=== PATIENT | male | born 1940 | race Caucasian/White ===

== ENCOUNTER → 2016-08-01 | Outpatient (CLI) | payer OTHER ==
[~2016-08-01] MED LIST: IOPAMIDOL (ISOVUE-300) 100 ML BTL IV ONE
--- NOTE | 2016-08-01 10:31 | CT ---
CT Abdomen and Pelvis (Without and With Contrast) CT Urogram 0925 hours History: R31.0, gross hematuria. Comparison: CT February 2014. Technique: Spiral images were obtained through the abdomen and pelvis without contrast for renal ston e evaluation. 90 mL of Isovue-300 IV contrast were administered. After 2 minute and 10 minute delays, spiral imaging was obtained through the abdomen and pelvis without compression. Images were reconst ructed in multiple planes for CT urogram imaging. Volume rendering was also performed. Dose reduction techniques were utilized. Findings: On the noncontrast images, there is no evidence of calculus projected over the kidneys or a long the expected path of the ureters. No bladder calculus is seen as well. With IV contrast administration, there is good uptake and excretion of contrast by the kidneys. Both kidneys demonstrate no evidence of solid exophytic suspicious lesions. In the right kidney interpolar calyceal region, there is a 5 mm hypodensity on image 106 of series 6 similar to previous study. In the right kidney lower pole, there is a 7 mm hypodense cortical nonspecific lesion also stable, image 147 of series 6. Several subcentimeter hypodensities in both kidneys similar to previous study witho ut suspicious lesions. Moderate bilateral perinephric stranding again noted. No evidence of ureteroli thiasis or ureteral obstruction. No definite ureteral lesions noted on the delayed series. However, d elayed images demonstrate asymmetric wall thickening of the anterior right bladder wall measuring up to 15 mm, new since previous study. In the posterior segment of the right lobe of the liver, there is a 1.7 cm cyst unchanged since previ ous study. No suspicious hepatic lesions. Nonobstructing gallstone identified again measuring 8 mm. N o pericholecystic fluid or biliary ductal dilation. No peripancreatic fluid. No splenomegaly. No adre nal enlargement. No bowel obstruction. Diverticulosis of the descending but especially sigmoid colon without diverticu litis. Severe atherosclerotic calcification of the aorta and iliac arteries without aneurysm. No sign ificant mesenteric or retroperitoneal adenopathy. Images through the pelvis demonstrate asymmetric wall thickening of the anterior right wall of the bl adder up to 15 mm suspicious for transitional cell carcinoma. Cystoscopy is recommended. Sigmoid dive rticulosis without diverticulitis. Atherosclerotic calcification of the iliac arteries. Right inguina l hernia with mesenteric fat. No significant pelvic adenopathy. L5-S1 moderate degenerative disk disease, bilateral L5 spondylolysis, and 5 mm spondylolisthesis resu lting in moderate to severe bilateral neural foraminal stenosis without central canal stenosis. Impression: 1. Asymmetric thickening of the anterior right wall of the bladder suspicious for transitional cell c arcinoma. Recommend cystoscopy evaluation. 2. No nephrolithiasis, urinary tract obstruction, or suspicious renal masses. Bilateral perinephric s tranding. Please see above findings. 3. Cholelithiasis. 4. Hepatic cyst. 5. Atherosclerotic aorta without aneurysm. 6. Sigmoid diverticulosis without diverticulitis. 7. No significant adenopathy. 8. L5-S1 spondylolytic grade 1 spondylolisthesis. Findings and recommendations discussed with Dr. Thuy Tee's medical staff specialist, at 1010 hours today. A Follow-Up Required test result notification was sent via the [employer] service, 10:24:55 AM, 08/01/2016 , [employer] Message ID [id number].
== END ==
LOC: FIMAGING 08:28
PROVIDERS: ATTEND Urology
DX: R31.0 Gross hematuria (principal); N32.9 Bladder disorder, unspecified; K80.20 Calculus of gallbladder without cholecystitis without obstruction; K57.30 Diverticulosis of large intestine without perforation or abscess without bleeding; M43.17 Spondylolisthesis, lumbosacral region
CPT/HCPCS: 74178; Q9967

== ENCOUNTER → 2016-10-20 | Outpatient (CLI) | payer OTHER | LOC: FIMAGING 13:07 | PROVIDERS: ATTEND Nurse Practitioner | DX: I82.612 Acute embolism and thrombosis of superficial veins of left upper extremity (principal) ==

== ENCOUNTER 2016-11-14 15:21 | Emergency (ER) | payer OTHER ==
--- NOTE | 2016-11-14 15:58 | EDPHY ---
H & P Stated Complaint: tx bladder cancer/low plts/coughing up blood Time Seen by Provider: 11/14/16 15:42 HPI/ROS: CHIEF COMPLAINT: Sent here for VQ scan. HISTORY OF PRESENT ILLNESS: The patient is a 76-year-old male with history of bladder cancer, who was sent here from [facility] to have a VQ scan due to recent episodes of hemoptysis and tachycardia. The patient had a CT with contrast in the past that caused facial swelling. He took Benadryl and it improved. No hospitalization was required. The patient states he is prone to angioedema with NSAIDS. He had a successful CT with contrast with pre- medication on 08/01/16 without issue. The patient took 40mg Prednisone a few hours before arrival today. REVIEW OF SYSTEMS: A 10 point review of systems was performed and is negative with the exception of the elements mentioned in the history of present illness. Source: Patient - Personal History Current Tetanus/Diphtheria Vaccine: Yes Tetanus Vaccine Date: 2008 - Medical/Surgical History Hx Asthma: No Hx Chronic Respiratory Disease: No Hx Diabetes: No Hx Cardiac Disease: No Hx Renal Disease: No Hx Cirrhosis: No Hx Alcoholism: No Hx HIV/AIDS: No Hx Splenectomy or Spleen Trauma: No Other PMH: bladder cancer. carotid endardectomy. atrial fibrillation - Social History Smoking Status: Former smoker Drug Use: None, Heroin Additional Social History: Lives with his . - Physical Exam Exam: HR 126, RR 22, BP 136/85 at triage. General Appearance: Alert, no acute distress. Eyes: Pupils equal and round, no conjunctival injection, no discharge. ENT, Mouth: Mucous membranes are moist, no oropharyngeal erythema or edema. Neck: No lymphadenopathy, supple. Trachea midline. Respiratory: Lungs are clear to auscultation; no wheezes, rales, or rhonchi. Cardiovascular: Irregularly irregular; no murmur, rub, or gallop. Gastrointestinal: Abdomen is soft and non tender, no masses or organomegaly, bowel sounds normal. Skin: Warm and dry, no rashes, normal color. Extremities: No lower extremity edema, no calf tenderness or swelling. Neurological: Alert and oriented. Moving all four extremities easily and equally. Psychiatric: Normal affect. Constitutional: Initial Vital Signs Temperature (C) 36.4 C 11/14/16 15:26 Heart Rate 126 H 11/14/16 15:26 Respiratory Rate 22 H 11/14/16 15:26 Blood Pressure 136/85 H 11/14/16 15:26 O2 Sat (%) 97 11/14/16 15:26 O2 Delivery Mode Room Air Allergies/Adverse Reactions: NSAIDS (Non-Steroidal Anti-Inflamma Allergy (Severe, Verified 11/14/16 15:24) Swelling/neck,face,throat azithromycin [From Zithromax] Allergy (Mild, Verified 11/14/16 15:24) Hives iodine Allergy (Verified 11/14/16 15:24) Swelling/neck,face,throat Home Medications: Medication Instructions Recorded Losartan Potassium [Cozaar 50 mg 100 mg PO DAILY 01/20/13 (RX)] Probenecid [Probenecid 500mg (RX)] 250 mg PO DAILY 01/20/13 Albuterol [Proventil Inhaler] 1 - 2 puffs IH Q4 PRN 02/04/13 Diltiazem Cd [Cardizem ER 120 MG 120 mg PO BID 03/02/13 (RX)] Crestor 11/14/16 Dulera 100 Mcg/5 Mcg Inhaler 11/14/16 Medical Decision Making ED Course/Re-evaluation: The patient is a 76-year-old male sent here from the cancer center to have a VQ scan due to episode of hemoptysis and tachycardia. The patient had a CT with contrast in the past that caused angioedema that he woke up at night with. He took Benadryl and facial swelling improved. No hospitalization was required. I reviewed the patient's past medical records. He had a successful pre-medicated CT contrast on 08/01/16 without issue. The patient took 40mg Prednisone a few hours before arrival today. 4:10 p.m.: I spoke to the the GASKET SUPERVISOR Amy at the [facility] to discuss CT Angiogram with pre-medication instead of V/Q. 4:15 p.m.: I spoke to Dr. Dempsey, Radiology, given patient's history of never requiring hospitalization, CT Angiogram after premedication is a reasonable approach, rather than V/Q scan. 4:20 p.m.: Further history was obtained from the patient. He stopped diltiazem and Bystolic 3 days ago because of low blood pressure during chemotherapy. On initial evaluation the patient's BP is 127/85. He has heart rate of 110 that is irregularly irregular. It is possible the patient went back into atrial fibrillation. He had a platelet count 80981 this morning. He does not have cough or cold. He does not have nausea or vomiting at the time of my evaluation. I suspect that his hemoptysis this morning was due to his low platelet count. I suspect that his recent shortness of breath might be due to return of his atrial fibrillation. He has been on Xarelto in the past, is not now. 5:00 p.m.: Patient resting comfortably while undergoing premedication for CT angiogram. His heart rate is around 100, irregularly irregular. Blood pressure 149/75. He is not tachypneic or hypoxic. I spoke briefly with Dr. Tristan Chavez who agrees with my recommendation to resume patient's medications if CT angiogram is negative for PE. This patient sees Dr. Fatou Emmanuel. AnCT angiogram of chest was obtained. I viewed the images myself on the PACS system. See the full radiology report in the imaging section. No PE. 6: 15 p.m.: I spoke to Dr. Fatou Emmanuel, Cardiology who recommends patient resumes Bystolic, not diltiazem. EKG shows patient is back in sinus rhythm. DC VS are BP 120/63, HR 82 regular, RR 18, room air pulse ox 96%. Differential Diagnosis: I considered ddx of dyspnea that includes but is not limited to afib, ACS, pulmonary infection, PE. - Data Points Laboratory Results: Laboratory Results 11/14/16 15:50 11/14/16 15:50 Medications Given: Discontinued Medications Diphenhydramine HCl (Benadryl Injection) 50 mg IVP ONCE ONE PRN Reason: Protocol Stop: 11/14/16 16:10 Last Admin: 11/14/16 16:37 Dose: 50 mg Famotidine/Sodium Chloride (Pepcid 20 Mg (Premix)) 50 mls @ 200 mls/hr IV ONCE ONE PRN Reason: Protocol Stop: 11/14/16 16:23 Last Admin: 11/14/16 16:38 Dose: 50 mls Sodium Chloride (Ns) 1,000 mls @ 0 mls/hr IV CONT VERONIQUE; Per Protocol PRN Reason: Protocol Stop: 05/13/17 16:14 Last Admin: 11/14/16 16:39 Dose: 1,000 mls Methylprednisolone Sodium Succinate (Solu-Medrol) 100 mg IVP ONCE ONE PRN Reason: Protocol Stop: 11/14/16 16:10 Last Admin: 11/14/16 16:37 Dose: 100 mg Departure - Departure Disposition: Home, Routine, Self-Care Clinical Impression: atrial fibrillation resolved Condition: Good Instructions: A-fib (Atrial Fibrillation) (ED) Additional Instructions: Resume taking your Bystolic medication. I recommend that you take your blood pressure twice daily, once in the morning once at night. Record the values. If you feel dizzy or lightheaded you should lie down and check your blood pressure. If you have persistent lightheadedness, a few faint, if you develop chest pain, if you have a persistently fast heart rate (over 100)--you should be re- evaluated. As we discussed, there is no sign of a pulmonary embolus (blood clot) on your chest angiogram. I suspect that atrial fibrillation might have been contributing to your shortness of breath. Please followup with Dr. Fatou Emmanuel your client support analyst, for further evaluation. Follow up with Dr. Salcedo as scheduled and planned. Referrals: Sofia Abarca MD [Primary Care Provider] - As per Instructions Report Scribed for: Diana Mullins Report Scribed by: Paty Menchaca Date of Report: 11/14/16 Time of Report: 15:58 Physician Review and Approval Statement: 11/14/16 16:48 Portions of this note were transcribed by the medical affairs specialist. I, Dr. Diana Mullins, personally performed the history, physical exam, and medical decision- making; and confirmed the accuracy of the information in the transcribed note.
[2016-11-14] MEDS ORDERED: FAMOTIDINE 20 MG/NACL 50 ML IV ONE (16:09)
[2016-11-14] MEDS ORDERED: methylPREDNISolone SOD SUCC 125 MG/2 ML VIAL IVP ONE (16:09)
[2016-11-14] MEDS ORDERED: NS 1,000 ML IV SCH (16:15)
[2016-11-14 16:30] LABS: ADD DIFF? YES; ADD MORPH? NO; ATYPICAL LYMPHOCYTE FLAG 0 (0-99); FRAGMENT RBC FLAG 0 (0-99); HEMATOCRIT 26.7 % (40.0-51.0); LIPEMIA HEMOLYSIS FLAG 80 (0-99); MEAN CELL HEMOGLOBIN 33.1 pg (27.9-34.1); MEAN CELL HEMOGLOBIN CONCENTR. 33.7 g/dL (32.4-36.7); MEAN CELL VOLUME 98.2 fL (81.5-99.8); MEAN PLATELET VOLUME 11.3 fL (8.7-11.7); PLATELET CLUMPS FLAG 0 (0-99); RED BLOOD CELL COUNT 2.72 10^6/uL (4.40-6.38); RED CELL DISTRIBUTION WIDTH 17.2 % (11.5-15.2)
[2016-11-14 16:33] LABS: ANION GAP 10 mEq/L (8-16); CALCIUM 7.8 mg/dL (8.5-10.4); CARBON DIOXIDE 20 mEq/l (22-31); CHLORIDE 101 mEq/L (97-110); CREATININE 0.9 mg/dL (0.7-1.3); GLOMERULAR FILTRATION RATE > 60; GLUCOSE 127 mg/dL (70-100); POTASSIUM 3.9 mEq/L (3.5-5.2); SODIUM 131 mEq/L (134-144)
[2016-11-14 16:35] LABS: LEFT SHIFT FLG 300 (0-99)
[2016-11-14 16:36] LABS: ADD SCAN? NO
[2016-11-14 16:38] LABS: PLATELET COUNT 28 10^3/uL (150-400)
[2016-11-14] MEDS ORDERED: IOPAMIDOL (ISOVUE 370) 100 ML BTL IV ONE (16:49)
[2016-11-14 17:18] LABS: PLATELET ESTIMATE DECREASED (ADEQ)
--- NOTE | 2016-11-14 18:14 | CPEKG ---
Heart Rate: 100 RR Interval: 600 P-R Interval: 152 QRSD Interval: 78 QT Interval: 308 QTC Interval: 398 P [place]: 52 QRS [place]wich: 40 T Wave Sandwich: 241 EKG Severity - ABNORMAL ECG - EKG Impression: SINUS TACHYCARDIA EKG Impression: LOW VOLTAGE IN FRONTAL LEADS EKG Impression: NONSPECIFIC T ABNORMALITIES, LATERAL LEADS Electronically Signed By: Benjamin King 15-Nov-2016 23:51:59
[2016-11-14 18:52] VITALS: PULSE 82; RESP 18; O2SAT 96
[2016-11-14 18:56] VITALS: BP 120/63; TEMP 98.6
== END 2016-11-14 18:52 | disposition home or self-care (01) ==
DX: I48.91 Unspecified atrial fibrillation (principal); Z85.51 Personal history of malignant neoplasm of bladder; Z87.891 Personal history of nicotine dependence
CPT/HCPCS: 71275; 93005; 96374; 96375; 99285; J1200; Q9967

== ENCOUNTER 2016-11-21 07:47 | Outpatient (CLI) | payer OTHER ==
[2016-11-21] MEDS ORDERED: FUROSEMIDE 20 MG/2 ML VIAL IVP ONE (08:30)
[2016-11-21] MEDS ORDERED: diphenhydrAMINE 25 MG CAP PO ONE (08:30)
[2016-11-21] MEDS ORDERED: ACETAMINOPHEN 325 MG TAB PO ONE (08:30)
== END 2016-11-21 17:00 | disposition home or self-care (01) ==
LOC: FOBOP 07:47 → EDSTATUS 08:00 → FOBOP 17:00
PROVIDERS: ATTEND Internal Medicine Hematology & Oncology
PROC: 30233N1 Transfusion of Nonautologous Red Blood Cells into Peripheral Vein, Percutaneous Approach (ICD-10-PCS; principal; 2016-11-21)
DX: C67.9 Malignant neoplasm of bladder, unspecified (principal)
CPT/HCPCS: 36430; P9016; P9021

== ENCOUNTER 2016-11-22 16:57 | Inpatient (IN) | payer OTHER ==
--- NOTE | 2016-11-22 17:57 | EDPHY ---
H & P Time Seen by Provider: 11/22/16 17:18 HPI/ROS: Chief complaint. Fever HPI. 76-year-old male with history of bladder cancer undergoing chemotherapy. His last chemo was November 10. He had blood transfusion yesterday for pancytopenia. Today he had a fever 102.3 degrees. He has slight cough. He was seen 3 days ago for some shortness of breath and had a negative chest CT for pulmonary embolus. No urinary symptoms. Denies chest pain shortness of breath or abdominal pain. No rash. ROS Constitutional. Fever Eyes. no problems with vision ENT. no sore throat, no nasal drainage Cardiovascular. no chest pain Respiratory. Cough Abdominal. no abdominal pain, no nausea/vomiting, no diarrhea . no problems urinating MS. no calf pain/swelling, no neck/back pain, no joint pain Skin. no rash Lymph. no swollen glands Neuro. no headache, no dizziness, no difficulty walking or with speech Past Medical/Surgical History: Bladder cancer, carotid endarterectomy, atrial fibrillation Social History: , nonsmoker, no alcohol Smoking Status: Former smoker Physical Exam: General Appearance: Alert well-developed male mild distress vital signs show temp 37.1degrees P. O2 saturation 88% on room air. This blood pressure 116/66 Eyes: Pupils equal and round no pallor or injection. ENT, Mouth: Mucous membranes are moist. Respiratory: No retractions inspiratory expiratory wheezing and rhonchi Cardiovascular: Regular rate and rhythm. Gastrointestinal: Abdomen is soft and nontender, no masses, bowel sounds normal. Neurological: Awake and alert, sensory and motor exams grossly normal. Skin: Warm and dry, no rashes. Musculoskeletal: Neck is supple nontender. Extremities symmetrical, full range of motion. Psychiatric: Patient is oriented X 3, there is no agitation. Constitutional: Initial Vital Signs Temperature (C) 37.1 C 11/22/16 17:09 Heart Rate 92 11/22/16 17:09 Respiratory Rate 20 11/22/16 17:09 Blood Pressure 116/66 11/22/16 17:09 O2 Sat (%) 88 L 11/22/16 17:09 O2 Delivery Mode Nasal Cannula O2 (L/minute) 2 Allergies/Adverse Reactions: NSAIDS (Non-Steroidal Anti-Inflamma Allergy (Severe, Verified 11/22/16 17:08) Swelling/neck,face,throat azithromycin [From Zithromax] Allergy (Mild, Verified 11/22/16 17:08) Hives iodine Allergy (Verified 11/22/16 17:08) Swelling/neck,face,throat Home Medications: Medication Instructions Recorded Losartan Potassium [Cozaar 50 mg 100 mg PO DAILY 01/20/13 (RX)] Probenecid [Probenecid 500mg (RX)] 250 mg PO DAILY 01/20/13 Albuterol [Proventil Inhaler] 1 - 2 puffs IH Q4 PRN 02/04/13 Diltiazem Cd [Cardizem ER 120 MG 120 mg PO BID 03/02/13 (RX)] Crestor 11/14/16 Dulera 100 Mcg/5 Mcg Inhaler 11/14/16 Lasix 11/22/16 Metoprolol Oral Susp (*) 11/22/16 Medical Decision Making - Diagnostics EKG Interpretation: EKG interpreted by me shows normal sinus rhythm with normal interval and axis. QRS is normal there is no significant ST elevation or depression. Occasional PAC. Rate 79 Imaging Results: Imaging Impressions Chest X-Ray 11/22/16 17:41 Impression: 1. No pneumonia or effusion. 2. COPD unchanged since December 2012. 3. 1.5 cm right upper lobe pulmonary nodule unchanged since recent CT. Chest x-ray reviewed by me and discussed Dr. Bedolla shows COPD but no pneumonia Procedures: Sepsis workup including blood cultures and lactate. Massimo villeda ED Course/Re-evaluation: Re-evaluation 6:55 p.m.. The patient, his , and I discussed imaging lab EKG results. We discussed treatment plan including recommendation for admission. The patient expresses understanding and agreement Cefepime IV after blood cultures I consulted and discussed case Dr. Rose, hospitalist, who agrees to the admission I consulted and discussed the case with Dr. Reina, oncology, who will see the patient in the hospital Differential Diagnosis: This may well be neutropenic fever though the patient receive Neulasta in his white blood cell count is now 26,000. I have considered sepsis, pneumonia, urinary tract infection. He has had recent chemotherapy with marked decrease in the all blood cell lines. Patient is covered with cefepime as antibiotic. - Data Points Laboratory Results: Laboratory Results 11/22/16 17:31 11/22/16 17:31 0411/22/16 11/22/16 17:31 17:31 17:31 WBC RBC Hgb Hct MCV MCH MCHC RDW Plt Count MPV Neut % (Auto) Lymph % (Auto) [place] % (Auto) Eos % (Auto) Baso % (Auto) Nucleat RBC Rel Count Absolute Neuts (auto) Absolute Lymphs (auto) Absolute Monos (auto) Absolute Eos (auto) Absolute Basos (auto) Absolute Nucleated RBC Immature Gran % Immature Gran # Differential Comment Cancelled RBC/WBC/PLT Morphology Cancelled Hypersegmented Neuts Cancelled Atypical Lymphocytes Cancelled Smudge Cells Cancelled Toxic Granulation Cancelled Toxic Vacuolation Cancelled Dohle Bodies Cancelled Ihsan Rods Cancelled Platelet Estimate Cancelled Large Platelets Cancelled Giant Platelets Cancelled Bizarre Platelets Cancelled Polychromasia Cancelled Hypochromasia Cancelled Basophilic Stippling Cancelled Microcytic Cells Cancelled Spherocytes Cancelled Pappenheimer Bodies Cancelled Sickle Cells Cancelled Target Cells Cancelled Tear Drop Cells Cancelled Oval Macrocytes Cancelled Stomatocytes Cancelled [place] Bodies Cancelled Echinocytes Cancelled Elliptocytes Cancelled Acanthocytes (Spur) Cancelled Rouleaux Cancelled Keratocytes Cancelled Schistocytes Cancelled Smear Review By PT 15.4 SEC H SEC (12.0-15.0) INR 1.22 H (0.83-1.16) APTT 29.2 SEC SEC (23.0-38.0) VBG Lactic Acid Sodium 135 mEq/L mEq/L (134-144) Potassium 3.3 mEq/L L mEq/L (3.5-5.2) Chloride 100 mEq/L mEq/L (97-110) Carbon Dioxide 27 mEq/l mEq/l (22-31) Anion Gap 8 mEq/L mEq/L (8-16) BUN 16 mg/dL mg/dL (7-23) Creatinine 1.0 mg/dL mg/dL (0.7-1.3) Estimated GFR > 60 Glucose 107 mg/dL H mg/dL (70-100) Calcium 8.5 mg/dL mg/dL (8.5-10.4) Total Bilirubin 1.3 mg/dL mg/dL (0.1-1.4) Cold Agglutinins Cancelled 11/22/16 11/22/16 17:31 17:31 WBC 26.07 10^3/uL H 10^3/uL (3.80-9.50) RBC 2.50 10^6/uL L 10^6/uL (4.40-6.38) Hgb 8.2 g/dL L g/dL (13.7-17.5) Hct 23.8 % L % (40.0-51.0) MCV 95.2 fL fL (81.5-99.8) MCH 32.8 pg pg (27.9-34.1) MCHC 34.5 g/dL g/dL (32.4-36.7) RDW 20.9 % H % (11.5-15.2) Plt Count 137 10^3/uL L 10^3/uL (150-400) MPV 10.3 fL fL (8.7-11.7) Neut % (Auto) Not Reported Lymph % (Auto) Not Reported [place] % (Auto) Not Reported Eos % (Auto) Not Reported Baso % (Auto) Not Reported Nucleat RBC Rel Count 1.3 % H % (0.0-0.2) Absolute Neuts (auto) Not Reported Absolute Lymphs (auto) Not Reported Absolute Monos (auto) Not Reported Absolute Eos (auto) Not Reported Absolute Basos (auto) Not Reported Absolute Nucleated RBC 0.34 10^3/uL H 10^3/uL (0-0.01) Immature Gran % Not Reported Immature Gran # Not Reported Differential Comment RBC/WBC/PLT Morphology Hypersegmented Neuts Atypical Lymphocytes Smudge Cells Toxic Granulation Toxic Vacuolation Dohle Bodies Ihsan Rods Platelet Estimate Pending Large Platelets Giant Platelets Bizarre Platelets Polychromasia Hypochromasia Basophilic Stippling Microcytic Cells Spherocytes Pappenheimer Bodies Sickle Cells Target Cells Tear Drop Cells Oval Macrocytes Stomatocytes [place] Bodies Echinocytes Elliptocytes Acanthocytes (Spur) Rouleaux Keratocytes Schistocytes Smear Review By Pending PT INR APTT VBG Lactic Acid 1.6 mmol/L mmol/L (0.7-2.1) Sodium Potassium Chloride Carbon Dioxide Anion Gap BUN Creatinine Estimated GFR Glucose Calcium Total Bilirubin Cold Agglutinins Medications Given: Discontinued Medications Albuterol/Ipratropium (Duoneb) 3 ml IH EDNOW ONE Stop: 11/22/16 18:25 Last Admin: 04/26/17 18:35 Dose: 3 ml Departure - Departure Disposition: [facility] Inpatient Acute Clinical Impression: Fever Qualifiers: Fever type: due to other condition Qualified Code(s): R50.81 - Fever presenting with conditions classified elsewhere Condition: Fair
[2016-11-22 18:07] LABS: INR 1.22 (0.83-1.16); PROTIME(PATIENT) 15.4 SEC (12.0-15.0)
[2016-11-22 18:08] LABS: APTT 29.2 SEC (23.0-38.0)
--- NOTE | 2016-11-22 18:10 | CPEKG ---
Heart Rate: 79 RR Interval: 759 P-R Interval: 152 QRSD Interval: 84 QT Interval: 384 QTC Interval: 441 P [place]: 62 QRS [place]: 36 EKG Severity - ABNORMAL ECG - EKG Impression: SINUS RHYTHM EKG Impression: SUPRAVENTRICULAR BIGEMINY EKG Impression: LOW VOLTAGE IN FRONTAL LEADS EKG Impression: NONSPECIFIC T ABNORMALITIES, LATERAL LEADS Electronically Signed By: Weston Castañeda 22-Nov-2016 21:12:15
[2016-11-22 18:12] LABS: ANION GAP 8 mEq/L (8-16); BILIRUBIN,TOTAL 1.3 mg/dL (0.1-1.4); CALCIUM 8.5 mg/dL (8.5-10.4); CARBON DIOXIDE 27 mEq/l (22-31); CHLORIDE 100 mEq/L (97-110); GLOMERULAR FILTRATION RATE > 60; GLUCOSE 107 mg/dL (70-100); POTASSIUM 3.3 mEq/L (3.5-5.2); SODIUM 135 mEq/L (134-144)
[2016-11-22] MEDS ORDERED: IPRATROPIUM/ALBUTEROL 3 ML DEYVIAL IH ONE (18:24)
[2016-11-22 18:28] LABS: ABSOLUTE NRBC COUNT 0.34 10^3/uL (0-0.01); ADD DIFF? YES; ADD MORPH? YES; FRAGMENT RBC FLAG 0 (0-99); HEMATOCRIT 23.8 % (40.0-51.0); HEMOGLOBIN 8.2 g/dL (13.7-17.5); LIPEMIA HEMOLYSIS FLAG 90 (0-99); MEAN CELL HEMOGLOBIN 32.8 pg (27.9-34.1); MEAN CELL HEMOGLOBIN CONCENTR. 34.5 g/dL (32.4-36.7); MEAN CELL VOLUME 95.2 fL (81.5-99.8); MEAN PLATELET VOLUME 10.3 fL (8.7-11.7); PLATELET CLUMPS FLAG 10 (0-99); PLATELET COUNT 137 10^3/uL (150-400)
[2016-11-22 18:33] LABS: ADD SCAN? NO; ATYPICAL LYMPHOCYTE FLAG 100 (0-99); LEFT SHIFT FLG 300 (0-99); NRBC-AUTO% 1.3 % (0.0-0.2); RED CELL DISTRIBUTION WIDTH 20.9 % (11.5-15.2)
[2016-11-22] MEDS ORDERED: CEFEPIME HCL 2 GM in D5W 100 ML IV ONE (19:00)
[2016-11-22] MEDS ORDERED: NS 1,000 ML IV ONE (19:12)
[2016-11-22 19:31] LABS: MACROCYTES 1+; MICROCYTES 1+; PLATELET ESTIMATE DECREASED (ADEQ)
[2016-11-22 19:32] LABS: KERATOCYTES 1+; POLYCHROMASIA 2+; SCHISTOCYTES 1+; STOMATOCYTES 1+
[2016-11-22] MEDS ORDERED: ONDANSETRON 4 MG/2 ML VIAL IVP PRN (20:57)
--- NOTE | 2016-11-22 21:15 | GHP ---
[f rep st] HISTORY AND PHYSICAL DATE OF ADMISSION: 11/22/2016 CHIEF COMPLAINT: Fever. HISTORY OF PRESENT ILLNESS: This is a 76-year-old male with history of bladder cancer diagnosed in June of 2016 currently undergoing chemotherapy. His last treatment was with Gemzar and carbopla tin on 11/10/2016. Since his last treatment he tells me he is "feeling awful." He had a blood leiva sfusion yesterday. He has very low energy. He was evaluated at [facility] ER on for hemoptysis. He continues to have a cough that he describes as productive with blueberr y colored sputum. He denies any shortness of breath. He denies any joint pain, but does have some bone pain which he attributes to Neulasta which he has received 2 doses of in the past few months. He denies any urinary complaints. The patient had a temperature of 102.3 this afternoon which ultimately brought him to the hospital f or further evaluation. PAST MEDICAL HISTORY: 1. Bladder cancer. 2. Recently diagnosed heart failure. 3. Atrial fibrillation. PAST SURGICAL HISTORY: 1. Bilateral carotid endarterectomy. 2. Hernia repair. 3. TURP. HOME MEDICATIONS: Reviewed. Refer to [facility] for details. ALLERGIES: NSAIDs, azithromycin and iodine. SOCIAL HISTORY: He denies any alcohol use. He is a former smoker. He is . FAMILY HISTORY: Reviewed and noncontributory. REVIEW OF SYSTEMS: Comprehensive 10-point review of systems was done and is negative, except for as mentioned in the HPI. PHYSICAL EXAM: VITAL SIGNS: Blood pressure 112/68, pulse 74, respiratory rate 20, O2 saturation 96 % on 2 liters. Temperature afebrile. GENERAL: No acute distress. HEAD: Normocephalic, atraumati c. Eyes are PERRLA. Sclerae anicteric. MOUTH: Moist mucous membranes. NECK: Supple. No lympha denopathy. CARDIOVASCULAR: S1-S2. No JVD. No lower extremity edema. PULMONARY: Lungs are clear . No wheezes, rales or rhonchi. ABDOMEN: Soft, nontender, nondistended. No guarding or rebound t enderness. Normoactive bowel sounds. EXTREMITIES: No clubbing or cyanosis. NEURO: Cranial nerve s 2-12 grossly intact. No focal motor or sensory deficits. SKIN: Clear. No rashes. DIAGNOSTICS: WBC is 26.07, hemoglobin 8.2, hematocrit 23.8, platelets 137, 64% segs, 20% bands, 9% lymphocytes. INR 1.22. Sodium 135, potassium 3.3, chloride 100, CO2 27, BUN 16, creatinine 1, gluc ose 107. Chest x-ray: Negative for pneumonia, 1.5 cm right upper lobe nodule unchanged since recent CT. EKG, which I visualized and personally interpreted, shows sinus rhythm. Rate 79 beats per minute, n o acute ischemic changes. ASSESSMENT AND PLAN: This is a 76-year-old male with history of bladder cancer currently undergoing treatment with Gemzar and carboplatin presenting with: 1. Fever with bandemia. The patient will be admitted to the hospital. Blood cultures and urine cu ltures are currently pending. He was started on cefepime in the emergency department which will be continued at this time. Oncology has been consulted by the emergency room physician. 2. Normocytic anemia most likely due to chemotherapy. Monitor for signs and symptoms of bleeding. 3. Mild hypokalemia. Replace per protocol. 4. The patient will be admitted to the hospital under inpatient status. /[id number]/MODL
[2016-11-22] MEDS ORDERED: ALBUTEROL 200 PUFFS/18 GM MDI IH PRN (21:49)
[2016-11-23] MEDS: CEFEPIME HCL 2 GM in D5W 100 ML IV SCH ×4 (01:36→20:58)
[2016-11-23 01:49] LABS: COLOR AMBER; LEUKOCYTE ESTERASE,URINE NEGATIVE (NEGATIVE); NITRITE,URINE NEGATIVE (NEGATIVE)
[2016-11-23 01:54] LABS: MUCUS TRACE /lpf (NONE-1+); WBC,URINE 15-25 /hpf (0-3)
[2016-11-23] MEDS: ROSUVASTATIN CALCIUM 40 MG TAB PO SCH ×2 (01:56→21:00)
[2016-11-23] MEDS: ACETAMINOPHEN 325 MG TAB PO PRN (04:15)
[2016-11-23 05:19] LABS: ADD DIFF? YES; FRAGMENT RBC FLAG 0 (0-99); HEMATOCRIT 21.9 % (40.0-51.0); HEMOGLOBIN 7.1 g/dL (13.7-17.5); LIPEMIA HEMOLYSIS FLAG 80 (0-99); MEAN CELL HEMOGLOBIN 32.3 pg (27.9-34.1); MEAN CELL HEMOGLOBIN CONCENTR. 32.4 g/dL (32.4-36.7); MEAN CELL VOLUME 99.5 fL (81.5-99.8); MEAN PLATELET VOLUME 9.8 fL (8.7-11.7); PLATELET CLUMPS FLAG 0 (0-99); PLATELET COUNT 124 10^3/uL (150-400)
[2016-11-23 05:31] LABS: ATYPICAL LYMPHOCYTE FLAG 120 (0-99); LEFT SHIFT FLG 230 (0-99); RED CELL DISTRIBUTION WIDTH 21.2 % (11.5-15.2)
[2016-11-23 05:32] LABS: ADD MORPH? NO; ADD SCAN? NO
[2016-11-23 05:41] LABS: ALANINE AMINOTRANSFERASE 39 IU/L (21-72); ALBUMIN 2.6 g/dL (3.5-5.0); ALKALINE PHOSPHATASE 137 IU/L (38-126); ASPARTATE AMINOTRANSFERASE 31 IU/L (17-59); BILIRUBIN,TOTAL 0.9 mg/dL (0.1-1.4); CALCIUM 7.9 mg/dL (8.5-10.4); CARBON DIOXIDE 28 mEq/l (22-31); CHLORIDE 104 mEq/L (97-110); CREATININE 0.9 mg/dL (0.7-1.3); GLOMERULAR FILTRATION RATE > 60; GLUCOSE 99 mg/dL (70-100); SODIUM 138 mEq/L (134-144)
[2016-11-23 05:42] LABS: ANION GAP 6 mEq/L (8-16); POTASSIUM 3.6 mEq/L (3.5-5.2)
[2016-11-23 06:18] LABS: PLATELET ESTIMATE DECREASED (ADEQ)
[2016-11-23 06:23] LABS: HYPOCHROMIA 1+; POLYCHROMASIA 1+
[2016-11-23] MEDS: ASCORBIC ACID 500 MG TAB PO SCH (08:34)
[2016-11-23] MEDS: FUROSEMIDE 20 MG TAB PO SCH (08:34)
[2016-11-23] MEDS: MONTELUKAST SODIUM 10 MG TAB PO SCH (08:34)
[2016-11-23] MEDS: CHOLECALCIFEROL VIT D3 2,000 UNITS TAB/CAP PO SCH (08:35)
[2016-11-23] MEDS: METOPROLOL SUCCINATE XR 25 MG TAB PO SCH (08:35)
[2016-11-23] MEDS: POTASSIUM CL 20 MEQ TAB PO SCH (08:35)
[2016-11-23] MEDS: ENOXAPARIN 40 MG/0.4 ML SYR SC SCH ×3 (08:35→09:54)
[2016-11-23] MEDS: FLUCONAZOLE 100 MG TAB PO SCH (08:35)
[2016-11-23] MEDS: Mometasone/Formoterol [Dulera 100 Mcg/5 Mcg Inhaler] IH SCH ×2 (08:36→21:20)
[2016-11-23] MEDS ORDERED: [UNRECOGNIZED DRUG - REMARK] PO SCH (09:00)
[2016-11-23] MEDS ORDERED: Herbals/Supplements -Info Only PO SCH (09:00)
[2016-11-23] MEDS ORDERED: FUROSEMIDE 20 MG/2 ML VIAL IVP ONE ×2 (09:24→14:30)
[2016-11-23] MEDS ORDERED: ACETAMINOPHEN 325 MG TAB PO ONE ×2 (09:24→14:30)
[2016-11-23] MEDS: PROBENECID 500 MG TAB PO SCH (09:53)
--- NOTE | 2016-11-23 10:32 | GCON ---
[f rep st] CONSULTATION ONCOLOGY FOLLOWUP CONSULTATION REFERRING PHYSICIAN: Antoine Rose DO REASON FOR CONSULTATION: Ongoing management of localized bladder cancer and chemotherapy side effec ts. RECOMMENDATIONS: 1. Agree with empiric cultures. 2. Agree with empiric antibiotic therapy pending cultures. 3. Because of the patient's underlying medical conditions. I would try to keep his hemoglobin at 8 or greater; therefore, I would give him a unit of blood today. 4. He has mild thrombocytopenia, but I would continue his prophylactic Lovenox since his platelet c ount is not low enough to reduce his risk of clotting. 5. His elevated white blood cell count in part may be related to Neulasta which he received on 11 November 2016 after his 3rd cycle of chemotherapy with carboplatin and gemcitabine finished. ASSESSMENT: This 76-year-old white male with a history of bladder cancer which was diagnosed on the 23 August 2016 is now admitted with persistent fevers. The patient's temperature was 102.3 degr ees Fahrenheit at home yesterday. He presented for evaluation and was admitted both because of anem ia as well as his high white count and his fevers for further evaluation. The patient's bladder can cer was T2 N0 M0, stage II, involving the lateral wall of the urinary bladder. This was resected bu t had positive margins. He is now undergoing chemotherapy with carboplatin and gemcitabine. He has received 3 cycles thus far. His most recent cycle completed on the 10 November 2016. This was day 8 of cycle 3. He tells me he has had fevers on and off since his diagnosis of his bladder cancer. They have been somewhat worse recently, however. He has had some dysuria. He reports he has COPD but has no produ ctive sputum at this time. As part of his workup prior to chemotherapy, he was found to have a 1.5 cm nodule in his lung in the right upper lobe. This was not FDG avid and was felt to represent a benign process. Depending on the results of his workup, additional recommendation will be made regarding his chemoth erapy. HISTORY OF PRESENT ILLNESS: Please see assessment. PAST MEDICAL HISTORY: Remarkable for melanoma which was diagnosed on the December. At that time, his T staging was Tis N0 M0 giving him stage 0 diagnosis. No further therapy was indicated f or melanoma at this time. His past medical history is also remarkable for recently diagnosed conges tive heart failure and atrial fibrillation as well as his COPD and bronchospasm. PAST SURGICAL HISTORY: Remarkable for bilateral carotid endarterectomy. He has had hernia repair a nd transurethral resection of his bladder tumor. SOCIAL HISTORY: The patient does not use alcohol. He is a former smoker. He is . FAMILY HISTORY: Remarkable for his father dying of leukemia at age 79. REVIEW OF SYSTEMS: Remarkable for intermittent wheezing dysuria, and ongoing fevers. He has also h ad some lower extremity edema. A 10 system review is otherwise unremarkable. PHYSICAL EXAMINATION: GENERAL: Shows an alert, obese white male in mild distress. HEENT: Shows n o oral exudates. The patient did have a history of thrush in the past. His sclerae are anicteric. LUNGS: Show no rales. He does have some faint expiratory wheezing diffusely. CARDIAC: Shows an occasional irregular beat. ABDOMEN: Shows an obese abdomen but normal bowel sounds. No tenderness . MUSCULOSKELETAL: Lower extremities show trace edema. LABORATORY STUDIES: His CBC today shows a white count of 19,940 with a hemoglobin of 7.1 and platel et count a 124,000. As expected because of Neulasta, his neutrophils are 87%, and his bands are 5%. Culture is pending so far, and his chest x-ray does not reveal acute infiltrate. Thank very much for allowing us to continue to participate in this pleasant gentleman's care. We lo ok forward to assisting with the management. /[id number]/MODL
--- NOTE | 2016-11-23 13:23 | HOSPPROG ---
Hospitalist Progress Note Assessment/Plan: 76 yo M with hx of bladder cancer currently undergoing chemotherapy with gemzar/ carboplatin pw fever and bandemia # fever: has had intermittent fevers prior to admission but recently as high as 102.3. No localizing symptoms but given recent chemotherapy and immune compromise concerning for occult infection. CXR personally reviewed and not concerning for pna, only e/o stable COPD. UA with 10-15 wbc, so will add urine culture. Blood cultures with ngtd. Continue cefepime for now, does not have high risk factors for concurrent MRSA so vanc not currently indicated. If no new issues arise and cultures negative at 72 hours, can dc home. # bandemia: in setting of recently receiving neulasta so unclear how pertinent this finding is. Will continue to trend. Empiric therapy as above. # bladder cancer: as above, undergoing chemo with plan for next treatment course tomorrow. Oncology involved, will need to delay chemo pending course of fever as above. # normocytic anemia: in setting of chemo and related to same, will transfuse for hgb < 7, has had transfusion day prior to admission # COPD vs RAD: without e/o acute exacerbation, no pulmonary complaints, cxr stable x several years # p afib: personally reviewed ecg and currently in SR, continue metoprolol # htn/hld: continue op meds # dispo: IP status, will need > 48 hours stay for eval/mgmt of above given high risk presenting issues requiring IV abx and close monitoring Patient new to my care. Old records reviewed and summarzied as above. Care plan reviewed with oncology. Further hx obtained from patients present at bedside. Subjective: no acute overnight events, patient currently feeling a bit better than when he came in, has not had significant fever overnight, no real appetite still Objective: Vital Signs Temp Pulse Resp BP Pulse Ox 37.4 C 75 18 115/58 L 98 11/23/16 12:53 11/23/16 04:06 11/23/16 04:06 11/23/16 04:06 11/23/16 04:06 Laboratory Results 11/23/16 05:03 11/23/16 05:03 11/22/16 11/23/16 11/24/16 05:59 05:59 05:59 Intake Total 1400 200 Output Total 450 Balance 950 200 PT 15.4 SEC (12.0-15.0) H 11/22/16 17:31 INR 1.22 (0.83-1.16) H 11/22/16 17:31 awake alert nad anicteric op clear rrr no mrg cta b soft nt nd no cce warm dry well perfused oriented appropriate pleasant ICD10 Worksheet Patient Problems: Problems Problem Status Onset Fever Acute
[2016-11-23] MEDS ORDERED: ALBUTEROL SULFATE IH PRN (14:37)
[2016-11-23] MEDS: LATANOPROST 0.005% 2.5 ML OPHT DROPS EACHEYE SCH (21:07)
[2016-11-23] MEDS: LORazepam 1 MG TAB PO PRN (21:46)
[2016-11-24] MEDS: CEFEPIME HCL 2 GM in D5W 100 ML IV SCH ×3 (04:53→20:50)
[2016-11-24 05:21] LABS: ADD DIFF? YES; ADD MORPH? YES; ADD SCAN? YES
[2016-11-24 05:34] LABS: ABSOLUTE NRBC COUNT 0.15 10^3/uL (0-0.01); FRAGMENT RBC FLAG 0 (0-99); HEMATOCRIT 25.6 % (40.0-51.0); HEMOGLOBIN 8.4 g/dL (13.7-17.5); LIPEMIA HEMOLYSIS FLAG 80 (0-99); MEAN CELL HEMOGLOBIN 32.4 pg (27.9-34.1); MEAN CELL HEMOGLOBIN CONCENTR. 32.8 g/dL (32.4-36.7); MEAN CELL VOLUME 98.8 fL (81.5-99.8); MEAN PLATELET VOLUME 9.8 fL (8.7-11.7); NRBC-AUTO% 0.8 % (0.0-0.2); PLATELET CLUMPS FLAG 20 (0-99); PLATELET COUNT 147 10^3/uL (150-400); RED BLOOD CELL COUNT 2.59 10^6/uL (4.40-6.38)
[2016-11-24 05:37] LABS: ATYPICAL LYMPHOCYTE FLAG 210 (0-99); LEFT SHIFT FLG 210 (0-99); RED CELL DISTRIBUTION WIDTH 21.2 % (11.5-15.2)
[2016-11-24 06:17] LABS: MACROCYTES 1+; PLATELET ESTIMATE ADEQUATE (ADEQ); POLYCHROMASIA 2+
[2016-11-24 06:18] LABS: HYPOCHROMIA 1+; MICROCYTES 1+
[2016-11-24] MEDS: METOPROLOL SUCCINATE XR 25 MG TAB PO SCH (09:20)
[2016-11-24] MEDS: CHOLECALCIFEROL VIT D3 2,000 UNITS TAB/CAP PO SCH (09:20)
[2016-11-24] MEDS: ENOXAPARIN 40 MG/0.4 ML SYR SC SCH (09:20)
[2016-11-24] MEDS: FLUCONAZOLE 100 MG TAB PO SCH (09:20)
[2016-11-24] MEDS: MONTELUKAST SODIUM 10 MG TAB PO SCH (09:21)
[2016-11-24] MEDS: ASCORBIC ACID 500 MG TAB PO SCH (09:21)
[2016-11-24] MEDS: POTASSIUM CL 20 MEQ TAB PO SCH (09:21)
[2016-11-24] MEDS: FUROSEMIDE 20 MG TAB PO SCH (09:21)
[2016-11-24] MEDS: PROBENECID 500 MG TAB PO SCH (09:22)
[2016-11-24] MEDS: Mometasone/Formoterol [Dulera 100 Mcg/5 Mcg Inhaler] IH SCH ×2 (09:32→21:01)
[2016-11-24 11:40] LABS: SCAN NEGATIVE
--- NOTE | 2016-11-24 12:27 | SOAPPROG ---
SOAP Progress Note Assessment/Plan: Assessment: - still febrile without a source, but WBC is improving. Cultures negative so far. Has a dry cough - Hgb is up to 8.4. He is feeling a little stronger and was able to walk around in the room - Bladder CA - was due for chemo today, but currently on hold Plan: I would look at another chest Xray. No txn needed today continue empiric antibiotic therapy Subjective: Feels a little stronger. Dry cough Objective: Vital Signs Temp Pulse Resp BP Pulse Ox 37.3 C 71 16 108/51 L 92 11/24/16 11:23 11/24/16 09:20 11/24/16 08:49 11/24/16 09:20 11/24/16 08:49 Laboratory Results 11/24/16 04:44 11/23/16 05:03 11/22/16 11/23/16 11/24/16 23:59 23:59 23:59 Intake Total 1000 600 850 Output Total 1150 450 Balance 1000 -550 400 PT 15.4 SEC (12.0-15.0) H 11/22/16 17:31 INR 1.22 (0.83-1.16) H 11/22/16 17:31 Physical Exam - Physical Exam Respiratory: other (coarse breath sounds) Cardiac/Chest: regular rate, rhythm, edema (LE 1+ improving) Abdomen: normal bowel sounds, non-tender, soft ICD10 Worksheet Patient Problems: Problems Problem Status Onset Fever Acute
--- NOTE | 2016-11-24 13:58 | HOSPPROG ---
Hospitalist Progress Note Assessment/Plan: 76 yo M with hx of bladder cancer currently undergoing chemotherapy with gemzar/ carboplatin pw fever and bandemia # fever: continued fever overnight, started on cefepime given immune compromise with recent chemo. CXR w/o pna, UA negative, blood cultures with ngtd. Will repeat cxr given hypoxia and cough as well. # acute hypoxic respiratory failure: with o2 sats today of 91% on 2L of oxygen, repeating cxr as above, some atelectasis with limited mobility likely contributing, will add IS # leukocytosis/bandemia: in setting of recently receiving neulasta, has been trending down. # bladder cancer: as above, undergoing chemo and next course of chemo to be delayed given fevers etc. Oncology involved, will need to delay chemo pending course of fever as above. # normocytic anemia: in setting of chemo and related to same, will transfuse for hgb < 7, has had transfusion day prior to admission # COPD vs RAD: without e/o acute exacerbation, no pulmonary complaints, cxr stable x several years # p afib: personally reviewed ecg and currently in SR, continue metoprolol # htn/hld: continue op meds # dispo: IP status, will need > 48 hours stay for eval/mgmt of above given high risk presenting issues requiring IV abx and close monitoring Subjective: no significant overnight events, patient febrile again to 102 overnight but today only mild fever to high 90s, otherwise feels well, slight cough Objective: Vital Signs Temp Pulse Resp BP Pulse Ox 37.3 C 78 16 98/57 L 93 11/24/16 13:33 11/24/16 13:33 11/24/16 13:33 11/24/16 13:33 11/24/16 13:33 Laboratory Results 11/24/16 04:44 11/23/16 05:03 11/23/16 11/24/16 11/25/16 05:59 05:59 05:59 Intake Total 1400 850 200 Output Total 450 1050 100 Balance 950 -200 100 PT 15.4 SEC (12.0-15.0) H 11/22/16 17:31 INR 1.22 (0.83-1.16) H 11/22/16 17:31 awake alert nad anicteric op clear rrr no mrg cta b soft nt nd no cce warm dry well perfused oriented appropriate pleasant ICD10 Worksheet Patient Problems: Problems Problem Status Onset Fever Acute
[2016-11-24] MEDS: LORazepam 1 MG TAB PO PRN (20:38)
[2016-11-24] MEDS: ROSUVASTATIN CALCIUM 40 MG TAB PO SCH (20:39)
[2016-11-24] MEDS: LATANOPROST 0.005% 2.5 ML OPHT DROPS EACHEYE SCH (20:40)
[2016-11-24] MEDS: ACETAMINOPHEN 325 MG TAB PO PRN (20:50)
[2016-11-25 04:31] LABS: ABSOLUTE NRBC COUNT 0.12 10^3/uL (0-0.01); ADD DIFF? YES; FRAGMENT RBC FLAG 0 (0-99); HEMATOCRIT 25.1 % (40.0-51.0); HEMOGLOBIN 8.2 g/dL (13.7-17.5); LIPEMIA HEMOLYSIS FLAG 80 (0-99); MEAN CELL HEMOGLOBIN 32.4 pg (27.9-34.1); MEAN CELL HEMOGLOBIN CONCENTR. 32.7 g/dL (32.4-36.7); MEAN CELL VOLUME 99.2 fL (81.5-99.8); MEAN PLATELET VOLUME 9.7 fL (8.7-11.7); NRBC-AUTO% 0.8 % (0.0-0.2); PLATELET CLUMPS FLAG 0 (0-99); PLATELET COUNT 148 10^3/uL (150-400); RED BLOOD CELL COUNT 2.53 10^6/uL (4.40-6.38)
[2016-11-25 04:43] LABS: ADD MORPH? NO; ADD SCAN? NO; ATYPICAL LYMPHOCYTE FLAG 240 (0-99); LEFT SHIFT FLG 140 (0-99)
[2016-11-25 05:08] LABS: PLATELET ESTIMATE ADEQUATE (ADEQ)
[2016-11-25 05:09] LABS: POLYCHROMASIA 2+
[2016-11-25 05:11] LABS: MACROCYTES 1+
[2016-11-25] MEDS: CEFEPIME HCL 2 GM in D5W 100 ML IV SCH (05:24)
[2016-11-25] MEDS: ASCORBIC ACID 500 MG TAB PO SCH (09:01)
[2016-11-25] MEDS: METOPROLOL SUCCINATE XR 25 MG TAB PO SCH (09:01)
[2016-11-25] MEDS: POTASSIUM CL 20 MEQ TAB PO SCH (09:02)
[2016-11-25] MEDS: FUROSEMIDE 20 MG TAB PO SCH (09:02)
[2016-11-25] MEDS: FLUCONAZOLE 100 MG TAB PO SCH (09:02)
[2016-11-25] MEDS: CHOLECALCIFEROL VIT D3 2,000 UNITS TAB/CAP PO SCH (09:03)
[2016-11-25] MEDS: MONTELUKAST SODIUM 10 MG TAB PO SCH (09:03)
[2016-11-25] MEDS: ENOXAPARIN 40 MG/0.4 ML SYR SC SCH (09:03)
[2016-11-25] MEDS: PROBENECID 500 MG TAB PO SCH (09:04)
[2016-11-25] MEDS: Mometasone/Formoterol [Dulera 100 Mcg/5 Mcg Inhaler] IH SCH ×2 (09:07→20:34)
--- NOTE | 2016-11-25 10:41 | HOSPPROG ---
Hospitalist Progress Note Assessment/Plan: 76 yo M with hx of bladder cancer currently undergoing chemotherapy with Gemzar/ carboplatin presenting with fever and bandemia # fever unknown source (CULTURES NEGATIVE/ fever improving) -DC cefepime # normocytic anemia likely chemo related -transfuse for hgb < 7 -will discuss hemolytic anemia w/u with oncology # acute hypoxic respiratory failure: with o2 sats today of 91% on 2L of oxygen -cont IS -repeat cxr done 11/24 was visualized and reviewed without signs of pna # leukocytosis/bandemia: in setting of recently receiving neulasta, has been trending down. # bladder cancer: as above, undergoing chemo and next course of chemo to be delayed given fevers etc. Oncology involved, will need to delay chemo pending course of fever as above. # COPD vs RAD: without e/o acute exacerbation, no pulmonary complaints, cxr stable x several years # p afib: personally reviewed ecg and currently in SR, continue metoprolol # htn/hld: continue op meds # dispo: IP status monitor off antibiotics Subjective: feeling better today. improved appetite. improved fever Objective: Vital Signs Temp Pulse Resp BP Pulse Ox 37.1 C 81 18 113/58 L 95 11/25/16 08:31 11/25/16 08:31 11/25/16 08:31 11/25/16 08:31 11/25/16 08:31 Laboratory Results 11/25/16 04:25 11/23/16 05:03 11/24/16 11/25/16 11/26/16 05:59 05:59 05:59 Intake Total 850 920 Output Total 1050 100 Balance -200 820 PT 15.4 SEC (12.0-15.0) H 11/22/16 17:31 INR 1.22 (0.83-1.16) H 11/22/16 17:31 - Physical Exam Constitutional: no apparent distress, appears nourished, not in pain Eyes: PERRL, anicteric sclera, EOMI Cardiovascular: regular rate and rhythym, no murmur, rub, or gallop Respiratory: no respiratory distress, no rales or rhonchi, clear to auscultation Gastrointestinal: normoactive bowel sounds, soft, non-tender abdomen, no palpable masses Genitourinary: no bladder fullness, no bladder tenderness, no renal bruits Neurologic: AAOx3, sensation intact bilaterally ICD10 Worksheet Patient Problems: Problems Problem Status Onset Fever Acute
--- NOTE | 2016-11-25 11:23 | SOAPPROG ---
SOAP Progress Note Assessment/Plan: Assessment: - still having low grade fevers without a source, but WBC is improving. Cultures negative so far. CXR is ok - Hgb is up to 8.2 He is feeling a little stronger and was able to walk around in the room - Bladder CA - was due for chemo today, but currently on hold Plan: Work up for hemolysis, although I think anemia is related to chemo, i think we should do a ct abd/pelvis to make sure we are not seeing obvious progression of his bladder ca which could cause a fever. He has a pulmonary nodule which is not glucose avid 11/25/16 11:19 11/25/16 11:20 Subjective: Feels a bit better today Objective: Vital Signs Temp Pulse Resp BP Pulse Ox 98.8 F 81 18 113/58 L 95 11/25/16 08:31 11/25/16 08:31 11/25/16 08:31 11/25/16 08:31 11/25/16 08:31 Laboratory Results 11/25/16 04:25 11/23/16 05:03 11/24/16 11/25/16 11/26/16 05:59 05:59 05:59 Intake Total 850 920 Output Total 1050 100 Balance -200 820 PT 15.4 SEC (12.0-15.0) H 11/22/16 17:31 INR 1.22 (0.83-1.16) H 11/22/16 17:31 Physical Exam - Physical Exam General Appearance: alert, no apparent distress Respiratory: lungs clear, normal breath sounds Cardiac/Chest: regular rate, rhythm Abdomen: normal bowel sounds, non-tender ICD10 Worksheet Patient Problems: Problems Problem Status Onset Fever Acute
[2016-11-25 12:04] LABS: LACTATE DEHYDROGENASE 1328 IU/L (313-618)
[2016-11-25] MEDS ORDERED: methylPREDNISolone SOD SUCC 125 MG/2 ML VIAL IVP ONE (13:20)
[2016-11-25] MEDS ORDERED: FAMOTIDINE 20 MG TAB PO ONE (13:21)
[2016-11-25] MEDS ORDERED: diphenhydrAMINE 50 MG CAP PO ONE (13:21)
[2016-11-25] MEDS ORDERED: IOPAMIDOL (ISOVUE-300) 100 ML BTL IV ONE (15:30)
[2016-11-25] MEDS: ROSUVASTATIN CALCIUM 40 MG TAB PO SCH ×2 (21:01→21:02)
[2016-11-25] MEDS: LATANOPROST 0.005% 2.5 ML OPHT DROPS EACHEYE SCH (21:01)
[2016-11-25] MEDS: LORazepam 1 MG TAB PO PRN (21:14)
[2016-11-26 05:18] LABS: ABSOLUTE NRBC COUNT 0.09 10^3/uL (0-0.01); ADD DIFF? YES; FRAGMENT RBC FLAG 0 (0-99); HEMATOCRIT 25.9 % (40.0-51.0); HEMOGLOBIN 8.3 g/dL (13.7-17.5); LIPEMIA HEMOLYSIS FLAG 80 (0-99); MEAN PLATELET VOLUME 9.9 fL (8.7-11.7); NRBC-AUTO% 0.4 % (0.0-0.2); PLATELET CLUMPS FLAG 0 (0-99); PLATELET COUNT 186 10^3/uL (150-400); RED BLOOD CELL COUNT 2.59 10^6/uL (4.40-6.38)
[2016-11-26 05:32] LABS: ADD MORPH? NO; ADD SCAN? NO; ATYPICAL LYMPHOCYTE FLAG 120 (0-99); LEFT SHIFT FLG 110 (0-99)
[2016-11-26 05:56] LABS: MACROCYTES 1+; MICROCYTES 1+; PLATELET ESTIMATE ADEQUATE (ADEQ); POLYCHROMASIA 1+; STOMATOCYTES 1+
[2016-11-26] MEDS: Mometasone/Formoterol [Dulera 100 Mcg/5 Mcg Inhaler] IH SCH (09:39)
[2016-11-26] MEDS: METOPROLOL SUCCINATE XR 25 MG TAB PO SCH (09:59)
[2016-11-26] MEDS: CHOLECALCIFEROL VIT D3 2,000 UNITS TAB/CAP PO SCH (09:59)
[2016-11-26] MEDS: POTASSIUM CL 20 MEQ TAB PO SCH (09:59)
[2016-11-26] MEDS: FLUCONAZOLE 100 MG TAB PO SCH (10:00)
[2016-11-26] MEDS: MONTELUKAST SODIUM 10 MG TAB PO SCH (10:00)
[2016-11-26] MEDS: FUROSEMIDE 20 MG TAB PO SCH (10:00)
[2016-11-26] MEDS: ASCORBIC ACID 500 MG TAB PO SCH (10:00)
[2016-11-26] MEDS: PROBENECID 500 MG TAB PO SCH (10:29)
[2016-11-26] MEDS: ENOXAPARIN 40 MG/0.4 ML SYR SC SCH (10:34)
--- NOTE | 2016-11-26 10:45 | SOAPPROG ---
SOAP Progress Note Assessment/Plan: Assessment: - Afebrile times 24 hours WBC is high but received neulasta. Cultures negative so far. CXR is ok - Hgb is up to 8.3 He is feeling a little stronger and was able to walk around in the room, some diarrhea. Retic 2.5 corrected and ldh up but I think c/w marrow recovery and neulasta. Kerry negative - Bladder CA - was due for chemo , but currently on hold. Ct abdomen pelvis does not show evidence of tumor recurrence or fever source Plan:Home today, follow up with Dr Salcedo, check stool for c dif either today or as outpt 11/25/16 11:19 11/25/16 11:20 11/26/16 10:39 Subjective: Feels ok, some diarrhea Objective: Vital Signs Temp Pulse Resp BP Pulse Ox 98.1 F 76 18 120/68 94 11/26/16 09:00 11/26/16 09:00 11/26/16 09:00 11/26/16 09:00 11/26/16 09:00 Microbiology 11/23/16 21:00 Urine Culture - Final Urine,Clean Catch Laboratory Results 11/26/16 04:37 11/23/16 05:03 11/25/16 11/26/16 11/27/16 05:59 05:59 05:59 Intake Total 920 1250 Output Total 100 Balance 820 1250 PT 15.4 SEC (12.0-15.0) H 11/22/16 17:31 INR 1.22 (0.83-1.16) H 11/22/16 17:31 Physical Exam - Physical Exam General Appearance: alert, no apparent distress Respiratory: lungs clear, normal breath sounds Cardiac/Chest: regular rate, rhythm Abdomen: normal bowel sounds, non-tender ICD10 Worksheet Patient Problems: Problems Problem Status Onset Fever Acute
[2016-11-26 12:47] VITALS: BP 107/63; PULSE 80; RESP 20; TEMP 98.5; O2SAT 91
--- NOTE | 2016-11-28 08:19 | GDS ---
[f rep st] DISCHARGE SUMMARY This discharge summary was initially dictated on the day of discharge; however, it seems to have got ten misplaced in [facility]. DISCHARGE DIAGNOSES: 1. Fever of unknown source with bandemia. 2. History of bladder cancer, undergoing chemotherapy with Gemzar and carboplatin. 3. Normocytic anemia, likely chemotherapy related. 4. Acute hypoxemic respiratory failure, improved. 5. Chronic obstructive pulmonary disease versus reactive airway disease. 6. Paroxysmal atrial fibrillation. 7. Hypertension. 8. Hyperlipidemia. 9. Stool positive for Clostridium difficile. CONSULTANTS: Miguel Angel Garza MD HOSPITAL COURSE BY PROBLEM: Fever in an immunocompromised host, undergoing chemotherapy with bandem ia: The patient was admitted where blood cultures were drawn that did not reveal any organisms. He was initially treated with IV cefepime. Cefepime was stopped 1 day prior to discharge. On the day of discharge, he did have 1 bout of diarrhea. Formed stool was sent that was positive for C diffic ile. He was not discharged on antibiotics. I did give him a prescription for oral vancomycin to [facility] if he continues to have diarrhea. PHYSICAL EXAM: VITAL SIGNS: On day of discharge, blood pressure 107/63, pulse of 80, respiratory r ate 20, O2 sat 91% on room air, temperature afebrile. GENERAL: No acute distress. HEART: S1, S2. LUNGS: Clear. ABDOMEN: Soft. EXTREMITIES: No edema. PERTINENT LABS AND STUDIES DONE THIS HOSPITAL STAY: CT of the abdomen done 11/25/2016, refer to rep ort. Chest x-ray done on the and , refer to report. DISCHARGE MEDICATIONS: Please refer to discharge medication reconciliation in [facility] for details. DISCHARGE INSTRUCTIONS: The patient was discharged from the hospital where he should follow up with Dr. Salcedo. Once again, the source of his fever is not entirely clear. There are some concerns that he may have C difficile; however, this does not seem likely if he is not having diarrhea. Once again, if he continues to have diarrhea, I think it would be appropriate to treat him as if this fe virgilio was caused by C difficile with oral vancomycin to complete a 10-day to 2-week course. /[id number]/MODL
== END 2016-11-26 15:57 | disposition home or self-care (01) | DRG 864 ==
LOC: F1N 19:45
PROVIDERS: ADMIT Family Medicine; ATTEND Family Medicine
PROC: 30233N1 Transfusion of Nonautologous Red Blood Cells into Peripheral Vein, Percutaneous Approach (ICD-10-PCS; principal; 2016-11-23)
DX: R50.9 Fever, unspecified (principal); J96.01 Acute respiratory failure with hypoxia; A04.7 Enterocolitis due to Clostridium difficile; C67.9 Malignant neoplasm of bladder, unspecified; D72.825 Bandemia; D64.81 Anemia due to antineoplastic chemotherapy; J44.9 Chronic obstructive pulmonary disease, unspecified; I48.0 Paroxysmal atrial fibrillation; I10 Essential (primary) hypertension; E78.5 Hyperlipidemia, unspecified; E87.6 Hypokalemia
CPT/HCPCS: 96365; J0692; J1200; J1650; P9016; Q9967

== ENCOUNTER 2016-12-09 10:16 | Outpatient (CLI) | payer OTHER ==
[2016-12-09] MEDS ORDERED: diphenhydrAMINE 25 MG CAP PO ONE (10:30)
[2016-12-09] MEDS ORDERED: ACETAMINOPHEN 325 MG TAB PO ONE (10:30)
[2016-12-09 15:45] VITALS: BP 89/57; PULSE 80; RESP 20; TEMP 98.1
== END 2016-12-09 15:46 | disposition home or self-care (01) ==
LOC: FOBOP 10:16 → EDSTATUS 13:45 → FOBOP 15:46
PROVIDERS: ATTEND Internal Medicine Hematology & Oncology
PROC: 30233N1 Transfusion of Nonautologous Red Blood Cells into Peripheral Vein, Percutaneous Approach (ICD-10-PCS; principal; 2016-12-09)
DX: C67.9 Malignant neoplasm of bladder, unspecified (principal)
CPT/HCPCS: 36430; P9016

== ENCOUNTER 2016-12-17 16:35 | Inpatient (IN) | payer OTHER ==
[2016-12-17] MEDS ORDERED: NS 1,000 ML IV ONE (17:06)
--- NOTE | 2016-12-17 17:15 | EDPHY ---
H & P Stated Complaint: SOB, LOW B/P, NAUSEA Time Seen by Provider: 12/17/16 16:54 HPI/ROS: CHIEF COMPLAINT: Generalized weakness HISTORY OF PRESENT ILLNESS: The patient is a 76-year-old man with a history of bladder cancer followed by Dr. Salcedo who comes to the emergency department complaining that he is feeling weak and has low blood pressure. He received his last round of chemotherapy 2 weeks ago. He has required several blood transfusions for anemia caused by the chemotherapy. He is also taking nulastin. He does have a history of paroxysmal atrial fibrillation but is not on a blood thinner. He does not have any blood in his stool. He has not been vomiting. He states that he also has been dehydrated because he has felt nauseous and is not eating or drinking well. He denies chest pain or shortness of breath. His family states that he looks pale. They think that he will need another transfusion. Also his blood pressure was low at home 88 systolic. REVIEW OF SYSTEMS: Constitutional: denies: chills, fever, recent illness, recent injury EENTM: denies: blurred vision, double vision, nose congestion Respiratory: denies: cough, shortness of breath Cardiac: denies: chest pain, irregular heart rate, lightheadedness, palpitations Gastrointestinal/Abdominal: The nausea, denies: abdominal pain, nausea, vomiting, blood streaked stools Genitourinary: denies: dysuria, frequency, hematuria, pain Musculoskeletal: denies: joint pain, muscle pain Skin: denies: lesions, rash, jaundice, bruising Neurological: denies: headache, numbness, paresthesia, tingling, dizziness, weakness Hematologic/Lymphatic: denies: blood clots, easy bleeding, easy bruising Immunologic/allergic: denies: HIV/AIDS, transplant EXAM: GENERAL: pale. HEAD: Atraumatic, normocephalic. EYES: Pupils equal round and reactive to light, extraocular movements intact, sclera anicteric, conjunctiva pale . ENT: TMs normal, nares patent, oropharynx clear without exudates. Moist mucous membranes. NECK: Normal range of motion, supple without lymphadenopathy or JVD. LUNGS: Breath sounds clear to auscultation bilaterally and equal. No wheezes rales or rhonchi. HEART: Regular rate and rhythm without murmurs, rubs or gallops. ABDOMEN: Soft, nontender, normoactive bowel sounds. No guarding, no rebound. No masses appreciated. BACK: No CVA tenderness, no spinal tenderness, step-offs or deformities EXTREMITIES: Normal range of motion, no pitting or edema. No clubbing or cyanosis. NEUROLOGICAL: Cranial nerves II through XII grossly intact. Normal speech, normal gait. 5/5 strength, normal movement in all extremities, normal sensation PSYCH: Normal mood, normal affect. SKIN: Warm, dry, normal turgor, no visible rashes or lesions. Source: Patient Exam Limitations: No limitations - Personal History Current Tetanus Diphtheria and Acellular Pertussis (TDAP): Yes Tetanus Vaccine Date: 2008 - Medical/Surgical History Hx Asthma: No Hx Chronic Respiratory Disease: No Hx Diabetes: No Hx Cardiac Disease: No Hx Renal Disease: No Hx Cirrhosis: No Hx Alcoholism: No Hx HIV/AIDS: No Hx Splenectomy or Spleen Trauma: No Other PMH: bladder cancer. carotid endardectomy. atrial fibrillation - Family History Significant Family History: No pertinent family hx - Social History Smoking Status: Former smoker Alcohol Use: None Drug Use: None Constitutional: Initial Vital Signs Temperature (C) 36.7 C 12/17/16 16:43 Respiratory Rate 20 12/17/16 16:43 Blood Pressure 87/40 L 12/17/16 16:43 O2 Delivery Mode Room Air Allergies/Adverse Reactions: NSAIDS (Non-Steroidal Anti-Inflamma Allergy (Severe, Verified 12/17/16 16:47) Swelling/neck,face,throat azithromycin [From Zithromax] Allergy (Mild, Verified 12/17/16 16:47) Hives iodine Allergy (Verified 12/17/16 16:47) Swelling/neck,face,throat Home Medications: Medication Instructions Recorded Furosemide [Lasix 20 MG (*)] 20 mg PO DAILY 11/22/16 Metoprolol Succinate Xr [Toprol Xl 25 mg PO DAILY 11/22/16 25 mg (*)] Montelukast Sodium [Singulair 10 10 mg PO DAILY 11/22/16 mg (*)] Probenecid [Probenecid 500mg (*)] 500 mg PO DAILY 11/22/16 Albuterol Sulfate [Proair 1 inh IH DAILY PRN 11/23/16 Respiclick] Mometasone/Formoterol [Dulera 100 1 puffs IH HS 12/17/16 Mcg/5 Mcg Inhaler] Potassium Chloride [Potassium 20 meq PO DAILY 12/17/16 Chloride] Rosuvastatin Calcium [Crestor 40mg 40 mg PO DAILY 12/17/16 (*)] Spironolactone [Aldactone 25 MG 25 mg PO DAILY 12/17/16 (*)] Tamsulosin HCl [Flomax 0.4 MG (*)] 0.4 mg PO DAILY 12/17/16 Medical Decision Making - Diagnostics EKG Interpretation: An EKG obtained and was read and documented in trace view. Please see trace view for full reading and report. Sinus rhythm, low voltage, nonspecific T- wave abnormalities unchanged from previous ED Course/Re-evaluation: I discussed the case with Dr. James. He is agreeable with admission and transfusion of red blood cells and platelets. He suspects that this is primarily due to the chemotherapy. The patient will also need to be treated for hyponatremia. He recommends admission to the hospital service. The patient again denies any bloody stool or black stool. He has not had diarrhea. He declines rectal examination. I am hesitant to perform rectal examination because the patient has low platelets. We will continue to observe. 6:40 p.m. I discussed the case with Dr. Lucy Garzon who will admit to the step-down apparent before going upstairs the patient's blood pressure improved significantly with platelets and packed red blood cells. We changed him to a MedSurg floor. Differential Diagnosis: Partial list of the Differential diagnosis considered include but were not limited to; Anemia, dehydration, hyponatremia and although unlikely based on the history and physical exam, I also considered acute coronary disease. I discussed these differential diagnoses and the plan with the [patient] as well as the usual and expected course. The [patient understands] that the diagnosis is provisional and that in medicine we are not always correct and that further workup is often warranted. Usual and customary warnings were given. All of the [patient's] questions were answered. The [patient was] instructed to return to the emergency department should the symptoms at all worsen or return, otherwise to followup with the physician as we discussed. Critical Care Time: Critical care time spent by me, Dr. Post exclusive with this patient was35 minutes, exclusive of the PA time exclusive of procedures. The organ system that was at risk was cardiovascular and I gave IV fluids, transfusion monitoring and admission to prevent worsening of the patient's condition - Data Points Laboratory Results: Laboratory Results 12/17/16 17:25 12/17/16 17:25 12/17/16 12/17/16 12/17/16 18:10 17:25 17:25 WBC RBC Hgb Hct MCV MCH MCHC RDW Plt Count MPV Neut % (Auto) Lymph % (Auto) [place] % (Auto) Eos % (Auto) Baso % (Auto) Nucleat RBC Rel Count Absolute Neuts (auto) Absolute Lymphs (auto) Absolute Monos (auto) Absolute Eos (auto) Absolute Basos (auto) Absolute Nucleated RBC Immature Gran % Seg Neutrophils % Band Neutrophils % Lymphocytes % Monocytes % Metamyelocytes % Myelocytes % Immature Gran # Absolute Seg Neuts Absolute Band Neuts Absolute Lymphocytes Absolute Monocytes Absolute Metamyelocyte Absolute Myelocytes Nucleated RBCs Toxic Granulation Platelet Estimate Microcytic Cells Oval Macrocytes Smear Review By PT 15.6 SEC H SEC (12.0-15.0) INR 1.24 H (0.83-1.16) APTT 31.4 SEC SEC (23.0-38.0) Sodium 124 mEq/L L mEq/L (134-144) Potassium 4.8 mEq/L mEq/L (3.5-5.2) Chloride 98 mEq/L mEq/L (97-110) Carbon Dioxide 20 mEq/l L mEq/l (22-31) Anion Gap 6 mEq/L L mEq/L (8-16) BUN 26 mg/dL H mg/dL (7-23) Creatinine 1.0 mg/dL mg/dL (0.7-1.3) Estimated GFR > 60 Glucose 88 mg/dL mg/dL (70-100) Calcium 8.2 mg/dL L mg/dL (8.5-10.4) Patient ABO/Rh O NEGATIVE Antibody Screen NEGATIVE Crossmatch IS Only See Detail 12/17/16 17:25 WBC 5.26 10^3/uL 10^3/uL (3.80-9.50) RBC 1.97 10^6/uL L 10^6/uL (4.40-6.38) Hgb 6.2 g/dL L g/dL (13.7-17.5) Hct 19.0 % L % (40.0-51.0) MCV 96.4 fL fL (81.5-99.8) MCH 31.5 pg pg (27.9-34.1) MCHC 32.6 g/dL g/dL (32.4-36.7) RDW 19.2 % H % (11.5-15.2) Plt Count 14 10^3/uL L* 10^3/uL (150-400) MPV 12.7 fL H fL (8.7-11.7) Neut % (Auto) Not Reported Lymph % (Auto) Not Reported [place] % (Auto) Not Reported Eos % (Auto) Not Reported Baso % (Auto) Not Reported Nucleat RBC Rel Count 0.6 % H % (0.0-0.2) Absolute Neuts (auto) Not Reported Absolute Lymphs (auto) Not Reported Absolute Monos (auto) Not Reported Absolute Eos (auto) Not Reported Absolute Basos (auto) Not Reported Absolute Nucleated RBC 0.03 10^3/uL H 10^3/uL (0-0.01) Immature Gran % Not Reported Seg Neutrophils % 44 % % Band Neutrophils % 23 % % Lymphocytes % 10 % % Monocytes % 18 % % Metamyelocytes % 2 % % Myelocytes % 3 % % Immature Gran # Not Reported Absolute Seg Neuts 2.31 10^/uL 10^/uL (1.70-6.50) Absolute Band Neuts 1.21 10^3/uL H 10^3/uL (0.00-0.70) Absolute Lymphocytes 0.53 10^3/uL L 10^3/uL (1.00-3.00) Absolute Monocytes 0.95 10^3/uL H 10^3/uL (0.30-0.80) Absolute Metamyelocyte 0.11 10^3/mL H 10^3/mL (0.00-0.00) Absolute Myelocytes 0.16 10^3/mL H 10^3/mL (0.00-0.00) Nucleated RBCs 1 /100 WBC H /100 WBC (0-0) Toxic Granulation PRESENT H Platelet Estimate DECREASED L (ADEQ) Microcytic Cells 1+ H Oval Macrocytes 1+ H Smear Review By Pending PT INR APTT Sodium Potassium Chloride Carbon Dioxide Anion Gap BUN Creatinine Estimated GFR Glucose Calcium Patient ABO/Rh Antibody Screen Crossmatch IS Only Departure - Departure Disposition: [facility] Acute Clinical Impression: Hyponatremia, Thrombocytopenia Anemia Qualifiers: Anemia type: other cause Other causes of anemia: other cause, not classified Qualified Code(s): D64.89 - Other specified anemias Condition: Fair
--- NOTE | 2016-12-17 17:19 | CPEKG ---
Heart Rate: 105 RR Interval: 571 P-R Interval: 150 QRSD Interval: 76 QT Interval: 340 QTC Interval: 450 P [place]: 79 QRS [place]: 60 T Wave [place]: 244 EKG Severity - BORDERLINE ECG - EKG Impression: SINUS TACHYCARDIA EKG Impression: LOW VOLTAGE THROUGHOUT EKG Impression: Similar to previous Electronically Signed By: Cuong Post 17-Dec-2016 17:24:06
[2016-12-17 17:39] LABS: ABSOLUTE NRBC COUNT 0.03 10^3/uL (0-0.01); ADD DIFF? YES; ADD MORPH? YES; ADD SCAN? YES; ATYPICAL LYMPHOCYTE FLAG 0 (0-99); FRAGMENT RBC FLAG 0 (0-99); LIPEMIA HEMOLYSIS FLAG 80 (0-99); MEAN CELL HEMOGLOBIN 31.5 pg (27.9-34.1); MEAN CELL HEMOGLOBIN CONCENTR. 32.6 g/dL (32.4-36.7); MEAN CELL VOLUME 96.4 fL (81.5-99.8); MEAN PLATELET VOLUME 12.7 fL (8.7-11.7); NRBC-AUTO% 0.6 % (0.0-0.2); PLATELET CLUMPS FLAG 20 (0-99); RED BLOOD CELL COUNT 1.97 10^6/uL (4.40-6.38); RED CELL DISTRIBUTION WIDTH 19.2 % (11.5-15.2)
[2016-12-17 17:40] LABS: LEFT SHIFT FLG 300 (0-99)
[2016-12-17 17:44] LABS: INR 1.24 (0.83-1.16); PROTIME(PATIENT) 15.6 SEC (12.0-15.0)
[2016-12-17 17:45] LABS: APTT 31.4 SEC (23.0-38.0)
[2016-12-17 17:50] LABS: ANION GAP 6 mEq/L (8-16); CALCIUM 8.2 mg/dL (8.5-10.4); CARBON DIOXIDE 20 mEq/l (22-31); CHLORIDE 98 mEq/L (97-110); GLOMERULAR FILTRATION RATE > 60; GLUCOSE 88 mg/dL (70-100); POTASSIUM 4.8 mEq/L (3.5-5.2); SODIUM 124 mEq/L (134-144)
[2016-12-17] MEDS ORDERED: ONDANSETRON 4 MG/2 ML VIAL ONE (17:59)
[2016-12-17 18:00] LABS: HEMOGLOBIN 6.2 g/dL (13.7-17.5)
[2016-12-17 18:03] LABS: SCAN POSITIVE
[2016-12-17 18:05] LABS: PLATELET COUNT 14 10^3/uL (150-400)
[2016-12-17 18:10] LABS: MACROCYTES 1+; MICROCYTES 1+; PLATELET ESTIMATE DECREASED (ADEQ); TOXIC GRANULATION PRESENT
[2016-12-17] MEDS ORDERED: ONDANSETRON DISINTEGRATING 4 MG TAB PO PRN (20:10)
[2016-12-17] MEDS ORDERED: ONDANSETRON 4 MG/2 ML VIAL IVP PRN (20:10)
[2016-12-17] MEDS ORDERED: ACETAMINOPHEN 325 MG TAB PO PRN (20:10)
[2016-12-17] MEDS ORDERED: NS 1,000 ML IV SCH (20:15)
--- NOTE | 2016-12-17 20:59 | GHP ---
[f rep st] HISTORY AND PHYSICAL DATE OF ADMISSION: 12/17/2016 CHIEF COMPLAINT: Weakness and hypotension. HISTORY OF PRESENT ILLNESS: The patient is a 76-year-old man with a history of bladder cancer diagnosed in June 2016, who is followed primarily by Dr. Salcedo at the [facility]. His last chemotherapy dose was 10 days ago. He has required several blood transfusions, most recently, the day after his chemo, at which time, he received a Neulasta injection. He was at home with his this evening when he became very weak and pale. They checked his blood pressure at home and found it to be in the 60s systolic. He was brought to the emergency department where he received 2 units of packed red blood cells and 1 unit of platelets and he is admitted to the hospital for further management. He denies any blood in his stool or urine. He denies vomiting or diarrhea. He has been mildly nauseous and has been belching a lot. He denies chest pain, or shortness of breath. There has been no fevers or chills. Given his transfusion needs and overall weakness, he is admitted to the hospital for further management. PAST MEDICAL HISTORY AND SURGERY HISTORY: 1. Bladder cancer. 2. Carotid endarterectomy. 3. Atrial fibrillation. 4. History of heart failure. 5. History of hernia repair. 6. Status post TURP. MEDICATIONS: Please see [employer] for complete updated outpatient medication list. ALLERGIES: NSAIDs, AZITHROMYCIN AND IODINE. SOCIAL HISTORY: The patient lives independently with his who is present at the bedside. He is a former smoker. He denies alcohol use. FAMILY HISTORY: Reviewed and noncontributory. REVIEW OF SYSTEMS: A 10-point review of systems was performed and is negative except as per HPI. OBJECTIVE: VITAL SIGNS: Upon arrival to the emergency department, temperature was 36.7, blood pressure 89/57, heart rate 80, respiratory rate 20. He is 94% on room air. After his blood transfusions, his blood pressure improved to 121/ 54, with a heart rate of 93. GENERAL: The patient is awake, alert, and oriented , in no acute distress. HEENT: Head is atraumatic, normocephalic. Pupils equal, round, reactive to light. Extraocular muscles intact. Oropharynx is clear. Mucous members are moist. NECK: Supple. There is no JVD. HEART: Regular rate and rhythm without murmur. LUNGS: Clear to auscultation bilaterally. ABDOMEN: Soft, obese and protuberant, nontender with normoactive bowel sounds. EXTREMITIES: He has trace to 1+ bilateral lower extremity pitting edema. NEUROLOGIC: Grossly nonfocal. LABORATORY DATA: CBC reveals a white blood cell count of 5.26, hemoglobin 6.2, hematocrit 19, platelets are 14,000, down from 96,000 on December 08. INR is 1.24. Basic metabolic panel reveals sodium of 124, potassium 4.8, bicarb is 20, BUN 26 , creatinine 1.0. EKG shows normal sinus rhythm with no ST-segment or T-wave changes suggestive of acute ischemia. ASSESSMENT AND PLAN: The patient is a 76-year-old male with a history of bladder cancer on chemotherapy who presents to the emergency department with hypotension, weakness and is requiring transfusion. 1. Anemia and thrombocytopenia, secondary to chemotherapy. No evidence of active bleeding. He is s/p 2 units of packed red blood cells and 1 unit of platelets and his hemodynamics are much improved. Recheck a cbc in am. 2. Bladder cancer. He is followed by Dr. Salcedo. His last chemo was 10 days ago. We can request an Oncology consult in the morning. 3. Hyponatremia. I suspect this is hypovolemic hyponatremia. Will check a urine creatinine, a urine sodium to calculate a FENa for further evaluation. Given his presentation was consistent with volume depletion, will give him some gentle normal saline overnight and reassess in the morning. 4. Hypotension. This is likely secondary to his anemia and is improved since his blood transfusion. Will hold his metoprolol for now. 5. Deep vein thrombosis prophylaxis. Pharmacologic treatment is contraindicated given his severe thrombocytopenia. DISPOSITION: Patient is admitted to observation status. CODE STATUS: Patient is full code. /[id number]/MODL MTDD
[2016-12-17] MEDS: FAMOTIDINE 20 MG TAB PO SCH (21:37)
[2016-12-17] MEDS: SIMETHICONE 80 MG TAB CHEW PO SCH (21:37)
[2016-12-17] MEDS: LORazepam 0.5 MG TAB PO PRN (21:51)
[2016-12-17] MEDS ORDERED: ALBUTEROL 200 PUFFS/18 GM MDI IH PRN (23:27)
[2016-12-18 05:19] LABS: ABSOLUTE NRBC COUNT 0.05 10^3/uL (0-0.01); ADD DIFF? YES; ADD MORPH? YES; ATYPICAL LYMPHOCYTE FLAG 0 (0-99); FRAGMENT RBC FLAG 0 (0-99); HEMATOCRIT 21.4 % (40.0-51.0); HEMOGLOBIN 7.2 g/dL (13.7-17.5); LIPEMIA HEMOLYSIS FLAG 80 (0-99); MEAN CELL HEMOGLOBIN 31.7 pg (27.9-34.1); MEAN CELL HEMOGLOBIN CONCENTR. 33.6 g/dL (32.4-36.7); MEAN CELL VOLUME 94.3 fL (81.5-99.8); MEAN PLATELET VOLUME 10.6 fL (8.7-11.7); PLATELET CLUMPS FLAG 10 (0-99); RED BLOOD CELL COUNT 2.27 10^6/uL (4.40-6.38)
[2016-12-18 05:24] LABS: PLATELET COUNT 33 10^3/uL (150-400)
[2016-12-18 05:25] LABS: ADD SCAN? NO; LEFT SHIFT FLG 300 (0-99); NRBC-AUTO% 1.1 % (0.0-0.2)
[2016-12-18 05:30] LABS: ANION GAP 4 mEq/L (8-16); CALCIUM 7.6 mg/dL (8.5-10.4); CARBON DIOXIDE 22 mEq/l (22-31); CHLORIDE 104 mEq/L (97-110); CREATININE 0.9 mg/dL (0.7-1.3); GLOMERULAR FILTRATION RATE > 60; GLUCOSE 83 mg/dL (70-100); POTASSIUM 4.3 mEq/L (3.5-5.2); SODIUM 130 mEq/L (134-144)
[2016-12-18 06:15] LABS: MACROCYTES 1+; MICROCYTES 1+; PLATELET ESTIMATE DECREASED (ADEQ)
[2016-12-18] MEDS: SIMETHICONE 80 MG TAB CHEW PO SCH ×4 (08:49→21:29)
[2016-12-18] MEDS: FAMOTIDINE 20 MG TAB PO SCH ×2 (08:49→20:24)
[2016-12-18] MEDS: PROBENECID 500 MG TAB PO SCH (08:50)
[2016-12-18] MEDS: MONTELUKAST SODIUM 10 MG TAB PO SCH (08:50)
--- NOTE | 2016-12-18 14:17 | HOSPPROG ---
Hospitalist Progress Note Assessment/Plan: 76 yo M w bladder CA admitted w dizziness, LH and thrombocytopenia/anemia thrombocytopenia: 2/2 marrow suppression no active bleeding good response to 1 unit platelets anemia: no clear blood loss suspect 2/2 marrow suppression af: in sinus on admit ekg (interp by me) proph: scd's dispo: inpatient Subjective: case d/w dr brown Objective: Vital Signs Temp Pulse Resp BP Pulse Ox 36.8 C 93 16 108/52 L 98 12/18/16 09:13 12/18/16 09:13 12/18/16 09:13 12/18/16 09:13 12/18/16 09:13 Microbiology 12/17/16 22:53 Gastrointestinal Tract Panel (PCR) - Final Stool No Organism Detected Laboratory Results 12/18/16 05:04 12/18/16 05:04 12/17/16 12/18/16 12/19/16 05:59 05:59 05:59 Intake Total 2750 Output Total 1025 Balance 1725 PT 15.6 SEC (12.0-15.0) H 12/17/16 17:25 INR 1.24 (0.83-1.16) H 12/17/16 17:25 - Physical Exam Constitutional: no apparent distress, appears nourished Eyes: PERRL, anicteric sclera Ears, Nose, Mouth, Throat: moist mucous membranes, hearing normal Cardiovascular: regular rate and rhythym, no murmur, rub, or gallop, No irregularly irregular Respiratory: no respiratory distress, no rales or rhonchi Gastrointestinal: normoactive bowel sounds, soft, non-tender abdomen Genitourinary: no bladder fullness, No dowd in urethra Skin: warm, normal color Musculoskeletal: full muscle strength, no muscle tenderness Neurologic: AAOx3, sensation intact bilaterally Psychiatric: interacting appropriately, not anxious ICD10 Worksheet Patient Problems: Problems Problem Status Onset Anemia Acute Hyponatremia Acute Thrombocytopenia Acute C. difficile diarrhea Acute ~11/26/16 Fever Acute
[2016-12-18 14:32] LABS: ABSOLUTE NRBC COUNT 0.09 10^3/uL (0-0.01); ADD DIFF? YES; ADD MORPH? YES; ADD SCAN? YES; ATYPICAL LYMPHOCYTE FLAG 0 (0-99); FRAGMENT RBC FLAG 0 (0-99); HEMOGLOBIN 7.7 g/dL (13.7-17.5); LIPEMIA HEMOLYSIS FLAG 80 (0-99); MEAN CELL HEMOGLOBIN 31.6 pg (27.9-34.1); MEAN CELL HEMOGLOBIN CONCENTR. 33.5 g/dL (32.4-36.7); MEAN CELL VOLUME 94.3 fL (81.5-99.8); MEAN PLATELET VOLUME 9.7 fL (8.7-11.7); PLATELET CLUMPS FLAG 0 (0-99); PLATELET COUNT 51 10^3/uL (150-400); RED BLOOD CELL COUNT 2.44 10^6/uL (4.40-6.38); RED CELL DISTRIBUTION WIDTH 18.6 % (11.5-15.2)
[2016-12-18 14:41] LABS: LEFT SHIFT FLG 300 (0-99); NRBC-AUTO% 1.3 % (0.0-0.2)
--- NOTE | 2016-12-18 14:50 | GHP ---
[f rep st] HISTORY AND PHYSICAL DATE OF ADMISSION: 12/17/2016 HISTORY OF PRESENT ILLNESS: The patient is a 76-year-old male who has a history of muscle invasive bladder carcinoma who is being treated with neoadjuvant gemcitabine and carboplatin. He has had pro blems with some cytopenias and received his last dose of gemcitabine on 12/08/2016. He developed si gnificant fatigue at home and was brought in and was noted to be both anemic and thrombocytopenic wi th a hemoglobin of 6.2 and a platelet count of 14,000. He received 1 unit of platelets and 2 units of packed RBCs and today is feeling better. Hemoglobin currently is 7.2 as of this a.m. and platele ts are 33,000. PAST MEDICAL HISTORY: Significant for bladder cancer, carotid endarterectomy, atrial fibrillation, history of heart failure, history of hernia repair, and TURP. SOCIAL HISTORY: He lives independently with his . PHYSICAL EXAMINATION: GENERAL: He is alert. VITAL SIGNS: Blood pressure 108/52. He is afebrile. HEENT: He is not icteric. LUNGS: Clear. CARDIAC: Unremarkable. ABDOMEN: Benign. EXTREMITIE S: Show no edema. LABORATORY: Chemistry panel is remarkable for a sodium of 130. IMPRESSION: Patient with immunosuppression cytopenias related to chemotherapy. He is doing better after appropriate transfusion. This is his last cycle of treatment and I reassured him that his cou nts should gradually continue to improve on their own. He did receive Neulasta with this last cycle of chemotherapy. We will repeat a CBC this afternoon. If things are stable, he can probably be di scharged in the a.m. /[id number]/MODL
[2016-12-18] MEDS: POTASSIUM CL 20 MEQ TAB PO SCH (17:36)
[2016-12-18] MEDS: FUROSEMIDE 20 MG TAB PO SCH (17:36)
[2016-12-18] MEDS: TAMSULOSIN HCL 0.4 MG CAP PO SCH (17:37)
[2016-12-18] MEDS: SPIRONOLACTONE 25 MG TAB PO SCH (17:37)
[2016-12-18] MEDS: ROSUVASTATIN CALCIUM 40 MG TAB PO SCH (17:37)
[2016-12-18 17:42] LABS: PLATELET ESTIMATE DECREASED (ADEQ)
[2016-12-18 17:45] LABS: MACROCYTES 1+; MICROCYTES 1+; POLYCHROMASIA 1+
[2016-12-18] MEDS ORDERED: Mometasone/Formoterol [Dulera 100 Mcg/5 Mcg Inhaler] IH SCH (21:00)
[2016-12-18] MEDS: LORazepam 0.5 MG TAB PO PRN (21:49)
[2016-12-19 04:42] VITALS: PULSE 88
[2016-12-19 06:22] LABS: ABSOLUTE NRBC COUNT 0.12 10^3/uL (0-0.01); ADD DIFF? YES; ATYPICAL LYMPHOCYTE FLAG 0 (0-99); FRAGMENT RBC FLAG 0 (0-99); HEMATOCRIT 23.5 % (40.0-51.0); HEMOGLOBIN 7.9 g/dL (13.7-17.5); LIPEMIA HEMOLYSIS FLAG 80 (0-99); MEAN CELL HEMOGLOBIN 31.2 pg (27.9-34.1); MEAN CELL HEMOGLOBIN CONCENTR. 33.6 g/dL (32.4-36.7); MEAN CELL VOLUME 92.9 fL (81.5-99.8); MEAN PLATELET VOLUME 9.8 fL (8.7-11.7); PLATELET CLUMPS FLAG 0 (0-99); PLATELET COUNT 56 10^3/uL (150-400); RED BLOOD CELL COUNT 2.53 10^6/uL (4.40-6.38); RED CELL DISTRIBUTION WIDTH 19.1 % (11.5-15.2)
[2016-12-19 06:30] LABS: ADD MORPH? NO; ADD SCAN? NO; LEFT SHIFT FLG 300 (0-99); NRBC-AUTO% 1.3 % (0.0-0.2)
[2016-12-19 07:28] LABS: TOXIC GRANULATION PRESENT
[2016-12-19 07:29] LABS: POLYCHROMASIA 1+
[2016-12-19 07:30] LABS: PLATELET ESTIMATE DECREASED (ADEQ)
[2016-12-19 08:35] VITALS: BP 122/54; RESP 16; TEMP 97.9; O2SAT 99
--- NOTE | 2016-12-19 08:38 | SOAPPROG ---
SOAP Progress Note Assessment/Plan: Assessment: 1. Bladder ca, s/p neoadjuvant carbo/ gem 2. anemia, thrombocytopenia related to number 1 Plan:I think ok for d/c today, rise in hgb is a bit less than would be expected post 3 units, possibility of occult blood loss exists but had a normal bm today. recommend follow up cc in 2 days 12/19/16 08:34 Subjective: Feels ok Objective: Vital Signs Temp Pulse Resp BP Pulse Ox 98.2 F 88 18 96/46 L 98 12/19/16 04:38 12/19/16 04:38 12/19/16 04:38 12/19/16 04:38 12/19/16 04:38 Microbiology 12/17/16 22:53 Gastrointestinal Tract Panel (PCR) - Final Stool No Organism Detected Laboratory Results 12/19/16 06:16 12/18/16 05:04 12/18/16 12/19/16 12/20/16 05:59 05:59 05:59 Intake Total 2750 1550 250 Output Total 1025 Balance 1725 1550 250 PT 15.6 SEC (12.0-15.0) H 12/17/16 17:25 INR 1.24 (0.83-1.16) H 12/17/16 17:25 Physical Exam - Physical Exam General Appearance: alert, no apparent distress Respiratory: lungs clear, normal breath sounds Cardiac/Chest: regular rate, rhythm Abdomen: normal bowel sounds, non-tender ICD10 Worksheet Patient Problems: Problems Problem Status Onset Anemia Acute Hyponatremia Acute Thrombocytopenia Acute C. difficile diarrhea Acute ~11/26/16 Fever Acute
[2016-12-19] MEDS: PROBENECID 500 MG TAB PO SCH (09:20)
[2016-12-19] MEDS: SPIRONOLACTONE 25 MG TAB PO SCH ×2 (09:20→09:24)
[2016-12-19] MEDS: ROSUVASTATIN CALCIUM 40 MG TAB PO SCH ×2 (09:20→09:21)
[2016-12-19] MEDS: MONTELUKAST SODIUM 10 MG TAB PO SCH (09:20)
[2016-12-19] MEDS: POTASSIUM CL 20 MEQ TAB PO SCH (09:20)
[2016-12-19] MEDS: SIMETHICONE 80 MG TAB CHEW PO SCH (09:20)
[2016-12-19] MEDS: FUROSEMIDE 20 MG TAB PO SCH (09:20)
[2016-12-19] MEDS: TAMSULOSIN HCL 0.4 MG CAP PO SCH ×2 (09:20→09:22)
[2016-12-19] MEDS: FAMOTIDINE 20 MG TAB PO SCH (09:20)
--- NOTE | 2016-12-19 10:10 | HOSPPROG ---
Hospitalist Progress Note Assessment/Plan: 76 yo M w bladder CA admitted w dizziness, LH and thrombocytopenia/anemia thrombocytopenia: 2/2 marrow suppression no active bleeding good response to 1 unit platelets anemia: no clear blood loss suspect 2/2 marrow suppression less hg/hct bump from three units than would have been expected but no signs active bleeding has [facility] follow up in a few days af: in sinus on admit ekg (interp by me) proph: scd's dispo: home today > 30 minutes on dc Subjective: feels well. ready for dc. case discussed w dr brown Objective: Vital Signs Temp Pulse Resp BP Pulse Ox 36.6 C 88 16 122/54 H 99 12/19/16 08:34 12/19/16 08:34 12/19/16 08:34 12/19/16 08:34 12/19/16 08:34 Microbiology 12/17/16 22:53 Gastrointestinal Tract Panel (PCR) - Final Stool No Organism Detected Laboratory Results 12/19/16 06:16 12/18/16 05:04 12/18/16 12/19/16 12/20/16 05:59 05:59 05:59 Intake Total 2750 1550 650 Output Total 1025 Balance 1725 1550 650 PT 15.6 SEC (12.0-15.0) H 12/17/16 17:25 INR 1.24 (0.83-1.16) H 12/17/16 17:25 - Physical Exam Constitutional: no apparent distress, appears nourished Eyes: PERRL, anicteric sclera Ears, Nose, Mouth, Throat: moist mucous membranes, hearing normal Cardiovascular: regular rate and rhythym, no murmur, rub, or gallop Respiratory: no respiratory distress, no rales or rhonchi Gastrointestinal: normoactive bowel sounds Genitourinary: no bladder fullness, No dowd in urethra Skin: warm, normal color Musculoskeletal: full muscle strength, no muscle tenderness Neurologic: AAOx3 ICD10 Worksheet Patient Problems: Problems Problem Status Onset Anemia Acute Hyponatremia Acute Thrombocytopenia Acute C. difficile diarrhea Acute ~11/26/16 Fever Acute
--- NOTE | 2016-12-19 10:40 | GDS ---
[f rep st] DISCHARGE SUMMARY DISCHARGE DIAGNOSES: 1. Thrombocytopenia. 2. Anemia. 3. Bladder cancer, currently undergoing chemotherapy. 4. History of carotid endarterectomy. 5. Atrial fibrillation, not on anticoagulation. Please see admission history and physical by Dr. Nicci Garzon. The patient presented to the emergency department with hypotension and dizziness. At that time, he had a low hemoglobin of 6.2 and platelets of 14. He received 3 units of packed red cells, with a he moglobin now of 7.9 and platelets are 56. There has been no evidence of active bleeding. I have di scussed the case daily with Dr. Opal Garza of Oncology. We both agree that his hematocrit bump was l ess than expected. However, the patient is doing well and anxious for discharge. He is discharged home with an unchanged medication regimen. He is not taking any antiplatelet agents. He has follow up in the outpatient [facility] for a repeat blood count check in a couple of days. /[id number]/MODL
== END 2016-12-19 12:13 | disposition home or self-care (01) | DRG 813 ==
LOC: OBSVTOIN 18:38 → F1N 21:10
PROVIDERS: ADMIT Hospitalist; ATTEND Internal Medicine
PROC: 30233R1 Transfusion of Nonautologous Platelets into Peripheral Vein, Percutaneous Approach (ICD-10-PCS; principal; 2016-12-17)
PROC: 30233N1 Transfusion of Nonautologous Red Blood Cells into Peripheral Vein, Percutaneous Approach (ICD-10-PCS; principal; 2016-12-17)
DX: D69.6 Thrombocytopenia, unspecified (principal); E87.1 Hypo-osmolality and hyponatremia; D64.89 Other specified anemias; I48.0 Paroxysmal atrial fibrillation; C67.9 Malignant neoplasm of bladder, unspecified
CPT/HCPCS: J2405; P9016; P9035

== ENCOUNTER 2016-12-21 17:35 | Inpatient (IN) | payer OTHER ==
--- NOTE | 2016-12-21 18:21 | CPEKG ---
Heart Rate: 90 RR Interval: 667 P-R Interval: 168 QRSD Interval: 80 QT Interval: 364 QTC Interval: 446 P [place]: 60 QRS [place]: 13 T Wave [place]: 25 EKG Severity - BORDERLINE ECG - EKG Impression: SINUS RHYTHM EKG Impression: LOW VOLTAGE IN FRONTAL LEADS EKG Impression: BORDERLINE T WAVE ABNORMALITIES Electronically Signed By: Kayla Garcia 21-Dec-2016 20:24:42
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
[2016-12-21 18:45] LABS: ABSOLUTE NRBC COUNT 0.28 10^3/uL (0-0.01); ADD DIFF? YES; ATYPICAL LYMPHOCYTE FLAG 40 (0-99); FRAGMENT RBC FLAG 10 (0-99); HEMATOCRIT 27.3 % (40.0-51.0); LIPEMIA HEMOLYSIS FLAG 80 (0-99); MEAN CELL HEMOGLOBIN 31.8 pg (27.9-34.1); MEAN CELL VOLUME 96.5 fL (81.5-99.8); MEAN PLATELET VOLUME 9.5 fL (8.7-11.7); PLATELET CLUMPS FLAG 20 (0-99); PLATELET COUNT 190 10^3/uL (150-400); RED BLOOD CELL COUNT 2.83 10^6/uL (4.40-6.38); RED CELL DISTRIBUTION WIDTH 19.1 % (11.5-15.2)
[2016-12-21 18:47] LABS: LEFT SHIFT FLG 280 (0-99); NRBC-AUTO% 1.3 % (0.0-0.2)
[2016-12-21 18:48] LABS: ADD MORPH? NO; ADD SCAN? NO
[2016-12-21 19:03] LABS: ANION GAP 11 mEq/L (8-16); CALCIUM 8.5 mg/dL (8.5-10.4); CARBON DIOXIDE 21 mEq/l (22-31); CHLORIDE 102 mEq/L (97-110); CREATININE 0.9 mg/dL (0.7-1.3); GLOMERULAR FILTRATION RATE > 60; GLUCOSE 73 mg/dL (70-100); POTASSIUM 3.8 mEq/L (3.5-5.2); SODIUM 134 mEq/L (134-144)
[2016-12-21] MEDS ORDERED: IOPAMIDOL (ISOVUE 370) 100 ML BTL IV ONE (19:13)
[2016-12-21 19:15] LABS: TROPONIN I 0.022 ng/mL (0-0.034)
[2016-12-21] MEDS ORDERED: methylPREDNISolone SOD SUCC 125 MG/2 ML VIAL IVP ONE (19:23)
[2016-12-21 19:26] LABS: KERATOCYTES 1+; PLATELET ESTIMATE ADEQUATE (ADEQ); POLYCHROMASIA 1+; TOXIC GRANULATION PRESENT
[2016-12-21] MEDS ORDERED: FUROSEMIDE 20 MG/2 ML VIAL IVP ONE (21:08)
[2016-12-21] MEDS ORDERED: FAMOTIDINE 20 MG TAB PO ONE (21:14)
[2016-12-21] MEDS ORDERED: ACETAMINOPHEN 325 MG TAB PO ONE (21:30)
[2016-12-21] MEDS ORDERED: ONDANSETRON DISINTEGRATING 4 MG TAB PO PRN (22:45)
[2016-12-21] MEDS ORDERED: ONDANSETRON 4 MG/2 ML VIAL IVP PRN (22:45)
[2016-12-21] MEDS ORDERED: oxyCODONE IR 5 MG TAB PO PRN (22:45)
[2016-12-21] MEDS ORDERED: ACETAMINOPHEN 325 MG TAB PO PRN (22:45)
[2016-12-21] MEDS ORDERED: ALBUTEROL 60 PUFFS/8 GM MDI IH PRN (23:21)
[2016-12-21] MEDS: LORazepam 1 MG TAB PO PRN (23:39)
[2016-12-21] MEDS: METOPROLOL SUCCINATE XR 25 MG TAB PO SCH (23:45)
--- NOTE | 2016-12-22 02:00 | PDGENHP ---
History and Physical - Chief Complaint dyspnea - History of Present Illness The patient is a 76-year-old male with muscular early invasive bladder cancer ( last chemotherapy received on 12/08), atrial fibrillation, diastolic heart failure and pulmonary hypertension who presents to the ED with complaint of shortness of breath. Patient was recently admitted on 12/17 through 12/19 for symptomatic anemia/pancytopenia. During that admission pancytopenia was deemed to be related to his recent chemotherapy, he was not identified to have any active bleeding, he was transfused and blood counts improved. Beginning on the day of discharge, patient states that he began to feel short of breath when lying down or exerting himself. Yesterday, his symptoms continued and last night he was unable to sleep at all due to sensation of orthopnea. Today he continued to feel short of breath with minimal exertion, so he decided to come to the ED for further evaluation. Patient reports dyspnea is associated with palpitations and mild nausea, but denies any associated chest pain, lightheadedness, dizziness, abdominal pain, vomiting, diarrhea. Patient reports that he had MANAV performed in the outpatient setting about 3 weeks ago, was told that his ejection fraction was normal but he had evidence of diastolic dysfunction and pulmonary hypertension. On arrival to the ED patient was afebrile hemodynamically stable, although slightly hypoxic on room air. Labs revealed leukocytosis, HGB improved from previous levels, and normal platelet levels. Initial troponin was negative, but BMP was elevated. EKG revealed normal sinus rhythm without obvious ischemia. Chest x-ray showed small bilateral pleural effusions. D-dimer was also checked and was positive, so CT angio was obtained. CT was negative for acute pulmonary embolism but did show evidence of pulmonary edema. History Information - Allergies/Home Medication List Allergies/Adverse Reactions: aspirin Allergy (Severe, Verified 12/21/16 21:47) Edema of Extremities NSAIDS (Non-Steroidal Anti-Inflamma Allergy (Severe, Verified 12/17/16 16:47) Swelling/neck,face,throat azithromycin [From Zithromax] Allergy (Mild, Verified 12/17/16 16:47) Hives iodine Allergy (Verified 12/17/16 16:47) Swelling/neck,face,throat Home Medications: Albuterol [Proventil Inhaler HFA (*)] 1 - 2 puffs IH Q4H PRN 12/21/16 [Last Taken Unknown] Furosemide [Lasix 20 MG (*)] 20 mg PO DAILY 12/21/16 [Last Taken 12/21/16] LORazepam [Ativan (*)] 1 mg PO HS PRN 12/21/16 [Last Taken 12/19/16] Latanoprost 0.005% [Xalatan 0.005% (*)] 1 drops EACHEYE HS 12/21/16 [Last Taken 12/21/16] Metoprolol Succinate Xr [Toprol Xl 25 mg (*)] 25 mg PO DAILY 12/21/16 [Last Taken 12/21/16] Mometasone/Formoterol [Dulera 100 Mcg/5 Mcg Inhaler] 1 puffs IH BID 12/21/16 [ Last Taken 12/21/16] Montelukast Sodium [Singulair 10 mg (*)] 10 mg PO DAILY 12/21/16 [Last Taken ] I have personally reviewed and updated: family history, medical history, social history, surgical history - Past Medical History Additional medical history: Muscular the invasive bladder cancer. Atrial fibrillation. Diastolic CHF - Surgical History Additional surgical history: CEA. TURP. Hernia repair - Family History Positive for: non-pertinent - Social History Smoking Status: Former smoker (quit 25 years ago) Alcohol Use: None Drug Use: None Additional social history: Patient lives with his , is independent in ADLs at baseline. Review of Systems ROS: 10pt was reviewed & negative except for what was stated in HPI & below Physical Exam Temp Pulse Resp BP Pulse Ox 36.9 C 99 17 134/68 H 87 L 12/21/16 22:19 12/21/16 22:19 12/21/16 22:19 12/21/16 22:19 12/21/16 22:19 O2 (L/minute) 2 Constitutional: no apparent distress, appears nourished, not in pain, obese Eyes: PERRL, anicteric sclera, EOMI Ears, Nose, Mouth, Throat: moist mucous membranes, hearing normal, ears appear normal, no oral mucosal ulcers Cardiovascular: regular rate and rhythym, no murmur, rub, or gallop, pulses symmetric bilaterally, edema (2+ bilateral), No JVD Peripheral Pulses: 2+: dorsalis-pedis (R), dorsalis-pedis (L) Respiratory: no respiratory distress, no rales or rhonchi, clear to auscultation Gastrointestinal: normoactive bowel sounds, soft, non-tender abdomen, no palpable masses, No guarding, No rebound, No distension Genitourinary: no bladder fullness, no bladder tenderness Skin: warm, normal color, no rashes or abrasions, no fluctuance, no induration, No mottled Musculoskeletal: full muscle strength, no muscle tenderness, normal joint ROM, no joint effusions Neurologic: AAOx3, sensation intact bilaterally, CN II-XII Intact, No weakness, No numbness, No facial droop Psychiatric: interacting appropriately, not anxious, not encephalopathic, thought process linear Lab Data & Imaging Review 12/21/16 18:07 12/21/16 18:22 WBC 21.78 10^3/uL (3.80-9.50) H D 12/21/16 18:07 RBC 2.83 10^6/uL (4.40-6.38) L 12/21/16 18:07 Hgb 9.0 g/dL (13.7-17.5) L 12/21/16 18:07 Hct 27.3 % (40.0-51.0) L 12/21/16 18:07 MCV 96.5 fL (81.5-99.8) 12/21/16 18:07 MCH 31.8 pg (27.9-34.1) 12/21/16 18:07 MCHC 33.0 g/dL (32.4-36.7) 12/21/16 18:07 RDW 19.1 % (11.5-15.2) H 12/21/16 18:07 Plt Count 190 10^3/uL (150-400) D 12/21/16 18:07 MPV 9.5 fL (8.7-11.7) 12/21/16 18:07 Neut % (Auto) Not Reported 12/21/16 18:07 Lymph % (Auto) Not Reported 12/21/16 18:07 [place] % (Auto) Not Reported 12/21/16 18:07 Eos % (Auto) Not Reported 12/21/16 18:07 Baso % (Auto) Not Reported 12/21/16 18:07 Nucleat RBC Rel Count 1.3 % (0.0-0.2) H 12/21/16 18:07 Absolute Neuts (auto) Not Reported 12/21/16 18:07 Absolute Lymphs (auto) Not Reported 12/21/16 18:07 Absolute Monos (auto) Not Reported 12/21/16 18:07 Absolute Eos (auto) Not Reported 12/21/16 18:07 Absolute Basos (auto) Not Reported 12/21/16 18:07 Absolute Nucleated RBC 0.28 10^3/uL (0-0.01) H 12/21/16 18:07 Immature Gran % Not Reported 12/21/16 18:07 Seg Neutrophils % 63 % 12/21/16 18:07 Band Neutrophils % 16 % 12/21/16 18:07 Lymphocytes % 6 % 12/21/16 18:07 Monocytes % 6 % 12/21/16 18:07 Eosinophils % 1 % 12/21/16 18:07 Metamyelocytes % 6 % 12/21/16 18:07 Myelocytes % 2 % 12/21/16 18:07 Immature Gran # Not Reported 12/21/16 18:07 Absolute Seg Neuts 13.72 10^/uL (1.70-6.50) H 12/21/16 18:07 Absolute Band Neuts 3.48 10^3/uL (0.00-0.70) H 12/21/16 18:07 Absolute Lymphocytes 1.31 10^3/uL (1.00-3.00) 12/21/16 18:07 Absolute Monocytes 1.31 10^3/uL (0.30-0.80) H 12/21/16 18:07 Absolute Eosinophils 0.22 10^3/uL (0.03-0.40) 12/21/16 18:07 Absolute Metamyelocyte 1.31 10^3/mL (0.00-0.00) H 12/21/16 18:07 Absolute Myelocytes 0.44 10^3/mL (0.00-0.00) H 12/21/16 18:07 Toxic Granulation PRESENT H 12/21/16 18:07 Dohle Bodies PRESENT H 12/21/16 18:07 Platelet Estimate ADEQUATE (ADEQ) 12/21/16 18:07 Polychromasia 1+ H 12/21/16 18:07 Keratocytes 1+ H 12/21/16 18:07 D-Dimer 6.76 ug/mLFEU (0.00-0.50) H 12/21/16 18:07 Sodium 134 mEq/L (134-144) 12/21/16 18:22 Potassium 3.8 mEq/L (3.5-5.2) 12/21/16 18:22 Chloride 102 mEq/L (97-110) 12/21/16 18:22 Carbon Dioxide 21 mEq/l (22-31) L 12/21/16 18:22 Anion Gap 11 mEq/L (8-16) 12/21/16 18:22 BUN 14 mg/dL (7-23) 12/21/16 18:22 Creatinine 0.9 mg/dL (0.7-1.3) 12/21/16 18:22 Estimated GFR > 60 12/21/16 18:22 Glucose 73 mg/dL (70-100) 12/21/16 18:22 Calcium 8.5 mg/dL (8.5-10.4) 12/21/16 18:22 Troponin I 0.021 ng/mL (0-0.034) 12/21/16 23:41 NT-Pro-B Natriuret Pep 2680 pg/mL (0-450) H 12/21/16 18:22 Visualized and Interpreted Chest x-ray results: Yes Chest X-Ray results: other (pulmonary edema) Visualized and Interpreted imaging results: Yes Interpretation: CT angio chest: no PE, mild pulmonary edema with small bilateral effusions Visualized and Interpreted EKG results: Yes EKG Interpretation: Positive for: normal sinsus rhythm (no obvious st/t wave changes) Assessment & Plan Assessment: Patient is a 76-year-old male with history of bladder cancer, atrial fibrillation and diastolic heart failure, with recent admission to [facility] for anemia and thrombocytopenia requiring transfusion, discharged on 12/19. Since discharge, patient has been experiencing progressive dyspnea and orthopnea. ED evaluation reveals acute hypoxic respiratory failure an evidence of fluid overload, consistent with an acute CHF exacerbation. Plan: # acute hypoxic respiratory failure Patient's description of symptoms, and recent hospital course, appears consistent with acute diastolic heart failure exacerbation. Differential also includes PE, pneumonia, COPD (patient denies this history, but is on inhalers as outpatient) especially given recent hospitalization. However CT angio has ruled out PE, and reveals mostly pulmonary edema and pleural effusions without obvious infiltrate and he has no wheezing on exam. Will aggressively diurese, provide supplemental O2 prn, follow strict I/Os and provide nebs prn. # acute diastolic heart failure exacerbation [facility] reports last TTE was about 3 weeks ago as an outpatient and was told he has a preserved EF with diastolic dysfunction and pulm HTN. He was initiated on lasix, spironolactone at that time. During his most recent admission to [facility] (-12/19), patient received several units of blood products, likely triggering his present hypervolemic state. He denies any associated chest pressure, EKG does not show obvious ischemia and initial troponin is negative. - monitor strict I/Os, daily weights - lasix 40 mg IV daily, can increase dosing prn - monitor and replete electrolytes, K>4, Mg>2 - continue home CHF regimen, including b-alyssa, spironolactone - obtain records from recent TTE - r/o ACS with serial troponins # atrial fibrillation Currently in sinus rhythm, rate controlled. Patient has elected to forego systemic anticoagulation about 1 year ago, after fully understanding all the risks of this decision. Will cont home rate controlling med, monitor on telemetry. # bladder cancer Patient reports recent cystoscopy performed yesterday has shown him to be cancer free. Denies any urinary symptoms at this time. last chemo was on 12/08, recent pancytopenia is likely related to chemo-induced shabnam. He received a neulasta injection shortly after chemo and suspect today's leukocytosis is result of that. # leukocytosis Likely related to recent neulasta injection. No obvious signs/source of infection on today's presentation. Will continue to monitor, if develops fever or signs of localizing infection, will culture and start antibiotics. # dispo: admit to inpt service for likely > 2 [place] stay # gen: cardiac diet DVT ppx: Lovenox Full code
[2016-12-22 04:36] LABS: ABSOLUTE NRBC COUNT 0.16 10^3/uL (0-0.01); ADD DIFF? YES; ADD MORPH? NO; ATYPICAL LYMPHOCYTE FLAG 10 (0-99); FRAGMENT RBC FLAG 0 (0-99); HEMATOCRIT 24.5 % (40.0-51.0); HEMOGLOBIN 8.1 g/dL (13.7-17.5); LIPEMIA HEMOLYSIS FLAG 80 (0-99); MEAN CELL HEMOGLOBIN 32.5 pg (27.9-34.1); MEAN CELL HEMOGLOBIN CONCENTR. 33.1 g/dL (32.4-36.7); MEAN CELL VOLUME 98.4 fL (81.5-99.8); MEAN PLATELET VOLUME 9.9 fL (8.7-11.7); NRBC-AUTO% 0.6 % (0.0-0.2); PLATELET CLUMPS FLAG 10 (0-99); PLATELET COUNT 139 10^3/uL (150-400); RED BLOOD CELL COUNT 2.49 10^6/uL (4.40-6.38); RED CELL DISTRIBUTION WIDTH 18.9 % (11.5-15.2)
[2016-12-22 04:46] LABS: ANION GAP 10 mEq/L (8-16); CARBON DIOXIDE 21 mEq/l (22-31); CHLORIDE 104 mEq/L (97-110); GLOMERULAR FILTRATION RATE > 60; GLUCOSE 122 mg/dL (70-100); MAGNESIUM 1.8 mg/dL (1.6-2.3); POTASSIUM 4.4 mEq/L (3.5-5.2); SODIUM 135 mEq/L (134-144)
[2016-12-22 04:49] LABS: ADD SCAN? NO; LEFT SHIFT FLG 290 (0-99)
[2016-12-22 04:57] LABS: TROPONIN I 0.022 ng/mL (0-0.034)
[2016-12-22 05:21] LABS: PLATELET ESTIMATE ADEQUATE (ADEQ)
[2016-12-22 05:23] LABS: MACROCYTES 1+; POLYCHROMASIA 1+
[2016-12-22] MEDS: METOPROLOL SUCCINATE XR 25 MG TAB PO SCH (08:35)
[2016-12-22] MEDS: ENOXAPARIN 40 MG/0.4 ML SYR SC SCH (08:35)
[2016-12-22] MEDS: MONTELUKAST SODIUM 10 MG TAB PO SCH (08:36)
[2016-12-22] MEDS ORDERED: MOMETASONE IH SCH (09:00)
[2016-12-22] MEDS ORDERED: FORMOTEROL IH SCH (09:00)
[2016-12-22] MEDS ORDERED: FUROSEMIDE 40 MG/4 ML VIAL IVP ONE (09:54)
--- NOTE | 2016-12-22 09:59 | HOSPPROG ---
Hospitalist Progress Note Assessment/Plan: DIAGNOSES: -acute right-sided congestive heart failure -chronic COPD with pulmonary hypertension and chronic right-sided heart failure -anemia due to chemotherapy, stable overall but decreased from yesterday -metastatic bladder cancer; 15 mm lung nodule is stable since last month on CT yesterday, however there is a new cystic appearing lesion in the liver of uncertain significance and some new small mediastinal lymph nodes which will need follow-up -markedly leukocytosis is likely due to recent Neulasta injection along with yesterday cystoscopy in his acute heart failure now PLANS: Continue aggressive diuresis here Follow blood counts Will forward copies of CT scan to Dr. 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: Sinus rhythm I&O not yet showing very remarkable diuresis Exam: alert oriented skin warm dry color ok resps not labored lungs clear BSs heart regular abd soft nondistended nontender, bowel sounds present limbs warm, still with diffuse pitting edema from upper thighs down to feet iv site ok Objective: Vital Signs Temp Pulse Resp BP Pulse Ox 36.5 C 82 18 113/53 L 99 12/22/16 07:57 12/22/16 07:57 12/22/16 07:57 12/22/16 07:57 12/22/16 07:57 Laboratory Results 12/22/16 03:21 12/22/16 03:21 12/21/16 12/22/16 12/23/16 06:59 06:59 06:59 Intake Total 1200 Output Total 180 200 Balance 1020 -200 ICD10 Worksheet Patient Problems: Problems Problem Status Onset Congestive heart failure Acute Anemia Acute C. difficile diarrhea Acute ~11/26/16 Fever Acute Hyponatremia Acute Thrombocytopenia Acute
[2016-12-22] MEDS: SPIRONOLACTONE 25 MG TAB PO SCH (10:43)
[2016-12-22] MEDS: FUROSEMIDE 40 MG/4 ML VIAL IVP SCH (15:37)
[2016-12-22] MEDS: LATANOPROST 0.005% 2.5 ML OPHT DROPS EACHEYE SCH (20:13)
[2016-12-22] MEDS: MOMETASONE IH SCH (20:15)
[2016-12-22] MEDS: FORMOTEROL IH SCH (20:15)
[2016-12-22] MEDS ORDERED: LATANOPROST 0.005% 2.5 ML OPHT DROPS EACHEYE SCH (21:00)
[2016-12-22] MEDS: LORazepam 1 MG TAB PO PRN (22:15)
[2016-12-23] MEDS: METOPROLOL SUCCINATE XR 25 MG TAB PO SCH (08:11)
[2016-12-23] MEDS: ENOXAPARIN 40 MG/0.4 ML SYR SC SCH (08:12)
[2016-12-23] MEDS: MONTELUKAST SODIUM 10 MG TAB PO SCH (08:12)
[2016-12-23] MEDS: SPIRONOLACTONE 25 MG TAB PO SCH (08:12)
[2016-12-23] MEDS: FUROSEMIDE 40 MG/4 ML VIAL IVP SCH (08:13)
[2016-12-23] MEDS ORDERED: PROBENECID 500 MG TAB PO SCH (09:00)
[2016-12-23] MEDS: FORMOTEROL IH SCH ×2 (09:26→20:00)
[2016-12-23] MEDS: MOMETASONE IH SCH ×2 (09:26→20:00)
--- NOTE | 2016-12-23 12:18 | HOSPPROG ---
Hospitalist Progress Note Assessment/Plan: DIAGNOSES: -acute right-sided congestive heart failure -chronic COPD with pulmonary hypertension and chronic right-sided heart failure -anemia due to chemotherapy, stable overall but decreased from yesterday -metastatic bladder cancer; 15 mm lung nodule is stable since last month on CT yesterday, however there is a new cystic appearing lesion in the liver of uncertain significance and some new small mediastinal lymph nodes which will need follow-up -markedly leukocytosis is likely due to recent Neulasta injection along with yesterday cystoscopy in his acute heart failure now PLANS: Continue aggressive diuresis here, will increase dose today Elevate legs, MATTHEW stockings Follow blood counts Will forward copies of CT scan to Dr. 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 I&O modest diuresis since yest Exam: alert oriented skin warm dry color ok resps not labored lungs clear BSs heart regular abd soft nondistended nontender, bowel sounds present limbs warm, mild improvement but still with diffuse pitting edema from upper thighs down to feet iv site ok Objective: Vital Signs Temp Pulse Resp BP Pulse Ox 36.6 C 80 16 114/55 L 98 12/23/16 11:45 12/23/16 11:45 12/23/16 11:45 12/23/16 11:45 12/23/16 11:45 Laboratory Results 12/22/16 03:21 12/22/16 03:21 12/22/16 12/23/16 12/24/16 06:59 06:59 06:59 Intake Total 1200 600 Output Total 146 797 0515 Balance 1020 -225 -1100 ICD10 Worksheet Patient Problems: Problems Problem Status Onset Anemia Acute Hyponatremia Acute Thrombocytopenia Acute Congestive heart failure Acute C. difficile diarrhea Acute ~11/26/16 Fever Acute
[2016-12-23] MEDS ORDERED: FUROSEMIDE 100 MG/10 ML VIAL IVP SCH (15:00)
[2016-12-23] MEDS: FUROSEMIDE 80 MG in D5W 50 ML IV SCH (15:28)
[2016-12-23 15:39] LABS: ALANINE AMINOTRANSFERASE 42 IU/L (21-72); ALBUMIN 3.2 g/dL (3.5-5.0); ALKALINE PHOSPHATASE 151 IU/L (38-126); ANION GAP 12 mEq/L (8-16); ASPARTATE AMINOTRANSFERASE 42 IU/L (17-59); BILIRUBIN,TOTAL 1.1 mg/dL (0.1-1.4); BILIRUBIN-CONJUGATED 0.6 mg/dL (0.0-0.5); BILIRUBIN-UNCONJUGATED 0.5 mg/dL (0.0-1.1); CALCIUM 8.4 mg/dL (8.5-10.4); CARBON DIOXIDE 23 mEq/l (22-31); CHLORIDE 101 mEq/L (97-110); GLOMERULAR FILTRATION RATE > 60; GLUCOSE 77 mg/dL (70-100); POTASSIUM 3.7 mEq/L (3.5-5.2); SODIUM 136 mEq/L (134-144)
[2016-12-23] MEDS: LATANOPROST 0.005% 2.5 ML OPHT DROPS EACHEYE SCH (20:00)
[2016-12-23] MEDS: LORazepam 1 MG TAB PO PRN (22:30)
[2016-12-24 05:07] LABS: ANION GAP 7 mEq/L (8-16); CALCIUM 7.9 mg/dL (8.5-10.4); CARBON DIOXIDE 27 mEq/l (22-31); CHLORIDE 103 mEq/L (97-110); GLOMERULAR FILTRATION RATE > 60; GLUCOSE 83 mg/dL (70-100); POTASSIUM 3.2 mEq/L (3.5-5.2); SODIUM 137 mEq/L (134-144)
[2016-12-24] MEDS: FUROSEMIDE 80 MG in D5W 50 ML IV SCH (08:01)
[2016-12-24] MEDS: METOPROLOL SUCCINATE XR 25 MG TAB PO SCH (08:04)
[2016-12-24] MEDS: SPIRONOLACTONE 25 MG TAB PO SCH (08:07)
[2016-12-24] MEDS: MONTELUKAST SODIUM 10 MG TAB PO SCH (08:07)
[2016-12-24] MEDS: ENOXAPARIN 40 MG/0.4 ML SYR SC SCH (08:08)
[2016-12-24] MEDS: MOMETASONE IH SCH (08:16)
[2016-12-24] MEDS: FORMOTEROL IH SCH (08:16)
[2016-12-24 08:30] VITALS: BP 108/58; PULSE 90; RESP 18; TEMP 97.8; O2SAT 95
[2016-12-24] MEDS ORDERED: PROBENECID 500 MG TAB PO SCH ×2 (09:00)
[2016-12-24] MEDS ORDERED: SPIRONOLACTONE 25 MG TAB PO SCH (09:00)
--- NOTE | 2016-12-24 09:15 | PDDCSUM ---
Discharge Summary Discharge Summary: DC SUMMARY DIAGNOSES: # RIGHT SIDE CHF, ACUTE # ACUTE HYPOXEMIC RESP FAILURE # COPD # METASTATIC BLADDER CANCER, ON CHEMOTHERAPY # NEW FINDINGS OF MEDIASTINAL ADENOPATHY AND HEPATIC CYSTIC LESION ON CT SCAN # STABLE LEFT LUNG NODULE SINCE 11/[address] SCAN PROCEDURES: CT SCAN OF CHEST HOSPITAL COURSE: The patient came in with sob and leg swelling. PE and NC were ruled out. He was found to have severe R side CHF. He had recently been started on diuretic therapy for pulmonary HTN with edema. Here he was diuresed aggressively with IV lasix and responded quite well. He still has some leg edema but is now not sob and ambulating easily off O2. He is stable for DC He is instructed on low salt diet, leg elevation, MATTHEW stockings, daily weights, and protection of the skin on his ankles and legs. I reviewed the findings on his chest CT in detail with him and his . MED CHANGES: -increase in lasix from 20 to 40 per day FOLLOW UP: -with Dr Hernandez next week -with Dr Salcedo next week or two
[2016-12-24] MEDS ORDERED: POTASSIUM CL 20 MEQ/15 ML UDCUP PO ONE (10:09)
== END 2016-12-24 10:39 | disposition home or self-care (01) | DRG 291 ==
LOC: F2W 22:11
PROVIDERS: ADMIT Internal Medicine; ATTEND Internal Medicine
DX: I11.0 Hypertensive heart disease with heart failure (principal); I50.23 Acute on chronic systolic (congestive) heart failure; J96.01 Acute respiratory failure with hypoxia; J44.9 Chronic obstructive pulmonary disease, unspecified; I48.91 Unspecified atrial fibrillation; C67.9 Malignant neoplasm of bladder, unspecified; R59.0 Localized enlarged lymph nodes; K76.9 Liver disease, unspecified; R91.1 Solitary pulmonary nodule
CPT/HCPCS: 96374; J1200; J1650; J1940; Q9967

== ENCOUNTER 2017-05-01 05:20 | Inpatient (IN) | payer OTHER ==
[2017-05-01] MEDS ORDERED: LIDOCAINE 1% 2 ML INJ ID PRN (05:47)
[2017-05-01] MEDS ORDERED: LR 1,000 ML IV ONE (05:47)
[2017-05-01] MEDS ORDERED: AMPICILLIN/SULBACTAM 3 GM in NS 100 ML IV ONE (06:07)
--- NOTE | 2017-05-01 06:10 | PDHPUP ---
History & Physical Update H&P update statement: This history and physical update is based on an assessment of the patient which was completed after admission or registration (within 24 hours), but prior to the surgery/procedure. H&P update: H&P reviewed & patient examined, no change in patient's condition since H&P completed
[2017-05-01] MEDS ORDERED: MIDAZOLAM 2 MG/2 ML VIAL IVP ONE (07:10)
--- NOTE | 2017-05-01 07:11 | PDANEPAE ---
ANE History of Present Illness bladder cancer ANE Past Medical History - Cardiovascular History Hx Hypertension: Yes Hx Arrhythmias: Yes Hx Chest Pain: No Hx Coronary Artery / Peripheral Vascular Disease: Yes Hx CHF / Valvular Disease: No Hx Palpitations: Yes Cardiovascular History Comment: AFIB. HTN. HYPERCHOLESTERMIA. CAD. PVD. SEEN AT [facility] - Pulmonary History Hx COPD: No Hx Asthma/Reactive Airway Disease: No Hx Recent Upper Respiratory Infection: No Hx Oxygen in Use at Home: Yes Hx Sleep Apnea: No Sleep Apnea Screening Result - Last Documented: Positive Pulmonary History Comment: ASTHMA. FAROOQ TRIGGERS ONLY HAS BEEN TESTED - Neurologic History Hx Cerebrovascular Accident: No Hx Seizures: No Hx Dementia: No - Endocrine History Hx Diabetes: No - Renal History Hx Renal Disorders: Yes Renal History Comment: BPH - Liver History Hx Hepatic Disorders: No - Neurological & Psychiatric Hx Hx Neurological and Psychiatric Disorders: No - Cancer History Hx Cancer: Yes Cancer History Comment: INSITU MELANOMA REMOVED FROM BACK 02/2015 STG 1 - Congenital Disorder History Hx Congenital Disorders: No - GI History Hx Gastrointestinal Disorders: No - Other Health History Other Health History: C-DIFF contact isolation 11/26/16. 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 RIGHT CEA WITH HERI 02/18/13. KNEE SCOPE 2009. SEVERAL HAND SURGERIES. ANE Review of Systems Review of Systems: - Exercise capacity METS (RN): 5 METS ANE Patient History - Allergies Allergies/Adverse Reactions: aspirin Allergy (Severe, Verified 12/21/16 21:47) Edema of Extremities NSAIDS (Non-Steroidal Anti-Inflamma Allergy (Severe, Verified 12/17/16 16:47) Swelling/neck,face,throat azithromycin [From Zithromax] Allergy (Mild, Verified 12/17/16 16:47) Hives iodine Allergy (Verified 12/17/16 16:47) Swelling/neck,face,throat - Home Medications Home Medications: Mometasone/Formoterol [Dulera 100 Mcg/5 Mcg Inhaler] 1 puffs IH BID 12/21/16 [ Last Taken 04/30/17 05:00] Montelukast Sodium [Singulair 10 mg (*)] 10 mg PO DAILY 12/21/16 [Last Taken 10/13 05:00] Probenecid [Probenecid 500mg (*)] 500 mg PO DAILY 12/22/16 [Last Taken 05/01/17 05:00] Spironolactone [Aldactone 25 MG (*)] 25 mg PO Q2D 12/22/16 [Last Taken 04/30/17 09:00] Furosemide [Lasix 40 MG (*)] 60 mg PO DAILY 04/12/17 [Last Taken 04/30/17 10:00] Herbals/Supplements -Info Only 1 ea PO DAILY 04/12/17 [Last Taken 04/25/17] Metoprolol Succinate Xr [Toprol Xl 50 mg (*)] 50 mg PO DAILY 04/12/17 [Last Taken 05/01/17 05:00] Rosuvastatin Calcium [Crestor 20mg (*)] 20 mg PO DAILY 04/12/17 [Last Taken 09/15 22:00] - NPO status NPO Since - Liquids (Date): 04/30/17 NPO Since - Liquids (Time): 20:00 NPO Since - Solids (Date): 04/30/17 NPO Since - Solids (Time): 20:00 - Smoking Hx Smoking Status: Former smoker - Family Anes Hx Family Hx Anesthesia Complications: NONE ANE Labs/Vital Signs - Vital Signs Blood Pressure: 132/75 Heart Rate: 60 Respiratory Rate: 16 O2 Sat (%): 96 Height: 175.26 cm Weight: 83.461 kg ANE Physical Exam - Airway Neck exam: FROM Mallampati Score: Class 2 Mouth exam: normal dental/mouth exam - Pulmonary Pulmonary: no respiratory distress - Cardiovascular Cardiovascular: regular rate and rhythym - ASA Status ASA Status: III ANE Anesthesia Plan Anesthesia Plan: general endotracheal anesthesia
[2017-05-01] MEDS ORDERED: ROCURONIUM 100 MG/10 ML VIAL ONE (07:17)
[2017-05-01] MEDS ORDERED: fentaNYL 100 MCG/2 ML INJ ONE ×5 (07:17→12:14)
[2017-05-01] MEDS ORDERED: PROPOFOL 200 MG/20 ML VIAL ONE (07:17)
[2017-05-01] MEDS ORDERED: HYDROmorphONE/DILAUDID 2 MG/ML INJ ONE ×2 (07:17→12:35)
[2017-05-01] MEDS ORDERED: DEXAMETHASONE 4 MG/ML VIAL ONE (11:11)
[2017-05-01] MEDS ORDERED: ONDANSETRON 4 MG/2 ML VIAL ONE (11:11)
[2017-05-01] MEDS ORDERED: LIDOCAINE 2% 5 ML SDV ONE (11:11)
[2017-05-01] MEDS ORDERED: ALBUTEROL 3 ML DEYVIAL IH PRN (12:00)
[2017-05-01] MEDS ORDERED: PROMETHAZINE HCL 25 MG/ML INJ IVP PRN (12:00)
[2017-05-01] MEDS ORDERED: HYDROmorphONE/DILAUDID 1 MG/ML INJ IVP PRN (12:00)
[2017-05-01] MEDS ORDERED: ONDANSETRON 4 MG/2 ML VIAL IVP PRN (12:00)
[2017-05-01] MEDS ORDERED: NALOXONE HCL 0.4 MG/ML INJ IVP PRN ×2 (12:00→13:43)
[2017-05-01] MEDS ORDERED: THROMBIN(HUM PLAS)/FIBRINOG/CA 5 ML VIAL TP ONE (13:11)
[2017-05-01] MEDS ORDERED: BUPIVACAINE/EPI 0.5% 30 ML SDV ONE (13:45)
--- NOTE | 2017-05-01 14:53 | POSTANESTH ---
Post Anesthetic Evaluation Cardiovascular Status: Normal, Stable Respiratory Status: Normal, Stable Level of Consciousness/Mental Status: Can Participate in Eval Pain Control: Adequate, Prn Tx Ordered Nausea/Vomiting Control: Adequate, Prn Tx Ordered Complications Possibly Related to Anesthesia: None Noted
[2017-05-01] MEDS ORDERED: LABETALOL HCL 5 MG/ML 20 ML MDV ONE (15:22)
[2017-05-01] MEDS ORDERED: LABETALOL HCL 5 MG/ML 20 ML MDV IVP ONE ×2 (15:30→16:00)
[2017-05-01] MEDS ORDERED: TEARS/DEXTRAN 70/HYPROMELLOSE 15 ML OPHT.BTL EACHEYE PRN (16:14)
[2017-05-01] MEDS: HYDROmorphONE/DILAUDID 6 MG/30 ML PCA IV PRN (17:32)
[2017-05-01] MEDS: HEPARIN 5,000 UNIT/0.5 ML SYR SC SCH (22:13)
[2017-05-02 05:33] LABS: % IMMATURE GRANULYOCYTES 0.4 % (0.0-1.1); ABSOLUTE IMMATURE GRANULOCYTES 0.03 10^3/uL (0.00-0.10); ADD DIFF? NO; ADD MORPH? NO; ADD SCAN? NO; ATYPICAL LYMPHOCYTE FLAG 0 (0-99); FRAGMENT RBC FLAG 0 (0-99); HEMATOCRIT 39.4 % (40.0-51.0); HEMOGLOBIN 13.1 g/dL (13.7-17.5); LEFT SHIFT FLG 20 (0-99); LIPEMIA HEMOLYSIS FLAG 80 (0-99); MEAN CELL HEMOGLOBIN 33.6 pg (27.9-34.1); MEAN CELL HEMOGLOBIN CONCENTR. 33.2 g/dL (32.4-36.7); MEAN PLATELET VOLUME 9.1 fL (8.7-11.7); PLATELET CLUMPS FLAG 0 (0-99); PLATELET COUNT 136 10^3/uL (150-400); RED CELL DISTRIBUTION WIDTH 14.6 % (11.5-15.2)
[2017-05-02 05:39] LABS: ANION GAP 7 mEq/L (8-16); CALCIUM 9.1 mg/dL (8.5-10.4); CARBON DIOXIDE 27 mEq/l (22-31); CHLORIDE 103 mEq/L (97-110); CREATININE 1.1 mg/dL (0.7-1.3); GLOMERULAR FILTRATION RATE > 60; GLUCOSE 144 mg/dL (70-100); POTASSIUM 4.5 mEq/L (3.5-5.2); SODIUM 137 mEq/L (134-144)
[2017-05-02] MEDS: HEPARIN 5,000 UNIT/0.5 ML SYR SC SCH ×2 (06:00→21:26)
[2017-05-02] MEDS: HYDROmorphONE/DILAUDID 6 MG/30 ML PCA IV PRN (08:02)
[2017-05-02] MEDS ORDERED: BISACODYL 10 MG SUPP PR PRN (08:16)
[2017-05-02] MEDS ORDERED: BISACODYL 10 MG SUPP PR ONE ×2 (08:19→14:30)
--- NOTE | 2017-05-02 08:27 | POSTOPPROG ---
Post Op Note Date of Operation: 05/01/17 Surgeon: Benjamin Daley Anesthesia: GET(General Endotracheal) Pre-op Diagnosis: bladder cancer Post-op Diagnosis: same Indication: as above Procedure: robotic cystoprostatectomy and ileal conduit - LN dissection Inf/Abcess present in the surg proc area at time of surgery?: No Depth: Organ Space EBL: 100-500 Total fluids administered: see rec Complications: none Drains: Carlos Calhoun
--- NOTE | 2017-05-02 08:28 | SOAPPROG ---
SOAP Progress Note Assessment/Plan: Assessment: Significant ileus - ostomy looks good - ambulate 5 x today Plan: as above 05/02/17 08:27 Subjective: as above, feels good - Objective: Vital Signs Temp Pulse Resp BP Pulse Ox 36.9 C 80 16 161/90 H 94 05/02/17 07:55 05/02/17 07:55 05/02/17 07:55 05/02/17 07:55 05/02/17 07:55 Laboratory Results 05/02/17 04:51 05/02/17 04:51 05/01/17 05/02/17 05/03/17 05:59 05:59 05:59 Intake Total 3860 202 Output Total 1050 Balance 2810 202 - Time Spent With Patient Time Spent With Patient: 30 min - Pending Discharge Pending Discharge Within 24 Hours: No Pending Discharge Within 48 Hours: No Physical Exam - Physical Exam EENT: PERRL/EOMI Neck: full range of motion Respiratory: chest non-tender Cardiac/Chest: normal peripheral pulses Abdomen: normal bowel sounds, other (ostomy pink - output high) Male Genitalia: normal genitalia ICD10 Worksheet Patient Problems: Problems Problem Status Onset Anemia Acute C. difficile diarrhea Acute ~11/26/16 Congestive heart failure Acute Fever Acute Hyponatremia Acute Thrombocytopenia Acute
[2017-05-02] MEDS ORDERED: PROBENECID 500 MG TAB PO SCH (09:00)
[2017-05-02] MEDS ORDERED: METOPROLOL SUCCINATE XR 50 MG TAB PO SCH (09:00)
[2017-05-02] MEDS ORDERED: SPIRONOLACTONE 25 MG TAB PO SCH (09:00)
[2017-05-02] MEDS ORDERED: FUROSEMIDE 40 MG TAB PO SCH (09:00)
[2017-05-02] MEDS ORDERED: MONTELUKAST SODIUM 10 MG TAB PO SCH (09:00)
[2017-05-02] MEDS ORDERED: ROSUVASTATIN CALCIUM 20 MG TAB PO SCH (09:00)
[2017-05-02] MEDS ORDERED: FORMOTEROL IH SCH (09:00)
[2017-05-02] MEDS ORDERED: MOMETASONE IH SCH (09:00)
[2017-05-02] MEDS ORDERED: VSL#3 1 EACH CAP PO SCH (09:00)
[2017-05-02] MEDS: Mometasone/Formoterol [Dulera 100 Mcg/5 Mcg Inhaler] 2 PUFFS IH SCH (09:42)
[2017-05-02] MEDS: LACTULOSE 20 GM/30 ML UDCUP PO SCH ×3 (10:50→21:26)
[2017-05-02] MEDS ORDERED: NALOXONE HCL 0.4 MG/ML INJ IVP PRN (10:59)
[2017-05-02] MEDS ORDERED: NARCOTIC DRIP BAG-TOTAL ALL TYPES EP PRN (10:59)
--- NOTE | 2017-05-02 11:56 | PDANEPAE ---
ANE History of Present Illness Continuous lumbar epidural for post op pain ANE Past Medical History - Cardiovascular History Hx Hypertension: Yes Hx Arrhythmias: Yes Hx Chest Pain: No Hx Coronary Artery / Peripheral Vascular Disease: Yes Hx CHF / Valvular Disease: No Hx Palpitations: Yes Cardiovascular History Comment: AFIB. HTN. HYPERCHOLESTERMIA. CAD. PVD. SEEN AT [facility] - Pulmonary History Hx COPD: No Hx Asthma/Reactive Airway Disease: No Hx Recent Upper Respiratory Infection: No Hx Oxygen in Use at Home: No Hx Sleep Apnea: No Sleep Apnea Screening Result - Last Documented: Positive Pulmonary History Comment: ASTHMA. FAROOQ TRIGGERS ONLY HAS BEEN TESTED - Neurologic History Hx Cerebrovascular Accident: No Hx Seizures: No Hx Dementia: No - Endocrine History Hx Diabetes: No - Renal History Hx Renal Disorders: Yes Renal History Comment: BPH - Liver History Hx Hepatic Disorders: No - Neurological & Psychiatric Hx Hx Neurological and Psychiatric Disorders: No - Cancer History Hx Cancer: Yes Cancer History Comment: INSITU MELANOMA REMOVED FROM BACK 02/2015 STG 1 - Congenital Disorder History Hx Congenital Disorders: No - GI History Hx Gastrointestinal Disorders: No - Other Health History Other Health History: C-DIFF contact isolation 11/26/16. 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 RIGHT CEA WITH HERI 02/18/13. KNEE SCOPE 2009. SEVERAL HAND SURGERIES. ANE Review of Systems Review of Systems: - Exercise capacity Exercise capacity: >=4 METS METS (RN): 5 METS ANE Patient History - Allergies Allergies/Adverse Reactions: aspirin Allergy (Severe, Verified 12/21/16 21:47) Edema of Extremities NSAIDS (Non-Steroidal Anti-Inflamma Allergy (Severe, Verified 12/17/16 16:47) Swelling/neck,face,throat azithromycin [From Zithromax] Allergy (Mild, Verified 12/17/16 16:47) Hives iodine Allergy (Verified 12/17/16 16:47) Swelling/neck,face,throat - Home Medications Home medications: home medication list seen and reviewed Home Medications: Mometasone/Formoterol [Dulera 100 Mcg/5 Mcg Inhaler] 1 puffs IH HS 12/21/16 [ Last Taken 04/30/17 05:00] Montelukast Sodium [Singulair 10 mg (*)] 10 mg PO DAILY 12/21/16 [Last Taken 10/13 05:00] Probenecid [Probenecid 500mg (*)] 500 mg PO DAILY 12/22/16 [Last Taken 05/01/17 05:00] Spironolactone [Aldactone 25 MG (*)] 25 mg PO Q2D 12/22/16 [Last Taken 04/30/17 09:00] Furosemide [Lasix 40 MG (*)] 60 mg PO DAILY 04/12/17 [Last Taken 04/30/17 10:00] Herbals/Supplements -Info Only 1 ea PO DAILY 04/12/17 [Last Taken 04/25/17] Metoprolol Succinate Xr [Toprol Xl 50 mg (*)] 50 mg PO DAILY 04/12/17 [Last Taken 05/01/17 05:00] Rosuvastatin Calcium [Crestor 20mg (*)] 20 mg PO DAILY 04/12/17 [Last Taken 09/15 22:00] Albuterol Sulfate [Proair Respiclick] 1 puffs IH PRN PRN 05/02/17 [Last Taken Unknown] Mometasone/Formoterol [Dulera 100 Mcg/5 Mcg Inhaler] 2 puffs IH DAILY 05/02/17 [ Last Taken Unknown] - NPO status NPO Since - Liquids (Date): 04/30/17 NPO Since - Liquids (Time): 20:00 NPO Since - Solids (Date): 04/30/17 NPO Since - Solids (Time): 20:00 - Smoking Hx Smoking Status: Former smoker - Family Anes Hx Family Hx Anesthesia Complications: NONE ANE Labs/Vital Signs - Labs Result Diagrams: 05/02/17 04:51 05/02/17 04:51 - Vital Signs Blood Pressure: 131/82 Heart Rate: 90 Respiratory Rate: 16 O2 Sat (%): 97 Height: 175.26 cm Weight: 83.461 kg ANE Physical Exam - Airway Mallampati Score: Class 1 Mouth exam: normal dental/mouth exam - Pulmonary Pulmonary: no respiratory distress - Cardiovascular Cardiovascular: regular rate and rhythym - ASA Status ASA Status: III ANE Anesthesia Plan Regional Anesthesia: POPC/PSR (continuous lumbar epidural for post op pain) Urgent/Emergent Case: Randy gibbons completed preop but documented later for safe timely pt care
[2017-05-02] MEDS ORDERED: ALBUTEROL SULFATE IH PRN (13:52)
--- NOTE | 2017-05-02 14:25 | GOP ---
[f rep st] OPERATIVE REPORT DATE OF OPERATION: SURGEON: Benjamin Daley MD OUT OF TOWN COLLECTION CLERK: Lara Ortiz [facility], surgical appliances salesperson. PREOPERATIVE DIAGNOSIS: Bladder cancer, muscle invasive. POSTOPERATIVE DIAGNOSIS: Bladder cancer, muscle invasive. PROCEDURE PERFORMED: Robotic assisted cystoprostatectomy with left and right pelvic lymph node dissection, and ileal conduit formation. FINDINGS: gross margins negative SPECIMENS: Frozen sections of the ureters, left and right, sent to Pathology for distal margin clearance; left and right pelvic lymph node dissection sent to Pathology for analysis; and cystoprostatectomy specimen sent to Pathology for analysis. ESTIMATED BLOOD LOSS: 200 cc. INDICATIONS: The patient is a very pleasant, 76-year-old male with known history of muscle invasive bladder cancer. He is an active individual, he bikes regularly, exercises regularly, and looks younger than stated age. He has undergone neoadjuvant chemotherapy and he is currently presenting for the above procedure. After a long discussion of the risks, benefits, and alternatives, he has consented for the above procedure, and was brought to the operating room for this. DESCRIPTION OF PROCEDURE: The patient was identified by name, medical record number, and wrist band, and was brought to the operating room, laid supine on the operative table. He was prepped and draped in the standard surgical fashion. He was placed in low lithotomy position, meticulously prepped and padded. A Sorenson catheter was placed. We made an incision to access the abdominal cavity using a Veress needle in an atraumatic manner. Camera port was then placed, and all other ports were placed under direct visualization. The patient was placed in 20 degrees head down. The robot was docked atraumatically. We started our procedure by taking the colon down along the white line of Toldt , and reflecting this medially to identify the ureter, which was identified on the left and the right. We then mobilized the rectum out of the pelvis, and incised 1 cm above the rectum. We carried this down to seminal vesicles of the vas. The vas was transected bilaterally, and the ampulla was dissected posteriorly. Denonvilliers fascia was opened posteriorly. We mobilized this down to the level of the urethra. We then mobilized the bladder anteriorly, took this down along the medial umbilical ligaments until the ureters were again identified, and the endopelvic fascia was also identified and this was incised and cleared of any overlying fat. We then cauterized the superficial dorsal vein. The dorsal vein was identified. The urethra and the dorsal vein were dissected and mobilized. Then, we used an 0 Vicryl to tie off the dorsal venous complex. We then had pedicles of the bladder and the prostate, and these were taken with the _tissue sealer. Once the pedicles were taken, we incised the urethra after placing a Weck clip on the urethra to ensure no urine leakage first, incised this, and the prostate and bladder were mobilized. We then undocked the robot and opened the abdomen for our incision in the midline, and we tried to get good exposure with the Yolanda; this failed, so we used the Bookwalter and opened our incision a little larger, and we performed our pelvic lymph node dissection using the template of the joseph of Gerardo, the iliac vein, the pelvic sidewall, the obturator nerve, and the bifurcation of the iliacs. We then sent the left and the right pelvic lymph nodes off to Pathology, and turned our attention toward our bowel work. It should be noted that taking the left prostatic pedicle, we identified a possible rent in the rectum, and we had General Surgery come in to evaluate; I asked that they do a sigmoidoscopy, and this was performed and found to be negative for any mucosal rent. Used 3-0 PDS to close the likely serosal rent in 2 layers, and then we moved on with the procedure. Once our pelvic lymph node dissection was complete, we turned our attention to our ileal conduit. We measured back 15 cm from the appendix, and put a long stay suture into the bowel, and a short stay suture 20 cm proximal to that, and then we used a mosquito to dissect the mesentery off the bowel, and used our Endostapler to perform a staple incision of the bowel, to mobilize our ileal conduit. We used transillumination to identify the vascular cascade of the mesentery, which was incised to mobilize the ileal conduit. We dropped this conduit caudally, and performed our bowel anastomosis cephalad to the conduit, and our Endostapler at the corners of the anastomosis. We placed the stapler into each one, and stapled the ante-mesenteric margin of the intestines bilaterally, proximal and distal, to re-establish continuity of the bowel. I then used a TA stapler to close the anastomosis in a watertight fashion, and this looked very good at the end of the procedure. Pop off sutures were placed at the crotch of the staple anastomosis. The window was closed with pop-off silks as well to prevent hernia, and the conduit was then addressed. We had already mobilized the ureters left and right anteriorly and cephalad, and a mesenteric window was made on the left, to pass underneath the left colon and once we did this, it lay in good position. The right also lay in good position to the conduit on the distal end of the conduit. We used a pop-off silk to secure the end of the ureter to the conduit, and the ureter lay nicely on the conduit at that point. We made a small incision with scissors without cautery, and incised down through the serosa and mucosa until the conduit was entered, and we used 4-0 Vicryl to perform a left and right running anastomosis , and our anastomosis stents were placed on the left and the right, and then we completed the anastomosis after. It should be noted that we spatulated widely both ureters, and the anastomosis at the end of the procedure was watertight and tension free. The ostomy was then formed and using our robotic right hand port, we enlarged this and made a cruciate fascial incision, and then brought the conduit through this to complete our ostomy. We used PDS in 4 quadrants, going from the fascia to the conduit to the skin to secure the conduit, and then used 3-0 chromic to complete the inversion of the ostomy. This was then watertight. We had good urine coming from the ostomy through the stents and the ostomy at the end of the procedure. We placed Evicel around the ureteral ileal anastomosis bilaterally. We then turned our attention toward closure. We irrigated copiously, and then placed drains in the pelvis and around the anastomosis of the conduit, and then we closed the skin with niurka. All 12 mm ports and our main incision were closed with PDS. Our anastomosis was watertight at the end of the procedure, and we closed skin, again, with niurka. Marcaine with epinephrine was infused. Our SARAH drains were secured in place, placed to bulbs. A pelvic drain was placed with a 16-Estonian Sorenson with 30 cc balloon. The patient was awakened from anesthesia and brought to the recovery room in stable condition after the cystoprostatectomy specimen had been passed off the table and sent to Pathology. COMPLICATIONS: None URINE OUTPUT: Not recorded. DRAINS: 2 SARAH in pelvis and at site of ilealureteroanastomosis and pelvic drain /[id number]/MODL MTDD
--- NOTE | 2017-05-02 14:45 | ASMTCMCOM ---
CM Note CM Note Notes: Pt. is a 76-year-old man admitted for surgery related to his bladder cancer. Has new ostomy. No PT/OT ordered. Appears Pt. is quite independent normally. Pt. lives w/ his , Windy. MDPOA printed and placed in hard chart. Windy is first decision-maker. SW to follow for d/c plan of care. Pt. likely to be independent at d/c Date Signed: 05/02/2017 02:44 PM Electronically Signed By:Milady Aguilar LCSW
[2017-05-02] MEDS ORDERED: LIDO/EPI 2% **for epidural** 20 ML SDV IF ONE (15:15)
--- NOTE | 2017-05-02 15:58 | PDANEPAE ---
ANE History of Present Illness 76 yo male s/p cystoprostatectomy with ileal conduit now with post/op pain and ileus. ANE Past Medical History - Cardiovascular History Hx Hypertension: Yes Hx Arrhythmias: Yes Hx Chest Pain: No Hx Coronary Artery / Peripheral Vascular Disease: Yes Hx CHF / Valvular Disease: No Hx Palpitations: Yes Cardiovascular History Comment: AFIB. HTN. HYPERCHOLESTERMIA. CAD. PVD. SEEN AT [facility] - Pulmonary History Hx COPD: No Hx Asthma/Reactive Airway Disease: Yes Hx Recent Upper Respiratory Infection: No Hx Oxygen in Use at Home: No Hx Sleep Apnea: No Sleep Apnea Screening Result - Last Documented: Positive Pulmonary History Comment: ASTHMA - uses inhaled steroid and rescue inhaler , rescue used once per month; no ER visits ever. 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 RIGHT CEA WITH HERI 02/18/13. KNEE SCOPE 2009. SEVERAL HAND SURGERIES. ANE Review of Systems Review of Systems: - Exercise capacity METS (RN): 5 METS - Systems Respiratory: Reports: shortness of breath, wheezing Gastrointestinal: Reports: abdominal distention, constipation Genitourinary: Reports: pain ANE Patient History - Allergies Allergies/Adverse Reactions: aspirin Allergy (Severe, Verified 12/21/16 21:47) Edema of Extremities NSAIDS (Non-Steroidal Anti-Inflamma Allergy (Severe, Verified 12/17/16 16:47) Swelling/neck,face,throat azithromycin [From Zithromax] Allergy (Mild, Verified 12/17/16 16:47) Hives iodine Allergy (Verified 12/17/16 16:47) Swelling/neck,face,throat - Home Medications Home medications: home medication list seen and reviewed Home Medications: Mometasone/Formoterol [Dulera 100 Mcg/5 Mcg Inhaler] 1 puffs IH HS 12/21/16 [ Last Taken 04/30/17 05:00] Montelukast Sodium [Singulair 10 mg (*)] 10 mg PO DAILY 12/21/16 [Last Taken 10/13 05:00] Probenecid [Probenecid 500mg (*)] 500 mg PO DAILY 12/22/16 [Last Taken 05/01/17 05:00] Spironolactone [Aldactone 25 MG (*)] 25 mg PO Q2D 12/22/16 [Last Taken 04/30/17 09:00] Furosemide [Lasix 40 MG (*)] 60 mg PO DAILY 04/12/17 [Last Taken 04/30/17 10:00] Herbals/Supplements -Info Only 1 ea PO DAILY 04/12/17 [Last Taken 04/25/17] Metoprolol Succinate Xr [Toprol Xl 50 mg (*)] 50 mg PO DAILY 04/12/17 [Last Taken 05/01/17 05:00] Rosuvastatin Calcium [Crestor 20mg (*)] 20 mg PO DAILY 04/12/17 [Last Taken 09/15 22:00] Albuterol Sulfate [Proair Respiclick] 1 puffs IH PRN PRN 05/02/17 [Last Taken Unknown] Mometasone/Formoterol [Dulera 100 Mcg/5 Mcg Inhaler] 2 puffs IH DAILY 05/02/17 [ Last Taken Unknown] - NPO status NPO Since - Liquids (Date): 04/30/17 NPO Since - Liquids (Time): 20:00 NPO Since - Solids (Date): 04/30/17 NPO Since - Solids (Time): 20:00 - Smoking Hx Smoking Status: Former smoker - Family Anes Hx Family Hx Anesthesia Complications: NONE ANE Labs/Vital Signs - Labs Result Diagrams: 05/02/17 04:51 05/02/17 04:51 - Vital Signs Blood Pressure: 138/72 Heart Rate: 84 Respiratory Rate: 16 O2 Sat (%): 93 Height: 175.26 cm Weight: 83.461 kg ANE Physical Exam - Airway Neck exam: FROM Mallampati Score: Class 2 Mouth exam: normal dental/mouth exam - Pulmonary Pulmonary: expiratory wheeze - Cardiovascular Cardiovascular: regular rate and rhythym ANE Anesthesia Plan Anesthesia Plan: epidural (thoracic epidural for post-op pain management)
[2017-05-02] MEDS ORDERED: ALBUTEROL 3 ML DEYVIAL IH ONE (16:00)
[2017-05-02] MEDS ORDERED: ALBUTEROL 3 ML DEYVIAL ONE (16:02)
[2017-05-02] MEDS ORDERED: fentaNYL 100 MCG/2 ML INJ ONE (16:04)
[2017-05-02] MEDS ORDERED: fentaNYL 100 MCG/2 ML INJ IVP ONE (16:04)
[2017-05-02] MEDS: fentaNYL 100 MCG/2 ML INJ IVP PRN ×2 (16:08→16:29)
[2017-05-02] MEDS ORDERED: LIDO/EPI 2% **for epidural** 20 ML SDV ONE (16:38)
--- NOTE | 2017-05-02 18:42 | WOCRNPDOC ---
WOCRN Advanced Assessment Note - Urostomy Assessment, Advanced Right Abdomen Urostomy Urostomy Appliance Intact: No Urostomy Appliance Currently in Use: Two Piece Flat, 2 3/4 (colostomy appliance) Stoma Color: Red Stoma Turgor: Moist, Floppy, Stents (x2 white) Stoma Shape: Round Stoma Height: Protruding Mucocutaneus Junction: Intact Urostomy Effluent: Urine Urostomy Size - Head-to-Toe Length X Width X Depth (cm): 29-32 mm Urostomy Details: Ileal Conduit Peristomal Skin: Intact Urostomy Comment/Treatment Details: Ostomy appliance was leaking under the wafer. It was difficult to drain pouch as it was a appliance. Two intact stents present that were both patent. Stoma dark red and moist. It may be challenging to maintain a good seal with an appliance with this patient as there is an abdominal skin crease both at 3 and 9 oclock. Both of those were filled with paste and a new two piece appliance was placed with no problems. Education with patient about frequency of pouch change, how to change pouch, stoma, what the surgery involved, what to expect when patient gets home, supplies (from [employer]) and ordering were discussed. Risk And Insurance Manager will follow up either or sunday for another pouch change. Patient's significant other Windy was in the room for some of the education. Educational printed materials provided and verbal consent obtained for [employer] new starter kit and support program which was initiated.
[2017-05-02] MEDS: HYDROmorph 10MCG/ML&BUP 0.1% in 100ML NS EP SCH (20:06)
[2017-05-02] MEDS ORDERED: diphenhydrAMINE 25 MG CAP PO PRN (21:10)
[2017-05-02] MEDS: ONDANSETRON 4 MG/2 ML VIAL IVP PRN (21:23)
[2017-05-02 21:35] LABS: HEMATOCRIT 42.6 % (40.0-51.0); HEMOGLOBIN 14.3 g/dL (13.7-17.5); MEAN CELL HEMOGLOBIN 33.6 pg (27.9-34.1); MEAN CELL HEMOGLOBIN CONCENTR. 33.6 g/dL (32.4-36.7); RED BLOOD CELL COUNT 4.26 10^6/uL (4.40-6.38); RED CELL DISTRIBUTION WIDTH 14.6 % (11.5-15.2)
[2017-05-02] MEDS: MOMETASONE IH SCH (22:08)
[2017-05-02] MEDS: FORMOTEROL IH SCH (22:08)
[2017-05-03] MEDS: HYDROmorph 10MCG/ML&BUP 0.1% in 100ML NS EP SCH ×5 (00:41→21:21)
[2017-05-03] MEDS: ONDANSETRON 4 MG/2 ML VIAL IVP PRN (04:10)
[2017-05-03 04:48] LABS: % IMMATURE GRANULYOCYTES 0.4 % (0.0-1.1); ABSOLUTE IMMATURE GRANULOCYTES 0.04 10^3/uL (0.00-0.10); ADD DIFF? NO; ADD MORPH? NO; ADD SCAN? NO; ATYPICAL LYMPHOCYTE FLAG 0 (0-99); FRAGMENT RBC FLAG 0 (0-99); HEMATOCRIT 42.4 % (40.0-51.0); HEMOGLOBIN 14.4 g/dL (13.7-17.5); LEFT SHIFT FLG 10 (0-99); LIPEMIA HEMOLYSIS FLAG 90 (0-99); MEAN CELL HEMOGLOBIN 33.6 pg (27.9-34.1); MEAN CELL VOLUME 99.1 fL (81.5-99.8); PLATELET CLUMPS FLAG 0 (0-99); PLATELET COUNT 156 10^3/uL (150-400); RED BLOOD CELL COUNT 4.28 10^6/uL (4.40-6.38); RED CELL DISTRIBUTION WIDTH 14.6 % (11.5-15.2)
[2017-05-03 04:57] LABS: ANION GAP 12 mEq/L (8-16); CALCIUM 9.8 mg/dL (8.5-10.4); CARBON DIOXIDE 24 mEq/l (22-31); CHLORIDE 100 mEq/L (97-110); CREATININE 1.3 mg/dL (0.7-1.3); GLOMERULAR FILTRATION RATE 54; GLUCOSE 163 mg/dL (70-100); POTASSIUM 4.3 mEq/L (3.5-5.2); SODIUM 136 mEq/L (134-144)
[2017-05-03] MEDS ORDERED: LABETALOL HCL 50 MG/10 ML SYR IVP PRN (06:35)
--- NOTE | 2017-05-03 06:40 | SOAPPROG ---
SOAP Progress Note Assessment/Plan: Assessment: s/p cystoprostatectomy with ileal conduit and rigid sig for invasive bladder cancer Called by Dr. Daley to evaluate patient as I was in house Distended and difficulty getting full breath as abdomen is so distended VSS although hypertensive, 1 L bilious fluid out of NG, CBC wnl. I think this is an ileus although cannot entirely exclude a surgical bowel obstruction. 1) Continue NG 2) AXR without free air. Distension of bowel throughout. Will monitor 3) Hypertension - d/c po metoprolol and started IV labetalol 4) SARAH cr (Cr is up to 1.3) 5) I will continue to follow. 6) NPO except meds. I reviewed his medication list. 40 minutes reviewing records outside room, patient care, reviewing films S: Burping, no flatus, difficulty breathing due to abdominal distension O: Lying in bed, appears comfortable NCAT, PER, No gross hearing deficits NG with bilious fluid coming out Voice is weak Lungs clear bilaterally although decreased at bases Regular rate I cannot appreciate bowel sounds. very distended. Midline dressing cdi. Conduit with scant fluid in bag. Each SARAH with thin serosang fluid. Very distended. Does not have pain out of proportion to exam Mood and affect normal Neuro: Grossly intact Plan: 05/03/17 06:39 05/03/17 06:45 Objective: Vital Signs Temp Pulse Resp BP Pulse Ox 37.1 C 88 18 187/103 H 93 05/03/17 04:00 05/03/17 04:00 05/03/17 04:00 05/03/17 04:00 05/03/17 04:00 Laboratory Results 05/03/17 04:13 05/03/17 04:13 05/02/17 05/03/17 05/04/17 05:59 05:59 05:59 Intake Total 3860 202 Output Total 1050 955 0 Balance 2810 -753 0 ICD10 Worksheet Patient Problems: Problems Problem Status Onset Anemia Acute C. difficile diarrhea Acute ~11/26/16 Congestive heart failure Acute Fever Acute Hyponatremia Acute Thrombocytopenia Acute
[2017-05-03] MEDS ORDERED: IPRATROPIUM/ALBUTEROL 3 ML DEYVIAL IH PRN (08:21)
[2017-05-03] MEDS: Mometasone/Formoterol [Dulera 100 Mcg/5 Mcg Inhaler] 2 PUFFS IH SCH (08:35)
[2017-05-03] MEDS ORDERED: hydrALAZINE 20 MG/ML VIAL IVP PRN ×3 (08:46→12:34)
--- NOTE | 2017-05-03 09:54 | GCON ---
[f rep st] CONSULTATION REQUESTING PHYSICIAN: Dr. Jaramillo. DATE OF CONSULTATION: 05/03/2017 REASON FOR CONSULTATION: Elevated blood pressure and medical management. CHIEF COMPLAINT: Dyspnea and abdominal pain. HISTORY OF PRESENT ILLNESS: This is a very pleasant 76-year-old gentleman, postop day #2 status post a cystoprostatectomy with ileal conduit with Dr. Jaramillo, who has a history of hypertension, paroxysmal atrial fibrillation, diastolic CHF, peripheral vascular disease, asthma, nocturnal hypoxia, and pulmonary hypertension, who is admitted for history of invasive bladder cancer status post a cystoprostatectomy with ileal conduit. Hospitalist service has been consulted for assistance with medical management and elevated blood pressures. PROBLEMS: 1. Benign essential hypertension. The patient is followed closely with Cardiology at [facility]. He reports that normally his blood pressures have been fairly well controlled with systolic blood pressures in the 130s. Review of cardiology notes reveals that the patient's blood pressures have been somewhat difficult to control despite management with metoprolol, furosemide, spironolactone. The patient denies any chest pain, palpitations recently, but has been having some increased shortness of breath related to abdominal distention. The patient reports some increased difficulty breathing. The patient denies any lower extremity edema at this time. 2. Diastolic CHF with a normal EF, LVH, moderate aortic stenosis, mild MR and moderate TR on previous echocardiogram. Patient appears compensated. Diastolic CHF is chronic in nature, and previously well controlled with Lasix, spironolactone, and dietary restrictions. 3. Asthma. The patient reports previously well controlled with Dulera and albuterol inhaler. Currently, patient feels like he is a little bit wheezy and did have improvement with a nebulizer treatment. 4. Abdominal distention. The patient with increasing abdominal distention today and complaints of increasing pain and difficulty breathing. Prior to my arrival, patient had an NG tube placed with output of over 1000 mL of gastric content. Patient reports that his abdominal distention is significantly improved. Imaging reviewed reveals ileus, followed by General Surgery. 5. Paroxysmal atrial fibrillation. Currently normal sinus rhythm. Patient's chart reviewed for Cardiology and Holter report showing mostly normal sinus rhythm with occasional PACs and occasional nonsustained atrial fibrillation. Currently, patient denies any chest pain or palpitations, and heart rate has maintained in the 70s to 80s. REVIEW OF SYSTEMS: GENERAL: Patient denies any subjective fevers or chills. He is complaining of some sweats. Overall feeling a little bit better following the placement of an NG tube. SKIN: Patient denies any rashes or sores. Incisions have been dry, clean, and intact. ENT: Patient denies any rhinorrhea or congestion. No sore throat. EYES: No acute changes in vision or ocular pain. CV: The patient denies any chest pain, palpitations. RESPIRATORY: Patient complains of some wheezing, shortness of breath. No cough. No pleuritic chest pain. GI: Patient with abdominal pain. No nausea, vomiting. Has not had any flatus postoperatively. Reports abdominal distention has improved status post NG tube placement. : Status post cystoprostatectomy with output in drains and ostomy. MUSCULOSKELETAL: Patient currently denying any myalgias or joint pain. NEURO: Patient denies any headache. No numbness or tingling. Remainder review of systems negative except as above. ALLERGIES: Aspirin, NSAIDs, azithromycin, and iodine. HOME MEDICATIONS: Albuterol, ProAir, Dulera 100/5 two puffs daily, 1 puff at bedtime; Singulair 10 mg p.o. daily; spironolactone 25 mg p.o. every other day; probenecid 500 mg p.o. daily; Crestor 20 mg p.o. daily; metoprolol-XL 50 mg p.o. daily; Lasix 60 mg p.o. daily. CURRENT HOSPITAL MEDICATIONS: Artificial Tears, Benadryl, furosemide, heparin subcu q.12, [employer] with hydromorphone, labetalol 20 IVP q.4 hours p.r.n., lactulose, p.r.n. Zofran, probenecid, Crestor and spironolactone have been restarted. PAST MEDICAL HISTORY: Significant for benign essential hypertension, diastolic CHF, peripheral vascular disease. Echocardiogram showing LVEF of 65%, LVH, moderate aortic stenosis, mild MR, moderate TR, history of pancytopenia, history of locally invasive bladder cancer with history of BPH status post chemotherapy and status post a cystoprostatectomy with conduit, history of hyperglycemia, history of transfusion, decreased hearing, history lung nodule that is stable, history of superficial venous thrombus in the left basilic vein , nocturnal hypoxia on 2 L oxygen at bedtime, paroxysmal atrial fibrillation intolerant of anticoagulation secondary to recent history of hematuria, carotid artery stenosis status post bilateral CEA, seasonal allergies, allergic rhinitis , asthma with possible underlying COPD based on PFTs, pulmonary hypertension, and gout. PAST SURGICAL HISTORY: Significant for bilateral carotid endarterectomy, TURP, hernia repair, appendectomy, knee meniscus repair, and more recently postop day 2 from cystoprostatectomy with ileal conduit. FAMILY HISTORY: Significant for a father with leukemia. Brother with CAD and hyperlipidemia. Mother from meningitis and a brother with Parkinson's. SOCIAL HISTORY: Patient is , lives with his . He has increased his physical activity and has done hiking and biking over the last several months since completing his chemotherapy. He quit smoking in 1994 and has a 10 pack- year history of smoking half pack per day for 20 years. Patient does drink 1-4 glasses of wine plus or minus beers usually at nighttime. He reports however that his last drink was approximately 5 days ago and has never had any issues with immediate cessation withdrawals or tremors. PHYSICAL EXAM: VITAL SIGNS: Available on exam, blood pressure 169/103, pulse is 87, respiratory rate 18, O2 saturation 93% on 2.5 L by nasal cannula, temperature 37.1. GENERAL: No significant distress. Pleasant, elderly gentleman is sitting up in bed. He appears chronically ill, but pleasant and in good spirits. HEAD: Normocephalic, atraumatic. EYES: Extraocular muscles grossly intact. Pupils equal, round, slightly decreased to reactivity. No scleral icterus or conjunctival injection. ENT: Mucous membranes appear slightly dry. Patient has an NG tube in place in the left naris. No nasal discharge. NECK: Supple. Trachea midline. CV: Regular rate and rhythm. Slightly distant heart sounds. No rubs or gallops appreciated. RESPIRATORY: Diminished at the bases. Some anterior lung field wheezing bilaterally. Clear at the bases. Decreased in the lower lung corrales. ABDOMEN: Significantly distended, firm. Some mild tenderness to palpation near the incision sites, and there are no audible bowel sounds at this time. : Catheter is in place. No scrotal edema. MUSCULOSKELETAL: Patient able to move all extremities slowly. He has some chronic skin changes in the lower extremities. NEURO: Grossly nonfocal. No facial drooping. No focal deficits. Patient is awake, alert, oriented x3. PSYCH: Patient is pleasant without any evidence of anxiety or depressed mood. Thought process, content and questions are appropriate. LABORATORY STUDIES: WBC 9.75, H and H 14.4 and 42.4, MCV of 99.1, platelet count is 156, neutrophils 80.7, no bands. Sodium 136, potassium 4.3, chloride 100, CO2 24, anion gap is 12. BUN is 29, creatinine is 1.3 up from 1.1 and a GFR 54, glucose is 163, calcium 9.8. IMAGING: Reviewed myself and report became available showing ileus with distended loops of bowel. Postsurgical changes with an NG tube in place and gastric fundus. The patient's paper chart was reviewed including systems consultant's notes from Cardiology, Allergy, Oncology and Urology. ASSESSMENT AND PLAN: Pleasant 76-year-old gentleman, postop day #2, status post a cystoprostatectomy with ileal conduit. Hospital Service consulted for medical management by problems. 1. Benign essential hypertension. Currently blood pressures are elevated. Patient is now with an ileus and will be made n.p.o. Labetalol has been ordered by the surgical services and will also add hydralazine, as patient has been on multi-drug regiment for his [id number] blood pressures. Anticipate that his current systolic blood pressure will decrease now that patient has had NG tube placed with improvement of the abdominal distention and improvement in respiratory status. 2. Diastolic congestive heart failure, chronic, compensated. Holding diuresis at this time. We will monitor fluid status closely, but the patient still appears to be dry. 3. Asthma. Patient with some mild wheezing. Have added nebulizer treatment p.r.n. Continue with Dulera as tolerated. 4. Ileus. As per General Surgery and primary team services. 5. Hyperglycemia. Blood sugars at this time are acceptable, slightly elevated. The patient was currently n.p.o. and not on any treatment. We will add for monitoring and a low-dose sliding scale however, given increased stress response. 6. Pulmonary hypertension. Oxygen, nebulizers p.r.n. 7. Paroxysmal atrial fibrillation. The patient with prophylactic anticoagulation. He has not been previously tolerating anticoagulation secondary to history of hematuria. We will defer as to the primary service to monitor H and H. 8. History of bladder cancer, status post procedure as above. 9. Acute kidney injury. Continue with IV fluids, particularly now that patient is n.p.o. We will monitor fluid status closely, but believe this is likely prerenal. 10. Fluid, electrolyte, nutrition. N.p.o. NG tube in place to suction as per Surgery. IV fluids for gentle hydration rate as patient is n.p.o. Monitor ins and outs. 11. Prophylaxis. Heparin as per primary team. SCDs. Thank you for this consultation. We will continue to follow along with you. Please call with any questions. /[id number]/MODL MTDD
[2017-05-03] MEDS: DC NARCS MISC SCH (10:23)
[2017-05-03] MEDS: REGARDING ANTICOAG MISC SCH (10:23)
[2017-05-03] MEDS: HEPARIN 5,000 UNIT/0.5 ML SYR SC SCH ×2 (10:23→21:03)
[2017-05-03] MEDS: LR 1,000 ML IV SCH (10:26)
[2017-05-03] MEDS ORDERED: hydrALAZINE 20 MG/ML VIAL IVP ONE (11:15)
--- NOTE | 2017-05-03 12:43 | ASMTCMCOM ---
CM Note CM Note Notes: Pt with hx of bladder ca admitted for cystoprostatectomy with ostomy placement. Pt will need supplies ordered. order is in chart awaiting Dr Daley's signature. Pt will also need a HC RN at [place]. Gave pt and dtr a list of agencies. They want to wait until pt's comes to see if she has a choice. C/M to follow. Date Signed: 05/03/2017 12:43 PM Electronically Signed By:Bhavya Cortes LCSW
[2017-05-03 15:05] LABS: CREATININE 1.6 mg/dL (0.7-1.3)
--- NOTE | 2017-05-03 15:21 | HOSPPROG ---
Hospitalist Progress Note Assessment/Plan: #Accelerated HTN: cannot take orals with ileus. PRN IV hydral #Compensated diastolic HF: control BP as above. Resume rest of cardiac meds when taking PO #Ileus: suspect due to prolonged surgery. NG in place #h/o a fib: rate-controlled currently. Resume BB once taking PO #Bladder cancer: s/p cystoprostatectomy. Complicated by ileus. NG tube #Disp: we will cont to follow Subjective: voice is hoarse. c/o pain at surgical site Objective: Vital Signs Temp Pulse Resp BP Pulse Ox 36.4 C 91 18 163/95 H 95 05/03/17 13:47 05/03/17 13:47 05/03/17 13:47 05/03/17 13:47 05/03/17 13:47 Laboratory Results 05/03/17 04:13 05/03/17 14:00 05/02/17 05/03/17 05/04/17 05:59 05:59 05:59 Intake Total 3860 202 Output Total 7384 511 6282 Balance 2810 -753 -2040 - Physical Exam Constitutional: no apparent distress Eyes: PERRL Ears, Nose, Mouth, Throat: moist mucous membranes, other (hoarse voice) Cardiovascular: regular rate and rhythym Respiratory: no respiratory distress Gastrointestinal: distension (tympanic, hyperactive BS. Surgical incisions intact) Genitourinary: no bladder fullness Skin: warm Musculoskeletal: full muscle strength Neurologic: AAOx3 Psychiatric: interacting appropriately ICD10 Worksheet Patient Problems: Problems Problem Status Onset Anemia Acute Hyponatremia Acute Thrombocytopenia Acute Congestive heart failure Acute C. difficile diarrhea Acute ~11/26/16 Fever Acute
[2017-05-03 15:51] LABS: ALBUMIN 3.6 g/dL (3.5-5.0); BILIRUBIN,TOTAL 1.1 mg/dL (0.1-1.4); BILIRUBIN-CONJUGATED 0.3 mg/dL (0.0-0.5); BILIRUBIN-UNCONJUGATED 0.8 mg/dL (0.0-1.1); TOTAL PROTEIN 6.6 g/dL (6.3-8.2)
--- NOTE | 2017-05-03 18:16 | GCON ---
[f rep st] CONSULTATION INFECTIOUS DISEASE CONSULTATION. DATE OF CONSULTATION: 05/03/2017 REASON FOR CONSULTATION: Query C diff contributing to postoperative ileus. HISTORY OF PRESENT ILLNESS: This is a very pleasant 76-year-old male who underwent a cystoprostatect mellissa with ileal conduit using robotic assist on 05/01/2017. Postoperatively, patient developed abdomi nal distention, abdominal pain, and shortness of breath and was subsequently found to have an ileus. Patient's current treatment is n.p.o., NG tube and ambulation. ID was queried today to assess if po ssible role of C difficile. Patient was admitted to the hospital at the end of October with fever following during his course of ne oadjuvant chemotherapy with gemcitabine and carboplatin. He had an elevated white count, but was rec eiving Neulasta. He was being evaluated for a fever of unclear etiology and had 1 loose stool, no ab dominal pain, and a C diff was sent which was positive on 11/26/2016. Patient was treated with oral vancomycin. Subsequent stool PCR was sent, unclear reasons, on 12/17/2016, which at that time was ne gative for C difficile. As expected with ileus today, patient has no flatus and associated, intermittent nausea. He states " he does not feel like he has an infection". He has had some mild intermittent diaphoresis, but no do cumented fever. He also notes that his symptoms are improved today, with less distention and much ea sier breathing today. He has mild abdominal pain, but mostly associated with the incision. REVIEW OF SYSTEMS: A complete 10-point review of systems was performed and is negative except as men tioned in the HPI. ALLERGIES: Aspirin and NSAIDs cause angioedema; Azithromycin hives; iodine, angioedema, MEDICATIONS: While hospitalized include albuterol as needed, DuoNeb as needed, Artificial Tears as n eeded, Benadryl 25 mg IV q.6h p.r.n., heparin subcu 5000 units q.12, hydralazine 10 mg IV push q.6h p .r.n., hydromorphone and bupivacaine epidural, Zofran 4 mg IV q.6 p.r.n. PAST MEDICAL HISTORY: Diastolic CHF with an ejection fraction of 65%, carotid artery stenosis status post bilateral CEA, seasonal allergies, allergic rhinitis, asthma, pulmonary hypertension, gout, TUR P, hernia repair, appendectomy, knee meniscus repair. FAMILY HISTORY: Father had leukemia. Brother with coronary artery disease. Mother from [facility] and brother with Parkinson's. SOCIAL HISTORY: He is . He lives with his . He has a 10 pack-year history and a half pa ck for 20 years, none since 1994. 1-4 glasses of wine daily at nighttime. PHYSICAL EXAM: VITAL SIGNS: Blood pressure 163/95, heart rate 91, respiratory rate 18, saturation 9 5% on 2.5 liters oxygen supplementation. Temperature 36.4. GENERAL: This is a very pleasant male, ly ing in bed with NG tube in place. OROPHARYNX: Moist mucous membranes. Good dentition. NECK: Suppl e. No lymphadenopathy. CARDIOVASCULAR: Regular rate, no murmurs. CHEST: Clear to auscultation bi laterally with shallow inspiration. ABDOMEN: He had tympanic abdomen with associated distention. Mid line incision without erythema. Sana were in place. He has a right lower quadrant ileostomy with blood tinged urine and a left lower quadrant SARAH drain that is full of serosanguineous fluid. EXTREM ITIES: Patient has no joint swelling and no edema. He has full range of motion. LABORATORY DATA: Creatinine 1.3. White count 9.7, hematocrit 42, platelets 156, 80% neutrophils. M icro data as per HPI. IMAGING: Plain film was personally reviewed by me with extensive dilated small bowel. ASSESSMENT AND PLAN: This is a 76-year-old male with bladder cancer who underwent a robotic cystopro statectomy and ileal conduit on 05/01/2017 with postop ileus. I suspect that C diff is not playing a role in this instance. The patient is afebrile, does not have significant abdominal cramping and a very minimally elevated white count. In fact, in the past, his prior diagnosis is under question and may have just reflected colonization. Would recommend continuing management as recommended by surgical team and patient is to remain off an tibiotics at this time. If patient would, in fact, need to resume antibiotic therapy for other devel oping complications, I would consider preventative therapy for C difficile. Would recommend reconsul brisa ID at that time. /[id number]/MODL
[2017-05-03] MEDS: FORMOTEROL IH SCH (22:04)
[2017-05-03] MEDS: MOMETASONE IH SCH (22:04)
[2017-05-03] MEDS ORDERED: LORazepam 2 MG/ML INJ IVP SCH (22:30)
[2017-05-04] MEDS: LR 1,000 ML IV SCH (00:13)
[2017-05-04] MEDS: HYDROmorph 10MCG/ML&BUP 0.1% in 100ML NS EP SCH ×4 (03:21→19:23)
[2017-05-04] MEDS: LORazepam 2 MG/ML INJ IVP PRN ×2 (05:14→14:29)
[2017-05-04 05:17] LABS: ADD DIFF? NO; ADD MORPH? NO; ADD SCAN? YES; ATYPICAL LYMPHOCYTE FLAG 0 (0-99); FRAGMENT RBC FLAG 0 (0-99); HEMATOCRIT 45.5 % (40.0-51.0); HEMOGLOBIN 15.2 g/dL (13.7-17.5); LIPEMIA HEMOLYSIS FLAG 80 (0-99); MEAN CELL HEMOGLOBIN 33.5 pg (27.9-34.1); MEAN CELL HEMOGLOBIN CONCENTR. 33.4 g/dL (32.4-36.7); MEAN CELL VOLUME 100.2 fL (81.5-99.8); MEAN PLATELET VOLUME 9.1 fL (8.7-11.7); PLATELET CLUMPS FLAG 0 (0-99); PLATELET COUNT 166 10^3/uL (150-400); RED BLOOD CELL COUNT 4.54 10^6/uL (4.40-6.38); RED CELL DISTRIBUTION WIDTH 14.5 % (11.5-15.2)
[2017-05-04 05:45] LABS: ANION GAP 14 mEq/L (8-16); CALCIUM 9.9 mg/dL (8.5-10.4); CARBON DIOXIDE 25 mEq/l (22-31); CHLORIDE 100 mEq/L (97-110); CREATININE 1.4 mg/dL (0.7-1.3); GLOMERULAR FILTRATION RATE 49; GLUCOSE 157 mg/dL (70-100); POTASSIUM 4.4 mEq/L (3.5-5.2); SODIUM 139 mEq/L (134-144)
[2017-05-04 05:51] LABS: LEFT SHIFT FLG 120 (0-99)
[2017-05-04 06:36] LABS: SCAN NEGATIVE
[2017-05-04] MEDS: DC NARCS MISC SCH (08:15)
[2017-05-04] MEDS: REGARDING ANTICOAG MISC SCH (08:16)
[2017-05-04] MEDS: Mometasone/Formoterol [Dulera 100 Mcg/5 Mcg Inhaler] 2 PUFFS IH SCH (08:35)
--- NOTE | 2017-05-04 08:40 | SOAPPROG ---
SOAP Progress Note Assessment/Plan: Assessment: Significant ileus - ostomy looks good - ambulate 5 x today - appreciate ID, Gen surg and hosp svc input Plan: as above 05/02/17 08:27 05/04/17 08:37 Subjective: feeling better - abd softer Objective: Vital Signs Temp Pulse Resp BP Pulse Ox 37.2 C 108 H 18 138/105 H 90 L 05/04/17 08:00 05/04/17 08:00 05/04/17 08:00 05/04/17 08:00 05/04/17 08:00 Laboratory Results 05/04/17 04:51 05/04/17 04:51 05/03/17 05/04/17 05/05/17 05:59 05:59 05:59 Intake Total 202 1425 Output Total 418 7566 Balance -754 -9115 Physical Exam - Physical Exam EENT: PERRL/EOMI Neck: non-tender Respiratory: chest non-tender Cardiac/Chest: normal peripheral pulses Abdomen: normal bowel sounds Male Genitalia: normal genitalia Skin: normal color ICD10 Worksheet Patient Problems: Problems Problem Status Onset Anemia Acute C. difficile diarrhea Acute ~11/26/16 Congestive heart failure Acute Fever Acute Hyponatremia Acute Thrombocytopenia Acute
[2017-05-04] MEDS: HEPARIN 5,000 UNIT/0.5 ML SYR SC SCH ×2 (09:10→21:15)
--- NOTE | 2017-05-04 09:49 | SOAPPROG ---
SOAP Progress Note Assessment/Plan: Assessment: 76 yo male s/p cystoprostatecomy with ileal conduit with post-op ileus requiring TEA for pain management. Plan: 1. Continue TEA infusion until ileus resolves, 7 days passes, or pt develops fever. 05/04/17 09:46 Subjective: Pt denies RENNER, back pain, leg weakness. Pt does report nausea despite NG tube. Objective: Vital Signs Temp Pulse Resp BP Pulse Ox 37.2 C 113 H 12 138/105 H 96 05/04/17 08:00 05/04/17 08:37 05/04/17 08:37 05/04/17 08:00 05/04/17 08:37 Laboratory Results 05/04/17 04:51 05/04/17 04:51 05/03/17 05/04/17 05/05/17 05:59 05:59 05:59 Intake Total 202 1425 Output Total 890 2095 Balance -753 -9739 Physical Exam - Physical Exam General Appearance: alert Abdomen: distended Back: Other (epidural insertion site: no point tenderness, no induration or erythema) ICD10 Worksheet Patient Problems: Problems Problem Status Onset Anemia Acute C. difficile diarrhea Acute ~11/26/16 Congestive heart failure Acute Fever Acute Hyponatremia Acute Thrombocytopenia Acute
--- NOTE | 2017-05-04 09:53 | SOAPPROG ---
SOAP Progress Note Assessment/Plan: Assessment: 76 yo male s/p cystoprostatecomy with ileal conduit creation with post-op ileus requiring TEA for pain management. TEA placed on 05/02/17 at 16:00. Plan: 1. Continue TEA infusion until ileus resolves, 7 days passes, or pt develops fever. 05/04/17 09:46 05/04/17 09:51 This note is entered late - pt visit took place on 05/03/17 at approximately 17: 00. Subjective: Pt denies RENNER, back pain, or leg weakness. Pt had nausea that is improved after NG tube placement (high output). Objective: Vital Signs Temp Pulse Resp BP Pulse Ox 37.2 C 113 H 12 138/105 H 96 05/04/17 08:00 05/04/17 08:37 05/04/17 08:37 05/04/17 08:00 05/04/17 08:37 Laboratory Results 05/04/17 04:51 05/04/17 04:51 05/03/17 05/04/17 05/05/17 05:59 05:59 05:59 Intake Total 202 1425 Output Total 953 5582 Balance -607 -3189 - Time Spent With Patient Time Spent With Patient: 15 minutes of patient contact to examine pt and answer questions. Physical Exam - Physical Exam General Appearance: alert Abdomen: distended Back: Other (epidural insertion site: no erythema/induration/point tenderness) ICD10 Worksheet Patient Problems: Problems Problem Status Onset Anemia Acute C. difficile diarrhea Acute ~11/26/16 Congestive heart failure Acute Fever Acute Hyponatremia Acute Thrombocytopenia Acute
--- NOTE | 2017-05-04 09:59 | GPROG ---
[f rep st] PROGRESS NOTE DATE OF SERVICE: 05/03/2017 ASSESSMENT AND PLAN: 1. Worsening hypertension. Poor absorption of oral tablets with ileus. Hospitalist service consult ed. 2. Diastolic heart failure. Control blood pressures, as above. Will have low threshold to consult Cardiology due to compensated diastolic heart failure. 3. Ileus. Prolonged surgery and narcotic use. Nasogastric tube in place. Decompressing abdomen. Abdomen is softer. 4. Atrial fibrillation. Currently, rate controlled. 5. Cystoprostatectomy, complicated by ileus. SUBJECTIVE: Doing well. Voice is hoarse. His pain has improved. He is now nauseous. This may be a sign that his bowel function is returning. White count is 9.7, H and H is 14 and 42. Creatinine is 1.6. PHYSICAL EXAM: VITAL SIGNS: He is afebrile. Pulse is in the 90s. Respiratory rate 18. Blood pres sures are 160s over 95, satting at 95% on 2 L. CONSTITUTIONAL: Mild distress with NG tube. HEENT: Normocephalic, atraumatic. RESPIRATORY: No retractions, no pursed-lip breathing. GASTROINTESTINAL : Distention, hyperactive bowel sounds. GENITOURINARY: A Sorenson and pelvic drain are in place. SKI N: Warm. MUSCULOSKELETAL: Moving all 4 extremities well. NEUROLOGIC: Alert and oriented x3. PSY CHIATRIC: Interacting appropriately. PROBLEMS: Mild anemia, mild hyponatremia, congestive heart failure, bladder cancer, and history of C lostridium difficile. PLAN: 1. Discontinue Sorenson. 2. Continue to control blood pressures with diastolic heart failure. Appreciate hospitalist input. 3. Ileus. Appreciate general surgery input. 4. Continue current management. Will discontinue NG tube only after significant flatus and a clampi ng trial for NG, and we will not start this today. /[id number]/MODL
--- NOTE | 2017-05-04 11:11 | SOAPPROG ---
SOAP Progress Note Assessment/Plan: Assessment: 76yo M s/p cystoprostatectomy with ileal conduit and rigid sig for invasive bladder cancer Nauseated this morning Less distended. Bilious fluid out from NG. Continue to suction High serosang output from SARAH Tachy today. BP improved today Appreciate hospitalists Continue NPO Seen c Dr. Evans. Discussed c Dr. Carrillo S: Burping, no flatus, difficulty breathing due to abdominal distension O: Sitting upright in chair, appears comfortable NCAT, PER, No gross hearing deficits NG with bilious fluid Voice is weak No increased WOB Hypoactive bowel sounds but present. Distended. Midline incision niurka intact , small amount of drainage. Conduit with fluid in bag. Each SARAH with thin serosang fluid. Appropriately tender to palpation Mood and affect normal Neuro grossly intact Objective: Vital Signs Temp Pulse Resp BP Pulse Ox 37.2 C 107 H 18 154/96 H 97 05/04/17 08:00 05/04/17 10:50 05/04/17 10:50 05/04/17 10:50 05/04/17 10:50 Laboratory Results 05/04/17 04:51 05/04/17 04:51 05/03/17 05/04/17 05/05/17 05:59 05:59 05:59 Intake Total 202 1425 Output Total 955 [address] [facility] -753 -4105 -360 ICD10 Worksheet Patient Problems: Problems Problem Status Onset Anemia Acute C. difficile diarrhea Acute ~11/26/16 Congestive heart failure Acute Fever Acute Hyponatremia Acute Thrombocytopenia Acute
--- NOTE | 2017-05-04 12:16 | HOSPPROG ---
Hospitalist Progress Note Assessment/Plan: #Accelerated HTN: cannot take orals with ileus. PRN IV hydral. Can add Labetalol once transferred to PCU #Compensated diastolic HF: no e/o volume overload. Control BP as above. Transition to IV metoprolol bc cannot take POs. Resume other home meds once taking PO #Ileus: suspect due to prolonged surgery. NG in place #BEV: improving. Cr 1.4 (BL 1.1). Cont gentle IVFs. No e/o volume overload #Acute pain: thoracic spinal block per anesthesiology. Fever would be indication to remove #h/o a fib: convert to IV BB since not taking PO #Bladder cancer: s/p cystoprostatectomy. Complicated by ileus. NG tube #Disp: we will cont to follow. Transfer to PCU for telemetry and IV cardiac medications. Discussed case with Dr. Daley. Subjective: less nauseated. No RENNER, CP or SOB Objective: Vital Signs Temp Pulse Resp BP Pulse Ox 36.2 C 111 H 22 H 162/102 H 99 05/04/17 12:00 05/04/17 12:00 05/04/17 12:00 05/04/17 12:00 05/04/17 12:00 Laboratory Results 05/04/17 04:51 05/04/17 04:51 05/03/17 05/04/17 05/05/17 05:59 05:59 05:59 Intake Total 202 1425 Output Total 955 0071 400 [facility] -645 -4105 -360 - Time Spent With Patient Time Spent with Patient: greater than 35 minutes Time Spent with Patient: Greater than 35 minutes spent on this patients care, greater than 50% of time spent counseling, educating, and coordinating care regarding the above mentioned plan. - Physical Exam Constitutional: no apparent distress Eyes: PERRL Ears, Nose, Mouth, Throat: other (NG in place) Cardiovascular: regular rate and rhythym, tachycardia Respiratory: no respiratory distress, no rales or rhonchi, No inspiratory crackles, No rhonchi Gastrointestinal: distension (significant distension. No BS present. ) Skin: warm, other (abd surgicial incisions CDI) Neurologic: AAOx3, CN II-XII Intact Psychiatric: interacting appropriately ICD10 Worksheet Patient Problems: Problems Problem Status Onset Anemia Acute C. difficile diarrhea Acute ~11/26/16 Congestive heart failure Acute Fever Acute Hyponatremia Acute Thrombocytopenia Acute
--- NOTE | 2017-05-04 13:59 | WOCRNPDOC ---
WOCRN Advanced Assessment Note - Urostomy Assessment, Advanced Right Abdomen Urostomy Appliance Intact: Yes Urostomy Appliance Currently in Use: 2 08/02, Moldable Urostomy Accessory: Stoma Paste Stoma Color: Red Stoma Turgor: Moist, Stents Stoma Shape: Round Stoma Height: Protruding Slightly Mucocutaneus Junction: Intact Urostomy Effluent: Urine, Bloody Urostomy Details: Ileal Conduit Peristomal Skin: Intact Urostomy Comment/Treatment Details: 2-piece appliance intact and draining bloody urine, stents intact and patent. Appliance removed, and vonnie-stomal skin cleansed. Vonnie-stomal skin intact w/ no denudement observed. Patient does continue to have a crease at 9 o'clock in vonnie-stomal area; this was filled w/ stoma paste. Crease previously documented at 3 o'clock has since resolved and is presently flat. present during appliance change and ostomy teaching. Today's teaching included how to open and drain the pouch, how to fill creases in skin to achieve a flat pouching surface, necessity of using a bedside drainage bag at night, and how stoma should look and appear post-op. mud mill tender Nicci notified about the need for patient to use a bedside drainage bag at night. Wound/business solutions consultant will follow up with patient for additional teaching and appliance change on Sunday 05/06.
--- NOTE | 2017-05-04 16:05 | ASMTCMCOM ---
CM Note CM Note Notes: Pt and chose [facility] for HC RN. Alerted [facility] and faxed referral. Dr Jaramillo also signed order for ostomy supplies which was faxed. C/M will continue to follow. Date Signed: 05/04/2017 04:05 PM Electronically Signed By:Bhavya Cortes LCSW
[2017-05-04] MEDS: METOPROLOL TARTRATE 5 MG/5 ML INJ IVP SCH ×2 (17:21)
[2017-05-04] MEDS ORDERED: LABETALOL HCL 5 MG/ML 20 ML MDV IVP PRN (17:38)
[2017-05-04] MEDS: MOMETASONE IH SCH (21:05)
[2017-05-04] MEDS: FORMOTEROL IH SCH (21:05)
[2017-05-04] MEDS ORDERED: chlorproMAZINE HCL 50 MG in NS 50 ML IV ONE (21:40)
[2017-05-05] MEDS: METOPROLOL TARTRATE 5 MG/5 ML INJ IVP SCH ×3 (02:16→12:32)
[2017-05-05] MEDS: HYDROmorph 10MCG/ML&BUP 0.1% in 100ML NS EP SCH ×3 (03:01→17:43)
[2017-05-05] MEDS: LR 1,000 ML IV SCH (03:02)
[2017-05-05 05:15] LABS: HEMATOCRIT 39.9 % (40.0-51.0); HEMOGLOBIN 13.2 g/dL (13.7-17.5); MEAN CELL HEMOGLOBIN 32.9 pg (27.9-34.1); MEAN CELL HEMOGLOBIN CONCENTR. 33.1 g/dL (32.4-36.7); MEAN CELL VOLUME 99.5 fL (81.5-99.8); RED BLOOD CELL COUNT 4.01 10^6/uL (4.40-6.38); RED CELL DISTRIBUTION WIDTH 14.6 % (11.5-15.2)
[2017-05-05 05:35] LABS: ANION GAP 13 mEq/L (8-16); CARBON DIOXIDE 25 mEq/l (22-31); CHLORIDE 102 mEq/L (97-110); CREATININE 1.4 mg/dL (0.7-1.3); GLOMERULAR FILTRATION RATE 49; GLUCOSE 141 mg/dL (70-100); MAGNESIUM 2.3 mg/dL (1.6-2.3); POTASSIUM 4.3 mEq/L (3.5-5.2); SODIUM 140 mEq/L (134-144)
--- NOTE | 2017-05-05 08:26 | HOSPPROG ---
Hospitalist Progress Note Assessment/Plan: #Accelerated HTN: cannot take orals with ileus. Better control with IV labetalol. Restart home meds once taking PO #Paroxysmal atrial fibrillation: new this afternoon. HR now 150s, likely due to post-op. Dose IV metoprolol now, if doesn't respond start IV Dilt -CHADs 4. Spoke with Thuy, high-risk for bleeding. If needed, can start heparin tomorrow without bolus #Compensated diastolic HF: no e/o volume overload. Control BP as above. Transition to IV metoprolol bc cannot take POs. Resume other home meds once taking PO #Ileus: suspect due to prolonged surgery. NG in place #BEV: stable Cr 1.4 (BL 1.1). Cont gentle IVFs. No e/o volume overload. Give IVFs #Acute pain: thoracic spinal block per anesthesiology. Fever would be indication to remove #h/o a fib: convert to IV BB since not taking PO #Bladder cancer: s/p cystoprostatectomy. Complicated by ileus. NG tube #Disp: we will cont to follow. Transfer to PCU for telemetry and IV cardiac medications. Discussed case with Dr. Daley. Subjective: no CP, SOB or lightheadeness Objective: Vital Signs Temp Pulse Resp BP Pulse Ox 36.6 C 105 H 16 135/83 H 90 L 05/05/17 08:00 05/05/17 08:00 05/05/17 08:00 05/05/17 08:00 05/05/17 08:00 Laboratory Results 05/05/17 03:58 05/05/17 03:58 05/04/17 05/05/17 05/06/17 05:59 05:59 05:59 Intake Total 1425 950 Output Total 5530 1585 Balance -4105 -265 - Physical Exam Constitutional: no apparent distress Eyes: PERRL Ears, Nose, Mouth, Throat: other (NG tubes with significant ) Cardiovascular: regular rate and rhythym, systolic murmur, No edema Respiratory: no respiratory distress Gastrointestinal: normoactive bowel sounds, soft, non-tender abdomen, other ( surgical incisions, drains in place, CDI) Skin: warm Musculoskeletal: full muscle strength Neurologic: AAOx3, CN II-XII Intact Psychiatric: interacting appropriately ICD10 Worksheet Patient Problems: Problems Problem Status Onset Anemia Acute C. difficile diarrhea Acute ~11/26/16 Congestive heart failure Acute Fever Acute Hyponatremia Acute Thrombocytopenia Acute
[2017-05-05] MEDS: MOMETASONE IH SCH ×2 (08:38→19:50)
[2017-05-05] MEDS: FORMOTEROL IH SCH ×2 (08:38→19:50)
[2017-05-05] MEDS: Mometasone/Formoterol [Dulera 100 Mcg/5 Mcg Inhaler] 2 PUFFS IH SCH (08:42)
[2017-05-05] MEDS ORDERED: POTASSIUM Cl (KCl) 20 MEQ in LR 1,000 ML IV SCH (09:15)
[2017-05-05] MEDS: HEPARIN 5,000 UNIT/0.5 ML SYR SC SCH ×2 (09:50→20:53)
[2017-05-05] MEDS: DC NARCS MISC SCH (09:50)
[2017-05-05] MEDS: NS 1,000 ML IV SCH ×2 (09:51→17:43)
[2017-05-05] MEDS: REGARDING ANTICOAG MISC SCH (09:51)
--- NOTE | 2017-05-05 14:22 | ASMTCMCOM ---
CM Note CM Note Notes: Reviewed chart re: d/c poc, pt's progress. Pt w/ new onset paroxysmal afib, HR 150's. Pt cont to have an ileus, currently NPO, NG in place. [facility] (RN) previously arranged for discharge. CM will cont to follow. Date Signed: 05/05/2017 02:21 PM Electronically Signed By:Susan Quiñones RN
[2017-05-05 15:17] LABS: ANION GAP 15 mEq/L (8-16); CALCIUM 8.9 mg/dL (8.5-10.4); CARBON DIOXIDE 25 mEq/l (22-31); CHLORIDE 101 mEq/L (97-110); CREATININE 1.3 mg/dL (0.7-1.3); GLOMERULAR FILTRATION RATE 54; GLUCOSE 136 mg/dL (70-100); POTASSIUM 4.1 mEq/L (3.5-5.2); SODIUM 141 mEq/L (134-144)
[2017-05-05] MEDS: DILTIAZEM 125 MG in D5W 125 ML IV SCH ×2 (15:44→23:45)
--- NOTE | 2017-05-05 15:56 | HOSPPROG ---
Hospitalist Progress Note Assessment/Plan: Addendum: #A fib with RVR: still with HR in 150s. He feels palpitations. I had long discussion with he and about treatment plan. He has CHADs score 4 and at risk for CVA. There is risk for vonnie-operative bleeding and Dr. Daley hesitant about start heparin gtt today. I counseled on risk of bleeding with hep and CVA without and pt understands. He is agreeable to start with Dilt gtt tonight with hope of conversion to NSR. If not converted , will start heparin gtt tomorrow Additional time spent: 30 min counseling on rate-control and anticoag with pt and Objective: Vital Signs Temp Pulse Resp BP Pulse Ox 36.6 C 156 H 18 118/90 H 97 05/05/17 14:00 05/05/17 15:44 05/05/17 14:00 05/05/17 14:00 05/05/17 14:00 Laboratory Results 05/05/17 03:58 05/05/17 15:00 05/04/17 05/05/17 05/06/17 05:59 05:59 05:59 Intake Total 1425 950 325 Output Total 6130 1585 845 [facility] -4105 -635 -520 ICD10 Worksheet Patient Problems: Problems Problem Status Onset Anemia Acute C. difficile diarrhea Acute ~11/26/16 Congestive heart failure Acute Fever Acute Hyponatremia Acute Thrombocytopenia Acute
--- NOTE | 2017-05-05 16:00 | SOAPPROG ---
SOAP Progress Note Assessment/Plan: Assessment: patient status post prostatectomy with prolonged ileus / starting to improved today with some flatus / moderate NG output / moderate SARAH drain output / peritoneal creatinine is 3.9 which is mildly concerning Abdomen soft but markedly distended with some bowel sounds Plan: observation with NG suction 05/05/17 15:58 Objective: Vital Signs Temp Pulse Resp BP Pulse Ox 36.6 C 156 H 18 118/90 H 97 05/05/17 14:00 05/05/17 15:44 05/05/17 14:00 05/05/17 14:00 05/05/17 14:00 Laboratory Results 05/05/17 03:58 05/05/17 15:00 05/04/17 05/05/17 05/06/17 05:59 05:59 05:59 Intake Total 1425 950 325 Output Total 5530 1585 845 [facility] -4105 -635 -520 ICD10 Worksheet Patient Problems: Problems Problem Status Onset Anemia Acute C. difficile diarrhea Acute ~11/26/16 Congestive heart failure Acute Fever Acute Hyponatremia Acute Thrombocytopenia Acute
[2017-05-05] MEDS ORDERED: METOPROLOL TARTRATE 5 MG/5 ML INJ IVP PRN (19:17)
--- NOTE | 2017-05-05 19:48 | CPEKG ---
Heart Rate: 128 RR Interval: 469 QRSD Interval: 78 QT Interval: 300 QTC Interval: 438 QRS Hydes: 30 T Wave Hydes: 187 EKG Severity - ABNORMAL ECG - EKG Impression: ATRIAL FIBRILLATION, V-RATE 103-150 EKG Impression: LOW VOLTAGE IN FRONTAL LEADS EKG Impression: NONSPECIFIC REPOL ABNORMALITY, DIFFUSE LEADS Electronically Signed By: Devin Campbell 06-May-2017 09:24:51
[2017-05-05] MEDS: LORazepam 2 MG/ML INJ IVP PRN (22:37)
[2017-05-06] MEDS: HYDROmorph 10MCG/ML&BUP 0.1% in 100ML NS EP SCH ×3 (00:15→20:22)
[2017-05-06] MEDS: NS 1,000 ML IV SCH ×2 (01:30→09:53)
[2017-05-06 05:41] LABS: HEMATOCRIT 40.6 % (40.0-51.0); HEMOGLOBIN 13.8 g/dL (13.7-17.5); MEAN CELL HEMOGLOBIN 33.4 pg (27.9-34.1); MEAN CELL VOLUME 98.3 fL (81.5-99.8); RED BLOOD CELL COUNT 4.13 10^6/uL (4.40-6.38); RED CELL DISTRIBUTION WIDTH 14.5 % (11.5-15.2)
[2017-05-06 06:04] LABS: ANION GAP 13 mEq/L (8-16); CALCIUM 8.9 mg/dL (8.5-10.4); CARBON DIOXIDE 27 mEq/l (22-31); CHLORIDE 102 mEq/L (97-110); CREATININE 1.3 mg/dL (0.7-1.3); GLOMERULAR FILTRATION RATE 54; GLUCOSE 140 mg/dL (70-100); MAGNESIUM 2.8 mg/dL (1.6-2.3); POTASSIUM 3.9 mEq/L (3.5-5.2); SODIUM 142 mEq/L (134-144)
--- NOTE | 2017-05-06 08:42 | HOSPPROG ---
Hospitalist Progress Note Assessment/Plan: #A fib with RVR: ok for HR 110s. If persistently >140, then add amiodarone. Cannot do heparin gtt with epidural. CHADSvasc 4 #Accelerated HTN: controlled today. Restart home meds once taking PO #Compensated diastolic HF: no e/o volume overload. Control BP as above. Resume other home meds once taking PO #Ileus: significant NG output, passing flatus, some bowel sounds. Keeping up output with IVFs. Surgery following. Add Reglan #BEV: improved, Cr now 1.3 (BL 1.1). Cont gentle IVFs. No e/o volume overload. G #Acute pain: thoracic spinal block per anesthesiology. Fever would be indication to remove #Bladder cancer: POD #5. s/p cystoprostatectomy. Complicated by ileus. NG tube #Diet: TPN today #DVT: low-dose heparin #Disp: we will cont to follow. Transfer to PCU for telemetry and IV cardiac medications. Discussed case with Dr. Daley. Subjective: passing flatus. No dizziness or SOB. does feel palpitations Objective: Vital Signs Temp Pulse Resp BP Pulse Ox 36.7 C 110 H 20 104/78 96 05/06/17 08:00 05/06/17 08:00 05/06/17 08:00 05/06/17 08:00 05/06/17 08:00 Laboratory Results 05/06/17 05:30 05/06/17 05:30 05/05/17 05/06/17 05/07/17 05:59 05:59 05:59 Intake Total 1150 3237.2 Output Total 1585 5010 Balance -435 -1772.8 - Physical Exam Constitutional: no apparent distress Eyes: PERRL Ears, Nose, Mouth, Throat: moist mucous membranes, other (NG in place) Cardiovascular: irregularly irregular, No edema Respiratory: no respiratory distress Gastrointestinal: distension (signifcant distension with quiet bowel sounds. Surgical incision healing well), other Skin: warm, no rashes or abrasions Musculoskeletal: other (epidural in place) Neurologic: AAOx3, CN II-XII Intact ICD10 Worksheet Patient Problems: Problems Problem Status Onset Anemia Acute C. difficile diarrhea Acute ~11/26/16 Congestive heart failure Acute Fever Acute Hyponatremia Acute Thrombocytopenia Acute
[2017-05-06] MEDS: Mometasone/Formoterol [Dulera 100 Mcg/5 Mcg Inhaler] 2 PUFFS IH SCH (09:03)
--- NOTE | 2017-05-06 09:30 | SOAPPROG ---
SOAP Progress Note Assessment/Plan: Assessment: patient status post prostatectomy with prolonged ileus / starting to improved today with some flatus / moderate NG output / moderate SARAH drain output / peritoneal creatinine is 3.9 which is mildly concerning Abdomen soft but markedly distended with some bowel sounds Plan: observation with NG suction 05/05/17 15:58 05/06/17 09:28 SP CYSTECTOMY/ FEELS BETTER BUT STILL VERY DISTENDED/ SOME FLATUS/ LARGE NG AND SARAH OUTPUT ABD SOFT, NONTENDER BUT SILENT/ WOUND OK/ MINIMAL CHANGE Objective: Vital Signs Temp Pulse Resp BP Pulse Ox 36.7 C 110 H 16 104/78 96 05/06/17 08:00 05/06/17 09:09 05/06/17 09:09 05/06/17 08:00 05/06/17 09:09 Laboratory Results 05/06/17 05:30 05/06/17 05:30 05/05/17 05/06/17 05/07/17 05:59 05:59 05:59 Intake Total 1150 3237.2 Output Total 1585 5010 Balance -435 -1772.8 ICD10 Worksheet Patient Problems: Problems Problem Status Onset Anemia Acute C. difficile diarrhea Acute ~11/26/16 Congestive heart failure Acute Fever Acute Hyponatremia Acute Thrombocytopenia Acute
[2017-05-06] MEDS: DILTIAZEM 125 MG in D5W 125 ML IV SCH ×2 (09:52→18:13)
[2017-05-06] MEDS: DC NARCS MISC SCH (09:55)
[2017-05-06] MEDS: REGARDING ANTICOAG MISC SCH (09:56)
[2017-05-06] MEDS: METOCLOPRAMIDE 10 MG/2 ML VIAL IVP SCH ×3 (10:03→18:13)
[2017-05-06] MEDS: HEPARIN 5,000 UNIT/0.5 ML SYR SC SCH ×2 (10:03→21:14)
[2017-05-06] MEDS ORDERED: D10W 1,000 ML IV PRN (13:01)
--- NOTE | 2017-05-06 13:36 | WOCRNPDOC ---
WOCRN Advanced Assessment Note - Urostomy Assessment, Advanced Right Abdomen Urostomy Urostomy Comment/Treatment Details: Patient and family education visit, requested by ELIZABETH Sanchez in response to patient (and family) concerns and questions about showering with a urostomy. Reinforced education about present and anticipatory (e.g. after surgeon removal of stents) management of urostomy pouching during and following a shower; with reassurance that it is okay if the stoma happens to get wet, and including "KISS" principle and strategies for achieving and maintaining clean, dry peristomal skin after bathing and before/ during re-pouching. ELIZABETH Sanchez present.
--- NOTE | 2017-05-06 15:10 | ASMTCMCOM ---
CM Note CM Note Notes: Reviewed chart re: pt's progress. Pt seen by paint and table edger today for urostomy teaching. Per MD notes, ileus persists, slow to resolve, wound w/ minimal drainage. Call placed to Lisa RN at [facility] w/ update on pt's need; Lisa confirmed [facility] is able to accept when pt ready for d/c. CM will cont to follow. Date Signed: 05/06/2017 03:09 PM Electronically Signed By:Susan Quiñones RN
[2017-05-06] MEDS ORDERED: ALTEPLASE 2 MG VIAL IVP PRN (15:27)
--- NOTE | 2017-05-06 16:42 | SOAPPROG ---
SOAP Progress Note Assessment/Plan: Assessment: Significant ileus, ++ flatus yesterday and today but less today - WBC is stable at 2.4 - will follow carefully - nontender abd, but distended - - ostomy looks good - ambulate 5 x today - appreciate ID, Gen surg and hosp svc input Plan: as above 05/02/17 08:27 05/04/17 08:37 05/06/17 16:41 Objective: Vital Signs Temp Pulse Resp BP Pulse Ox 36.7 C 124 H 20 126/84 H 96 05/06/17 08:00 05/06/17 14:00 05/06/17 12:02 05/06/17 14:00 05/06/17 12:02 Laboratory Results 05/06/17 05:30 05/06/17 05:30 05/05/17 05/06/17 05/07/17 05:59 05:59 05:59 Intake Total 1150 3237.2 Output Total 1585 5010 1265 Balance -435 -1772.8 -1265 Physical Exam - Physical Exam EENT: PERRL/EOMI Neck: non-tender Respiratory: chest non-tender Abdomen: non-tender, soft, distended ICD10 Worksheet Patient Problems: Problems Problem Status Onset Anemia Acute C. difficile diarrhea Acute ~11/26/16 Congestive heart failure Acute Fever Acute Hyponatremia Acute Thrombocytopenia Acute
--- NOTE | 2017-05-06 17:49 | GPROG ---
[f rep st] PROGRESS NOTE PROGRESS NOTE DATE OF SERVICE: 05/05/2017 SUBJECTIVE: His abdomen is softer. He has passed gas today on 05/05 with multiple episodes of flatu s. However, abdomen is still significantly distended, and NG production is significant. He continue s with this. His pain is improved. His abdomen does feel softer. He feels his pain is improved. H e looks good. If he continues to remain on flatulent, we may consider removing the NG at some point. No chest pain, shortness of breath, or lightheadedness. He is afebrile, his pulses are 105, respiratory rate is 16, blood pressure is 130s/80s, pulse ox is 9 0 on 2 L, white count is 2.4 which is concerning. H and H is 13 and 39, and glucose is 148, his crea tinine is 1.4, glucose is 141. INS and OUTS: On the 05/04, he was about 4 L down. On 05/05, we are regaining fluid balance through bolus and IV fluids. OBJECTIVE: CONSTITUTIONAL: No acute distress. HEENT: Normocephalic, atraumatic. CARDIOVASCULAR: Irregularly irregular. RESPIRATORY: No acute distress. GASTROINTESTINAL: He has hypoactive bowel sounds. He has a soft mildly tender abdomen, just mild tenderness at the incisional site. His pain is improving. His skin is warm. MUSCULOSKELETAL: Full muscle strength. NEUROLOGIC: Cranial nerv es 2-12 grossly intact. PSYCHIATRIC: Normal mood and affect. /[id number]/MOD
[2017-05-06] MEDS: FORMOTEROL IH SCH (19:59)
[2017-05-06] MEDS: MOMETASONE IH SCH (19:59)
[2017-05-06] MEDS: TPN W/ FAMOTIDINE 1 EA BAG IV SCH (21:14)
[2017-05-06] MEDS: LORazepam 2 MG/ML INJ IVP PRN (21:15)
[2017-05-07] MEDS: METOCLOPRAMIDE 10 MG/2 ML VIAL IVP SCH ×4 (00:03→18:15)
[2017-05-07] MEDS: DILTIAZEM 125 MG in D5W 125 ML IV SCH ×3 (01:38→18:16)
[2017-05-07] MEDS: NS 1,000 ML IV SCH ×2 (01:39→10:23)
[2017-05-07] MEDS: HYDROmorph 10MCG/ML&BUP 0.1% in 100ML NS EP SCH ×3 (02:20→18:26)
[2017-05-07 04:06] LABS: ADD DIFF? YES; ADD MORPH? NO; ATYPICAL LYMPHOCYTE FLAG 20 (0-99); FRAGMENT RBC FLAG 0 (0-99); HEMATOCRIT 38.8 % (40.0-51.0); HEMOGLOBIN 12.9 g/dL (13.7-17.5); LIPEMIA HEMOLYSIS FLAG 80 (0-99); MEAN CELL HEMOGLOBIN 33.3 pg (27.9-34.1); MEAN CELL HEMOGLOBIN CONCENTR. 33.2 g/dL (32.4-36.7); MEAN CELL VOLUME 100.3 fL (81.5-99.8); MEAN PLATELET VOLUME 9.3 fL (8.7-11.7); PLATELET CLUMPS FLAG 0 (0-99); PLATELET COUNT 177 10^3/uL (150-400); RED BLOOD CELL COUNT 3.87 10^6/uL (4.40-6.38); RED CELL DISTRIBUTION WIDTH 14.6 % (11.5-15.2)
[2017-05-07 04:12] LABS: ADD SCAN? NO; LEFT SHIFT FLG 300 (0-99)
[2017-05-07 04:17] LABS: ALANINE AMINOTRANSFERASE 34 IU/L (21-72); ALBUMIN 2.8 g/dL (3.5-5.0); ALKALINE PHOSPHATASE 47 IU/L (38-126); ANION GAP 10 mEq/L (8-16); APTT 26.8 SEC (23.0-38.0); ASPARTATE AMINOTRANSFERASE 14 IU/L (17-59); BILIRUBIN,TOTAL 0.4 mg/dL (0.1-1.4); CALCIUM 7.9 mg/dL (8.5-10.4); CARBON DIOXIDE 29 mEq/l (22-31); CHLORIDE 104 mEq/L (97-110); GLOMERULAR FILTRATION RATE > 60; GLUCOSE 187 mg/dL (70-100); INR 1.12 (0.83-1.16); MAGNESIUM 2.6 mg/dL (1.6-2.3); POTASSIUM 3.6 mEq/L (3.5-5.2); PROTIME(PATIENT) 14.3 SEC (12.0-15.0); SODIUM 143 mEq/L (134-144); TOTAL PROTEIN 5.3 g/dL (6.3-8.2); TRIGLYCERIDE 199 mg/dL (40-150)
[2017-05-07 05:15] LABS: PLATELET ESTIMATE ADEQUATE (ADEQ)
--- NOTE | 2017-05-07 07:55 | SOAPPROG ---
SOAP Progress Note Assessment/Plan: Assessment: 76 yo male s/p cystoprostatecomy with ileal conduit creation with post-op ileus requiring TEA for pain management. TEA placed on 05/02/17 at 16:00, this will be day #5 of epidural pain management. Plan: 1. Continue TEA infusion until ileus resolves, 7 days passes, or pt develops fever. 2. Reinforce edges of dressings as needed to ensure epidural catheter does not move. 05/07/17 07:52 05/07/17 07:54 05/07/17 07:55 Subjective: Pt denies RENNER/back pain/leg weakness or numbness. Pt is able to ambulate. Reports restful night last night. Objective: Vital Signs Temp Pulse Resp BP Pulse Ox 36.3 C 99 16 122/73 H 93 05/07/17 02:00 05/07/17 02:00 05/07/17 02:00 05/07/17 02:00 05/07/17 02:00 Laboratory Results 05/07/17 03:30 05/07/17 03:30 05/06/17 05/07/17 05/08/17 05:59 05:59 05:59 Intake Total 3237.2 3510 Output Total 5010 3630 Balance -1772.8 -120 PT 14.3 SEC (12.0-15.0) 05/07/17 03:30 INR 1.12 (0.83-1.16) 05/07/17 03:30 Pt passed some flatus yesterday, none today so far. Pt has a T8-T12 block bilaterally to ice. Pt reports 0/10 pain while laying still, and is able to deep breath and move with minimal increase in pain. Epidural catheter still in good position with 10 cm farzaneh visible at skin insertion site. - Time Spent With Patient Time Spent With Patient: 15 minutes for assessment Physical Exam - Physical Exam General Appearance: alert, no apparent distress Abdomen: distended (still distended, but less so and not as tense as last week) Back: Other (epidural insertion site: no point tenderness/erythema/induration/ exudate noted. Edges of dressings are peeling a little.) ICD10 Worksheet Patient Problems: Problems Problem Status Onset Anemia Acute C. difficile diarrhea Acute ~11/26/16 Congestive heart failure Acute Fever Acute Hyponatremia Acute Thrombocytopenia Acute
--- NOTE | 2017-05-07 10:26 | SOAPPROG ---
SOAP Progress Note Assessment/Plan: Assessment: 76yo M s/p cystoprostatectomy with ileal conduit and rigid sig for invasive bladder cancer Nausea and pain resolved. Persistent distension and absent bowel sounds. High output bilious fluid out from NG. Continue to suction Repeat AXR this morning Tachy today. BP improved today Appreciate hospitalists Continue NPO Discussed c Dr. Al S: minimal flatus, no pain, no nausea. O: Sitting upright in chair, appears comfortable NCAT, PER, No gross hearing deficits NG with bilious fluid No increased WOB Absent bowel sounds. Distended. Midline incision niurka intact. Conduit with fluid in bag. Each SARAH with thin serosang fluid. Nontender to palpation Mood and affect normal Neuro grossly intact Objective: Vital Signs Temp Pulse Resp BP Pulse Ox 36.4 C 114 H 18 145/89 H 90 L 05/07/17 07:54 05/07/17 07:54 05/07/17 07:54 05/07/17 07:54 05/07/17 07:54 Laboratory Results 05/07/17 03:30 05/07/17 03:30 05/06/17 05/07/17 05/08/17 05:59 05:59 05:59 Intake Total 3237.2 3510 Output Total 5010 3630 30 Balance -1772.8 -120 -30 PT 14.3 SEC (12.0-15.0) 05/07/17 03:30 INR 1.12 (0.83-1.16) 05/07/17 03:30 ICD10 Worksheet Patient Problems: Problems Problem Status Onset Anemia Acute C. difficile diarrhea Acute ~11/26/16 Congestive heart failure Acute Fever Acute Hyponatremia Acute Thrombocytopenia Acute
[2017-05-07] MEDS: Mometasone/Formoterol [Dulera 100 Mcg/5 Mcg Inhaler] 2 PUFFS IH SCH (10:43)
[2017-05-07] MEDS: HEPARIN 5,000 UNIT/0.5 ML SYR SC SCH ×2 (11:32→20:51)
[2017-05-07] MEDS: REGARDING ANTICOAG MISC SCH (12:34)
[2017-05-07] MEDS: DC NARCS MISC SCH (12:34)
--- NOTE | 2017-05-07 12:50 | SOAPPROG ---
[facility] Progress Note Assessment/Plan: Assessment: patient status post prostatectomy with prolonged ileus / starting to improved today with some flatus / moderate NG output / moderate SARAH drain output / peritoneal creatinine is 3.9 which is mildly concerning Abdomen soft but markedly distended with some bowel sounds Plan: observation with NG suction 05/05/17 15:58 05/06/17 09:28 SP CYSTECTOMY/ FEELS BETTER BUT STILL VERY DISTENDED/ SOME FLATUS/ LARGE NG AND SARAH OUTPUT ABD SOFT, NONTENDER BUT SILENT/ WOUND OK/ MINIMAL CHANGE 05/07/17 12:48 PATIENT WITH SOME DISCOMFORT AND PERSISTENT DISTENSION TODAY/AFEBRILE/LARGE NG OUTPUT/ABDOMEN SOFT, TYMPANITIC, AND MINIMALLY TENDER NG TUBE MAY BE DOWN TOO FAR ACCOUNTING FOR THE LARGE OUTPUT AND WE WILL PULL THAT BACK/HOWEVER IS [address]BDOMEN STILL SUGGESTED A MAJOR ILEUS OR OBSTRUCTION Objective: Vital Signs Temp Pulse Resp BP Pulse Ox 36.6 C 121 H 16 137/80 H 95 05/07/17 12:00 05/07/17 12:00 05/07/17 12:00 05/07/17 12:00 05/07/17 12:00 Laboratory Results 05/07/17 03:30 05/07/17 03:30 05/06/17 05/07/17 05/08/17 05:59 05:59 05:59 Intake Total 3237.2 3510 400 Output Total 5010 3630 890 Balance -1772.8 -120 -490 PT 14.3 SEC (12.0-15.0) 05/07/17 03:30 INR 1.12 (0.83-1.16) 05/07/17 03:30 ICD10 Worksheet Patient Problems: Problems Problem Status Onset Anemia Acute C. difficile diarrhea Acute ~11/26/16 Congestive heart failure Acute Fever Acute Hyponatremia Acute Thrombocytopenia Acute
--- NOTE | 2017-05-07 13:46 | SOAPPROG ---
SOAP Progress Note Assessment/Plan: Assessment: Significant ileus, small flatus yesterday some more today (4x since this AM) - WBC is 3.1 - will follow carefully - nontender abd, but distended - - ostomy looks good - ambulate 5 x today - appreciate ID, Gen surg and hosp svc input Plan: as above 05/02/17 08:27 05/04/17 08:37 05/06/17 16:41 05/07/17 13:44 Objective: Vital Signs Temp Pulse Resp BP Pulse Ox 36.6 C 121 H 16 137/80 H 95 05/07/17 12:00 05/07/17 12:00 05/07/17 12:00 05/07/17 12:00 05/07/17 12:00 Laboratory Results 05/07/17 03:30 05/07/17 03:30 05/06/17 05/07/17 05/08/17 05:59 05:59 05:59 Intake Total 3237.2 3510 400 Output Total 5010 3630 890 Balance -1772.8 -120 -490 PT 14.3 SEC (12.0-15.0) 05/07/17 03:30 INR 1.12 (0.83-1.16) 05/07/17 03:30 Physical Exam - Physical Exam EENT: PERRL/EOMI Neck: non-tender Cardiac/Chest: normal peripheral pulses Abdomen: non-tender, soft, distended Male Genitalia: normal genitalia ICD10 Worksheet Patient Problems: Problems Problem Status Onset Anemia Acute C. difficile diarrhea Acute ~11/26/16 Congestive heart failure Acute Fever Acute Hyponatremia Acute Thrombocytopenia Acute
[2017-05-07] MEDS: DIGOXIN 500 MCG/2 ML AMP IVP SCH ×2 (14:11→21:12)
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
[2017-05-07] MEDS: TPN W/ FAMOTIDINE 1 EA BAG IV SCH (20:37)
[2017-05-07] MEDS: FORMOTEROL IH SCH (21:16)
[2017-05-07] MEDS: MOMETASONE IH SCH (21:16)
[2017-05-07] MEDS: LORazepam 2 MG/ML INJ IVP PRN (22:04)
[2017-05-08] MEDS: DILTIAZEM 125 MG in D5W 125 ML IV SCH ×3 (01:21→19:08)
[2017-05-08] MEDS: HYDROmorph 10MCG/ML&BUP 0.1% in 100ML NS EP SCH ×3 (01:35→19:10)
[2017-05-08] MEDS: METOCLOPRAMIDE 10 MG/2 ML VIAL IVP SCH ×2 (01:36→05:41)
[2017-05-08] MEDS: NS 1,000 ML IV SCH (03:21)
[2017-05-08] MEDS: DIGOXIN 500 MCG/2 ML AMP IVP SCH ×2 (05:33→10:05)
[2017-05-08 06:12] LABS: ABSOLUTE NRBC COUNT 0.03 10^3/uL (0-0.01); ADD DIFF? YES; ADD MORPH? NO; ADD SCAN? YES; ATYPICAL LYMPHOCYTE FLAG 10 (0-99); FRAGMENT RBC FLAG 0 (0-99); HEMATOCRIT 39.4 % (40.0-51.0); HEMOGLOBIN 13.1 g/dL (13.7-17.5); LIPEMIA HEMOLYSIS FLAG 80 (0-99); MEAN CELL HEMOGLOBIN 33.6 pg (27.9-34.1); MEAN CELL HEMOGLOBIN CONCENTR. 33.2 g/dL (32.4-36.7); MEAN PLATELET VOLUME 9.3 fL (8.7-11.7); NRBC-AUTO% 0.5 % (0.0-0.2); PLATELET CLUMPS FLAG 0 (0-99); PLATELET COUNT 168 10^3/uL (150-400); RED CELL DISTRIBUTION WIDTH 14.7 % (11.5-15.2)
[2017-05-08 06:36] LABS: LEFT SHIFT FLG 300 (0-99)
[2017-05-08 06:43] LABS: APTT 27.5 SEC (23.0-38.0); INR 1.16 (0.83-1.16); PROTIME(PATIENT) 14.8 SEC (12.0-15.0)
[2017-05-08] MEDS ORDERED: BISACODYL 10 MG SUPP PR ONE (07:00)
[2017-05-08 07:02] LABS: PLATELET ESTIMATE ADEQUATE (ADEQ)
[2017-05-08 07:21] LABS: ALANINE AMINOTRANSFERASE 30 IU/L (21-72); ALBUMIN 2.6 g/dL (3.5-5.0); ALKALINE PHOSPHATASE 58 IU/L (38-126); ANION GAP 7 mEq/L (8-16); ASPARTATE AMINOTRANSFERASE 16 IU/L (17-59); BILIRUBIN,TOTAL 0.5 mg/dL (0.1-1.4); CALCIUM 8.1 mg/dL (8.5-10.4); CARBON DIOXIDE 29 mEq/l (22-31); CHLORIDE 105 mEq/L (97-110); GLOMERULAR FILTRATION RATE > 60; GLUCOSE 162 mg/dL (70-100); MAGNESIUM 2.4 mg/dL (1.6-2.3); POTASSIUM 3.4 mEq/L (3.5-5.2); SODIUM 141 mEq/L (134-144); TOTAL PROTEIN 5.1 g/dL (6.3-8.2)
[2017-05-08] MEDS: Mometasone/Formoterol [Dulera 100 Mcg/5 Mcg Inhaler] 2 PUFFS IH SCH (09:45)
[2017-05-08] MEDS: HEPARIN 5,000 UNIT/0.5 ML SYR SC SCH ×2 (09:52→20:27)
[2017-05-08] MEDS: POTASSIUM Cl (KCl) 50 ML IV SCH ×3 (09:53→13:56)
[2017-05-08] MEDS: REGARDING ANTICOAG MISC SCH (10:05)
[2017-05-08] MEDS: DC NARCS MISC SCH (10:05)
[2017-05-08] MEDS ORDERED: K PHOS 10 MMOL in D5W 250 ML IV ONE (12:00)
--- NOTE | 2017-05-08 12:17 | WOCRNPDOC ---
WOCRN Advanced Assessment Note - Urostomy Assessment, Advanced Right Abdomen Urostomy Urostomy Appliance Intact: Yes Urostomy Appliance Currently in Use: Two Piece Flat, 2 1/4, Cut to Fit Urostomy Accessory: Stoma Paste (used to fill crease at 9 o'clock) Stoma Color: Purple Stoma Turgor: Moist, Stents Stoma Shape: Round Stoma Height: Protruding Mucocutaneus Junction: Intact Urostomy Effluent: Urine Urostomy Details: Ileal Conduit Peristomal Skin: Intact Urostomy Comment/Treatment Details: Changed pouch and barrier today while patient in recliner. Stoma continues to be red, moist, and protruding. Stents remain intact and patent. Rahel-stomal skin is intact w/ no breakdown or denudement observed. There continues to be a crease at 9 o'clock; this was filled w/ stoma paste to even out skin surface. Patient's current medical status is fairly complex, and he did not participate during the appliance change today. He did, however, verbalize understanding of the basic concepts of stoma care and was able to repeat back several of the steps involved in changing the appliance. Nursing has not been using the adaptor to connect his pouch to drainage bag at night, and I was told this was due to the fact that this adaptor is not stocked on patient's current floor. I was able to find this connector in [employer], and now nursing has the correct tools in place to do this. I showed caretaker Karlene how to connect the urostomy pouch to the drainage bag. The instructions were also taped to the drainage bag. Report given to Staff RNs Demi and Karlene. Wound/electrician deck will round again on 05/10 to assess.
[2017-05-08] MEDS ORDERED: POTASSIUM Cl (KCl) 50 ML IV SCH (14:00)
--- NOTE | 2017-05-08 14:24 | SOAPPROG ---
SOAP Progress Note Assessment/Plan: Assessment: 76yo M s/p cystoprostatectomy with ileal conduit and rigid sig for invasive bladder cancer Nausea and pain resolved. Increased flatus and less distended today Decreased output from NG - clamp trial this afternoon. Tachy/BP improved today Appreciate hospitalists Continue NPO until return of bowel function. continue TPN for now Wound - increased redness of inferior midline incision. Cotton swab used to drain some serous fluid from between niurka. ABD outer change PRN. May need to remove a few niurka and pack wound - will check with Dr. Daley. Additionally seen by Dr. Evans. S: Increased flatus today, no pain, no nausea. O: Sitting upright in chair, appears comfortable NCAT, PER, No gross hearing deficits NG with bilious fluid No increased WOB +BS. Softly distended. Midline incision niurka intact. Erythema of inferior 1/ 3 of incision - able to drain appx 10cc seroma from between niurka. Conduit with fluid in bag. Each SARAH with thin serosang fluid. Nontender to palpation Mood and affect normal Neuro grossly intact Objective: Vital Signs Temp Pulse Resp BP Pulse Ox 37.3 C 105 H 20 127/59 H 96 05/08/17 09:00 05/08/17 12:00 05/08/17 12:00 05/08/17 12:00 05/08/17 12:00 Laboratory Results 05/08/17 05:45 05/08/17 05:45 05/07/17 05/08/17 05/09/17 05:59 05:59 05:59 Intake Total 3510 3947 Output Total 3630 3925 705 Balance -120 22 -705 PT 14.8 SEC (12.0-15.0) 05/08/17 05:45 INR 1.16 (0.83-1.16) 05/08/17 05:45 ICD10 Worksheet Patient Problems: Problems Problem Status Onset Anemia Acute C. difficile diarrhea Acute ~11/26/16 Congestive heart failure Acute Fever Acute Hyponatremia Acute Thrombocytopenia Acute
--- NOTE | 2017-05-08 14:33 | SOAPPROG ---
[facility] Progress Note Assessment/Plan: Assessment: 76 yo male s/p cystoprostatecomy with ileal conduit creation with post-op ileus requiring TEA for pain management. TEA placed on 05/02/17 at 16:00, this is day # 6 of epidural pain management. Plan: 1. Tomorrow will be D #7 of TEA. Ileus improving with flatus and clamped NGT. Pt taking ice chips. Will plan to hold epidural infusion and AM SQ heparin anticipating removing epidural catheter later in the day. Pain meds will be at Dr. Daley's discretion starting at 9 AM tomorrow 05/09/17. 05/07/17 07:52 05/07/17 07:54 05/07/17 07:55 05/08/17 14:30 Subjective: Pt sitting comfortably in chair. Denies RENNER/leg weakness/leg numbness. Pt reports SI are back pain, but no pain in lower thoracic region. 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 Objective: Vital Signs Temp Pulse Resp BP Pulse Ox 37.3 C 105 H 20 127/59 H 96 05/08/17 09:00 05/08/17 12:00 05/08/17 12:00 05/08/17 12:00 05/08/17 12:00 Laboratory Results 05/08/17 05:45 05/08/17 05:45 05/07/17 05/08/17 05/09/17 05:59 05:59 05:59 Intake Total 3510 3947 Output Total 3630 3925 705 Balance -120 22 -705 PT 14.8 SEC (12.0-15.0) 05/08/17 05:45 INR 1.16 (0.83-1.16) 05/08/17 05:45 Pt pulling [id number] mL on IS. Walking with minimal pain. - Time Spent With Patient Time Spent With Patient: 20 minutes to evaluate and discuss plan. Physical Exam - Physical Exam General Appearance: alert, no apparent distress Abdomen: distended (less distended than previously) Back: Other (epidural catheter site: no point tenderness, erythema, or induration. Dressings intact. Cath still at 10 cm at the skin.) ICD10 Worksheet Patient Problems: Problems Problem Status Onset Anemia Acute C. difficile diarrhea Acute ~11/26/16 Congestive heart failure Acute Fever Acute Hyponatremia Acute Thrombocytopenia Acute
--- NOTE | 2017-05-08 17:39 | HOSPPROG ---
Hospitalist Progress Note Assessment/Plan: 76 yo M with PMH of invasive bladder cancer now s/p cystoprostatectomy with ileal conduit and hospital course complicated by a fib, and ileus # ileus: has had fairly prolonged ileus and patient very concerned regarding continued NGT which is very uncomfortable. Has not had return of bowel function as of yet, though BS present on exam. Discussed weaning off of epidural and increasing mobility, op from NG has been decreasing. Has not had clamping trial as of yet. # a fib: with issues with rates in the mid 100s but currently improved on digoxin, apparently did not respond to BB or diltiazem. CHADS vasc of 4 and would be appropriate for AC when OK with surgery. # htn: BP has been difficult to control, improved now on dilt and dig # pain: post operative pain has been managed by dilaudid epidural, patient notes that today he has essentially no pain but feels "drugged" and having a hard time staying awake, asking anesthesia to consider decreasing or discontinuing dilaudid # compensated diastolic heart failure: monitoring and at this point appears essentially euvolemic # bladder cancer: as above s/p surgical resection, has undergone chemo previously # IP status Patient new to my care. Old records reviewed and summarized as above. Care plan reviewed with patients daughter and present at bedside. Subjective: no signifcant overnight events, no real pain, irritated by NG tube, somnolent today Objective: Vital Signs Temp Pulse Resp BP Pulse Ox 37.2 C 107 H 20 158/80 H 95 05/08/17 16:16 05/08/17 16:16 05/08/17 16:16 05/08/17 16:16 05/08/17 16:16 Laboratory Results 05/08/17 05:45 05/08/17 05:45 05/07/17 05/08/17 05/09/17 05:59 05:59 05:59 Intake Total 3510 3947 300 Output Total 3630 3925 870 Balance -120 22 -570 PT 14.8 SEC (12.0-15.0) 05/08/17 05:45 INR 1.16 (0.83-1.16) 05/08/17 05:45 awake but somnolent anicteric op clear, ng in place with yellow-green drainage irreg irreg hr in low 100 cta but decreased at bases distended, incision cdi with surrounding erythema distally but no purulence no cce warm dry well perfused somnolent appropriate - Time Spent With Patient Time Spent with Patient: greater than 35 minutes Time Spent with Patient: Greater than 35 minutes spent on this patients care, greater than 50% of time spent counseling, educating, and coordinating care regarding the above mentioned plan. ICD10 Worksheet Patient Problems: Problems Problem Status Onset Anemia Acute Hyponatremia Acute Thrombocytopenia Acute Congestive heart failure Acute C. difficile diarrhea Acute ~11/26/16 Fever Acute
[2017-05-08] MEDS: TPN W/ FAMOTIDINE 1 EA BAG IV SCH (20:04)
[2017-05-08] MEDS: LORazepam 2 MG/ML INJ IVP PRN (20:26)
[2017-05-08] MEDS: FORMOTEROL IH SCH (20:58)
[2017-05-08] MEDS: MOMETASONE IH SCH (20:58)
[2017-05-09] MEDS: NS 1,000 ML IV SCH ×2 (00:02→10:00)
[2017-05-09] MEDS: DILTIAZEM 125 MG in D5W 125 ML IV SCH ×3 (03:16→20:54)
[2017-05-09] MEDS: HYDROmorph 10MCG/ML&BUP 0.1% in 100ML NS EP SCH (04:34)
[2017-05-09 05:25] LABS: ABSOLUTE NRBC COUNT 0.03 10^3/uL (0-0.01); ADD DIFF? YES; ADD MORPH? NO; ATYPICAL LYMPHOCYTE FLAG 30 (0-99); FRAGMENT RBC FLAG 0 (0-99); HEMATOCRIT 40.8 % (40.0-51.0); HEMOGLOBIN 13.2 g/dL (13.7-17.5); LIPEMIA HEMOLYSIS FLAG 80 (0-99); MEAN CELL HEMOGLOBIN 32.8 pg (27.9-34.1); MEAN CELL HEMOGLOBIN CONCENTR. 32.4 g/dL (32.4-36.7); MEAN CELL VOLUME 101.2 fL (81.5-99.8); MEAN PLATELET VOLUME 10.3 fL (8.7-11.7); NRBC-AUTO% 0.4 % (0.0-0.2); PLATELET COUNT 143 10^3/uL (150-400); RED BLOOD CELL COUNT 4.03 10^6/uL (4.40-6.38); RED CELL DISTRIBUTION WIDTH 14.7 % (11.5-15.2)
[2017-05-09 05:26] LABS: INR 1.09 (0.83-1.16)
[2017-05-09 05:33] LABS: LEFT SHIFT FLG 300 (0-99); PLATELET CLUMPS FLAG 300 (0-99)
[2017-05-09 05:34] LABS: ADD SCAN? NO
[2017-05-09 05:36] LABS: ALANINE AMINOTRANSFERASE 37 IU/L (21-72); ALBUMIN 2.7 g/dL (3.5-5.0); ALKALINE PHOSPHATASE 61 IU/L (38-126); ANION GAP 10 mEq/L (8-16); ASPARTATE AMINOTRANSFERASE 26 IU/L (17-59); BILIRUBIN,TOTAL 0.6 mg/dL (0.1-1.4); CARBON DIOXIDE 27 mEq/l (22-31); CHLORIDE 105 mEq/L (97-110); CREATININE 0.9 mg/dL (0.7-1.3); GLOMERULAR FILTRATION RATE > 60; GLUCOSE 133 mg/dL (70-100); SODIUM 142 mEq/L (134-144); TOTAL PROTEIN 5.2 g/dL (6.3-8.2)
[2017-05-09 06:33] LABS: PLATELET ESTIMATE ADEQUATE (ADEQ)
[2017-05-09] MEDS ORDERED: BISACODYL 10 MG SUPP PR ONE (09:15)
[2017-05-09] MEDS: Mometasone/Formoterol [Dulera 100 Mcg/5 Mcg Inhaler] 2 PUFFS IH SCH (09:23)
[2017-05-09] MEDS ORDERED: fentaNYL 100 MCG/2 ML INJ IVP PRN ×2 (10:59→15:55)
[2017-05-09] MEDS ORDERED: HEPARIN 10,000 UNIT/10 ML MDV IVP ONE (11:00)
[2017-05-09] MEDS ORDERED: HEPARIN/DEXTROSE 500 ML IV SCH (11:00)
[2017-05-09] MEDS: DIGOXIN 500 MCG/2 ML AMP IVP SCH (11:28)
[2017-05-09] MEDS ORDERED: ACETAMINOPHEN 650 MG SUPP PR ONE (11:30)
--- NOTE | 2017-05-09 11:51 | WOCRNPDOC ---
WOCRN Advanced Assessment Note - Skin Integrity Problem, Advanced Assess Anterior Medial Abdomen Surgical Wound/Incision Dressing Type: Open to Air Dressing Description: Intact, Shadowed Closure Description: [place] (inferior 1/2 of wound's niurka were removed by Dr. Evans) Exudate Amount: Minimal Exudate Characteristic(s): Serosanguinous Integumentary Issue Intervention: Dressing Removed Rahel Wound Tissue: Erythema Wound Bed Color: Red, Yellow Wound Bed Constitution: Smooth Tissue (80%), Loose Slough (20%) Skin Integrity Problem Comment: Dr. Evans in room and removed niurka after wound RN removed packing. There was dehisced fascia inferiorly. Pt to OR today. Likely vac placement. Possible vac with veraflo. Wound care will check in on sunday. Student RN De in room for care.
[2017-05-09] MEDS ORDERED: KETOROLAC 15 MG/1 ML SDV IVP SCH (12:00)
--- NOTE | 2017-05-09 12:15 | ASMTCMCOM ---
CM Note CM Note Notes: 05/09/2017 Case Management Note: Spoke w/RN and reviewed chart. Pt d/c needs and date remain unclear. Pt to OR today for abdominal wound vac change. Case Management d/c poc: To be determined. Case Management will need PT evals to assess d/c needs for patient. Case Management to follow. 05/06/2017 CM Note by Susan Quiñones Reviewed chart re: pt's progress. Pt seen by vice president corporate communications today for urostomy teaching. Per MD notes, ileus persists, slow to resolve, wound w/ minimal drainage. Call placed to Lisa RN at [facility] w/ update on pt's need; Lisa confirmed [facility] is able to accept when pt ready for d/c. CM will cont to follow. Date Signed: 05/09/2017 12:14 PM Electronically Signed By:Tara Flores RN
[2017-05-09] MEDS: DC NARCS MISC SCH (12:29)
[2017-05-09] MEDS: REGARDING ANTICOAG MISC SCH (12:29)
[2017-05-09] MEDS: IPRATROPIUM/ALBUTEROL 3 ML DEYVIAL IH SCH ×3 (13:20→23:52)
--- NOTE | 2017-05-09 13:25 | PDANEPAE ---
ANE History of Present Illness I&D of abdominal wound ANE Past Medical History - Cardiovascular History Hx Hypertension: Yes Hx Arrhythmias: Yes Hx Chest Pain: No Hx Coronary Artery / Peripheral Vascular Disease: Yes Hx CHF / Valvular Disease: No Hx Palpitations: Yes Cardiovascular History Comment: AFIB, currently on IV diltiazem for rate control. HTN. HYPERCHOLESTERMIA. CAD. PVD. SEEN AT [facility] - Pulmonary History Hx COPD: No Hx Asthma/Reactive Airway Disease: Yes Hx Recent Upper Respiratory Infection: No Hx Oxygen in Use at Home: No Hx Sleep Apnea: No Sleep Apnea Screening Result - Last Documented: Positive Pulmonary History Comment: ASTHMA - uses inhaled steroid and rescue inhaler , rescue used once per month; no ER visits ever. 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 RIGHT CEA WITH HERI 02/18/13. KNEE SCOPE 2009. SEVERAL HAND SURGERIES. ANE Review of Systems Review of Systems: - Exercise capacity METS (RN): 5 METS ANE Patient History - Allergies Allergies/Adverse Reactions: aspirin Allergy (Severe, Verified 12/21/16 21:47) Edema of Extremities NSAIDS (Non-Steroidal Anti-Inflamma Allergy (Severe, Verified 12/17/16 16:47) Swelling/neck,face,throat azithromycin [From Zithromax] Allergy (Mild, Verified 12/17/16 16:47) Hives iodine Allergy (Verified 12/17/16 16:47) Swelling/neck,face,throat - Home Medications Home Medications: Mometasone/Formoterol [Dulera 100 Mcg/5 Mcg Inhaler] 1 puffs [facility] 12/21/16 [ Last Taken 04/30/17 05:00] Montelukast Sodium [Singulair 10 mg (*)] 10 mg PO DAILY 12/21/16 [Last Taken 10/13 05:00] Probenecid [Probenecid 500mg (*)] 500 mg PO DAILY 12/22/16 [Last Taken 05/01/17 05:00] Spironolactone [Aldactone 25 MG (*)] 25 mg PO Q2D 12/22/16 [Last Taken 04/30/17 09:00] Furosemide [Lasix 40 MG (*)] 60 mg PO DAILY 04/12/17 [Last Taken 04/30/17 10:00] Herbals/Supplements -Info Only 1 ea PO DAILY 04/12/17 [Last Taken 04/25/17] Metoprolol Succinate Xr [Toprol Xl 50 mg (*)] 50 mg PO DAILY 04/12/17 [Last Taken 05/01/17 05:00] Rosuvastatin Calcium [Crestor 20mg (*)] 20 mg PO DAILY 04/12/17 [Last Taken 09/15 22:00] Albuterol Sulfate [Proair Respiclick] 1 puffs IH PRN PRN 05/02/17 [Last Taken Unknown] Mometasone/Formoterol [Dulera 100 Mcg/5 Mcg Inhaler] 2 puffs IH DAILY 05/02/17 [ Last Taken Unknown] - NPO status NPO Since - Liquids (Date): 05/09/17 NPO Since - Liquids (Time): 10:00 NPO Since - Solids (Date): 05/02/17 NPO Since - Solids (Time): 20:00 - Smoking Hx Smoking Status: Former smoker - Family Anes Hx Family Hx Anesthesia Complications: NONE ANE Labs/Vital Signs - Labs Result Diagrams: 05/09/17 04:55 05/09/17 04:55 - Vital Signs Blood Pressure: 141/78 Heart Rate: 105 Respiratory Rate: 20 O2 Sat (%): 95 Height: 175.26 cm Weight: 84.8 kg ANE Physical Exam - Airway Neck exam: decreased ROM (decreased extension) Mallampati Score: Class 1 Mouth exam: normal dental/mouth exam (full upper caps) - Cardiovascular Cardiovascular: irregularly irregular - ASA Status ASA Status: III ANE Anesthesia Plan Anesthesia Plan: general endotracheal anesthesia
[2017-05-09] MEDS ORDERED: PROPOFOL 200 MG/20 ML VIAL ONE (13:40)
[2017-05-09] MEDS ORDERED: fentaNYL 100 MCG/2 ML INJ ONE ×2 (13:40)
[2017-05-09] MEDS ORDERED: ROCURONIUM 50 MG/5 ML VIAL ONE (13:41)
[2017-05-09] MEDS ORDERED: PROPOFOL/EMULSION 500 MG/50 ML BOTTLE IV ONE (14:26)
[2017-05-09] MEDS ORDERED: ONDANSETRON 4 MG/2 ML VIAL ONE (15:09)
[2017-05-09] MEDS ORDERED: GLYCOPYRROLATE 0.2 MG/1 ML VIAL ONE ×2 (15:11)
[2017-05-09] MEDS ORDERED: NEOSTIGMINE METHYLSULFATE 3 MG/3 ML SYR ONE (15:11)
[2017-05-09] MEDS ORDERED: ALBUTEROL 3 ML DEYVIAL IH PRN (15:55)
[2017-05-09] MEDS ORDERED: NALOXONE HCL 0.4 MG/ML INJ IVP PRN ×2 (15:55→16:32)
--- NOTE | 2017-05-09 16:22 | HOSPPROG ---
Hospitalist Progress Note Assessment/Plan: 76 yo M with PMH of invasive bladder cancer now s/p cystoprostatectomy with ileal conduit and hospital course complicated by a fib, and ileus--now complicated by post operative fascial dehiscence # ileus: has had fairly prolonged ileus and patient very concerned regarding continued NGT which is very uncomfortable. Has not had return of bowel function as of yet, though BS present # post operative fascial dehiscence: noted today on exam, patient taken to OR emergently for repair by general surgery # a fib: with issues with rates in the mid 100s but currently improved on digoxin, apparently did not respond to BB or diltiazem. CHADS vasc of 4, will defer initiating heparin gtt at this time given above. When cleared by surgery will start heparin gtt as a bridge to oral AC. # htn: BP has been difficult to control, improved now on dilt and dig # pain: post operative pain has been managed by dilaudid epidural, yesterday patient appearing over medicated and dilaudid continuous dc'ed, plan to transition to prn opiates and apap (allergic to nsaids) however given need for repeat surgery as above this may be delayed # acute hypoxic respiratory failure: has been requiring 2-3 L of o2 to maintain sats in low 90s and today also with significant wheeze on exam, rhonchi largely left base, cxr personally reviewed showing atelectasis without pna or pulm edema. Will push IS, cough/deep breath, ambulation tid. Given wheezing and per hx of wheezing at home as well, will change nebs to scheduled. # compensated diastolic heart failure: monitoring and at this point appears essentially euvolemic # bladder cancer: as above s/p surgical resection, has undergone chemo previously # IP status Care plan reviewed with urology including plans for pain medication Subjective: no significant overnight events, patient notes that his pain is 3-4 , less somnolent, discouraged about lack of progress Objective: Vital Signs Temp Pulse Resp BP Pulse Ox 35.8 C L 109 H 14 163/72 H 93 05/09/17 15:56 05/09/17 15:56 05/09/17 15:56 05/09/17 15:56 05/09/17 15:56 Laboratory Results 05/09/17 04:55 05/09/17 04:55 05/08/17 05/09/17 05/10/17 05:59 05:59 05:59 Intake Total 3947 3682 870 Output Total 3929 4045 1215 Balance 22 1107 -345 PT 14.0 SEC (12.0-15.0) 05/09/17 04:55 INR 1.09 (0.83-1.16) 05/09/17 04:55 awake but somnolent anicteric op clear, ng in place with yellow-green drainage irreg irreg hr in low 100 cta but decreased at bases distended, incision cdi with surrounding erythema distally but no purulence no cce warm dry well perfused somnolent appropriate - Time Spent With Patient Time Spent with Patient: greater than 35 minutes Time Spent with Patient: Greater than 35 minutes spent on this patients care, greater than 50% of time spent counseling, educating, and coordinating care regarding the above mentioned plan. ICD10 Worksheet Patient Problems: Problems Problem Status Onset Anemia Acute C. difficile diarrhea Acute ~11/26/16 Congestive heart failure Acute Fever Acute Hyponatremia Acute Thrombocytopenia Acute
[2017-05-09] MEDS ORDERED: morphINE PCA 30 MG/30 ML PCA IV PRN (16:32)
--- NOTE | 2017-05-09 17:28 | POSTOPPROG ---
Post Op Note Date of Operation: 05/09/17 Surgeon: Mindi Evans Anesthesiologist: yvette Anesthesia: GET(General Endotracheal) Pre-op Diagnosis: wound dehiscence Post-op Diagnosis: "" Indication: 76 yo with wound dehiscence Procedure: ex lap wash out wound vac placement Findings: very dilated small bowel Inf/Abcess present in the surg proc area at time of surgery?: No EBL: Minimal Drains: Carlos Calhoun, Wound Vac
--- NOTE | 2017-05-09 18:28 | POSTANESTH ---
Post Anesthetic Evaluation Cardiovascular Status: Similar to Pre-Op Cond Respiratory Status: Similar to Pre-op Cond. Level of Consciousness/Mental Status: Can Participate in Eval Pain Control: Adequate, Prn Tx Ordered Nausea/Vomiting Control: Adequate, Prn Tx Ordered Complications Possibly Related to Anesthesia: None Noted
[2017-05-09] MEDS: ACETAMINOPHEN 650 MG SUPP PR PRN (20:05)
[2017-05-09] MEDS: TPN W/ FAMOTIDINE 1 EA BAG IV SCH (20:27)
[2017-05-09] MEDS: FORMOTEROL IH SCH (20:38)
[2017-05-09] MEDS: MOMETASONE IH SCH (20:38)
[2017-05-10] MEDS: LORazepam 2 MG/ML INJ IVP PRN (01:26)
[2017-05-10] MEDS: DILTIAZEM 125 MG in D5W 125 ML IV SCH ×2 (05:27→14:55)
[2017-05-10] MEDS: IPRATROPIUM/ALBUTEROL 3 ML DEYVIAL IH SCH ×3 (05:56→18:45)
[2017-05-10] MEDS: ALTEPLASE 2 MG VIAL IVP PRN (06:15)
--- NOTE | 2017-05-10 08:05 | SOAPPROG ---
SOAP Progress Note Assessment/Plan: Assessment: Small dehiscence yesterday - Gen Surg took back to close and milked 3 L from SI - closed well - signfiicant small bowel ileus - no obstruction on exploration - no leak noted - no sig ascites - Start sips and 1 cup of coffee ( small vol) for sips x 1 - caffeine may stimulate bowels - Plan: as above 05/02/17 08:27 05/04/17 08:37 05/06/17 16:41 05/07/17 13:44 05/10/17 08:02 Objective: Vital Signs Temp Pulse Resp BP Pulse Ox 36.9 C 115 H 18 134/73 H 91 L 05/10/17 07:08 05/10/17 07:08 05/10/17 07:08 05/10/17 07:08 05/10/17 07:08 Laboratory Results 05/09/17 04:55 05/09/17 04:55 05/09/17 05/10/17 05/11/17 05:59 05:59 05:59 Intake Total 3682 3171 Output Total 2975 2438 Balance 707 733 PT 14.0 SEC (12.0-15.0) 05/09/17 04:55 INR 1.09 (0.83-1.16) 05/09/17 04:55 Physical Exam - Physical Exam EENT: PERRL/EOMI Neck: non-tender Respiratory: chest non-tender Cardiac/Chest: other Abdomen: soft, distended Skin: normal color Lymphatic: no adenopathy Extremities: normal range of motion ICD10 Worksheet Patient Problems: Problems Problem Status Onset Anemia Acute C. difficile diarrhea Acute ~11/26/16 Congestive heart failure Acute Fever Acute Hyponatremia Acute Thrombocytopenia Acute
[2017-05-10] MEDS ORDERED: BISACODYL 10 MG SUPP PR PRN (08:24)
--- NOTE | 2017-05-10 08:31 | GPROG ---
[f rep st] PROGRESS NOTE ASSESSMENT AND PLAN: Status post cysto prostatectomy after neoadjuvant chemotherapy. Sana remove d today. Fluid evacuated, small amounts, likely small wound infection. Wound packing performed. Wi ll avoid antibiotics and evaluate this to see if this resolves on its own with packing. Flatulence l ast night. Abdomen is less distended. Continue NG tube. Avoid Reglan. OBJECTIVE: White count is 8, H and H 13 and 40. Creatinine is 0.9. Glucoses are climbing slightly 232 most recently. Will watch this with TPN. Albumin is 2.7, somewhat concerning but slightly eleva tariq from 2.6 yesterday. PHYSICAL EXAM: ABDOMEN: Less distended. Fluid per the staple line is serous, un concerning. No pu s. EXTREMITIES: No lower extremity edema. HEENT: Normocephalic, atraumatic. NG is bilious. NEUR OLOGIC: Moving all 4 extremities. Neurologic grossly intact. VITAL SIGNS: Stable. /[id number]/MODL
--- NOTE | 2017-05-10 08:51 | GPROG ---
[f rep st] PROGRESS NOTE DATE OF SERVICE: 05/08/2017 ASSESSMENT AND PLAN: 76-year-old male, status post cystoprostatectomy with ileal conduit, post chemo therapy, neoadjuvant chemotherapy, prior to cystectomy. Nausea and pain resolved. Increased flatus. Less distended today. Significant flatus with Dulcolax suppositories. Clamping trial today. We w ould continue n.p.o. status until return of bowel function and continue TPN, even after he starts eat ing to maximize calorie load. His albumin is dropping, which is not surprising. I will remove stapl es tomorrow and pack the wound. There seems to be a small fluid collection under the skin, but this may resolve. PHYSICAL EXAM: Normocephalic, atraumatic. NG with bilious fluid. Abdomen is less distended, soft. Fluid from the inferior one-third of the incision with erythema. Small fluid coming from between th e niurka and this is likely resolving on its own. Urine from the ostomy is good. Ostomy is pink. No lower extremity edema. Mood and affect normal. Neurologic grossly intact. Afebrile, pulse 105, he is in atrial fibrillation, respiratory rate is 20, blood pressure 127/59, pulse ox is 96. LABORATORY DATA: His white count is 6, H and H are 13 and 39. /[id number]/MODL
[2017-05-10] MEDS: DIGOXIN 500 MCG/2 ML AMP IVP SCH (08:55)
[2017-05-10] MEDS ORDERED: PARAMETERS MISC PRN (09:12)
[2017-05-10] MEDS ORDERED: D10W 250 ML PRN HYPOGLYCEMIA IV (09:30)
[2017-05-10] MEDS: Mometasone/Formoterol [Dulera 100 Mcg/5 Mcg Inhaler] 2 PUFFS IH SCH (09:39)
[2017-05-10 09:49] LABS: ABSOLUTE NRBC COUNT 0.03 10^3/uL (0-0.01); ADD DIFF? YES; ADD MORPH? NO; ATYPICAL LYMPHOCYTE FLAG 0 (0-99); FRAGMENT RBC FLAG 0 (0-99); HEMATOCRIT 42.2 % (40.0-51.0); HEMOGLOBIN 14.6 g/dL (13.7-17.5); LIPEMIA HEMOLYSIS FLAG 90 (0-99); MEAN CELL HEMOGLOBIN CONCENTR. 34.6 g/dL (32.4-36.7); MEAN CELL VOLUME 98.1 fL (81.5-99.8); MEAN PLATELET VOLUME 10.3 fL (8.7-11.7); NRBC-AUTO% 0.2 % (0.0-0.2); PLATELET CLUMPS FLAG 0 (0-99); PLATELET COUNT 138 10^3/uL (150-400); RED CELL DISTRIBUTION WIDTH 15.2 % (11.5-15.2)
[2017-05-10 09:50] LABS: ADD SCAN? NO; LEFT SHIFT FLG 300 (0-99)
[2017-05-10 10:04] LABS: ANION GAP 10 mEq/L (8-16); CARBON DIOXIDE 22 mEq/l (22-31); CHLORIDE 105 mEq/L (97-110); CREATININE 1.8 mg/dL (0.7-1.3); GLOMERULAR FILTRATION RATE 37; GLUCOSE 219 mg/dL (70-100); POTASSIUM 4.7 mEq/L (3.5-5.2); SODIUM 137 mEq/L (134-144)
[2017-05-10 10:05] LABS: ALANINE AMINOTRANSFERASE 31 IU/L (21-72); ALBUMIN 2.1 g/dL (3.5-5.0); ALKALINE PHOSPHATASE 57 IU/L (38-126); ASPARTATE AMINOTRANSFERASE 20 IU/L (17-59); BILIRUBIN,TOTAL 0.7 mg/dL (0.1-1.4); CALCIUM 7.9 mg/dL (8.5-10.4); MAGNESIUM 1.8 mg/dL (1.6-2.3); TOTAL PROTEIN 4.7 g/dL (6.3-8.2)
[2017-05-10 10:10] LABS: INR 1.31 (0.83-1.16); PROTIME(PATIENT) 16.3 SEC (12.0-15.0)
[2017-05-10 10:11] LABS: APTT 28.1 SEC (23.0-38.0)
--- NOTE | 2017-05-10 10:23 | SOAPPROG ---
SOAP Progress Note Assessment/Plan: Assessment: s/p cystoprostatectomy with ileal conduit and rigid sig for invasive bladder cancer Went to OR on 05/09/2017 for lower wound evisceration Intraop, the bowel was distended. No obvious hernia. The bowel was distended throughout without a transition point. 1) Continue NG 2) Continue TPN. May have some fluids for comfort but mainly NPO 3) Monitor SARAH Cr 4) I will continue to follow. S: Sitting up in bed. Sore throat. Abdomen with discomfort. No flatus O: Lying in bed, appears comfortable NCAT, PER, No gross hearing deficits NG with bilious fluid coming out Voice is weak Lungs clear bilaterally although decreased at bases Regular rate I cannot appreciate bowel sounds. Distended although less so than yesterday. Veraflo intact. Conduit with scant fluid in bag. SARAH with serosang fluid Plan: 05/03/17 06:39 05/03/17 06:45 05/10/17 10:20 Objective: Vital Signs Temp Pulse Resp BP Pulse Ox 36.9 C 112 H 24 H 134/73 H 88 L 05/10/17 07:08 05/10/17 10:07 05/10/17 10:07 05/10/17 07:08 05/10/17 10:07 Laboratory Results 05/10/17 08:40 05/10/17 08:40 05/09/17 05/10/17 05/11/17 05:59 05:59 05:59 Intake Total 3682 3171 Output Total 2975 2438 Balance 707 733 PT 16.3 SEC (12.0-15.0) H 05/10/17 08:40 INR 1.31 (0.83-1.16) H 05/10/17 08:40 ICD10 Worksheet Patient Problems: Problems Problem Status Onset Anemia Acute C. difficile diarrhea Acute ~11/26/16 Congestive heart failure Acute Fever Acute Hyponatremia Acute Thrombocytopenia Acute
[2017-05-10 10:24] LABS: PLATELET ESTIMATE DECREASED (ADEQ)
[2017-05-10] MEDS: fentaNYL 100 MCG/2 ML INJ IVP PRN ×3 (10:29→20:45)
--- NOTE | 2017-05-10 12:39 | HOSPPROG ---
Hospitalist Progress Note Assessment/Plan: 76 yo M with PMH of invasive bladder cancer now s/p cystoprostatectomy with ileal conduit and hospital course complicated by a fib, and ileus--now complicated by post operative fascial dehiscence # ileus: has had fairly prolonged ileus and patient very concerned regarding continued NGT which is very uncomfortable. Working on minimizing narcotics, ambulation but still no return of bowel function. # post operative fascial dehiscence: sp ex lap/washout and wound vac placement on 05/09. Abdomen tense and distended today, less so than yesterday. Likely slight wound infection with fluid drained surgically and plan for now to monitor off of abx # acute hypoxic respiratory failure: now in the post operative setting has had increased o2 needs though lung sound more clear, wheezing largely resolved. Continue scheduled nebs, continue IS/CDB. CXR showing significant atelectasis related to splinting and limited mobility. # a fib: with issues with rates in the mid 100s but currently improved on digoxin, apparently did not respond to BB or diltiazem. CHADS vasc of 4. Will start heparin gtt likely in coming 1-2 days if remains stable from surgical perspective. # htn: BP has been difficult to control, improved now on dilt and dig # pain: relatively well controlled, continue prn fentanyl and tylenol, epidural out and dong well # compensated diastolic heart failure: monitoring and at this point appears essentially euvolemic # bladder cancer: as above s/p surgical resection, has undergone chemo previously # IP status Care plan reviewed with patients and daughter present at bedside. Subjective: went to OR yesterday for surgical wound dehiscence, today is even more discouraged but eager to walk and work on getting better Objective: Vital Signs Temp Pulse Resp BP Pulse Ox 37.0 C 120 H 28 H 117/69 90 L 05/10/17 10:47 05/10/17 12:26 05/10/17 12:26 05/10/17 10:47 05/10/17 12:26 Laboratory Results 05/10/17 08:40 05/10/17 08:40 05/09/17 05/10/17 05/11/17 05:59 05:59 05:59 Intake Total 3682 3171 Output Total 1445 5508 Balance 707 733 PT 16.3 SEC (12.0-15.0) H 05/10/17 08:40 INR 1.31 (0.83-1.16) H 05/10/17 08:40 awake but somnolent anicteric op clear, ng in place with green drainage irreg irreg hr in low 100 cta but decreased at bases distended, no bs noted, wound vac in place no cce warm dry well perfused somnolent appropriate - Time Spent With Patient Time Spent with Patient: greater than 35 minutes Time Spent with Patient: Greater than 35 minutes spent on this patients care, greater than 50% of time spent counseling, educating, and coordinating care regarding the above mentioned plan. ICD10 Worksheet Patient Problems: Problems Problem Status Onset Anemia Acute C. difficile diarrhea Acute ~11/26/16 Congestive heart failure Acute Fever Acute Hyponatremia Acute Thrombocytopenia Acute
--- NOTE | 2017-05-10 13:06 | WOCRNPDOC ---
WOCRN Advanced Assessment Note - Skin Integrity Problem, Advanced Assess Anterior Medial Abdomen Surgical Wound/Incision Dressing Type: Wound Vac Other Dressing Type: Veraflow Dressing Description: Clean/Dry, Intact Exudate Amount: Moderate Exudate Color: Reddish/Yellow Exudate Characteristic(s): Serosanguinous Skin Integrity Problem Comment: Visualized wound vac dressing. Dressing intact and functioning well. Teaching provided to patient's about veraflow and duration of vac therapy. All questions answered. Wound care will round again tomorrow with plan to change vac. - Urostomy Assessment, Advanced Right Abdomen Urostomy Urostomy Appliance Intact: Yes Urostomy Appliance Currently in Use: Two Piece Flat, 2 1/4, Cut to Fit Stoma Color: Red Stoma Turgor: Moist Stoma Shape: Round Stoma Height: Protruding Slightly Urostomy Effluent: Urine Urostomy Comment/Treatment Details: Patient being seen by RT at this time with complications unrelated to urostomy. Urostomy pouch intact, with good peristomal skin contact, draining concentrated urine. Patient and not up for teaching at this time.
[2017-05-10] MEDS: INSULIN REGULAR, HUMAN 100 UNIT/1 ML VIAL STANDARD SC SCH ×2 (14:57→19:02)
[2017-05-10] MEDS: ALBUTEROL 3 ML DEYVIAL IH PRN (15:28)
[2017-05-10] MEDS: ACETAMINOPHEN 650 MG SUPP PR PRN (17:34)
[2017-05-10] MEDS ORDERED: VANCOMYCIN HCL/NORMAL SALINE 250 ML IV SCH ×2 (20:00)
[2017-05-10] MEDS: MOMETASONE IH SCH (20:54)
[2017-05-10] MEDS: FORMOTEROL IH SCH (20:54)
[2017-05-10] MEDS ORDERED: CEFEPIME HCL 1 GM in D5W 50 ML IV SCH (21:00)
--- NOTE | 2017-05-10 21:28 | HOSPPROG ---
Hospitalist Progress Note Assessment/Plan: Called to bedside for increased oxygen needs. He denies SOB or CP. Does not feel heart racing. Abd pain significant. PE: NAD CV: tachy, irregular, irregular, no LE edema Lungs: diminished at bases, no crackles #Abd: soft, surgical incision without drainage #Musk: moving all extrem #Neuro: 2-12 intact #Acute hypoxia: DDx: atelectasis, PNA. Personally reviewed CXR from today, atelectasis. Not volume overloaded on exam -Empirically treat with IV heparin (ok by Dr. Daley) since cannot do CTA. Check doppler legs, CXR, EKG, trop, TTE -Vanc/cefepime though not impressive opacity on CXR. Blood cultures pending. Add procalcitonin #Fever: PE vs infection. Plan as above. Abd source? Add Flagyl. Has h/o C diff. Blood, urine cultures, procalcitonin pending #A fib with RVR: pain and fever contributing. not well controlled on Dilt, digoxin. Did not respond to IV BB last week. No amio with severe iodine- allergy. May need to trial BB again Disp: transfer to ICU Critical care time spent: 35 min bedside evaluating pt, reviewing labs, CXR. Discussed plan with Dr. Daley Objective: Vital Signs Temp Pulse Resp BP Pulse Ox 37.2 C 116 H 30 H 123/71 H 90 L 05/10/17 19:54 05/10/17 20:56 05/10/17 20:56 05/10/17 19:54 05/10/17 20:56 Laboratory Results 05/10/17 08:40 05/10/17 08:40 05/09/17 05/10/17 05/11/17 05:59 05:59 05:59 Intake Total 3682 3171 1336 Output Total 2975 2438 800 Balance 707 733 536 PT 16.3 SEC (12.0-15.0) H 05/10/17 08:40 INR 1.31 (0.83-1.16) H 05/10/17 08:40 ICD10 Worksheet Patient Problems: Problems Problem Status Onset Anemia Acute C. difficile diarrhea Acute ~11/26/16 Congestive heart failure Acute Fever Acute Hyponatremia Acute Thrombocytopenia Acute
[2017-05-10] MEDS ORDERED: HEPARIN 10,000 UNIT/10 ML MDV IVP ONE (21:48)
[2017-05-10] MEDS ORDERED: HEPARIN 10,000 UNIT/10 ML MDV IVP PRN (21:48)
[2017-05-10] MEDS: TPN W/ FAMOTIDINE 1 EA BAG IV SCH (21:55)
[2017-05-10 22:21] LABS: ABSOLUTE NRBC COUNT 0.03 10^3/uL (0-0.01); ADD DIFF? YES; ADD MORPH? NO; ATYPICAL LYMPHOCYTE FLAG 30 (0-99); FRAGMENT RBC FLAG 0 (0-99); HEMATOCRIT 37.6 % (40.0-51.0); HEMOGLOBIN 13.2 g/dL (13.7-17.5); LIPEMIA HEMOLYSIS FLAG 90 (0-99); MEAN CELL HEMOGLOBIN 34.3 pg (27.9-34.1); MEAN CELL HEMOGLOBIN CONCENTR. 35.1 g/dL (32.4-36.7); MEAN CELL VOLUME 97.7 fL (81.5-99.8); NRBC-AUTO% 0.1 % (0.0-0.2); PLATELET CLUMPS FLAG 0 (0-99); PLATELET COUNT 96 10^3/uL (150-400); RED BLOOD CELL COUNT 3.85 10^6/uL (4.40-6.38); RED CELL DISTRIBUTION WIDTH 15.3 % (11.5-15.2)
[2017-05-10 22:30] LABS: INR 1.46 (0.83-1.16); PROTIME(PATIENT) 17.7 SEC (12.0-15.0)
[2017-05-10 22:31] LABS: APTT 32.6 SEC (23.0-38.0)
[2017-05-10 22:33] LABS: ADD SCAN? NO; LEFT SHIFT FLG 300 (0-99)
[2017-05-10] MEDS: HEPARIN/DEXTROSE 500 ML IV SCH (22:47)
[2017-05-10 22:48] LABS: TROPONIN I 0.126 ng/mL (0.000-0.034)
[2017-05-10 22:58] LABS: BASE EXCESS -1.7 mEq/L (-2.5-2.5); BICARBONATE 20 mEq/L (22-26); MEASURED OXYGEN SATURATION 97 % (92-95); PCO2 29 mmHg (34-38); PO2 102 mmHg (65-75); TCO2 21 mEq/L (23-27)
[2017-05-10 23:00] LABS: PROCALCITONIN 15.94 ng/mL (0.02-0.10)
--- NOTE | 2017-05-10 23:00 | CPEKG ---
Heart Rate: 117 RR Interval: 513 QRSD Interval: 68 QT Interval: 328 QTC Interval: 458 QRS [place]: 45 T Wave [place]: 214 EKG Severity - ABNORMAL ECG - EKG Impression: ATRIAL FIBRILLATION, V-RATE 103-142 EKG Impression: LOW VOLTAGE IN FRONTAL LEADS Electronically Signed By: Benjamin King 13-May-2017 08:35:58
[2017-05-10 23:26] LABS: PLATELET ESTIMATE DECREASED (ADEQ); TOXIC GRANULATION PRESENT; TOXIC VACUOLIZATION PRESENT
[2017-05-10] MEDS ORDERED: METOPROLOL TARTRATE 5 MG/5 ML INJ IVP ONE (23:28)
[2017-05-10 23:34] LABS: ALANINE AMINOTRANSFERASE 27 IU/L (21-72); ALBUMIN 2.1 g/dL (3.5-5.0); ALKALINE PHOSPHATASE 49 IU/L (38-126); ANION GAP 10 mEq/L (8-16); ASPARTATE AMINOTRANSFERASE 29 IU/L (17-59); BILIRUBIN,TOTAL 0.6 mg/dL (0.1-1.4); CALCIUM 7.6 mg/dL (8.5-10.4); CARBON DIOXIDE 20 mEq/l (22-31); CHLORIDE 106 mEq/L (97-110); CREATININE 2.7 mg/dL (0.7-1.3); GLOMERULAR FILTRATION RATE 23; GLUCOSE 230 mg/dL (70-100); POTASSIUM 4.7 mEq/L (3.5-5.2); SODIUM 136 mEq/L (134-144); TOTAL PROTEIN 4.2 g/dL (6.3-8.2)
[2017-05-11] MEDS: IPRATROPIUM/ALBUTEROL 3 ML DEYVIAL IH SCH ×5 (00:02→23:20)
[2017-05-11] MEDS: INSULIN REGULAR, HUMAN 100 UNIT/1 ML VIAL STANDARD SC SCH ×4 (00:27→18:36)
[2017-05-11] MEDS: LORazepam 2 MG/ML INJ IVP PRN ×2 (00:55→10:21)
[2017-05-11] MEDS: BENZOCAINE UNIT DOSE SPRAY HURRICAINE MM PRN ×2 (00:56→18:53)
[2017-05-11] MEDS: DILTIAZEM 125 MG in D5W 125 ML IV SCH ×3 (00:59→17:25)
[2017-05-11 04:57] LABS: BASE EXCESS -0.9 mEq/L (-2.5-2.5); BICARBONATE 21 mEq/L (22-26); MEASURED OXYGEN SATURATION 92 % (92-95); PCO2 27 mmHg (34-38); PO2 61 mmHg (65-75); TCO2 22 mEq/L (23-27)
[2017-05-11] MEDS: ALTEPLASE 2 MG VIAL IVP PRN (05:00)
[2017-05-11 05:55] LABS: ADD DIFF? YES; ADD MORPH? NO; FRAGMENT RBC FLAG 0 (0-99); HEMATOCRIT 36.3 % (40.0-51.0); HEMOGLOBIN 12.5 g/dL (13.7-17.5); LIPEMIA HEMOLYSIS FLAG 90 (0-99); MEAN CELL HEMOGLOBIN CONCENTR. 34.4 g/dL (32.4-36.7); MEAN CELL VOLUME 98.6 fL (81.5-99.8); RED BLOOD CELL COUNT 3.68 10^6/uL (4.40-6.38)
[2017-05-11 05:58] LABS: ABSOLUTE NRBC COUNT 0.02 10^3/uL (0-0.01); ATYPICAL LYMPHOCYTE FLAG 0 (0-99); MEAN PLATELET VOLUME 11.5 fL (8.7-11.7); NRBC-AUTO% 0.1 % (0.0-0.2); PLATELET CLUMPS FLAG 10 (0-99); PLATELET COUNT 85 10^3/uL (150-400); RED CELL DISTRIBUTION WIDTH 15.2 % (11.5-15.2)
[2017-05-11 06:00] LABS: ADD SCAN? NO; LEFT SHIFT FLG 300 (0-99)
[2017-05-11 06:22] LABS: TROPONIN I 0.098 ng/mL (0.000-0.034)
--- NOTE | 2017-05-11 06:25 | GCON ---
[f rep st] CONSULTATION PULMONARY AND CRITICAL CARE CONSULTATION DATE OF CONSULTATION: 05/10/2017 REASON FOR CONSULTATION: Increasing hypoxemia, sepsis, and atrial fibrillation with a rapid ventricular response. HISTORY: The patient is a 76-year-old, who was admitted to the hospital on for bladder resection secondary to a relatively large bladder cancer. He underwent cystoprostatectomy with an ileal conduit. His postoperative course was complicated by wound dehiscence. This was repaired [address] Evans. Tonight he is transferred to the intensive care unit secondary to increasing hypoxemia, tachypnea, fevers, and atrial fibrillation. He has been in atrial fibrillation for a number of days and has a history of paroxysmal atrial fibrillation. He has been loaded with digoxin and is on a diltiazem drip. He has not been seen by Cardiology, but apparently is followed by them previously in the office. He has a history of multiple medical problems. On transfer to the intensive care unit, he is now on a non-rebreather mask, previously on 15 L. He denies shortness of breath. He is having no chest pain. He denies cough or mucus. He does have a history of underlying chronic obstructive pulmonary disease secondary to a relatively distant history of tobacco abuse. He has been on oxygen at home for 3 years and uses an inhaler. His abdomen remains distended and tender. The ileal conduit is functioning. There is no evidence of congestive heart failure. Chest x-ray shows only bibasilar atelectasis. He has been started on antibiotics, including vancomycin and cefepime. He has been febrile to 39. White blood cell count is elevated at 21,000. Creatinine on admission was 1.1, creatinine yesterday was 0.9, and currently has jumped to 2.7. BUN is also significantly increased at 78 , up from 32 yesterday. Glucoses have been elevated in the 200 range. He is on sliding scale insulin. Blood cultures were drawn yesterday, and results are pending. Urine culture has been ordered. He has been started empirically on a heparin drip for the possibility of a pulmonary embolism and also for stroke prevention for his atrial fibrillation. Lower extremity venous Doppler ultrasounds are currently being done with results pending. PAST MEDICAL HISTORY: Remarkable for COPD, systemic hypertension, diastolic dysfunction with pulmonary hypertension, paroxysmal atrial fibrillation, and his bladder problems, including cancer. He apparently has recently received chemotherapy. PAST SURGICAL HISTORY: Carotid endarterectomy. DRUG ALLERGIES: Aspirin, nonsteroidal antiinflammatories, azithromycin, iodine. SOCIAL HISTORY: The patient is , with a supportive family. He has a 20- pack-year history of tobacco use, having quit about 20 years ago, by his report. Significant alcohol is negative. He drank a few glasses of wine at night prior to his admission. FAMILY HISTORY: Noncontributory. REVIEW OF SYSTEMS: Difficult to obtain at this time. He denies coronary artery disease. Ten-point review of systems otherwise appears negative. There is no history of thromboembolic disease. PHYSICAL EXAMINATION: GENERAL: Reveals a gentleman who is lying in bed with multiple lines and tubes in place. He is on a non-rebreather. He is alert and responsive. He denies shortness of breath or chest pain. VITAL SIGNS: Blood pressure is 123/76, heart rate 120 with atrial fibrillation on the monitor. Respiratory rate is 36. Maximum recent temperature in the last few hours is 39.4. Saturations are 96% on a non-rebreather. HEENT: Shows equal pupils. NG tube is in place to suction. CHEST: Reveals coarse breath sounds, more so on the left than the right. There are no faisal rhonchi; no significant expiratory wheezes. There may be a few rales at the base with diminished air movement at both bases. HEART: Irregular and rapid, consistent with atrial fibrillation. I cannot appreciate a gallop. P2 may be increased. There appears to be a soft systolic murmur. Abdomen is distended. A wound VAC is in place, along with an ileal conduit and some drains. No purulent material is coming from the drains. The urine is dark, somewhat brownish. GENITALIA: Appear normal. There is no diarrhea. EXTREMITIES: Unremarkable for edema, cords, or tenderness. Compression stockings are in place. NEUROLOGIC: Examination is nonfocal, intact. DATABASE: Chest x-ray shows bibasilar atelectasis with a possible small effusion on the left. There is no evidence of congestive heart failure. The cardiac silhouette appears small. A central PICC line is in place in good position. LABORATORY DATA: White blood cell count is 21,000, hemoglobin 13, hematocrit 37. The platelets are 96,000. Unfractionated heparin is pending. PTT prior was normal with a PT of 17 and INR of 1.46. Arterial blood gas on high-flow oxygen shows a pH of 7.46, pCO2 of 29, and pO2 of 102. Arterial lactate is 2.2. Chemistries are pending. Creatinine appears now to be elevated at 2.7; troponin is nonspecifically elevated is 0.126; BNP 527. Procalcitonin is approximately 16. Albumin was 2.1 this morning; latest glucose 195. ASSESSMENT: 1. Hypoxemia: This is associated with tachypnea. Chest x-ray shows bibasilar atelectasis, presumably from hypoventilation secondary to diaphragmatic compression from abdominal distention. Pulmonary embolism seems unlikely; however, cannot be ruled out at this time. He has been started on a heparin drip despite his recent surgery. This is appropriate. Lower extremity venous Doppler ultrasounds are pending, but will not change the need for heparin at this time. There is no evidence of congestive heart failure; no evidence of pneumonia. He does have underlying chronic obstructive pulmonary disease and hypoxemia. He is on nebulized treatments, which are appropriate. 2. Atrial fibrillation: This is associated with a rapid ventricular response. Blood pressure with this is stable, and there is no evidence of faisal congestive heart failure. However, increased rate control would be of benefit. He is on a diltiazem drip at 15 and has been given digoxin. A digoxin level will be needed. He was on metoprolol prior to his admission, not now. IV metoprolol may be of benefit. Cardiology consultation will be requested in the AM. 3. Acute renal failure: BUN and creatinine have risen rapidly over the last 24 hours. Renal consultation will be obtained in the a.m. Renal ultrasound will be ordered. 4. Status post cystoprostatectomy and ileal conduit: His initial surgery has been complicated by wound dehiscence, which was repaired 2 days ago. He is being followed closely by Urology for his surgical issues. He is making urine. 5. Severe sepsis: He meets all criteria for severe sepsis. Lactate at this time is not significantly elevated at 2.2. However, procalcitonin is quite high. Also, white blood cell count has risen rapidly to 21, and he is febrile now to over 39 degrees. He is being treated with cefepime and vancomycin. This will give good gram-positive and gram-negative coverage, but will not cover anaerobes, possible from an abdominal source. Metronidazole will be added. 6. Nutrition: He is on TPN. PLAN AND RECOMMENDATIONS: The patient will be treated aggressively in the intensive care unit. Oxygen will be continued. Arterial blood gas and chest x- ray will be followed. There is no indication for BiPAP at this time. If respiratory difficulties increased, we can consider Vapotherm. I feel he would do better with this than with BiPAP in light of his large NG tube. Cefepime and vancomycin will be continued. Metronidazole will be added at this time. An abdominal CT scan will be ordered for the a.m. This could not be done with contrast secondary to his rising BUN and creatinine. The patient has been seen by Infectious Disease earlier in his hospital course and re-consultation will be requested. Renal consultation should also be done. Renal ultrasound will be ordered, along with a CT scan of the abdomen and pelvis. Metoprolol will be ordered IV. Cardiology consult will be requested in the AM. Heparin will be continued, along with bronchodilator therapies, pain control, and other medications. Further plans and recommendations will be made based on his progress over the next 12-24 hours. The patient is full COR and would be intubated if he progresses towards respiratory failure. Over 90 minutes of critical care time was spent directly with the patient. /[id number]/MODL MTDD
[2017-05-11 06:47] LABS: ANION GAP 11 mEq/L (8-16); CALCIUM 7.9 mg/dL (8.5-10.4); CARBON DIOXIDE 25 mEq/l (22-31); CHLORIDE 103 mEq/L (97-110); CREATININE 2.7 mg/dL (0.7-1.3); GLOMERULAR FILTRATION RATE 23; GLUCOSE 205 mg/dL (70-100); MAGNESIUM 1.9 mg/dL (1.6-2.3); POTASSIUM 4.1 mEq/L (3.5-5.2); SODIUM 139 mEq/L (134-144)
[2017-05-11 06:49] LABS: PLATELET ESTIMATE DECREASED (ADEQ); TOXIC GRANULATION PRESENT; TOXIC VACUOLIZATION PRESENT
--- NOTE | 2017-05-11 09:38 | ECHO ---
[email or web address] [address] [address] Main: [phone] Fax: Transthoracic Echocardiogram Name: COLLINS STRAUSS MR#: [id number] Study Date: 05/11/2017 Study Time: 07:51 AM Date of : 1940 Age: 76 year(s) Height: 175.3 cm (69 in.) Weight: 84.37 kg (186 lb.) BSA: 2 m2 Gender: Male Examination: Echo Indication: hypoxia, tachycardia, concern for PE Image Quality: Technically Difficult Contrast: Requested by: Any Eden BP: 114 mmHg/67 mmHg Heart Rate: Rhythm: Indication: hypoxia, tachycardia, concern for PE Procedure Staff Waste Oil Pumper: Catarina King Physician: Tristan Chavez Requesting Provider: Conclusions: Limted Study. No gross abnormalities with normal systolic function. Normal right ventricular size and function. No evidence of RV pressure overload. RVSP could not be measured. Measurements: Chambers Valvular Assessment AV/MV Valvular Assessment TV/PV Normal Normal Normal Name Value Range Name Value Range Name Value Range IVSd (MM): 0.9 cm (0.6 cm-0.9 PV Vmax: 1.93 m/s (0.6 m/s-0.9 cm) m/s) LVDd (MM): 5.4 cm (4.2 cm-5.9 PV PGmax: 15 mmHg ( - ) cm) LVDs (MM): 3.7 cm (2 cm-3.8 cm) LVPWd (MM): 0.8 cm (0.6 cm-1 cm) LVEF (MM): 61 (>=55 %) Visual EF: 65 % RVDd(2D): 2.7 cm (1.9 cm-3.8 cmmm) Continued Measurements: Findings: Left Ventricle: The ejection fraction is visually estimated to be 65 %. Grossly normal LV size and function.. Right Ventricle: Normal size right ventricle. Normal RV function. Left Atrium: Grossly normal LA size.. Patient: COLLINS STRAUSS Study Date: 05/11/2017 Page 1 of 2 07:51 AM Right Atrium: Grossly normal RA size.. Mitral Valve: There is no significant mitral valve regurgitation. Aortic Valve: The aortic valve is tri-leaflet. There is no aortic valve regurgitation. Tricuspid Valve: There is no tricuspid valve regurgitation. IVC: The IVC is normal sized. There is inspiratory collapse of the IVC. Pericardium: No pericardial effusion. Exam Comments: Very limited echocardiogram. The only acoustic window was the subcostal view. Doppler angle suboptimal for adequate valvular interrogation.. (No Signature Object) Patient: COLLINS STRAUSS Study Date: 05/11/2017 Page 2 of 2 07:51 AM [id number]
[2017-05-11] MEDS: DIGOXIN 500 MCG/2 ML AMP IVP SCH (10:21)
[2017-05-11] MEDS: HYDROmorphONE/DILAUDID 1 MG/ML INJ IVP PRN (10:21)
--- NOTE | 2017-05-11 10:38 | PCMIDPN ---
Assessment/Plan: 76 yo male with h/o of Cdiff, prostate cancer s/p cystoprostatectomy with ileal conduit and rigid sig for invasive bladder cancer. Went to OR on 05/09/2017 for lower wound evisceration. Overnight developed severe hypoxia, resp distress, progressively worsening leukocytosis and was transferred to ICU # B lower lobe PNA, likely aspiration. LE DVT studies negative, Elevated PCT # Bandemia due PNA, CT without contrast did not show abdominal obvious source # Post op ileus # Possible Wound infection s/p washout and wound vac placement - will be covered with antibiotics directed at pneumonia # severe renal dysfunction with a creatinine clearance in the 20s # history of C diff Recommendations 1. Discontinue vancomycin 2. Increase dose of CEFEPIME TO 2 G IV DAILY for pseudomonal coverage in light of hospital-acquired aspiration 3. Continue metronidazole for anaerobic coverage and will provide "prophylaxis for C diff" 4. Agree with collecting sputum culture Medications Cefepime 1 g IV daily Microbiology 05/09/2017 blood (2) no growth today Discussed plans with patient, and daughter at bedside Subjective: Overnight went to unit for respiratory distress and elevated troponins and ID was asked to return to re-evaluate family very concerned about shallow rapid RR Objective: Vital Signs Temp Pulse Resp BP Pulse Ox 37.5 C 111 H 40 H 110/67 90 L 05/11/17 07:00 05/11/17 10:21 05/11/17 10:00 05/11/17 10:00 05/11/17 10:00 Laboratory Results 05/11/17 05:40 05/11/17 05:40 05/10/17 05/11/17 05/12/17 05:59 05:59 05:59 Intake Total 3171 2909 Output Total 2438 1638 200 Balance 733 1271 -200 - Physical Exam General Appearance: alert EENT: dry mucous membranes Respiratory: respiratory distress (mild), coarse breath sounds, No accessory muscle use, No wheezing Cardiac/Chest: tachycardia Extremities: pedal edema Abdomen: soft, distended, other (no bowel sounds, SARAH R side with serosang fluid ; wound vac along midline; bag over ileal condiut with urine), No guarding Skin: diaphoresis, pallor, No rash Neuro/Psych: alert, normal mood/affect, oriented x 3 - Time Spent With Patient Time Spent with Patient: greater than 35 minutes Time Spent with Patient: Greater than 35 minutes spent on this patients care, greater than 50% of time spent counseling, educating, and coordinating care regarding the above mentioned plan. ICD10 Worksheet Patient Problems: Problems Problem Status Onset Anemia Acute C. difficile diarrhea Acute ~11/26/16 Congestive heart failure Acute Fever Acute Hyponatremia Acute Thrombocytopenia Acute
[2017-05-11] MEDS: MOMETASONE IH SCH ×2 (10:43→23:20)
[2017-05-11] MEDS: FORMOTEROL IH SCH ×2 (10:43→23:20)
[2017-05-11] MEDS: Mometasone/Formoterol [Dulera 100 Mcg/5 Mcg Inhaler] 2 PUFFS IH SCH (10:45)
--- NOTE | 2017-05-11 11:17 | WOCRNPDOC ---
WOCRN Advanced Assessment Note - Skin Integrity Problem, Advanced Assess Anterior Medial Abdomen Surgical Wound/Incision Dressing Type: Wound Vac, Other Other Dressing Type: Veraflo Cleanse Dressing (3 pieces) Dressing Description: Intact Exudate Amount: Scant Exudate Color: Reddish/Yellow Exudate Characteristic(s): Serosanguinous Integumentary Issue Intervention: Dressing Changed Rahel Wound Tissue: Erythema (mild, immediately periwound) Rahel Wound Swelling: Mild Wound Bed Color: Red, Yellow Wound Bed Constitution: Granulation Tissue, Undermining (1cm at 12 o'clock), Subcutaneous Fat Site Odor: None Site Odor Comment: 20cmx3.2cmx1.8cm Skin Integrity Problem Comment: Large midline abdominal wound s/p dehiscence and ex lap wash out in OR on 05/09. Wound 80% granulation, 20% subcutaneous fat concentrated in the medial aspect of the wound and along margins. There is mild erythema periwound, diminishing since previous assessment. Patient previously had Veraflo Cleanse dressing in the wound, which was placed in OR and has been instilling NS into the wound bed at intervals. Based upon assessment today, wound bed is generally clean and does not need this dressing going forward. Urostomy appliance adhered over the top of vac drape on the R abdomen; adhesive tape border trimmed back to free drape for removal. Urostomy barrier remained intact. Wound cleansed w/ NS and gauze, and periwound skin prepped and draped. One large, continuous piece of black granulofoam was placed in wound bed, followed by one smaller piece of circular foam for the track pad. Wound vac set at -125mmHg, low, continuous suction. patient tolerated well; was premedicated by manager critical careELIZABETH Guillen prior to dressing change w/ both IV Dilaudid and Ativan. Next scheduled vac change will be on Sunday, 05/14. Report given to Dr. Mindi Evans.
[2017-05-11] MEDS: CEFEPIME HCL 2 GM in D5W 50 ML IV SCH (11:38)
--- NOTE | 2017-05-11 12:23 | PDCARCONS ---
Cardiology Consult Reason for Consult: Atrial fibrillation Requesting Physician: ICU team History of Present Illness: 76-year-old male currently in the ICU critically ill with worsening hypoxia, sepsis, status post cysto prostatectomy with creation of an ileal conduit complicated by dehiscence. I am asked to comment on current cardiovascular status. He has a known history of atrial fibrillation. He has been in it in several days. He is currently been given digoxin and diltiazem for rate control. He has a history of diastolic heart failure with preserved ejection fraction. Echocardiogram today shows preserved LV function. He has known moderate valvular heart disease characterized by moderate aortic stenosis, moderate tricuspid regurgitation with elevated pulmonary artery pressures in the past. Echocardiogram today did not suggest right ventricular failure. On my arrival he is resting flat. He has no complaints of palpitations, chest pain. He is short of breath. He was last seen in our clinic on March 30 preoperatively. He has longstanding hypertension which has been well managed. He has peripheral arterial disease with bilateral carotid endarterectomy is in June. He has metastatic bladder cancer. Long-term chronic anticoagulation has been held secondary to severe anemia. History Information - Allergies/Home Medication List Allergies/Adverse Reactions: aspirin Allergy (Severe, Verified 12/21/16 21:47) Edema of Extremities NSAIDS (Non-Steroidal Anti-Inflamma Allergy (Severe, Verified 12/17/16 16:47) Swelling/neck,face,throat azithromycin [From Zithromax] Allergy (Mild, Verified 12/17/16 16:47) Hives iodine Allergy (Verified 12/17/16 16:47) Swelling/neck,face,throat Home Medications: Mometasone/Formoterol [Dulera 100 Mcg/5 Mcg Inhaler] 1 puffs IH HS 12/21/16 [ Last Taken 04/30/17 05:00] Montelukast Sodium [Singulair 10 mg (*)] 10 mg PO DAILY 12/21/16 [Last Taken 10/13 05:00] Probenecid [Probenecid 500mg (*)] 500 mg PO DAILY 12/22/16 [Last Taken 05/01/17 05:00] Spironolactone [Aldactone 25 MG (*)] 25 mg PO Q2D 12/22/16 [Last Taken 04/30/17 09:00] Furosemide [Lasix 40 MG (*)] 60 mg PO DAILY 04/12/17 [Last Taken 04/30/17 10:00] Herbals/Supplements -Info Only 1 ea PO DAILY 04/12/17 [Last Taken 04/25/17] Metoprolol Succinate Xr [Toprol Xl 50 mg (*)] 50 mg PO DAILY 04/12/17 [Last Taken 05/01/17 05:00] Rosuvastatin Calcium [Crestor 20mg (*)] 20 mg PO DAILY 04/12/17 [Last Taken 09/15 22:00] Albuterol Sulfate [Proair Respiclick] 1 puffs IH PRN PRN 05/02/17 [Last Taken Unknown] Mometasone/Formoterol [Dulera 100 Mcg/5 Mcg Inhaler] 2 puffs IH DAILY 05/02/17 [ Last Taken Unknown] Past Medical History: - Past Medical History atrial fibrillation, hypertension, hyperlipidemia, peripheral artery disease - Family History Positive for: non-pertinent - Social History Smoking Status: Former smoker Cardiac History - Cardiac History Cardiac Risk Factors: hypertension (>140/90), lipidemia, age > 65 Physical Exam Physical Exam: Temp Pulse Resp BP Pulse Ox 37.5 C 112 H 36 H 110/67 92 05/11/17 07:00 05/11/17 11:00 05/11/17 11:00 05/11/17 10:00 05/11/17 11:00 O2 (L/minute) 12 FIO2 (%) 15 Constitutional: chronically ill appearing Eyes: pale conjunctiva Ears, Nose, Mouth, Throat: moist mucous membranes Cardiovascular: irregularly irregular, tachycardia Respiratory: reduced air movement, respiratory distress, rhonchi Skin: warm Neurologic: No facial droop Lab and Imaging 05/11/17 05:40 05/11/17 05:40 WBC 21.21 10^3/uL (3.80-9.50) H 05/11/17 05:40 RBC 3.68 10^6/uL (4.40-6.38) L 05/11/17 05:40 Hgb 12.5 g/dL (13.7-17.5) L 05/11/17 05:40 Hct 36.3 % (40.0-51.0) L 05/11/17 05:40 MCV 98.6 fL (81.5-99.8) 05/11/17 05:40 MCH 34.0 pg (27.9-34.1) 05/11/17 05:40 MCHC 34.4 g/dL (32.4-36.7) 05/11/17 05:40 RDW 15.2 % (11.5-15.2) 05/11/17 05:40 Plt Count 85 10^3/uL (150-400) L 05/11/17 05:40 MPV 11.5 fL (8.7-11.7) 05/11/17 05:40 Neut % (Auto) Not Reported 05/11/17 05:40 Lymph % (Auto) Not Reported 05/11/17 05:40 Gosper % (Auto) Not Reported 05/11/17 05:40 Eos % (Auto) Not Reported 05/11/17 05:40 Baso % (Auto) Not Reported 05/11/17 05:40 Nucleat RBC Rel Count 0.1 % (0.0-0.2) 05/11/17 05:40 Absolute Neuts (auto) Not Reported 05/11/17 05:40 Absolute Lymphs (auto) Not Reported 05/11/17 05:40 Absolute Monos (auto) Not Reported 05/11/17 05:40 Absolute Eos (auto) Not Reported 05/11/17 05:40 Absolute Basos (auto) Not Reported 05/11/17 05:40 Absolute Nucleated RBC 0.02 10^3/uL (0-0.01) H 05/11/17 05:40 Immature Gran % Not Reported 05/11/17 05:40 Seg Neutrophils % 44 % 05/11/17 05:40 Band Neutrophils % 43 % 05/11/17 05:40 Lymphocytes % 7 % 05/11/17 05:40 Monocytes % 3 % 05/11/17 05:40 Eosinophils % 1 % 05/09/17 04:55 Basophils % 2 % 05/08/17 05:45 Metamyelocytes % 3 % 05/11/17 05:40 Myelocytes % 1 % 05/09/17 04:55 Immature Gran # Not Reported 05/11/17 05:40 Absolute Seg Neuts 9.33 10^/uL (1.70-6.50) H 05/11/17 05:40 Absolute Band Neuts 9.12 10^3/uL (0.00-0.70) H 05/11/17 05:40 Absolute Lymphocytes 1.48 10^3/uL (1.00-3.00) 05/11/17 05:40 Absolute Monocytes 0.64 10^3/uL (0.30-0.80) 05/11/17 05:40 Absolute Eosinophils 0.08 10^3/uL (0.03-0.40) 05/09/17 04:55 Absolute Basophils 0.12 10^3/uL (0.02-0.10) H 05/08/17 05:45 Absolute Metamyelocyte 0.64 10^3/mL (0.00-0.00) H 05/11/17 05:40 Absolute Myelocytes 0.08 10^3/mL (0.00-0.00) H 05/09/17 04:55 Nucleated RBCs 1 /100 WBC (0-0) H 05/09/17 04:55 RBC/WBC/PLT Morphology NORMAL (NORMAL) 05/11/17 05:40 Toxic Granulation PRESENT H 05/11/17 05:40 Toxic Vacuolation PRESENT H 05/11/17 05:40 Dohle Bodies PRESENT H 05/10/17 22:10 Platelet Estimate DECREASED (ADEQ) L 05/11/17 05:40 Smear Review By Varinder CARROLL MD 05/09/17 04:55 PT 17.7 SEC (12.0-15.0) H 05/10/17 22:10 INR 1.46 (0.83-1.16) H 05/10/17 22:10 APTT 32.6 SEC (23.0-38.0) 05/10/17 22:10 Heparin Anti-Xa, Unfract 0.36 IU/mL (0.32-0.67) 05/11/17 05:40 Puncture Site LEFT RADIAL 05/11/17 04:50 Patient Temperature 37.0 DEGREES 05/11/17 04:50 pCO2 27 mmHg (34-38) L 05/11/17 04:50 pO2 61 mmHg (65-75) L 05/11/17 04:50 Total CO2 22 mEq/L (23-27) L 05/11/17 04:50 ABG pH 7.51 (7.35-7.45) H 05/11/17 04:50 ABG HCO3 21 mEq/L (22-26) L 05/11/17 04:50 ABG O2 Saturation 92 % (92-95) 05/11/17 04:50 ABG Base Excess -0.9 mEq/L (-2.5-2.5) 05/11/17 04:50 ABG Lactic Acid 2.2 mmol/L (0.5-1.6) H 05/10/17 22:45 VBG Lactic Acid 1.7 mmol/L (0.7-2.1) 05/09/17 19:10 Total O2 Concentration 15.0 LITERS 05/11/17 04:50 Sodium 139 mEq/L (134-144) 05/11/17 05:40 Potassium 4.1 mEq/L (3.5-5.2) 05/11/17 05:40 Chloride 103 mEq/L (97-110) 05/11/17 05:40 Carbon Dioxide 25 mEq/l (22-31) 05/11/17 05:40 Anion Gap 11 mEq/L (8-16) 05/11/17 05:40 BUN 87 mg/dL (7-23) H 05/11/17 05:40 Creatinine 2.7 mg/dL (0.7-1.3) H 05/11/17 05:40 Estimated GFR 23 05/11/17 05:40 Glucose 205 mg/dL (70-100) H 05/11/17 05:40 POC Glucose 254 mg/dL (70-100) H 05/11/17 00:06 Calcium 7.9 mg/dL (8.5-10.4) L 05/11/17 05:40 Phosphorus 2.9 mg/dL (2.5-4.5) 05/11/17 05:40 Magnesium 1.9 mg/dL (1.6-2.3) 05/11/17 05:40 Total Bilirubin 0.6 mg/dL (0.1-1.4) 05/10/17 22:41 Conjugated Bilirubin 0.3 mg/dL (0.0-0.5) 05/03/17 04:13 Unconjugated Bilirubin 0.8 mg/dL (0.0-1.1) 05/03/17 04:13 AST 29 IU/L (17-59) 05/10/17 22:41 ALT 27 IU/L (21-72) 05/10/17 22:41 Alkaline Phosphatase 49 IU/L (38-126) 05/10/17 22:41 Troponin I 0.098 ng/mL (0.000-0.034) H 05/11/17 05:40 NT-Pro-B Natriuret Pep 527 pg/mL (0-450) H 05/10/17 22:10 Total Protein 4.2 g/dL (6.3-8.2) L 05/10/17 22:41 Albumin 2.1 g/dL (3.5-5.0) L 05/10/17 22:41 Triglycerides 199 mg/dL (40-150) H 05/07/17 03:30 Procalcitonin 15.94 ng/mL (0.02-0.10) H 05/10/17 22:10 TSH 0.943 uIU/mL (0.465-4.680) 05/07/17 03:30 Peritoneal Creatinine 2.0 mg/dL 05/10/17 23:10 Digoxin 1.0 ng/mL (0.8-2.0) 05/11/17 05:40 Patient ABO/Rh O NEGATIVE 05/01/17 06:20 Antibody Screen NEGATIVE 05/01/17 06:20 EKG additional interpertation: EKG showed atrial fibrillation with modest control of ventricular rate. Nonspecific ST-T changes are noted unchanged from previous EKG. No evidence of acute coronary syndrome by EKG. Echocardiogram: Echocardiogram today showed no pericardial effusion, normal left ventricular systolic function, normal right-sided chamber dimensions and function. A/P Assessment: Cardiac problem list: 1. Chronic paroxysmal atrial fibrillation. 2. Diastolic heart failure with elevated right ventricular systolic pressure. 3. Moderate valvular heart disease with moderate aortic stenosis, moderate tricuspid regurgitation. 4. Peripheral vascular disease status post carotid endarterectomy 5. Hypertension 6. Hyperlipidemia 7. Diabetes Impression: Critically ill in the setting of recent cysto prostatectomy complicated by wound dehiscence now with respiratory failure, sepsis, renal failure in the intensive care unit. From a cardiac point of view overall LV function is preserved at this point. Right ventricular function is preserved. The patient should tolerate aggressive volume in the setting of hypotension if needed. Patient's paroxysmal atrial fibrillation seems appropriate under the metabolic stress of recent surgery, ongoing infection and respiratory failure. Would not strive for aggressive rate control at this point. If need be would use amiodarone to avoid any vaso dilatation or myocardial depressant features of calcium channel alyssa. Digoxin could also be used. At this point with him lying flat I do not think his respiratory distress is related to volume overload. In light of his multiple medical problems volume status would be very difficult to ascertain without invasive measurement. There is no evidence of concomitant acute coronary syndrome. We will follow along with you. I have no other recommendations at this time. I have discussed this with the patient's family. Past Medical History PMH: - Personal History Tetanus Vaccine Date: 2008 - Medical/Surgical History Hx Asthma: Yes Hx Chronic Respiratory Disease: No Hx Cardiac Disease: No Hx Diabetes: No Hx Renal Disease: No Hx Alcoholism: No Hx Cirrhosis: No Hx HIV/AIDS: No Hx Splenectomy or Spleen Trauma: No Other PMH: bladder cancer. carotid endardectomy. atrial fibrillation - Social History Smoking Status: Former smoker Additional Social History:
--- NOTE | 2017-05-11 12:24 | SOAPPROG ---
SOAP Progress Note Assessment/Plan: Assessment: s/p cystoprostatectomy with ileal conduit and rigid sig for invasive bladder cancer Went to OR on 05/09/2017 for lower wound evisceration Intraop, the bowel was distended without transition point. No obvious hernia. Overnight went to unit for respiratory distress and elevated troponins. 1) Continue NG 2) Continue TPN. May have some fluids for comfort but mainly NPO 3) SARAH Cr decreased Neuro - IV pain meds Resp - Increased O2 requirements. Continue cough deep breath. Possibility of aspiration with high NG output although CXR does not suggest this Cards - trops trending down GI - Awaiting bowel function to return. Anticipate ileus. SARAH by ileal conduit. Did not see obstruction. Did not take down/fully look at anastomosis for fear of disrupting. However saw sutures and no evidence of succus or fluid collections. Large bowel also dilated which makes stricture less likely FEN - TPN - watch to not fluid overload - conduit functioning. Cr elevated - ATN Dispo - continue ICU. S: Sore throat. No flatus O: Sitting up in bed, appears comfortable, face mask in place NCAT, PER, No gross hearing deficits NG with bilious fluid coming out - thinner than previous days Voice is weak Lungs clear bilaterally although decreased at bases Regular rate I cannot appreciate bowel sounds. Distended although less so than yesterday. wound clean Conduit with scant fluid in bag. SARAH with serosang fluid Plan: 05/03/17 06:39 05/03/17 06:45 05/10/17 10:20 05/11/17 12:10 Objective: Vital Signs Temp Pulse Resp BP Pulse Ox 37.5 C 112 H 36 H 110/67 92 05/11/17 07:00 05/11/17 11:00 05/11/17 11:00 05/11/17 10:00 05/11/17 11:00 Laboratory Results 05/11/17 05:40 05/11/17 05:40 05/10/17 05/11/17 05/12/17 05:59 05:59 05:59 Intake Total 3171 2909 Output Total 2438 1638 200 Balance 733 1271 -200 PT 17.7 SEC (12.0-15.0) H 05/10/17 22:10 INR 1.46 (0.83-1.16) H 05/10/17 22:10 ICD10 Worksheet Patient Problems: Problems Problem Status Onset Anemia Acute C. difficile diarrhea Acute ~11/26/16 Congestive heart failure Acute Fever Acute Hyponatremia Acute Thrombocytopenia Acute
[2017-05-11] MEDS: PANTOPRAZOLE SODIUM 40 MG in NS 100 ML IV SCH (15:04)
--- NOTE | 2017-05-11 15:19 | ASMTCMCOM ---
CM Note CM Note Notes: PT/OT evals still pending. Currently on 12L O2. Wound vac change scheduled for 05/14. CM will continue to follow for d/c needs. Date Signed: 05/11/2017 03:18 PM Electronically Signed By:JACQUIE Celis
--- NOTE | 2017-05-11 15:29 | PDINTPN ---
[facility] Progress Note Assessment/Plan: Assessment: Bladder cancer s/p cystectoprostatectomy/ileal conduit Wound evisceration: S/P repair 05/09/17, findings of fluid-dilated small bowel Sepsis: Decompensated 05/10, with increased O2 needs/tachypnea, AF w/RVR, markedly elevated procalcitonin. On Vanco/Cefepime/metronidazole. Respiratory distress: Still with tachypnea, high O2 needs, but not worsening. Likely due to atelectasis/consolidated lung bases. AF w/RVR: Hx PAF. AF not surprising, and increased rate is expected given his systemic inflammatory state. Plan: Continue antibiotics. Supplemental oxygen as needed. May need BiPAP if worsens or tires out. Follow HR for now, no need for rate control currently. May start anticoagulation if remains in AF. 05/11/17 15:45 Subjective: Still quite weak, but able to sit in chair. Pain controlled. Objective: Vital Signs Temp Pulse Resp BP Pulse Ox 36.3 C 108 H 39 H 102/86 H 92 05/11/17 14:00 05/11/17 14:00 05/11/17 14:00 05/11/17 14:00 05/11/17 14:00 Laboratory Results 05/11/17 05:40 05/11/17 05:40 05/10/17 05/11/17 05/12/17 05:59 05:59 05:59 Intake Total 3171 2909 Output Total 2438 1638 500 Balance 733 1271 -500 PT 17.7 SEC (12.0-15.0) H 05/10/17 22:10 INR 1.46 (0.83-1.16) H 05/10/17 22:10 ECHO: Normal LV and RV function, no valvular abnormalities seen, limited views. CXR: Basilar atelectasis. Images reviewed. CT Abdomen: moderate amount of basilar consolidation/atelectasis. Post-op abdomen. Images reviewed. Physical Exam - Physical Exam General Appearance: alert, no apparent distress EENT: normal ENT inspection Neck: normal inspection Respiratory: rhonchi Cardiac/Chest: tachycardia, irregularly irregular Abdomen: non-tender, soft, No normal bowel sounds (absent) Skin: normal color, warm/dry Extremities: normal inspection Neuro/Psych: alert, motor weakness (non-focal), No oriented x 3 ICD10 Worksheet Patient Problems: Problems Problem Status Onset Anemia Acute C. difficile diarrhea Acute ~11/26/16 Congestive heart failure Acute Fever Acute Hyponatremia Acute Thrombocytopenia Acute
--- NOTE | 2017-05-11 16:10 | HOSPPROG ---
Hospitalist Progress Note Assessment/Plan: 76 yo M with PMH of invasive bladder cancer now s/p cystoprostatectomy with ileal conduit and hospital course complicated by a fib, and ileus--now complicated by post operative fascial dehiscence # ileus: has had fairly prolonged ileus and patient very concerned regarding continued NGT which is very uncomfortable. Working on minimizing narcotics, ambulation but still no return of bowel function. repeat abd ct from today personally reviewed without any unexpected findings. # post operative wound dehiscence: sp ex lap/washout and wound vac placement on 05/09. Abdomen tense and distended today, less so than yesterday. Likely slight wound infection with fluid drained surgically. Abx begun for broad coverage and would cover potential wound infection as well. Reviewed photo of wound with wound care and appears to be healing well, no purulence noted. # acute hypoxic respiratory failure: increased yesterday but worse again overnight requiring NRB. Serial cxr with mostly what appears to be atelectasis, but with bilateral consolidations more consistent with pna noted as well. Started on vanc/cefepime empirically. Sputum cxs pending. Having a lot of difficulty coughing and clearing secretions today, working with PT. PE seems less likely but on heparin gtt regardless, extremity US negative, echo unremarkable with preserved EF. # severe sepsis: with fever, leukocytosis, tachycardia, tachypnea and presumed source of infection being pulmonary, is HD stable so far but does have e/o end organ dysfunction with worsening hola and dropping plt count. In ICU on appropriate abx, HD stable currently. ID consulted. # hola: creatinine now up to 2.7 from closer to 1, trended up initially after surgery but now continues to increase. UOP seems adequate. Will bladder scan, check FENa, Feurea. Suspect all HD mediated with surgical losses, hypotension contributing. If no improvement will ask for ID consult. Renally dosing meds, avoid nephrotoxins. # a fib: rates increased again with patient now with worsening respiratory status, and ? infection. Still on dilt gtt/digoxin. Appreciate cardiology input. On heparin gtt. # htn: BP has been difficult to control, improved now on dilt and dig # pain: relatively well controlled, continue prn fentanyl and tylenol # compensated diastolic heart failure: monitoring, caution with fluids # bladder cancer: as above s/p surgical resection, has undergone chemo previously # IP status Care plan reviewed with patients and daughter present at bedside. Subjective: overnight patient with increasing respiratory distress requring NRB and transfer to ICU, today continues to be sob, breathing rapidly, difficulty coughing Objective: Vital Signs Temp Pulse Resp BP Pulse Ox 36.3 C 107 H 33 H 102/62 94 05/11/17 14:00 05/11/17 15:00 05/11/17 15:00 05/11/17 15:00 05/11/17 15:00 Laboratory Results 05/11/17 05:40 05/11/17 05:40 05/10/17 05/11/17 05/12/17 05:59 05:59 05:59 Intake Total 3171 2909 Output Total 2438 1638 500 Balance 733 1271 -500 PT 17.7 SEC (12.0-15.0) H 05/10/17 22:10 INR 1.46 (0.83-1.16) H 05/10/17 22:10 awake alert moderate distress anicteric op clear irreg irreg no mrg coarse bs diffuse rhonchi weak cough distended soft ttp diffusely no bs appreciated trace ble edema warm dry well perfused oriented diffusely weak ICD10 Worksheet Patient Problems: Problems Problem Status Onset Anemia Acute Hyponatremia Acute Thrombocytopenia Acute Congestive heart failure Acute C. difficile diarrhea Acute ~11/26/16 Fever Acute
[2017-05-11] MEDS: TPN W/ FAMOTIDINE 1 EA BAG IV SCH (20:13)
[2017-05-12] MEDS: INSULIN REGULAR, HUMAN 100 UNIT/1 ML VIAL STANDARD SC SCH ×2 (00:20→06:49)
[2017-05-12] MEDS: LORazepam 2 MG/ML INJ IVP PRN ×2 (00:26→21:04)
[2017-05-12] MEDS: IPRATROPIUM/ALBUTEROL 3 ML DEYVIAL IH SCH ×4 (05:36→23:26)
--- NOTE | 2017-05-12 08:02 | SOAPPROG ---
SOAP Progress Note Assessment/Plan: Assessment: s/p cystoprostatectomy with ileal conduit and rigid sig for invasive bladder cancer Went to OR on 05/09/2017 for lower wound evisceration Intraop, the bowel was distended without transition point. No obvious hernia. Respiratory distress and elevated troponins. 1) Continue NG - maybe clamp trial tomorrow 2) Continue TPN. May have some fluids for comfort but mainly NPO 3) SARAH Cr decreased Neuro - IV pain meds Resp - Increased O2 requirements. Continue cough deep breath. Possibility of aspiration with high NG output although CXR does not suggest this Cards - trops trending down GI - Awaiting bowel function to return. Anticipate ileus. SARAH by ileal conduit. Did not see obstruction. Did not take down/fully look at anastomosis for fear of disrupting. However saw sutures and no evidence of succus or fluid collections. Large bowel also dilated which makes stricture less likely FEN - TPN - watch to not fluid overload - conduit functioning. Cr elevated - ATN Dispo - continue ICU. S: Sore throat. No flatus O: Sitting up in bed, appears comfortable, face mask in place NCAT, PER, No gross hearing deficits NG with bilious fluid coming out - thinner than previous days Voice is weak Lungs clear bilaterally although decreased at bases Regular rate I cannot appreciate bowel sounds. Distended although less so than yesterday. wound clean Conduit with scant fluid in bag. SARAH with serosang fluid Plan: 05/03/17 06:39 05/03/17 06:45 05/10/17 10:20 05/11/17 12:10 05/12/17 08:01 Objective: Vital Signs Temp Pulse Resp BP Pulse Ox 37.1 C 99 35 H 121/48 H 96 05/12/17 06:00 05/12/17 06:00 05/12/17 06:00 05/12/17 06:00 05/12/17 06:00 Laboratory Results 05/12/17 04:45 05/11/17 05:40 05/11/17 05/12/17 05/13/17 05:59 05:59 05:59 Intake Total 2909 3816 Output Total 1638 2840 Balance 1271 976 PT 17.7 SEC (12.0-15.0) H 05/10/17 22:10 INR 1.46 (0.83-1.16) H 05/10/17 22:10 ICD10 Worksheet Patient Problems: Problems Problem Status Onset Anemia Acute C. difficile diarrhea Acute ~11/26/16 Congestive heart failure Acute Fever Acute Hyponatremia Acute Thrombocytopenia Acute
[2017-05-12] MEDS: PANTOPRAZOLE SODIUM 40 MG in NS 100 ML IV SCH (09:36)
[2017-05-12] MEDS: DILTIAZEM 125 MG in D5W 125 ML IV SCH ×2 (10:24→18:47)
--- NOTE | 2017-05-12 10:29 | SOAPPROG ---
SOAP Progress Note Assessment/Plan: Assessment: ICU status - complicated events - transferred on 05/10 late evening by me due to severe resp distress and sepsis - CT notes dense pneumonia despite CXR looking questionable - partial SBO on CT - Passing more flatus today and last night - would cont NG until abd sig less distended - would like to see evidence of PSBO resolution - Looks much better today Cr improving O2 sats improved - less tachypnic O2 req down from 16 to 3 Now on NC NG outputs less - ++Flatus - Wound vac looks good No LE edema Nhan heparin well - Labs still pending this AM Plan: as above 05/02/17 08:27 05/04/17 08:37 05/06/17 16:41 05/07/17 13:44 05/10/17 08:02 05/12/17 10:26 Objective: Vital Signs Temp Pulse Resp BP Pulse Ox 36.8 C 99 30 H 112/60 93 05/12/17 09:00 05/12/17 10:24 05/12/17 09:00 05/12/17 09:00 05/12/17 09:00 Microbiology 05/12/17 05:50 - Final Sputum, Expectorated Laboratory Results 05/12/17 04:45 05/11/17 05:40 05/11/17 05/12/17 05/13/17 05:59 05:59 05:59 Intake Total 2909 3816 Output Total 1638 2840 300 Balance 1271 976 -300 PT 17.7 SEC (12.0-15.0) H 05/10/17 22:10 INR 1.46 (0.83-1.16) H 05/10/17 22:10 Physical Exam - Physical Exam EENT: PERRL/EOMI Neck: non-tender Respiratory: chest non-tender Cardiac/Chest: normal peripheral pulses Abdomen: normal bowel sounds, soft, distended Skin: normal color Lymphatic: no adenopathy Extremities: normal range of motion ICD10 Worksheet Patient Problems: Problems Problem Status Onset Anemia Acute C. difficile diarrhea Acute ~11/26/16 Congestive heart failure Acute Fever Acute Hyponatremia Acute Thrombocytopenia Acute
[2017-05-12 10:42] LABS: % IMMATURE GRANULYOCYTES 1.1 % (0.0-1.1); ABSOLUTE IMMATURE GRANULOCYTES 0.18 10^3/uL (0.00-0.10); ADD DIFF? NO; ADD MORPH? NO; ADD SCAN? YES; ATYPICAL LYMPHOCYTE FLAG 20 (0-99); FRAGMENT RBC FLAG 0 (0-99); HEMATOCRIT 33.2 % (40.0-51.0); HEMOGLOBIN 11.3 g/dL (13.7-17.5); LIPEMIA HEMOLYSIS FLAG 90 (0-99); MEAN CELL HEMOGLOBIN 35.4 pg (27.9-34.1); MEAN CELL VOLUME 104.1 fL (81.5-99.8); MEAN PLATELET VOLUME 12.8 fL (8.7-11.7); PLATELET CLUMPS FLAG 10 (0-99); PLATELET COUNT 76 10^3/uL (150-400); RED BLOOD CELL COUNT 3.19 10^6/uL (4.40-6.38); RED CELL DISTRIBUTION WIDTH 16.3 % (11.5-15.2)
[2017-05-12] MEDS: Mometasone/Formoterol [Dulera 100 Mcg/5 Mcg Inhaler] 2 PUFFS IH SCH (10:44)
[2017-05-12 10:45] LABS: LEFT SHIFT FLG 300 (0-99)
[2017-05-12] MEDS: DIGOXIN 500 MCG/2 ML AMP IVP SCH (10:57)
[2017-05-12 11:20] LABS: ALANINE AMINOTRANSFERASE 39 IU/L (21-72); ALBUMIN 2.1 g/dL (3.5-5.0); ALKALINE PHOSPHATASE 47 IU/L (38-126); ANION GAP 14 mEq/L (8-16); ASPARTATE AMINOTRANSFERASE 34 IU/L (17-59); BILIRUBIN,TOTAL 0.7 mg/dL (0.1-1.4); CALCIUM 6.6 mg/dL (8.5-10.4); CARBON DIOXIDE 19 mEq/l (22-31); CHLORIDE 100 mEq/L (97-110); CREATININE 2.2 mg/dL (0.7-1.3); GLOMERULAR FILTRATION RATE 29; MAGNESIUM 2.6 mg/dL (1.6-2.3); POTASSIUM 5.8 mEq/L (3.5-5.2); SODIUM 133 mEq/L (134-144); TOTAL PROTEIN 4.2 g/dL (6.3-8.2)
[2017-05-12] MEDS: CEFEPIME HCL 2 GM in D5W 50 ML IV SCH (11:24)
[2017-05-12 11:27] LABS: SCAN NEGATIVE
[2017-05-12 11:37] LABS: GLUCOSE 1188 mg/dL (70-100)
--- NOTE | 2017-05-12 12:15 | SOAPPROG ---
SOAP Progress Note Assessment/Plan: Assessment/Plan This is a 76 yr old wiht normal E, who has history of AF and is on AF in acute situation of sepsis and infection. Over the past 24 hours, improvement in rate control with Dilt. Will continue the same. Pain is under better control. No changes currently 05/12/17 12:13 Subjective: Pt is doing well. Better Objective: Vital Signs Temp Pulse Resp BP Pulse Ox 36.8 C 103 H 30 H 112/60 88 L 05/12/17 09:00 05/12/17 10:57 05/12/17 09:00 05/12/17 09:00 05/12/17 09:42 Microbiology 05/12/17 05:50 - Final Sputum, Expectorated Laboratory Results 05/12/17 10:30 05/11/17 05/12/17 05/13/17 05:59 05:59 05:59 Intake Total 2909 3816 Output Total 1638 2840 300 Balance 1271 976 -300 PT 17.7 SEC (12.0-15.0) H 05/10/17 22:10 INR 1.46 (0.83-1.16) H 05/10/17 22:10 Physical Exam - Physical Exam General Appearance: alert, mild distress EENT: normal ENT inspection, pharynx normal Neck: full range of motion, supple Respiratory: decreased breath sounds, rales, No rhonchi Cardiac/Chest: irregularly irregular, No edema, No gallop Abdomen: soft, No organomegaly ICD10 Worksheet Patient Problems: Problems Problem Status Onset Anemia Acute C. difficile diarrhea Acute ~11/26/16 Congestive heart failure Acute Fever Acute Hyponatremia Acute Thrombocytopenia Acute
--- NOTE | 2017-05-12 12:18 | HOSPPROG ---
Hospitalist Progress Note Assessment/Plan: 76 yo M with PMH of invasive bladder cancer now s/p cystoprostatectomy with ileal conduit and hospital course complicated by a fib, and ileus--now complicated by post operative wound dehiscence # ileus: has had fairly prolonged ileus and patient very concerned regarding continued NGT which is very uncomfortable. Working on minimizing narcotics, ambulation but still no return of bowel function. repeat abd ct without any concerning new findings. # post operative wound dehiscence: sp ex lap/washout and wound vac placement on 05/09. Abdomen less distended, still very minimal to no bowel sounds. # pneumonia/hospital acquired: presumed to be 2/2 aspiration, initially on vanc/ cefepime/flagyl but now d/c'ed vanc. Cultures pending, respiratory status improved. # acute hypoxic respiratory failure: in setting of above and now improving significantly # severe sepsis: with fever, leukocytosis, tachycardia, tachypnea and presumed source of infection being pulmonary, is HD stable so far but does have e/o end organ dysfunction with worsening hola and dropping plt count. In ICU on appropriate abx, HD stable currently. ID consulted. # hola: pre renal in setting of sepsis, mild hypotension, post operative period, UOP good, creatinine trending down # a fib: continue dilt gtt/digoxin/heparin gtt. Appreciate cardiology input. Rates now improved. # htn: more recently mildly hypotensive # pain: relatively well controlled, continue prn fentanyl and tylenol # compensated diastolic heart failure: monitoring, caution with fluids # bladder cancer: as above s/p surgical resection, has undergone chemo previously # IP status Care plan reviewed with patients daughter present at bedside. Subjective: patient feeling better this am, he is cheerful, breathing easier Objective: Vital Signs Temp Pulse Resp BP Pulse Ox 36.8 C 103 H 30 H 112/60 88 L 05/12/17 09:00 05/12/17 10:57 05/12/17 09:00 05/12/17 09:00 05/12/17 09:42 Microbiology 05/12/17 05:50 - Final Sputum, Expectorated Laboratory Results 05/12/17 10:30 05/11/17 05/12/17 05/13/17 05:59 05:59 05:59 Intake Total 2909 3816 Output Total 1638 2840 300 Balance 1271 976 -300 PT 17.7 SEC (12.0-15.0) H 05/10/17 22:10 INR 1.46 (0.83-1.16) H 05/10/17 22:10 awake alert moderate distress anicteric op clear irreg irreg no mrg coarse bs diffuse rhonchi weak cough distended soft ttp diffusely no bs appreciated trace ble edema warm dry well perfused oriented diffusely weak - Time Spent With Patient Time Spent with Patient: greater than 35 minutes Time Spent with Patient: Greater than 35 minutes spent on this patients care, greater than 50% of time spent counseling, educating, and coordinating care regarding the above mentioned plan. ICD10 Worksheet Patient Problems: Problems Problem Status Onset Anemia Acute C. difficile diarrhea Acute ~11/26/16 Congestive heart failure Acute Fever Acute Hyponatremia Acute Thrombocytopenia Acute
[2017-05-12 12:32] LABS: ALANINE AMINOTRANSFERASE 39 IU/L (21-72); ALBUMIN 2.2 g/dL (3.5-5.0); ALKALINE PHOSPHATASE 83 IU/L (38-126); ANION GAP 12 mEq/L (8-16); ASPARTATE AMINOTRANSFERASE 32 IU/L (17-59); BILIRUBIN,TOTAL 0.6 mg/dL (0.1-1.4); CALCIUM 7.4 mg/dL (8.5-10.4); CARBON DIOXIDE 21 mEq/l (22-31); CHLORIDE 108 mEq/L (97-110); CREATININE 2.1 mg/dL (0.7-1.3); GLOMERULAR FILTRATION RATE 31; GLUCOSE 196 mg/dL (70-100); MAGNESIUM 2.3 mg/dL (1.6-2.3); POTASSIUM 3.7 mEq/L (3.5-5.2); SODIUM 141 mEq/L (134-144); TOTAL PROTEIN 4.5 g/dL (6.3-8.2)
[2017-05-12] MEDS: INSULIN REGULAR, HUMAN 100 UNIT/1 ML VIAL HIGH SC SCH ×3 (12:41→23:44)
[2017-05-12] MEDS: HEPARIN/DEXTROSE 500 ML IV SCH (13:37)
[2017-05-12] MEDS: NS 1,000 ML IV SCH (13:37)
[2017-05-12] MEDS ORDERED: FUROSEMIDE 40 MG/4 ML VIAL IVP ONE (13:57)
--- NOTE | 2017-05-12 13:57 | PDINTPN ---
Internal Auditor Progress Note Assessment/Plan: Assessment: Bladder cancer s/p cystectoprostatectomy/ileal conduit Wound evisceration: S/P repair 05/09/17, findings of fluid-dilated small bowel. Sepsis: Decompensated 05/10, with increased O2 needs/tachypnea, AF w/RVR, markedly elevated procalcitonin. On Vanco/Cefepime/metronidazole. BP now better Respiratory distress: Still with tachypnea, moderate O2 needs, but less congested. Likely due to atelectasis/consolidated lung bases from aspiration. AF w/RVR: Hx PAF. AF not surprising, and increased rate is expected given his systemic inflammatory state. On Diltiazem gtt, HR<100 Plan: Continue antibiotics. Supplemental oxygen as needed. May need BiPAP if worsens or tires out. Trial of Lasix 05/11/17 15:45 05/12/17 13:55 Subjective: Feels better, less chest congestion. + Flatus. Pain controlled Objective: Vital Signs Temp Pulse Resp BP Pulse Ox 36.2 C 99 21 H 117/61 92 05/12/17 12:00 05/12/17 12:00 05/12/17 12:00 05/12/17 12:00 05/12/17 12:00 Microbiology 05/12/17 05:50 - Final Sputum, Expectorated Laboratory Results 05/12/17 10:30 05/12/17 11:44 05/11/17 05/12/17 05/13/17 05:59 05:59 05:59 Intake Total 2909 3816 Output Total 1638 2840 650 Balance 1271 976 -650 PT 17.7 SEC (12.0-15.0) H 05/10/17 22:10 INR 1.46 (0.83-1.16) H 05/10/17 22:10 Physical Exam - Physical Exam General Appearance: alert, mild distress EENT: normal ENT inspection Neck: normal inspection Respiratory: decreased breath sounds, crackles (bases) Cardiac/Chest: irregularly irregular Abdomen: non-tender, distended, No normal bowel sounds (hypoactive) Skin: normal color, warm/dry Extremities: normal inspection Neuro/Psych: alert, normal mood/affect, oriented x 3 ICD10 Worksheet Patient Problems: Problems Problem Status Onset Anemia Acute C. difficile diarrhea Acute ~11/26/16 Congestive heart failure Acute Fever Acute Hyponatremia Acute Thrombocytopenia Acute
--- NOTE | 2017-05-12 15:10 | GPROG ---
[f rep st] PROGRESS NOTE GENERAL PROGRESS NOTE DATE OF SERVICE: 05/11/2017 I have been managing the patient from 9:00 p.m., 05/10, to approximately 3:00 a.m., 05/11. I am dict ating this note at this time due to the significant number of events that occurred over the evening o f the to the . ASSESSMENT: Significant respiratory distress, tachypnea, possible pneumonia, possible pulmonary embo luisana, difficult to interpret heart rate due to rapid atrial fibrillation, saturating extremely poorly on 16 L non-rebreather, transferred to the Intensive Care Unit by me and with the assistance of stat team, appreciate the assistance, and also Curtis Freire whose assistance we greatly appreciate as well . By the time I left the ICU, he was looking more stable. Heart rate was more reasonable. White co unt was 21, febrile, platelets dropping. Triple antibiotic started, vancomycin, cefepime, and Flagyl . He is improving, but still extremely fragile and in guarded condition. We do not think he will be nefit currently from BiPAP, and the need for the NG tube, the difficulty of applying a proper seal, a nd his ability to maintain his tachypnea currently. His ABG looks reasonable, although definitely de monstrates signs of sepsis. Troponins are currently elevated mildly. Good news is the SARAH creatinine has decreased. His urine looks like ATN. PHYSICAL EXAM: GENERAL: Alert, in distress. RESPIRATORY: Increased oxygen requirements, using acc essory muscles to breathe. CAROTID: No JVD. ABDOMEN: Soft, distended significantly. NG output is bilious. MUSCULOSKELETAL: Moving all 4 extremities well. No lower extremity edema : The ostomy is functioning, pink. NEUROLOGIC: Cranial nerves 2-12 grossly intact. LABORATORY DATA: His white blood cell count is 21. His platelets are 86. He is febrile at 101. He is tachycardic to the 120s. His blood pressures are stable, and he is saturating at 91% on 16 L lupe reather. PLAN: Continue ICU support, will follow closely. /[id number]/MODL
[2017-05-12] MEDS: TPN W/ FAMOTIDINE 1 EA BAG IV SCH (20:44)
[2017-05-12] MEDS: MOMETASONE IH SCH (23:26)
[2017-05-12] MEDS: FORMOTEROL IH SCH (23:26)
[2017-05-13 02:34] LABS: APTT 60.4 SEC (23.0-38.0)
[2017-05-13 02:36] LABS: ANION GAP 13 mEq/L (8-16); CALCIUM 7.9 mg/dL (8.5-10.4); CARBON DIOXIDE 23 mEq/l (22-31); CHLORIDE 108 mEq/L (97-110); GLOMERULAR FILTRATION RATE 33; GLUCOSE 151 mg/dL (70-100); POTASSIUM 3.5 mEq/L (3.5-5.2); SODIUM 144 mEq/L (134-144)
[2017-05-13] MEDS: DILTIAZEM 125 MG in D5W 125 ML IV SCH ×2 (02:38→15:48)
[2017-05-13] MEDS: HEPARIN/DEXTROSE 500 ML IV SCH ×2 (02:41→15:48)
[2017-05-13 02:55] LABS: % IMMATURE GRANULYOCYTES 2.1 % (0.0-1.1); ABSOLUTE IMMATURE GRANULOCYTES 0.29 10^3/uL (0.00-0.10); ADD DIFF? NO; ADD MORPH? NO; ADD SCAN? YES; ATYPICAL LYMPHOCYTE FLAG 20 (0-99); FRAGMENT RBC FLAG 0 (0-99); HEMATOCRIT 31.1 % (40.0-51.0); HEMOGLOBIN 10.9 g/dL (13.7-17.5); LIPEMIA HEMOLYSIS FLAG 90 (0-99); MEAN CELL VOLUME 96.9 fL (81.5-99.8); MEAN PLATELET VOLUME 12.6 fL (8.7-11.7); PLATELET CLUMPS FLAG 10 (0-99); PLATELET COUNT 78 10^3/uL (150-400); RED BLOOD CELL COUNT 3.21 10^6/uL (4.40-6.38); RED CELL DISTRIBUTION WIDTH 15.8 % (11.5-15.2)
[2017-05-13 02:57] LABS: LEFT SHIFT FLG 180 (0-99)
[2017-05-13] MEDS: HYDROmorphONE/DILAUDID 1 MG/ML INJ IVP PRN (03:41)
[2017-05-13 03:58] LABS: SCAN NEGATIVE
[2017-05-13] MEDS: IPRATROPIUM/ALBUTEROL 3 ML DEYVIAL IH SCH ×4 (06:14→23:30)
[2017-05-13] MEDS: INSULIN REGULAR, HUMAN 100 UNIT/1 ML VIAL HIGH SC SCH ×3 (06:18→17:36)
--- NOTE | 2017-05-13 08:35 | SOAPPROG ---
SOAP Progress Note Assessment/Plan: Assessment: s/p cystoprostatectomy with ileal conduit and rigid sig for invasive bladder cancer Went to OR on 05/09/2017 for lower wound evisceration Intraop, the bowel was distended without transition point. No obvious hernia. Respiratory distress - still tachypneic. 1) Continue NG - Very thin. High output. Passing flatus. Will get AXR and then possible clamp trial 2) Continue TPN. May have some fluids for comfort but mainly NPO Neuro - IV pain meds Resp - Increased O2 requirements and tachypnea. Pneumonia. GI - Awaiting bowel function to return. Anticipate ileus. SARAH by ileal conduit. Did not see obstruction. Did not take down/fully look at anastomosis for fear of disrupting. However saw sutures and no evidence of succus or fluid collections. Large bowel also dilated which makes stricture less likely FEN - TPN - watch to not fluid overload - conduit functioning. Cr elevated - ATN Dispo - continue ICU. S: Sore throat. No flatus O: Sitting up in bed, appears comfortable, face mask in place NCAT, PER, No gross hearing deficits NG with thin bilious fluid coming out - Voice is stronger Lungs clear bilaterally although decreased at bases Regular rate Hypoactive bowel sounds. Softer and less distended than yesterday. W[place] to suction Conduit functioning SARAH with scant fluid Plan: 05/03/17 06:39 05/03/17 06:45 05/10/17 10:20 05/11/17 12:10 05/12/17 08:01 05/13/17 08:30 Objective: Vital Signs Temp Pulse Resp BP Pulse Ox 36.2 C 96 32 H 134/54 H 93 05/13/17 03:42 05/13/17 06:00 05/13/17 06:00 05/13/17 06:00 05/13/17 06:00 Microbiology 05/12/17 05:50 - Final Sputum, Expectorated Laboratory Results 05/13/17 02:15 05/13/17 02:15 05/12/17 05/13/17 05/14/17 05:59 05:59 05:59 Intake Total 3816 3764 Output Total 2840 4465 Balance 976 -701 PT 17.7 SEC (12.0-15.0) H 05/10/17 22:10 INR 1.46 (0.83-1.16) H 05/10/17 22:10 ICD10 Worksheet Patient Problems: Problems Problem Status Onset Anemia Acute C. difficile diarrhea Acute ~11/26/16 Congestive heart failure Acute Fever Acute Hyponatremia Acute Thrombocytopenia Acute
[2017-05-13] MEDS: PANTOPRAZOLE SODIUM 40 MG in NS 100 ML IV SCH (08:59)
[2017-05-13] MEDS: DIGOXIN 500 MCG/2 ML AMP IVP SCH (09:05)
[2017-05-13] MEDS: CEFEPIME HCL 2 GM in D5W 50 ML IV SCH (10:05)
[2017-05-13] MEDS ORDERED: FUROSEMIDE 40 MG/4 ML VIAL IVP ONE (10:40)
--- NOTE | 2017-05-13 11:40 | PDINTPN ---
Cooper Helper Progress Note Assessment/Plan: Assessment: Bladder cancer s/p cystectoprostatectomy/ileal conduit Wound evisceration: S/P repair 05/09/17, findings of fluid-dilated small bowel, decompressed intra-op. Sepsis: Decompensated 05/10, with increased O2 needs/tachypnea, AF w/RVR, markedly elevated procalcitonin. On Vanco/Cefepime/metronidazole. BP now better Respiratory distress: Still with tachypnea, moderate O2 needs, but less congested. Likely due to atelectasis/consolidated lung bases from aspiration, as well as abdominal distension due to ileus. AF w/RVR: Hx PAF. AF not surprising, and increased rate is expected given his systemic inflammatory state. On Diltiazem gtt, HR low 100s, titrating down. Plan: Continue antibiotics. Titrate diltiazem down as tolerated. ? start anticoagulation...defer to cardiology. Supplemental oxygen as needed. Increase activity. Repeat Lasix, then recheck K+ and replace PRN 05/13/17 11:37 05/13/17 11:38 05/13/17 11:40 05/13/17 11:41 Objective: Vital Signs Temp Pulse Resp BP Pulse Ox 37.2 C 95 39 H 136/64 H 95 05/13/17 08:00 05/13/17 08:00 05/13/17 08:00 05/13/17 08:00 05/13/17 08:00 Microbiology 05/12/17 05:50 - Final Sputum, Expectorated Laboratory Results 05/13/17 02:15 05/13/17 02:15 05/12/17 05/13/17 05/14/17 05:59 05:59 05:59 Intake Total 3816 3764 240 Output Total 2840 4465 400 Balance 976 -701 -160 PT 17.7 SEC (12.0-15.0) H 05/10/17 22:10 INR 1.46 (0.83-1.16) H 05/10/17 22:10 Abd Xray: Increased small bowel gas. Images reviewed. Physical Exam - Physical Exam General Appearance: alert, no apparent distress EENT: normal ENT inspection Neck: normal inspection Respiratory: crackles (bases) Cardiac/Chest: tachycardia, irregularly irregular, No edema Abdomen: distended, No normal bowel sounds (absent), No non-tender Skin: normal color, warm/dry Extremities: normal inspection Neuro/Psych: alert, normal mood/affect, oriented x 3 ICD10 Worksheet Patient Problems: Problems Problem Status Onset Anemia Acute C. difficile diarrhea Acute ~11/26/16 Congestive heart failure Acute Fever Acute Hyponatremia Acute Thrombocytopenia Acute
[2017-05-13] MEDS ORDERED: PROTOCOL POTASSIUM 1 DOSE MISC PRN (11:42)
[2017-05-13] MEDS ORDERED: PROTOCOL MAGNESIUM 1 DOSE IV PRN (11:42)
[2017-05-13] MEDS: Mometasone/Formoterol [Dulera 100 Mcg/5 Mcg Inhaler] 2 PUFFS IH SCH (11:59)
[2017-05-13 16:15] LABS: POTASSIUM 3.6 mEq/L (3.5-5.2)
[2017-05-13] MEDS: ACETYLCYSTEINE 10% 30 ML VIAL IH PRN (16:33)
--- NOTE | 2017-05-13 17:16 | HOSPPROG ---
Hospitalist Progress Note Assessment/Plan: 76 yo M with PMH of invasive bladder cancer now s/p cystoprostatectomy with ileal conduit and hospital course complicated by a fib, ileus, post operative wound dehiscence, PNA. Acute hypoxic resp failure, on O2 via NC Severe sepsis 05/10/17 - resolving. Aspiration PNA Atelectasis -Transferred to ICU 05/10/17 -IV Abx, BCx prelim negative, SpCx prelim GNR. -ID consulted - cefepime. Consider to add coverage for anaerobes for suspected aspiration PNA. -SVNs -Flutter valve, NAC as needed for mucolytic. Postop ileus - improving Wound dehiscence, s/p ex lap/washout -Gen Surg recs - clamp NGT, trial clear liquids in AM. -Wound vac in place (since 05/09). -On TPN. Afib, no longer in RVR Diastolic CHF, compensated HTN, controlled -dilt gtt, digoxin, hep gtt. -Cardiology consulted. BEV, improved -cont TPN for hydration. Prostate cancer, s/p resection, chemo -Seen by Urologist. Anemia, stable Thrombocytopenia, stable HTN -Discussed w/ patient, Pulm/CC specialist, RN and patient's son. -Inpt status for >2midnight stay. -Code status: full. -VTE ppx - hep gtt. Sub: Today pt feels ok. Has passed some gas. Not hungry. Feels like his congestion in b/l chest is difficult to cough up. +mod pain, controlled ok. Ob: Gen: elderly M, alert, NAD. HEENT: NGT in place. Neck: trachea midline. CV: RRR no MRG. Resp: b/l breath sounds, +rhonchi/rales bilaterally. +exp wheezing R > L. Abd: mod distention. +wound vac in place. +dressing over abd wound CDI. Extrem: no periph edema. Neuro: CN II-XII grossly intact. Psych: approp mood/affect. Blood Cx - prelim negative. Sputum Cx - GNR lactose inflatable buildings laminator. KUB: ileus vs SBO. Objective: Vital Signs Temp Pulse Resp BP Pulse Ox 37.2 C 100 19 151/51 H 93 05/13/17 08:00 05/13/17 16:18 05/13/17 16:18 05/13/17 16:00 05/13/17 16:00 Microbiology 05/10/17 23:12 Urine Culture - Final Unspecified Five Or More [place] Types 05/12/17 05:50 - Final Sputum, Expectorated Laboratory Results 05/13/17 02:15 05/13/17 15:45 05/12/17 05/13/17 05/14/17 05:59 05:59 05:59 Intake Total 3810 6605 240 Output Total 9725 4478 400 Balance 976 -701 -160 PT 17.7 SEC (12.0-15.0) H 05/10/17 22:10 INR 1.46 (0.83-1.16) H 05/10/17 22:10 ICD10 Worksheet Patient Problems: Problems Problem Status Onset Bladder cancer Acute Anemia Acute C. difficile diarrhea Acute ~11/26/16 Congestive heart failure Acute Fever Acute Hyponatremia Acute Thrombocytopenia Acute
[2017-05-13] MEDS: POTASSIUM Cl (KCl) 50 ML IV SCH (17:30)
[2017-05-13] MEDS ORDERED: chlorproMAZINE HCL 50 MG in NS 50 ML IV ONE (18:53)
--- NOTE | 2017-05-13 19:00 | SOAPPROG ---
SOAP Progress Note Assessment/Plan: Assessment: ICU status - now looking much better - CT noted dense pneumonia despite CXR looking questionable - partial SBO on CT - Passing more flatus today and last night - would cont NG until abd sig less distended - would like to see evidence of PSBO resolution - Looks much better today Cr improving O2 sats improved - less tachypnic O2 req down from 16 to 2 Now on NC NG outputs less - ++Flatus - Wound vac looks good No LE edema Nhan heparin well - WBC 13, much improved Plan: as above 05/02/17 08:27 05/04/17 08:37 05/06/17 16:41 05/07/17 13:44 05/10/17 08:02 05/12/17 10:26 05/13/17 18:59 Objective: Vital Signs Temp Pulse Resp BP Pulse Ox 37.2 C 100 19 151/51 H 93 05/13/17 08:00 05/13/17 16:18 05/13/17 16:18 05/13/17 16:00 05/13/17 16:00 Microbiology 05/10/17 23:12 Urine Culture - Final Unspecified Five Or More [place] Types 05/12/17 05:50 - Final Sputum, Expectorated Laboratory Results 05/13/17 02:15 05/13/17 15:45 05/12/17 05/13/17 05/14/17 05:59 05:59 05:59 Intake Total 3816 2154 0898 Output Total 7648 8861 5587 Balance 972 -709 -641 PT 17.7 SEC (12.0-15.0) H 05/10/17 22:10 INR 1.46 (0.83-1.16) H 05/10/17 22:10 ICD10 Worksheet Patient Problems: Problems Problem Status Onset Anemia Acute C. difficile diarrhea Acute ~11/26/16 Congestive heart failure Acute Fever Acute Hyponatremia Acute Thrombocytopenia Acute
--- NOTE | 2017-05-13 19:03 | SOAPPROG ---
SOAP Progress Note Assessment/Plan: Assessment: ICU status - now looking much better - CT noted dense pneumonia despite CXR looking questionable - partial SBO on CT - Passing more flatus today and last night - would cont NG until abd sig less distended - would like to see evidence of PSBO resolution - Looks much better today Cr improving O2 sats improved - less tachypnic O2 req down from 16 to 2 Now on NC NG outputs less - ++Flatus - Wound vac looks good No LE edema Nhan heparin well - WBC 13, much improved Plan: as above 05/02/17 08:27 05/04/17 08:37 05/06/17 16:41 05/07/17 13:44 05/10/17 08:02 05/12/17 10:26 05/13/17 18:59 Objective: Vital Signs Temp Pulse Resp BP Pulse Ox 37.2 C 100 19 151/51 H 93 05/13/17 08:00 05/13/17 16:18 05/13/17 16:18 05/13/17 16:00 05/13/17 16:00 Microbiology 05/10/17 23:12 Urine Culture - Final Unspecified Five Or More [place] Types 05/12/17 05:50 - Final Sputum, Expectorated Laboratory Results 05/13/17 02:15 05/13/17 15:45 05/12/17 05/13/17 05/14/17 05:59 05:59 05:59 Intake Total 3816 3764 2383 Output Total 2840 8826 4505 Balance 976 -797 -342 PT 17.7 SEC (12.0-15.0) H 05/10/17 22:10 INR 1.46 (0.83-1.16) H 05/10/17 22:10 Physical Exam - Physical Exam EENT: PERRL/EOMI Neck: non-tender Respiratory: chest non-tender Cardiac/Chest: normal peripheral pulses Abdomen: non-tender, soft, distended Skin: normal color Lymphatic: no adenopathy Extremities: normal range of motion ICD10 Worksheet Patient Problems: Problems Problem Status Onset Bladder cancer Acute Anemia Acute C. difficile diarrhea Acute ~11/26/16 Congestive heart failure Acute Fever Acute Hyponatremia Acute Thrombocytopenia Acute - ICD10 Problem Qualifiers (1) Bladder cancer
[2017-05-13] MEDS: TPN 1 EA BAG IV SCH (20:03)
[2017-05-13] MEDS: FORMOTEROL IH SCH (20:05)
[2017-05-13] MEDS: MOMETASONE IH SCH (20:05)
[2017-05-13] MEDS ORDERED: BISACODYL 10 MG SUPP PR ONE (21:44)
[2017-05-13] MEDS: LORazepam 2 MG/ML INJ IVP PRN (21:48)
[2017-05-13] MEDS: BISACODYL 10 MG SUPP PR SCH (21:49)
[2017-05-14] MEDS: HYDROmorphONE/DILAUDID 1 MG/ML INJ IVP PRN (00:03)
[2017-05-14] MEDS: INSULIN REGULAR, HUMAN 100 UNIT/1 ML VIAL HIGH SC SCH ×5 (00:20→23:58)
[2017-05-14] MEDS: DILTIAZEM 125 MG in D5W 125 ML IV SCH ×3 (02:52→17:57)
[2017-05-14 03:55] LABS: % IMMATURE GRANULYOCYTES 1.7 % (0.0-1.1); ABSOLUTE NRBC COUNT 0.03 10^3/uL (0-0.01); ADD DIFF? NO; ADD MORPH? NO; ADD SCAN? YES; ATYPICAL LYMPHOCYTE FLAG 50 (0-99); FRAGMENT RBC FLAG 0 (0-99); HEMATOCRIT 29.2 % (40.0-51.0); HEMOGLOBIN 10.1 g/dL (13.7-17.5); LIPEMIA HEMOLYSIS FLAG 90 (0-99); MEAN CELL HEMOGLOBIN 33.7 pg (27.9-34.1); MEAN CELL HEMOGLOBIN CONCENTR. 34.6 g/dL (32.4-36.7); MEAN CELL VOLUME 97.3 fL (81.5-99.8); MEAN PLATELET VOLUME 11.6 fL (8.7-11.7); NRBC-AUTO% 0.3 % (0.0-0.2); PLATELET CLUMPS FLAG 10 (0-99); PLATELET COUNT 101 10^3/uL (150-400)
[2017-05-14 03:59] LABS: LEFT SHIFT FLG 140 (0-99)
[2017-05-14 04:04] LABS: INR 1.52 (0.83-1.16); PROTIME(PATIENT) 18.3 SEC (12.0-15.0)
[2017-05-14 04:06] LABS: APTT 80.5 SEC (23.0-38.0)
[2017-05-14 04:31] LABS: SCAN NEGATIVE
[2017-05-14 05:05] LABS: ALANINE AMINOTRANSFERASE 43 IU/L (21-72); ALBUMIN 2.1 g/dL (3.5-5.0); ALKALINE PHOSPHATASE 69 IU/L (38-126); ANION GAP 13 mEq/L (8-16); ASPARTATE AMINOTRANSFERASE 35 IU/L (17-59); BILIRUBIN,TOTAL 0.6 mg/dL (0.1-1.4); CALCIUM 7.8 mg/dL (8.5-10.4); CARBON DIOXIDE 20 mEq/l (22-31); CHLORIDE 113 mEq/L (97-110); CREATININE 1.9 mg/dL (0.7-1.3); GLOMERULAR FILTRATION RATE 35; GLUCOSE 174 mg/dL (70-100); POTASSIUM 3.9 mEq/L (3.5-5.2); SODIUM 146 mEq/L (134-144); TOTAL PROTEIN 4.4 g/dL (6.3-8.2); TRIGLYCERIDE 125 mg/dL (40-150)
[2017-05-14] MEDS: HEPARIN/DEXTROSE 500 ML IV SCH (05:09)
[2017-05-14] MEDS: IPRATROPIUM/ALBUTEROL 3 ML DEYVIAL IH SCH ×4 (05:13→22:27)
[2017-05-14] MEDS: ACETYLCYSTEINE 10% 30 ML VIAL IH PRN (05:13)
[2017-05-14] MEDS ORDERED: POTASSIUM Cl (KCl) 100 ML IV ONE ×2 (06:00→19:41)
[2017-05-14] MEDS ORDERED: BISACODYL 10 MG SUPP PR ONE (08:45)
[2017-05-14] MEDS: DIGOXIN 500 MCG/2 ML AMP IVP SCH (09:04)
[2017-05-14 09:10] LABS: % IMMATURE GRANULYOCYTES 1.8 % (0.0-1.1); ABSOLUTE IMMATURE GRANULOCYTES 0.22 10^3/uL (0.00-0.10); ABSOLUTE NRBC COUNT 0.02 10^3/uL (0-0.01); ADD DIFF? NO; ADD MORPH? NO; ADD SCAN? YES; ATYPICAL LYMPHOCYTE FLAG 50 (0-99); FRAGMENT RBC FLAG 10 (0-99); HEMATOCRIT 29.4 % (40.0-51.0); HEMOGLOBIN 10.3 g/dL (13.7-17.5); LIPEMIA HEMOLYSIS FLAG 90 (0-99); NRBC-AUTO% 0.2 % (0.0-0.2); PLATELET CLUMPS FLAG 10 (0-99); PLATELET COUNT 107 10^3/uL (150-400); RED BLOOD CELL COUNT 3.03 10^6/uL (4.40-6.38); RED CELL DISTRIBUTION WIDTH 16.1 % (11.5-15.2)
[2017-05-14 09:14] LABS: LEFT SHIFT FLG 120 (0-99)
[2017-05-14 09:31] LABS: ALBUMIN 2.1 g/dL (3.5-5.0)
--- NOTE | 2017-05-14 09:56 | SOAPPROG ---
SOAP Progress Note Assessment/Plan: Assessment: 76yo M s/p cystoprostatectomy with ileal conduit and rigid sig for invasive bladder cancer. Returned to OR on 05/09/17 for lower wound evisceration. Intra-op, the bowel was distended without transition point, no obvious hernia Neuro - IV pain meds Resp - resp distress, PNA, now with ESBL sputum GI - passing flatus and +BM yesterday. Continue NG. Ice chips ok for comfort FEN - TPN - conduit functioning. Cr elevated ATN Wound - wound vac change MWF Dispo - Continue inpatient. appreciate hospitalists. S: +BM last night. mouth very dry. no pain or nausea. O: laying in bed, appears comfortable NG with bilious fluid, 700cc in canister Nasal cannula. CTAB, decreases bases bilat RRR Hypoactive BS. Softly distended. wound vac to suction Conduit functioning SARAH serous fluid Objective: Vital Signs Temp Pulse Resp BP Pulse Ox 37.2 C 104 H 28 H 129/65 H 95 05/14/17 07:59 05/14/17 09:04 05/14/17 07:59 05/14/17 07:59 05/14/17 07:59 Microbiology 05/12/17 05:50 - Final Sputum, Expectorated 05/10/17 23:12 Urine Culture - Final Unspecified Five Or More [place] Types Laboratory Results 05/14/17 03:45 05/13/17 05/14/17 05/15/17 05:59 05:59 05:59 Intake Total 3764 4354 Output Total 4465 4100 250 Balance -701 254 -250 PT 18.3 SEC (12.0-15.0) H 05/14/17 03:45 INR 1.52 (0.83-1.16) H 05/14/17 03:45 ICD10 Worksheet Patient Problems: Problems Problem Status Onset Bladder cancer Acute Anemia Acute C. difficile diarrhea Acute ~11/26/16 Congestive heart failure Acute Fever Acute Hyponatremia Acute Thrombocytopenia Acute
[2017-05-14 10:13] LABS: SCAN POSITIVE
[2017-05-14 10:18] LABS: PLATELET ESTIMATE DECREASED (ADEQ)
[2017-05-14 10:19] LABS: MACROCYTES 1+
[2017-05-14] MEDS: Mometasone/Formoterol [Dulera 100 Mcg/5 Mcg Inhaler] 2 PUFFS IH SCH (10:40)
--- NOTE | 2017-05-14 11:11 | WOCRNPDOC ---
WOCRN Advanced Assessment Note - Skin Integrity Problem, Advanced Assess Right Upper Abdomen Dressing Type: Open to Air Exudate Amount: None Wound Bed Constitution: Smooth Tissue Site Measurement - Head-to-Toe Length X Width X Depth (cm): 2.5x2.5x0.1 Skin Integrity Problem Comment: Medical adhesive related skin injury was located under the drape of the vac. Per patient report it happened last night. Category 3 skin tear with full flap loss due to tegaderm removal. Anterior Medial Abdomen Surgical Wound/Incision Dressing Type: Black Vac Foam (x2), Wound Vac Dressing Description: Clean/Dry, Intact Closure Description: Retention Sutures Exudate Amount: Minimal Exudate Characteristic(s): Serosanguinous Integumentary Issue Intervention: Dressing Changed Wound Bed Color: [place], Yellow Wound Bed Constitution: Smooth Tissue, Subcutaneous Fat, Loose Slough Wound Edges: Attached Site Measurement - Head-to-Toe Length X Width X Depth (cm): 19x3.5x3 Skin Integrity Problem Comment: There are several areas of necrosing fat in the inferior wound bed. Superior wound bed is clean but non granulating. Base of wound under the necrosis is firm with fascia intact. Cleaned with ns and gauze. Skin prep and draped applied vonnie wound after clipping vonnie wound hair with clippers. x2 pieces of medium simplace black foam applied to wound bed. Vac restarted at - 125 mm Hg continuous suction without leaks. ASSISTANT IN NURSING assisted with dressing change. Findings communicated with MARIANA Garay.
[2017-05-14] MEDS: ERTAPENEM 1 GM in NS 100 ML IV SCH (11:56)
[2017-05-14] MEDS: METOPROLOL TARTRATE 5 MG/5 ML INJ IVP SCH ×3 (11:56→23:44)
[2017-05-14] MEDS: ENOXAPARIN 80 MG/0.8 ML SYR SC SCH ×2 (11:56→21:21)
--- NOTE | 2017-05-14 15:55 | ASMTCMCOM ---
CM Note CM Note Notes: Patient continues to have Afib/Flutter, L LL PNA, gets wound vac changes MWF. Therapies working with patient recommending HC with 24 hr supervision vs in-pt rehab. CM to follow for discharge needs. Date Signed: 05/14/2017 03:54 PM Electronically Signed By:Sarah Francisco LCSW
--- NOTE | 2017-05-14 16:21 | PDINTPN ---
Log Haul Operator Progress Note Assessment/Plan: Assessment: Bladder cancer s/p cystectoprostatectomy/ileal conduit on 05/01. Wound evisceration: S/P repair 05/09/17, findings of fluid-dilated small bowel, decompressed intra-op. Sepsis: Decompensated 05/10, with increased O2 needs/tachypnea, AF w/RVR, markedly elevated procalcitonin. On Vanco/Cefepime/metronidazole. Hypotension resolving. Infectious source includes pulmonary/pneumonia/possibly urine/ possibly peritonitis. On broad-spectrum antibiotics. Respiratory distress: Resolving slowly. Still with tachypnea, 4L O2 needs, but less congested. Likely due to atelectasis/consolidated lung bases from aspiration, as well as abdominal distension due to ileus. AF w/RVR: Hx PAF. AF not surprising, and increased rate is expected given his systemic inflammatory state. On Diltiazem gtt, HR low 100s, titrating down. Will add metoprolol IV. He was on this is an outpatient orally. Ileus: Improving slowly. Still distended. He is having some small bowel movements now. Anticoagulation: On full-dose. Will transition to subcu enoxaparin. No evidence for pulmonary embolic disease. This is for stroke prophylaxis with atrial fibrillation. GI prophylaxis: In TPN. Nutrition: TPN. Metabolic: Hyperglycemia. On insulin coverage. Plan: Continue antibiotics. Add IV metoprolol. Titrate diltiazem down as tolerated. Continue full-dose anticoagulation. Supplemental oxygen as needed. Increase activity. Follow laboratory, CBC. Continue bronchopulmonary therapies. Increase mobilization as tolerated. 35 minutes of critical care time spent directly with the patient. Discussed with patient, nursing, respiratory, and the ICU multi disciplinary team. Objective: Vital Signs Temp Pulse Resp BP Pulse Ox 36.9 C 113 H 38 H 117/60 95 05/14/17 11:50 05/14/17 11:56 05/14/17 11:50 05/14/17 11:56 05/14/17 11:50 Microbiology 05/12/17 05:50 - Final Sputum, Expectorated Sputum Culture - Final Escherichia Coli Esbl 05/10/17 23:12 Urine Culture - Final Unspecified Five Or More [place] Types Laboratory Results 05/14/17 09:04 05/14/17 13:00 05/13/17 05/14/17 05/15/17 05:59 05:59 05:59 Intake Total 6189 3809 280 Output Total 1161 8382 525 Balance -701 254 -245 PT 18.3 SEC (12.0-15.0) H 05/14/17 03:45 INR 1.52 (0.83-1.16) H 05/14/17 03:45 ICD10 Worksheet Patient Problems: Problems Problem Status Onset 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 difficile diarrhea Acute ~11/26/16 Fever Acute
--- NOTE | 2017-05-14 16:26 | HOSPPROG ---
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 * Wound dehiscence -wound vac * Ileus -NPO/TPN * Rapid afib -IV dilt gtt + IV metoprolol + IV digoxin -check digoxin level in am -SQ lovenox - stroke prevention * Aspiration PNA with severe sepsis -ESBL E coli - now on IV invanz * ARF - follow Subjective: Walked with PT - BM today Objective: Vital Signs Temp Pulse Resp BP Pulse Ox 36.9 C 113 H 38 H 117/60 95 05/14/17 11:50 05/14/17 11:56 05/14/17 11:50 05/14/17 11:56 05/14/17 11:50 Microbiology 05/12/17 05:50 - Final Sputum, Expectorated Sputum Culture - Final Escherichia Coli Esbl 05/10/17 23:12 Urine Culture - Final Unspecified Five Or More [place] Types Laboratory Results 05/14/17 09:04 05/14/17 13:00 05/13/17 05/14/17 05/15/17 05:59 05:59 05:59 Intake Total 3764 4354 280 Output Total 4465 4100 525 Balance -701 254 -245 PT 18.3 SEC (12.0-15.0) H 05/14/17 03:45 INR 1.52 (0.83-1.16) H 05/14/17 03:45 d/w Dr. Curtis Freire ICU rounds regarding plan of care CT abd/pelvis - ileal conduit looks good - Physical Exam Constitutional: no apparent distress, appears nourished, not in pain Cardiovascular: regular rate and rhythym, no murmur, rub, or gallop Respiratory: inspiratory crackles, rhonchi, No expiratory wheeze, No respiratory distress Gastrointestinal: normoactive bowel sounds, soft, non-tender abdomen, no palpable masses Skin: no rashes or abrasions, no fluctuance, no induration Neurologic: AAOx3, sensation intact bilaterally Psychiatric: interacting appropriately, not anxious, not encephalopathic, thought process linear ICD10 Worksheet Patient Problems: Problems Problem Status Onset Bladder cancer Acute 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 difficile diarrhea Acute ~11/26/16 Congestive heart failure Acute Fever Acute Hyponatremia Acute Thrombocytopenia Acute
--- NOTE | 2017-05-14 17:15 | PDCARPN ---
Cardiology Progress Note Assessment/Plan: Assessment/plan: 76 yo M with history of paroxysmal atrial fibrillation, carotid arterial disease, metastatic bladder cancer, heart failure with preserved ejection fraction. He was initially admitted on May 01 for cystoprostatectomy and ileal conduit. His course has been complicated by wound dehiscence, aspiration pneumonia, rapid atrial fibrillation. 1. Atrial fibrillation: Currently rate controlled on IV diltiazem and IV digoxin. Would transition to oral beta blockers once he is able to take oral medications. He is on full-dose Lovenox for anticoagulation/stroke prophylaxis. Not a candidate for cardioversion at this time is hemodynamically stable. As an outpatient he has previously not been anticoagulated due to chronic anemia. This will need to be addressed when he is more medically stable. 2. Sepsis and pneumonia: Improving. Followed by infectious disease in on appropriate antibiotic therapy. 3. Heart failure preserved ejection fraction: He appears fairly euvolemic. 4. Valvular heart disease with moderate aortic stenosis, mild mitral regurgitation, moderate tricuspid regurgitation, and moderate pulmonary hypertension. This also appears stable. 5. Renal failure: Stable. We will sign off. Please call with questions. 05/14/17 17:31 Subjective: Marcos feels better. No CP or SOB Reviewed/Discussed With: family, other (Dr. Tuttle) Objective: Vital Signs (8 Hrs) Temp Pulse Resp BP Pulse Ox 05/14/17 16:43 101 H 25 H 116/56 L 94 05/14/17 16:27 95 18 95 05/14/17 11:56 113 H 117/60 05/14/17 11:50 36.9 C 111 H 38 H 117/60 95 05/14/17 10:41 94 19 95 05/14/17 09:04 104 H Intake/Output (24 Hrs) 05/13/17 05/14/17 05/15/17 05:59 05:59 05:59 Intake Total 3764 4354 280 Output Total 4465 4100 525 Balance -701 254 -245 Intake: Oral (ml) 440 720 IV Intake (ml) 554 IV Infused (ml) 2770 3634 280 Diltiazem 125 mg In D5w 334 268 125 ml @ Per Protocol IV CONT VERONIQUE Rx#:[id number] Heparin/Dextrose 500 ml @ 713 892 280 Per Protocol IV CONT VERONIQUE Rx#:[id number] Ns 1,000 ml @ 25 mls/hr 348 977 IV CONT VERONIQUE Rx#: [id number] TPN W/ Famotidine 1 ea IV 1375 1497 [id number] VERONIQUE Rx#: [id number] Output: Urine (ml) 2550 2200 525 Urostomy 2550 2200 525 NG Tube Output (ml) 1900 1900 Large Bore (>12 [place]) 1900 1900 Left Naris Stomach Eagan Sump 16 [place] SARAH Drain Output (ml) 15 0 #2 Right Abdomen Carlos 15 0 [place] Wound Vac Output (ml) 0 0 Abdomen Wound Vac 0 0 Other: Weight 87.1 kg 85.5 kg Output Comment Urostomy 1/2 cup mucous stool Number of Stools Urostomy 0 0 1 chronically ill, NAD JVP <10 Irregular irregular rhythm soft early systolic ejection murmur at the base. Occasional rhonchi. Abdomen is distended. Extremities are warm without edema Result Diagrams: 05/14/17 09:04 05/14/17 13:00 Telemetry: AF with CVR ICD10 Worksheet Patient Problems: Problems Problem Status Onset Bladder cancer Acute 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 difficile diarrhea Acute ~11/26/16 Congestive heart failure Acute Fever Acute Hyponatremia Acute Thrombocytopenia Acute
--- NOTE | 2017-05-14 18:19 | PCMIDPN ---
Assessment/Plan: Assessment/Plan: * Sepsis likely due to pneumonia: Clinically improved with initiation of cefepime. Sputum shows growth of ESBL producing E coli which is resistant to cefepime. Will transition cefepime to ertapenem based on culture findings although given improvement this may represent colonization rather than truly contributing to acute decompensation last week. Will start at 1 g IV Q 24 hours with continued monitoring of renal function as he has borderline creatinine clearance for this dose. * History of C difficile colitis: Will continue twice daily IV Flagyl given no oral intake (will not need 3 times per day dosing given ertapenem's anaerobic activity) 05/14/17 18:16 05/14/17 18:20 Subjective: Patient feels significantly improved. Less shortness of breath. Fever now resolved. Objective: Vital Signs Temp Pulse Resp BP Pulse Ox 36.9 C 99 25 H 116/56 L 94 05/14/17 11:50 05/14/17 17:57 05/14/17 16:43 05/14/17 16:43 05/14/17 16:43 Microbiology 05/12/17 05:50 - Final Sputum, Expectorated Sputum Culture - Final Escherichia Coli Esbl 05/10/17 23:12 Urine Culture - Final Unspecified Five Or More [place] Types Laboratory Results 05/14/17 09:04 05/14/17 13:00 05/13/17 05/14/17 05/15/17 05:59 05:59 05:59 Intake Total 3764 4354 1835 Output Total 4465 4100 1330 Balance -701 254 505 Cefepime # 4 IV metronidazole # 4 Sputum with growth of ESBL producing E coli Blood cultures x2 no growth - Physical Exam General Appearance: alert, no apparent distress EENT: No scleral icterus, No conjunctival petechiae Respiratory: coarse breath sounds Cardiac/Chest: tachycardia Abdomen: non-tender, other ( stoma pink, wound VAC in place without surrounding erythema), No distended Skin: No embolic lesions ICD10 Worksheet Patient Problems: Problems Problem Status Onset Bladder cancer Acute 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 difficile diarrhea Acute ~11/26/16 Congestive heart failure Acute Fever Acute Hyponatremia Acute Thrombocytopenia Acute
[2017-05-14] MEDS: CEFEPIME HCL 2 GM in D5W 50 ML IV SCH (18:43)
[2017-05-14] MEDS: PANTOPRAZOLE SODIUM 40 MG in NS 100 ML IV SCH (18:48)
[2017-05-14 19:04] LABS: POTASSIUM 3.8 mEq/L (3.5-5.2)
[2017-05-14] MEDS: NS 1,000 ML IV SCH (19:46)
[2017-05-14] MEDS: TPN 1 EA BAG IV SCH (21:21)
[2017-05-14] MEDS: LORazepam 2 MG/ML INJ IVP PRN (21:35)
[2017-05-14] MEDS: MOMETASONE IH SCH (22:27)
[2017-05-14] MEDS: FORMOTEROL IH SCH (22:27)
[2017-05-15 01:20] LABS: POTASSIUM 4.2 mEq/L (3.5-5.2)
[2017-05-15] MEDS: DILTIAZEM 125 MG in D5W 125 ML IV SCH (04:03)
[2017-05-15 04:35] LABS: ANION GAP 11 mEq/L (8-16); CALCIUM 7.7 mg/dL (8.5-10.4); CARBON DIOXIDE 21 mEq/l (22-31); CHLORIDE 115 mEq/L (97-110); CREATININE 1.7 mg/dL (0.7-1.3); DIGOXIN 1.2 ng/mL (0.8-2.0); GLOMERULAR FILTRATION RATE 39; GLUCOSE 139 mg/dL (70-100); POTASSIUM 4.1 mEq/L (3.5-5.2); SODIUM 147 mEq/L (134-144)
[2017-05-15 04:39] LABS: % IMMATURE GRANULYOCYTES 2.7 % (0.0-1.1); ABSOLUTE IMMATURE GRANULOCYTES 0.29 10^3/uL (0.00-0.10); ABSOLUTE NRBC COUNT 0.02 10^3/uL (0-0.01); ADD DIFF? NO; ADD MORPH? NO; ADD SCAN? NO; ATYPICAL LYMPHOCYTE FLAG 90 (0-99); FRAGMENT RBC FLAG 0 (0-99); HEMOGLOBIN 10.7 g/dL (13.7-17.5); LEFT SHIFT FLG 60 (0-99); LIPEMIA HEMOLYSIS FLAG 90 (0-99); MEAN CELL HEMOGLOBIN 34.1 pg (27.9-34.1); MEAN CELL HEMOGLOBIN CONCENTR. 34.5 g/dL (32.4-36.7); MEAN CELL VOLUME 98.7 fL (81.5-99.8); MEAN PLATELET VOLUME 11.9 fL (8.7-11.7); NRBC-AUTO% 0.2 % (0.0-0.2); PLATELET CLUMPS FLAG 20 (0-99); PLATELET COUNT 122 10^3/uL (150-400); RED BLOOD CELL COUNT 3.14 10^6/uL (4.40-6.38); RED CELL DISTRIBUTION WIDTH 16.2 % (11.5-15.2)
[2017-05-15] MEDS: INSULIN REGULAR, HUMAN 100 UNIT/1 ML VIAL HIGH SC SCH ×3 (05:18→19:23)
[2017-05-15] MEDS: METOPROLOL TARTRATE 5 MG/5 ML INJ IVP SCH ×3 (05:41→19:23)
[2017-05-15] MEDS: IPRATROPIUM/ALBUTEROL 3 ML DEYVIAL IH SCH ×4 (05:58→23:27)
[2017-05-15] MEDS: ACETYLCYSTEINE 10% 30 ML VIAL IH PRN (05:59)
[2017-05-15] MEDS ORDERED: MAGNESIUM SULF 1 GM/DEXTROSE 100 ML IV ONE (07:30)
[2017-05-15] MEDS ORDERED: 1/2 NS 1,000 ML IV SCH (08:30)
--- NOTE | 2017-05-15 09:56 | SOAPPROG ---
SOAP Progress Note Assessment/Plan: Assessment: Bladder cancer Acute Seems a bit dry and recommended replacement of NG output and attempt to decrease BUN in relation to the creat Plan: continue care 05/15/17 09:54 Subjective: doing better Objective: Vital Signs Temp Pulse Resp BP Pulse Ox 35.6 C L 89 26 H 101/50 L 96 05/15/17 08:00 05/15/17 08:00 05/15/17 08:00 05/15/17 08:00 05/15/17 08:00 Microbiology 05/12/17 05:50 - Final Sputum, Expectorated Sputum Culture - Final Escherichia Coli Esbl 05/09/17 19:14 Blood Culture - Final Blood 05/09/17 19:10 Blood Culture - Final Blood Laboratory Results 05/15/17 04:00 05/15/17 04:00 05/14/17 05/15/17 05/16/17 05:59 05:59 05:59 Intake Total 4354 3400 Output Total 4100 3040 Balance 254 360 PT 18.3 SEC (12.0-15.0) H 05/14/17 03:45 INR 1.52 (0.83-1.16) H 05/14/17 03:45 Physical Exam - Physical Exam General Appearance: alert EENT: other (ng tube draining) Neck: supple Abdomen: soft, distended ICD10 Worksheet Patient Problems: Problems Problem Status Onset Bladder cancer Acute 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 difficile diarrhea Acute ~11/26/16 Congestive heart failure Acute Fever Acute Hyponatremia Acute Thrombocytopenia Acute
[2017-05-15] MEDS: ERTAPENEM 1 GM in NS 100 ML IV SCH (10:31)
[2017-05-15] MEDS ORDERED: ALBUMIN 5% 500 ML IV ONE (10:40)
[2017-05-15] MEDS: DIGOXIN 500 MCG/2 ML AMP IVP SCH (10:53)
[2017-05-15] MEDS ORDERED: MAGNESIUM SULF 1 GM/DEXTROSE 100 ML BAG IV ONE (11:01)
[2017-05-15] MEDS: Mometasone/Formoterol [Dulera 100 Mcg/5 Mcg Inhaler] 2 PUFFS IH SCH (11:03)
[2017-05-15] MEDS: ENOXAPARIN 80 MG/0.8 ML SYR SC SCH ×2 (11:07→21:15)
[2017-05-15] MEDS: PANTOPRAZOLE SODIUM 40 MG in NS 100 ML IV SCH (12:21)
--- NOTE | 2017-05-15 12:52 | SOAPPROG ---
SOAP Progress Note Assessment/Plan: Assessment: 76yo M s/p cystoprostatectomy with ileal conduit and rigid sig for invasive bladder cancer. Returned to OR on 05/09/17 for lower wound evisceration. Intra-op, the bowel was distended without transition point, no obvious hernia Neuro - IV pain meds Resp - resp distress, PNA, now with ESBL sputum GI - passing flatus and +BM. Repeat AXR with persistent dilitation. Continue NG today - maybe clamp trial tomorrow FEN - TPN - conduit functioning. SARAH coloration similar to condiut fluid - check SARAH creatinine Wound - wound vac change MWF Dispo - Continue inpatient. appreciate hospitalists. S: +BM yesterday and today. wants to get up. no pain or nausea. O: laying in bed, appears comfortable NG with bilious fluid, 400cc in canister today Nasal cannula. CTAB, decreases bases bilat RRR Hypoactive BS. Softly distended. wound vac to suction Conduit functioning SARAH darker serous fluid today Objective: Vital Signs Temp Pulse Resp BP Pulse Ox 36.4 C 91 40 H 119/58 L 93 05/15/17 11:56 05/15/17 11:56 05/15/17 11:56 05/15/17 11:56 05/15/17 11:56 Microbiology 05/12/17 05:50 - Final Sputum, Expectorated Sputum Culture - Final Escherichia Coli Esbl 05/09/17 19:14 Blood Culture - Final Blood 05/09/17 19:10 Blood Culture - Final Blood Laboratory Results 05/15/17 04:00 05/15/17 04:00 05/14/17 05/15/17 05/16/17 05:59 05:59 05:59 Intake Total 4354 3400 Output Total 4100 3040 Balance 254 360 PT 18.3 SEC (12.0-15.0) H 05/14/17 03:45 INR 1.52 (0.83-1.16) H 05/14/17 03:45 ICD10 Worksheet Patient Problems: Problems Problem Status Onset Bladder cancer Acute 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 difficile diarrhea Acute ~11/26/16 Congestive heart failure Acute Fever Acute Hyponatremia Acute Thrombocytopenia Acute
[2017-05-15] MEDS: BISACODYL 10 MG SUPP PR SCH ×2 (12:57→16:43)
--- NOTE | 2017-05-15 13:00 | PCMIDPN ---
Assessment/Plan: Assessment/Plan: 1. Sepsis secondary to pneumonia/possible aspiration with ESBL Klebsiella. : - Resp distress after recent wash out on 05/09/17 for lower abd wound evisceration -sputum cx with ESBL. -previously on cefepime, now on invanz. GFR around 39. monitor closely for need of dosage adjustment if worsens. -wbc improving. -creatinine improving. 2. Hx. c. diff: - on flagyl q12 for suppressive therapy. Meds invanz 1g daily flagyl 500mg q12 Subjective: afebrile. in SDU. sitting in chair. Denies sob. O2 vi Nc. Lesss abd discomfort. wound vac present. family at bedside. Objective: Vital Signs Temp Pulse Resp BP Pulse Ox 36.4 C 91 40 H 119/58 L 93 05/15/17 11:56 05/15/17 11:56 05/15/17 11:56 05/15/17 11:56 05/15/17 11:56 Microbiology 05/12/17 05:50 - Final Sputum, Expectorated Sputum Culture - Final Escherichia Coli Esbl 05/09/17 19:14 Blood Culture - Final Blood 05/09/17 19:10 Blood Culture - Final Blood Laboratory Results 05/15/17 04:00 05/15/17 04:00 05/14/17 05/15/17 05/16/17 05:59 05:59 05:59 Intake Total 4354 3400 Output Total 4100 3040 Balance 254 360 - Physical Exam General Appearance: alert, no apparent distress Respiratory: coarse breath sounds Cardiac/Chest: regular rate, rhythm Extremities: No swelling Abdomen: normal bowel sounds, non-tender, soft, other (wound vac noted. ), No distended Skin: No erythema ICD10 Worksheet Patient Problems: Problems Problem Status Onset Bladder cancer Acute 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 difficile diarrhea Acute ~11/26/16 Congestive heart failure Acute Fever Acute Hyponatremia Acute Thrombocytopenia Acute
[2017-05-15] MEDS ORDERED: NS BOLUS 500 ML (Wide open) IV ONE (15:00)
--- NOTE | 2017-05-15 15:21 | HOSPPROG ---
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 * Wound dehiscence -wound vac * Ileus -NPO/TPN -NGT to suction - surgery to consider clamp NGT in am -positive BM * Rapid afib -IV dilt gtt + IV metoprolol + IV digoxin -SQ lovenox - stroke prevention * Aspiration PNA with severe sepsis -ESBL E coli - IV invanz * ARF - suspect hypovolemic -IVF not matching NG output -increase IVF - IV albumin and bolus IVF NS Subjective: Very thirsty Objective: Vital Signs Temp Pulse Resp BP Pulse Ox 36.4 C 91 40 H 103/43 L 93 05/15/17 11:56 05/15/17 11:56 05/15/17 11:56 05/15/17 14:00 05/15/17 11:56 Microbiology 05/12/17 05:50 - Final Sputum, Expectorated Sputum Culture - Final Escherichia Coli Esbl 05/09/17 19:14 Blood Culture - Final Blood 05/09/17 19:10 Blood Culture - Final Blood Laboratory Results 05/15/17 04:00 05/15/17 04:00 05/14/17 05/15/17 05/16/17 05:59 05:59 05:59 Intake Total 4354 3400 Output Total 4100 3040 500 Balance 254 360 -500 PT 18.3 SEC (12.0-15.0) H 05/14/17 03:45 INR 1.52 (0.83-1.16) H 05/14/17 03:45 AXR - persistently dilated SB case d/w Dr. Freire - needs more volume - Physical Exam Constitutional: no apparent distress, appears nourished, not in pain Cardiovascular: regular rate and rhythym, no murmur, rub, or gallop Respiratory: no respiratory distress, no rales or rhonchi, clear to auscultation Gastrointestinal: normoactive bowel sounds, soft, non-tender abdomen, no palpable masses Skin: no rashes or abrasions, no fluctuance, no induration Neurologic: AAOx3, sensation intact bilaterally Psychiatric: interacting appropriately, not anxious, not encephalopathic, thought process linear ICD10 Worksheet Patient Problems: Problems Problem Status Onset Bladder cancer Acute 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 difficile diarrhea Acute ~11/26/16 Congestive heart failure Acute Fever Acute Hyponatremia Acute Thrombocytopenia Acute
--- NOTE | 2017-05-15 16:50 | SOAPPROG ---
SOAP Progress Note Assessment/Plan: Assessment: ICU status - now looking much better - Pneumonia is resolving - biggest issue is ileus and healing - albumin still 2.1 - ask pharmacy to increase protein in TPN - - formed BM todfay is good news, but still bowels are going slowly - likely due to chemotherapy preoperatively - - Passing more flatus today and last night - would cont NG until abd sig less distended - Looks much better today Looks dry - discussed hydration w hosp service - Cr improving O2 sats improved - less tachypnic O2 req down from 16 to 1 Now on NC NG outputs less - ++Flatus - Wound vac looks good No LE edema Nhan heparin well - WBC 12, m WOULD RECOMMEND CONT NG TUBE UNTIL ASSURED OF RESOLUTION OF ILEUS Plan: as above 05/02/17 08:27 05/04/17 08:37 05/06/17 16:41 Objective: Vital Signs Temp Pulse Resp BP Pulse Ox 36.9 C 95 28 H 122/61 H 97 05/15/17 15:33 05/15/17 16:10 05/15/17 16:10 05/15/17 15:33 05/15/17 16:10 Microbiology 05/12/17 05:50 - Final Sputum, Expectorated Sputum Culture - Final Escherichia Coli Esbl 05/09/17 19:14 Blood Culture - Final Blood 05/09/17 19:10 Blood Culture - Final Blood Laboratory Results 05/15/17 04:00 05/15/17 04:00 05/14/17 05/15/17 05/16/17 05:59 05:59 05:59 Intake Total 4354 3400 Output Total 4100 3040 500 Balance 254 360 -500 PT 18.3 SEC (12.0-15.0) H 05/14/17 03:45 INR 1.52 (0.83-1.16) H 05/14/17 03:45 Physical Exam - Physical Exam EENT: PERRL/EOMI Neck: non-tender Respiratory: chest non-tender Cardiac/Chest: normal peripheral pulses Abdomen: normal bowel sounds, non-tender, soft, distended Male Genitalia: deferred Rectal: deferred Skin: normal color Extremities: normal range of motion ICD10 Worksheet Patient Problems: Problems Problem Status Onset Bladder cancer Acute 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 difficile diarrhea Acute ~11/26/16 Congestive heart failure Acute Fever Acute Hyponatremia Acute Thrombocytopenia Acute - ICD10 Problem Qualifiers (1) Bladder cancer
--- NOTE | 2017-05-15 19:46 | PDINTPN ---
Testing [employer] Progress Note Assessment/Plan: Assessment: Bladder cancer s/p cystectoprostatectomy/ileal conduit on 05/01. Wound evisceration: S/P repair 05/09/17, findings of fluid-dilated small bowel, decompressed intra-op. Sepsis: Decompensated 05/10, with increased O2 needs/tachypnea, AF w/RVR, markedly elevated procalcitonin. On ertapenem/metronidazole. Hypotension resolved. Infectious source includes pulmonary/pneumonia/possibly urine/ possibly peritonitis. Id following. Respiratory distress: Resolving slowly. Still with tachypnea, 4L O2 needs, but less congested. Likely due to atelectasis/consolidated lung bases from aspiration, as well as abdominal distension due to ileus. ESBL now growing from sputum. AF w/RVR: Hx PAF. Rate now slower, diltiazem currently off. A metoprolol, digoxin. Appears to be trying to convert. Ileus: Improving slowly. Still distended. He is having bowel movements now, passing gas. Anticoagulation: On full-dose enoxaparin. No evidence for thrombo-embolic disease. This is for stroke prophylaxis with atrial fibrillation. GI prophylaxis: In TPN. Nutrition: TPN. Metabolic: Hyperglycemia. On insulin coverage. Plan: Continue antibiotics. metoprolol, digoxin. Diltiazem on hold, may need to restart? Continue full-dose anticoagulation. Supplemental oxygen as needed. Increase activity as tolerated. Follow laboratory, CBC. Continue bronchopulmonary therapies. Repeat CXR in the a.m.. 30 minutes of critical care time spent directly with the patient. Discussed with patient, nursing, respiratory, and the ICU multi disciplinary team. Subjective: Up in chair. No specific complaints. Denies shortness of breath. Abdominal pain is significantly improved. Positive BM. Objective: Vital Signs Temp Pulse Resp BP Pulse Ox 36.9 C 95 28 H 122/61 H 97 05/15/17 15:33 05/15/17 16:10 05/15/17 16:10 05/15/17 15:33 05/15/17 16:10 Microbiology 05/12/17 05:50 - Final Sputum, Expectorated Sputum Culture - Final Escherichia Coli Esbl 05/09/17 19:14 Blood Culture - Final Blood 05/09/17 19:10 Blood Culture - Final Blood Laboratory Results 05/15/17 04:00 05/15/17 18:55 05/14/17 05/15/17 05/16/17 05:59 05:59 05:59 Intake Total 4354 3400 2161.6 Output Total 4100 3040 1610 Balance 254 360 551.6 PT 18.3 SEC (12.0-15.0) H 05/14/17 03:45 INR 1.52 (0.83-1.16) H 05/14/17 03:45 Laboratory Tests 05/14/17 05/15/17 05/15/17 12:15 04:00 13:30 Sodium 147 H Potassium 4.1 Chloride 115 H Carbon Dioxide 21 L BUN 83 H Creatinine 1.7 H Glucose 139 H Calcium 7.7 L Magnesium 2.0 Peritoneal Creatinine 1.9 Digoxin 1.2 C. difficile Tox (PCR) NEGATIVE Abdominal flat plate: Persistent ileus with gas and small bowel. Physical Exam - Physical Exam General Appearance: alert, no apparent distress, other (Up in chair.) EENT: PERRL/EOMI, other (Nasal cannula at 4 L, NG tube in place) Neck: normal inspection Respiratory: lungs clear (Anteriorly), decreased breath sounds (At bases), rales (Some rales at the bases), rhonchi (Some congestion present, right base greater than left) Cardiac/Chest: irregularly irregular (Atrial fibrillation persists currently however there are times when he appears to be in sinus) Abdomen: normal bowel sounds (Improving bowel sounds), soft, distended, other ( Ileal conduit with good urine output), No non-tender (Much less tender) Skin: normal color, warm/dry Extremities: No pedal edema Neuro/Psych: no motor/sensory deficits, No cognition abnormalities ICD10 Worksheet Patient Problems: Problems Problem Status Onset Bladder cancer Acute 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 difficile diarrhea Acute ~11/26/16 Congestive heart failure Acute Fever Acute Hyponatremia Acute Thrombocytopenia Acute
[2017-05-15 20:35] LABS: GLUCOSE 125 mg/dL (70-100); POTASSIUM 3.7 mEq/L (3.5-5.2)
[2017-05-15] MEDS: TPN 1 EA BAG IV SCH (21:13)
--- NOTE | 2017-05-15 21:52 | GPROG ---
[f rep st] PROGRESS NOTE ASSESSMENT AND PLAN: Feeling better. White count is down 11.4, H and H is 10.1 and 29.2, down somew hat. Afebrile. Creatinine is 1.9, BUN 87. He is likely fluid restricted. He got Lasix yesterday. SYSTEMS: GI-profound ileus, seems to be resolving, small BM with significant flatus over the course of the day today, continue this, would not recommend NG removal until more and more reliable flatus a nd NG outputs are down-currently NG output significant approximately 700 in 8 hours. PNEUMONIA-It se ems to be resolving, good cough, white count coming down, afebrile, O2 sats are significantly less. MUSCULOSKELETAL-Weak, needs to ambulate, likely home to [facility] once discharged-not currently ready for this, ask case repairer to become involved now. FEN-On TPN, albumin is 2.1, still concerning, discuss ed with pharmacy. Increasing protein to try to maximize healing ability. CARDIAC-Heart rate is comi ng down. Still in atrial fibrillation but rate seems to be better controlled. MENTAL STATUS-improve d. DRAINS- drain notes a creatinine of 1.9 several days ago, we will likely remove drain tomorrow. This is due to drain being close to ureteral ileal anastomosis. OBJECTIVE: Creatinine is 87 and 1.9, slightly improved from yesterday of 87 and 2.0, nonetheless dry but improving. White count 11.48, H and H is 10.1 and 29, platelet count is 101, improving signific antly from the 14. Microbiology: He is ESBL positive from his sputum culture. Urine culture is un concerning. VITAL SIGNS: Blood pressure is 101/50, heart rate is 89, respiratory rate is 26, satura ting at 96% on 4 L. PHYSICAL EXAM: Looks somewhat dry, we will ask the hospitalist service to incre ase fluid intake. This is likely why he is so thirsty, however, pneumonia is a significant concern a nd over hydration may lead to difficulty with oxygenation. Seems to be tolerating mild dehydration c urrently. We will address slowly. NECK: Supple. HEENT: NG tube in good position, not touching nares or nose. No nostril breakdown. NG output is bilious. CHEST: Significant rales. Mild retractions. ABDOMEN: Distention is less, still distended, ileus resolving. Ostomy is pink, clean. Urine output looks good. SARAH drain is mini mal. MUSCULOSKELETAL: Moving all 4 extremities well. No lower extremity edema. SKIN: No rashes o r lesions. WOUNDS: His abdominal incision wound VAC is draining well, clean, intact. No signs of i nfection. PLAN: For tomorrow, consider NG clamping if flatus continues. Will discuss with General Surgery. M ove slowly on NG tube. Ileus is still significant. Increase hydration slowly, coffee 1/2 cup daily is fine with Urology. Will see daily. /[id number]/MODL
[2017-05-15] MEDS: LORazepam 2 MG/ML INJ IVP PRN (22:49)
[2017-05-15] MEDS: FORMOTEROL IH SCH (23:28)
[2017-05-15] MEDS: MOMETASONE IH SCH (23:28)
[2017-05-16] MEDS: INSULIN REGULAR, HUMAN 100 UNIT/1 ML VIAL HIGH SC SCH ×3 (00:24→12:19)
[2017-05-16] MEDS ORDERED: POTASSIUM Cl (KCl) 100 ML IV ONE (00:30)
[2017-05-16] MEDS: METOPROLOL TARTRATE 5 MG/5 ML INJ IVP SCH ×4 (00:39→18:33)
[2017-05-16 02:08] LABS: POTASSIUM 4.3 mEq/L (3.5-5.2)
[2017-05-16 05:18] LABS: ABSOLUTE NRBC COUNT 0.02 10^3/uL (0-0.01); ADD DIFF? YES; ADD MORPH? NO; FRAGMENT RBC FLAG 0 (0-99); LEFT SHIFT FLG 70 (0-99); NRBC-AUTO% 0.2 % (0.0-0.2)
[2017-05-16] MEDS: HYDROmorphONE/DILAUDID 1 MG/ML INJ IVP PRN ×2 (05:22→12:11)
[2017-05-16 05:25] LABS: HEMATOCRIT 29.2 % (40.0-51.0); HEMOGLOBIN 9.9 g/dL (13.7-17.5); LIPEMIA HEMOLYSIS FLAG 90 (0-99); MEAN CELL HEMOGLOBIN CONCENTR. 33.9 g/dL (32.4-36.7); MEAN CELL VOLUME 100.3 fL (81.5-99.8); MEAN PLATELET VOLUME 11.7 fL (8.7-11.7); PLATELET CLUMPS FLAG 10 (0-99); PLATELET COUNT 126 10^3/uL (150-400); RED BLOOD CELL COUNT 2.91 10^6/uL (4.40-6.38); RED CELL DISTRIBUTION WIDTH 16.4 % (11.5-15.2)
[2017-05-16 05:38] LABS: ADD SCAN? NO; ATYPICAL LYMPHOCYTE FLAG 100 (0-99)
[2017-05-16 05:45] LABS: ANION GAP 10 mEq/L (8-16); CALCIUM 7.7 mg/dL (8.5-10.4); CARBON DIOXIDE 20 mEq/l (22-31); CHLORIDE 119 mEq/L (97-110); CREATININE 1.4 mg/dL (0.7-1.3); GLOMERULAR FILTRATION RATE 49; GLUCOSE 133 mg/dL (70-100); MAGNESIUM 1.9 mg/dL (1.6-2.3); POTASSIUM 4.2 mEq/L (3.5-5.2); SODIUM 149 mEq/L (134-144)
[2017-05-16] MEDS: ACETYLCYSTEINE 10% 30 ML VIAL IH PRN (06:00)
[2017-05-16] MEDS: IPRATROPIUM/ALBUTEROL 3 ML DEYVIAL IH SCH ×3 (06:00→14:54)
[2017-05-16 06:21] LABS: PLATELET ESTIMATE DECREASED (ADEQ); POLYCHROMASIA 1+; TOXIC GRANULATION PRESENT
[2017-05-16] MEDS: PANTOPRAZOLE SODIUM 40 MG in NS 100 ML IV SCH (08:55)
[2017-05-16] MEDS: ERTAPENEM 1 GM in NS 100 ML IV SCH (08:55)
[2017-05-16] MEDS: ENOXAPARIN 80 MG/0.8 ML SYR SC SCH ×2 (08:55→21:43)
--- NOTE | 2017-05-16 09:13 | SOAPPROG ---
SOAP Progress Note Assessment/Plan: Assessment: 76yo M s/p cystoprostatectomy with ileal conduit and rigid sig for invasive bladder cancer. Returned to OR on 05/09/17 for lower wound evisceration. Intra-op, the bowel was distended without transition point, no obvious hernia Neuro - IV pain meds Resp - resp distress, PNA, now with ESBL sputum GI - passing flatus and +BM. Repeat AXR with persistent dilitation. NG clamp trial today FEN - TPN - conduit functioning. SARAH coloration similar to condiut fluid Wound - wound vac change MWF Dispo - Continue inpatient. appreciate hospitalists. S: had 2 BMs today and 4 overnight. no pain or nausea. O: sitting up in chair, appears comfortable NG with bilious fluid, 100cc in canister today Nasal cannula. No increased WOB Present BS. Softly distended. wound vac to suction Conduit functioning SARAH serous Objective: Vital Signs Temp Pulse Resp BP Pulse Ox 36.7 C 100 28 H 125/61 H 94 05/15/17 20:00 05/16/17 06:00 05/16/17 06:00 05/16/17 05:09 05/16/17 06:00 Microbiology 05/12/17 05:50 - Final Sputum, Expectorated Sputum Culture - Final Escherichia Coli Esbl 05/09/17 19:14 Blood Culture - Final Blood 05/09/17 19:10 Blood Culture - Final Blood Laboratory Results 05/16/17 05:00 05/16/17 05:00 05/15/17 05/16/17 05/17/17 05:59 05:59 05:59 Intake Total 3400 3963.6 Output Total 3040 3110 Balance 360 853.6 PT 18.3 SEC (12.0-15.0) H 05/14/17 03:45 INR 1.52 (0.83-1.16) H 05/14/17 03:45 ICD10 Worksheet Patient Problems: Problems Problem Status Onset Bladder cancer Acute 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 difficile diarrhea Acute ~11/26/16 Congestive heart failure Acute Fever Acute Hyponatremia Acute Thrombocytopenia Acute
--- NOTE | 2017-05-16 09:52 | PCMIDPN ---
Assessment/Plan: # B lower lobe PNA, likely aspiration, marked improvement with minimal O2 requirements, normalization of WBC, improved chest x-ray. ESBL E coli identified on sputum sample but patient clinically improved prior to treatment with ertapenem. Suspect it is a colonizer. --consider short course IV antibiotic therapy at 7 days with marked clinical improvement. Today is day 6 # Post op ileus : much improved Medications, Abx #6 ertapenem 1gm IV daily, #3 Microbiology 05/09 blood (2) neg 05/12 sputum ESBL E coli Subjective: The patient is hopeful for removal of NG tube today Objective: Vital Signs Temp Pulse Resp BP Pulse Ox 36.3 C 107 H 32 H 125/55 H 96 05/16/17 08:00 05/16/17 08:00 05/16/17 08:00 05/16/17 08:00 05/16/17 08:00 Microbiology 05/12/17 05:50 - Final Sputum, Expectorated Sputum Culture - Final Escherichia Coli Esbl 05/09/17 19:14 Blood Culture - Final Blood 05/09/17 19:10 Blood Culture - Final Blood Laboratory Results 05/16/17 05:00 05/16/17 05:00 05/15/17 05/16/17 05/17/17 05:59 05:59 05:59 Intake Total 3400 3963.6 Output Total 3040 3110 Balance 360 853.6 - Physical Exam General Appearance: alert, no apparent distress EENT: pale conjunctiva, NG Tube Respiratory: coarse breath sounds, No accessory muscle use Cardiac/Chest: regular rate, rhythm Abdomen: non-tender, soft, distended (Very mild), other (Bowel sounds present; right lower quadrant urostomy with urine) Skin: No rash Neuro/Psych: alert, normal mood/affect, oriented x 3 - Time Spent With Patient Time Spent with Patient: greater than 35 minutes (Would course of illness with patient, and children.) Time Spent with Patient: Greater than 35 minutes spent on this patients care, greater than 50% of time spent counseling, educating, and coordinating care regarding the above mentioned plan. ICD10 Worksheet Patient Problems: Problems Problem Status Onset Bladder cancer Acute 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 difficile diarrhea Acute ~11/26/16 Congestive heart failure Acute Fever Acute Hyponatremia Acute Thrombocytopenia Acute
[2017-05-16] MEDS: DIGOXIN 500 MCG/2 ML AMP IVP SCH (10:11)
[2017-05-16] MEDS: BISACODYL 10 MG SUPP PR SCH (10:27)
[2017-05-16] MEDS: Mometasone/Formoterol [Dulera 100 Mcg/5 Mcg Inhaler] 2 PUFFS IH SCH (12:00)
[2017-05-16] MEDS: LORazepam 2 MG/ML INJ IVP PRN ×2 (12:11→22:02)
[2017-05-16] MEDS: D5W 1,000 ML IV SCH (13:07)
--- NOTE | 2017-05-16 13:14 | WOCRNPDOC ---
WOCRN Advanced Assessment Note - Skin Integrity Problem, Advanced Assess Right Drain Site Dressing Type: Black Vac Foam (x2), Wound Vac Dressing Description: Clean/Dry, Intact Exudate Amount: Minimal Exudate Characteristic(s): Serosanguinous Integumentary Issue Intervention: Dressing Changed Rahel Wound Tissue: Intact Wound Bed Color: [place], Yellow Wound Bed Constitution: Smooth Tissue, Subcutaneous Fat Wound Edges: Attached Skin Integrity Problem Comment: Patient medicated for pain immediately prior to vac change, with good effect. Wound bed cleaned with NS and gauze. There continues to be an area of necrosing fat in the inferior wound bed. Superior wound bed clean. Rahel wound skin prepped and draped. One continuous piece of black simplace foam used to fill wound bed plus another piece for the track pad. Reconnected to suction at -125mmHg with good seal achieved. Wound care OPERATIONS OFFICER AFLOAT Robert in room and assisting. Patient tolerated procedure well. All questions answered. Findings shared with MARIANA Murray. Wound care will round again on this patient on Sunday.
[2017-05-16 13:43] LABS: POTASSIUM 4.4 mEq/L (3.5-5.2)
--- NOTE | 2017-05-16 14:21 | PDINTPN ---
General Ledger Bookkeeper Progress Note Assessment/Plan: Assessment: Bladder cancer s/p cystectoprostatectomy/ileal conduit on 05/01. Wound evisceration: S/P repair 05/09/17, findings of fluid-dilated small bowel, decompressed intra-op. Sepsis: Decompensated 05/10, with increased O2 needs/tachypnea, AF w/RVR, markedly elevated procalcitonin. On ertapenem/metronidazole. Hypotension resolved. Infectious source includes pulmonary/pneumonia/possibly urine/ possibly peritonitis. Id following. Respiratory distress: Resolving. Decreasing tachypnea, 2L O2 needs, with improving but persistent congestion. Likely due to atelectasis/consolidated lung bases from aspiration, as well as abdominal distension due to ileus. ESBL growing from sputum. AF w/RVR: Hx PAF. Rate now slower, diltiazem currently off. A metoprolol, digoxin. Appears to be trying to convert. Ileus: Improving. Still distended. He is having bowel movements now, passing gas. Anticoagulation: On full-dose enoxaparin. No evidence for thrombo-embolic disease. This is for stroke prophylaxis with atrial fibrillation. GI prophylaxis: In TPN. Nutrition: TPN. Metabolic: Hyperglycemia. On insulin coverage. Plan: Continue antibiotics per Infectious Disease. metoprolol, digoxin. Diltiazem on hold, may need to restart? Continue full-dose anticoagulation. Supplemental oxygen as needed. Increase activity as tolerated. Follow laboratory, CBC. Continue bronchopulmonary therapies. 30 minutes of critical care time spent directly with the patient. Discussed with patient's , nursing, respiratory, and the ICU multi disciplinary team. Subjective: Sedated currently for a dressings change. Was up in chair previously, responsive, doing well. Objective: Vital Signs Temp Pulse Resp BP Pulse Ox 36.7 C 115 H 33 H 127/85 H 95 05/16/17 12:00 05/16/17 12:15 05/16/17 12:00 05/16/17 12:15 05/16/17 12:00 Laboratory Results 05/16/17 05:00 05/16/17 13:00 05/15/17 05/16/17 05/17/17 05:59 05:59 05:59 Intake Total 3400 3963.6 Output Total 3040 3110 400 Balance 360 853.6 -400 PT 18.3 SEC (12.0-15.0) H 05/14/17 03:45 INR 1.52 (0.83-1.16) H 05/14/17 03:45 Laboratory Tests 05/16/17 05/16/17 05:00 05:00 Sodium 149 H Potassium 4.2 Chloride 119 H Carbon Dioxide 20 L Anion Gap 10 BUN 68 H Creatinine 1.4 H Glucose 133 H Calcium 7.7 L Phosphorus 3.0 Magnesium 1.9 Procalcitonin 0.78 H CXR: Improving by basilar infiltrates/atelectasis. Physical Exam - Physical Exam General Appearance: other (SEDATED CURRENTLY WERE DRESSING CHANGE) EENT: PERRL/EOMI, other (NASAL CANNULA AT 1-2 L) Neck: normal inspection (NO OBVIOUS JVD) Respiratory: lungs clear (ANTERIORLY), decreased breath sounds (AT BASES, WITH SCATTERED RALES AND RHONCHI AT THE BASES.), rhonchi (Left base greater than right) Cardiac/Chest: irregularly irregular (Approximately 100, atrial fibrillation) Abdomen: soft (Softer), distended, other (Wound VAC currently off, wound looks clean and dry, remains quite deep, extensive. 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 difficile diarrhea Acute ~11/26/16 Fever Acute
--- NOTE | 2017-05-16 16:31 | HOSPPROG ---
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 * Wound dehiscence -wound vac * Ileus -NPO/TPN -clamping NGT -positive BM - hopefully advance diet soon * Rapid afib -IV metoprolol + IV digoxin -may need to restart IV diltiazem if rapid rates continue -change albuterol to Xopenex -SQ lovenox - stroke prevention * Aspiration PNA with severe sepsis -ESBL E coli - IV invanz * ARF - suspect hypovolemic -IVF to matching NG output Subjective: Doing better Objective: Vital Signs Temp Pulse Resp BP Pulse Ox 36.6 C 112 H 19 136/71 H 92 05/16/17 16:00 05/16/17 16:00 05/16/17 16:00 05/16/17 16:00 05/16/17 16:00 Laboratory Results 05/16/17 05:00 05/16/17 13:00 05/15/17 05/16/17 05/17/17 05:59 05:59 05:59 Intake Total 3400 3963.6 Output Total 3040 3110 750 Balance 360 853.6 -750 PT 18.3 SEC (12.0-15.0) H 05/14/17 03:45 INR 1.52 (0.83-1.16) H 05/14/17 03:45 CXR viewed, my personal interpretation is - lower lobe atelectasis d/w Dr. Freire - overall improving - Physical Exam Constitutional: no apparent distress, appears nourished, not in pain Cardiovascular: regular rate and rhythym, no murmur, rub, or gallop Respiratory: no respiratory distress, no rales or rhonchi, clear to auscultation Gastrointestinal: soft, non-tender abdomen, distension, No tenderness Skin: no rashes or abrasions, no fluctuance, no induration Neurologic: AAOx3, sensation intact bilaterally Psychiatric: interacting appropriately, not anxious, not encephalopathic, thought process linear ICD10 Worksheet Patient Problems: Problems Problem Status Onset Bladder cancer Acute 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 difficile diarrhea Acute ~11/26/16 Congestive heart failure Acute Fever Acute Hyponatremia Acute Thrombocytopenia Acute
[2017-05-16] MEDS ORDERED: D50W 25 GM/50 ML SYR IVP PRN (16:33)
[2017-05-16] MEDS ORDERED: D10W 250 ML PRN HYPOGLYCEMIA IV (17:00)
[2017-05-16] MEDS: INSULIN REGULAR HUMAN 100 UNIT/ML SC SCH ×2 (18:35→22:02)
[2017-05-16 19:51] LABS: POTASSIUM 4.1 mEq/L (3.5-5.2)
[2017-05-16] MEDS: FORMOTEROL IH SCH (21:28)
[2017-05-16] MEDS: MOMETASONE IH SCH (21:28)
[2017-05-16] MEDS: TPN 1 EA BAG IV SCH (21:43)
[2017-05-16] MEDS ORDERED: LEVALBUTEROL 0.63 MG/3 ML DEYVIAL IH SCH (22:00)
[2017-05-17] MEDS: METOPROLOL TARTRATE 5 MG/5 ML INJ IVP SCH ×5 (00:10→23:04)
[2017-05-17 04:20] LABS: ABSOLUTE NRBC COUNT 0.03 10^3/uL (0-0.01); ADD DIFF? YES; ADD MORPH? NO; ADD SCAN? NO; ATYPICAL LYMPHOCYTE FLAG 90 (0-99); FRAGMENT RBC FLAG 0 (0-99); HEMATOCRIT 29.8 % (40.0-51.0); HEMOGLOBIN 9.7 g/dL (13.7-17.5); LEFT SHIFT FLG 60 (0-99); LIPEMIA HEMOLYSIS FLAG 80 (0-99); MEAN CELL HEMOGLOBIN 33.2 pg (27.9-34.1); MEAN CELL HEMOGLOBIN CONCENTR. 32.6 g/dL (32.4-36.7); MEAN CELL VOLUME 102.1 fL (81.5-99.8); MEAN PLATELET VOLUME 11.4 fL (8.7-11.7); NRBC-AUTO% 0.3 % (0.0-0.2); PLATELET CLUMPS FLAG 0 (0-99); PLATELET COUNT 152 10^3/uL (150-400); RED BLOOD CELL COUNT 2.92 10^6/uL (4.40-6.38); RED CELL DISTRIBUTION WIDTH 16.2 % (11.5-15.2)
[2017-05-17 04:23] LABS: ALANINE AMINOTRANSFERASE 35 IU/L (21-72); ALKALINE PHOSPHATASE 79 IU/L (38-126); ANION GAP 9 mEq/L (8-16); ASPARTATE AMINOTRANSFERASE 17 IU/L (17-59); BILIRUBIN,TOTAL 0.6 mg/dL (0.1-1.4); BILIRUBIN-CONJUGATED 0.4 mg/dL (0.0-0.5); BILIRUBIN-UNCONJUGATED 0.2 mg/dL (0.0-1.1); CALCIUM 7.7 mg/dL (8.5-10.4); CARBON DIOXIDE 21 mEq/l (22-31); CHLORIDE 118 mEq/L (97-110); CREATININE 1.2 mg/dL (0.7-1.3); GLOMERULAR FILTRATION RATE 59; GLUCOSE 117 mg/dL (70-100); MAGNESIUM 1.6 mg/dL (1.6-2.3); POTASSIUM 4.1 mEq/L (3.5-5.2); SODIUM 148 mEq/L (134-144); TOTAL PROTEIN 4.4 g/dL (6.3-8.2)
[2017-05-17 04:46] LABS: MICROCYTES 1+; PLATELET ESTIMATE ADEQUATE (ADEQ)
[2017-05-17 04:48] LABS: TOXIC GRANULATION PRESENT
[2017-05-17 04:49] LABS: POLYCHROMASIA 1+
[2017-05-17] MEDS ORDERED: MAGNESIUM SULF 1 GM/DEXTROSE 100 ML IV ONE (05:05)
[2017-05-17] MEDS: LEVALBUTEROL 0.63 MG/3 ML DEYVIAL IH SCH ×3 (05:17→21:16)
--- NOTE | 2017-05-17 07:03 | SOAPPROG ---
SOAP Progress Note Assessment/Plan: Assessment: Bladder cancer Acute improved creat and bun, continue care Plan: continue care 05/17/17 07:02 Subjective: improving Objective: Vital Signs Temp Pulse Resp BP Pulse Ox 36.8 C 115 H 28 H 119/70 98 05/17/17 04:00 05/17/17 05:24 05/17/17 05:17 05/17/17 05:24 05/17/17 05:17 Laboratory Results 05/17/17 04:00 05/17/17 04:00 05/16/17 05/17/17 05/18/17 05:59 05:59 05:59 Intake Total 3963.6 3754 Output Total 3110 3345 Balance 853.6 409 PT 18.3 SEC (12.0-15.0) H 05/14/17 03:45 INR 1.52 (0.83-1.16) H 05/14/17 03:45 ICD10 Worksheet Patient Problems: Problems Problem Status Onset Bladder cancer Acute 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 difficile diarrhea Acute ~11/26/16 Congestive heart failure Acute Fever Acute Hyponatremia Acute Thrombocytopenia Acute
[2017-05-17] MEDS: INSULIN REGULAR HUMAN 100 UNIT/ML SC SCH ×3 (08:51→17:43)
[2017-05-17] MEDS: ENOXAPARIN 80 MG/0.8 ML SYR SC SCH ×2 (09:04→22:10)
[2017-05-17] MEDS: PANTOPRAZOLE SODIUM 40 MG in NS 100 ML IV SCH (09:07)
[2017-05-17] MEDS: ERTAPENEM 1 GM in NS 100 ML IV SCH (09:07)
--- NOTE | 2017-05-17 09:32 | SOAPPROG ---
SOAP Progress Note Assessment/Plan: Assessment: s/p cystoprostatectomy with ileal conduit and rigid sig for invasive bladder cancer Went to OR on 05/09/2017 for lower wound evisceration Intraop, the bowel was distended without transition point. No obvious hernia. 1) Clamp NG. Hopefully out this afternoon. When out, only sips, less than 8 oz , 2) Continue TPN. May have some fluids for comfort but mainly NPO Neuro - IV pain meds Resp - Pneumonia. GI - bowel function returned. Anticipate ileus. FEN - TPN - watch to not fluid overload - conduit functioning. Dispo - continue SDU. S: Sore throat. Flatus and BM O: Lying in bed, appears comfortable, NCAT, PER, No gross hearing deficits NG with thin bilious fluid coming out - Voice is stronger Lungs clear bilaterally although decreased at bases Regular rate active bowel sounds. Softer and minimal distention. Fluid in [place] is cloudy Plan: 05/03/17 06:39 05/03/17 06:45 05/10/17 10:20 05/11/17 12:10 05/12/17 08:01 05/13/17 08:30 05/17/17 09:30 Objective: Vital Signs Temp Pulse Resp BP Pulse Ox 36.9 C 106 H 25 H 139/68 H 89 L 05/17/17 08:00 05/17/17 08:00 05/17/17 08:00 05/17/17 08:00 05/17/17 08:00 Laboratory Results 05/17/17 04:00 05/17/17 04:00 05/16/17 05/17/17 05/18/17 05:59 05:59 05:59 Intake Total 3963.6 3754 Output Total 3110 3345 Balance 853.6 409 PT 18.3 SEC (12.0-15.0) H 05/14/17 03:45 INR 1.52 (0.83-1.16) H 05/14/17 03:45 ICD10 Worksheet Patient Problems: Problems Problem Status Onset Bladder cancer Acute 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 difficile diarrhea Acute ~11/26/16 Congestive heart failure Acute Fever Acute Hyponatremia Acute Thrombocytopenia Acute
[2017-05-17] MEDS ORDERED: ONDANSETRON 4 MG/2 ML VIAL IVP PRN (09:54)
[2017-05-17] MEDS: DIGOXIN 500 MCG/2 ML AMP IVP SCH (10:36)
[2017-05-17] MEDS: Mometasone/Formoterol [Dulera 100 Mcg/5 Mcg Inhaler] 2 PUFFS IH SCH (11:12)
--- NOTE | 2017-05-17 12:51 | PDINTPN ---
Engraver Copperplate Progress Note Assessment/Plan: Assessment: Bladder cancer s/p cystectoprostatectomy/ileal conduit on 05/01. Wound evisceration: S/P repair 05/09/17, findings of fluid-dilated small bowel, decompressed intra-op. Sepsis: Decompensated 05/10, with increased O2 needs/tachypnea, AF w/RVR, markedly elevated procalcitonin. On ertapenem/metronidazole. Sepsis and Hypotension now resolved. Infectious source includes pulmonary/pneumonia/ possibly urine/possibly peritonitis. Id following. Respiratory distress: Resolving. Probably secondary to aspiration/ consolidation at the bases with atelectasis as well. Now on room air. Still with some mild pulmonary congestion. ESBL growing from sputum. Last day of antibiotics today. AF w/RVR: Hx PAF. Rates slower, diltiazem off. On metoprolol, digoxin. Appears to be trying to convert. Ileus: Improving. He is having bowel movements now, passing gas. Starting some limited p.o.'s Anticoagulation: On full-dose enoxaparin. No evidence for thrombo-embolic disease. This is for stroke prophylaxis with atrial fibrillation. GI prophylaxis: In TPN. Nutrition: TPN. Metabolic: Hyperglycemia. On insulin coverage. Plan: Continue antibiotics per Infectious Disease. metoprolol, digoxin. Continue full-dose anticoagulation. Possibly pull NG tube today and start some limited oral feedings. Supplemental oxygen as needed. Increase activity as tolerated. Follow laboratory, CBC. Continue bronchopulmonary therapies. 25 minutes of critical care time spent directly with the patient. Discussed with patient's , nursing, respiratory, and the ICU multi disciplinary team. Subjective: No specific complaints. Doing okay. Denies shortness of breath, pain. Objective: Vital Signs Temp Pulse Resp BP Pulse Ox 37.1 C 118 H 26 H 135/66 H 91 L 05/17/17 11:53 05/17/17 11:53 05/17/17 11:53 05/17/17 11:53 05/17/17 11:53 Laboratory Results 05/17/17 04:00 05/17/17 04:00 05/16/17 05/17/17 05/18/17 05:59 05:59 05:59 Intake Total 3963.6 3754 Output Total 3110 3345 Balance 853.6 409 PT 18.3 SEC (12.0-15.0) H 05/14/17 03:45 INR 1.52 (0.83-1.16) H 05/14/17 03:45 Laboratory Tests 05/17/17 04:00 Calcium 7.7 L Magnesium 1.6 Total Bilirubin 0.6 AST 17 ALT 35 Albumin 2.0 L Physical Exam - Physical Exam General Appearance: alert, no apparent distress, other EENT: PERRL/EOMI, other (On room air) Neck: normal inspection, lymphadenopathy (R) (VD) Respiratory: lungs clear, decreased breath sounds (At bases), rales (Few rhonchi , rales primarily at the left base.), rhonchi Cardiac/Chest: irregularly irregular (AFib, low 100s) Abdomen: normal bowel sounds (Bowel sounds present), non-tender (Not much tenderness), soft (Softer), distended, other (Urostomy in place, good urine output) Skin: warm/dry, pallor Extremities: pedal edema Neuro/Psych: no motor/sensory deficits, No cognition abnormalities ICD10 Worksheet Patient Problems: Problems Problem Status Onset 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 difficile diarrhea Acute ~11/26/16 Fever Acute
[2017-05-17 13:40] LABS: POTASSIUM 4.1 mEq/L (3.5-5.2)
--- NOTE | 2017-05-17 15:50 | HOSPPROG ---
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 * Wound dehiscence -wound vac * Ileus -NPO/TPN -slow to resolve * Rapid afib -IV metoprolol + IV digoxin -may need to restart IV diltiazem if rapid rates continue -changed albuterol to Xopenex -SQ lovenox - stroke prevention * Aspiration PNA with severe sepsis -ESBL E coli - IV invanz * ARF - suspect hypovolemic -IVF to matching NG output - creatinine improved Subjective: Getting discouraged. Increased pain at wound today Objective: Vital Signs Temp Pulse Resp BP Pulse Ox 37.1 C 113 H 25 H 135/66 H 100 05/17/17 11:53 05/17/17 14:35 05/17/17 14:35 05/17/17 11:53 05/17/17 14:35 Laboratory Results 05/17/17 04:00 05/17/17 12:55 05/16/17 05/17/17 05/18/17 05:59 05:59 05:59 Intake Total 3963.6 3754 Output Total 3110 3345 Balance 853.6 409 PT 18.3 SEC (12.0-15.0) H 05/14/17 03:45 INR 1.52 (0.83-1.16) H 05/14/17 03:45 - Physical Exam Constitutional: no apparent distress, appears nourished, not in pain Cardiovascular: regular rate and rhythym, no murmur, rub, or gallop Respiratory: no respiratory distress, no rales or rhonchi, clear to auscultation Gastrointestinal: normoactive bowel sounds, soft, non-tender abdomen, no palpable masses, distension Skin: no rashes or abrasions, no fluctuance, no induration Neurologic: AAOx3, sensation intact bilaterally Psychiatric: interacting appropriately, not anxious, not encephalopathic, thought process linear ICD10 Worksheet Patient Problems: Problems Problem Status Onset Bladder cancer Acute 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 difficile diarrhea Acute ~11/26/16 Congestive heart failure Acute Fever Acute Hyponatremia Acute Thrombocytopenia Acute
--- NOTE | 2017-05-17 16:25 | HOSPPROG ---
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 * Wound dehiscence -wound vac -Dr. Evans to review wound in am - concern for necrosis * Ileus -NPO/TPN -slow to resolve * Rapid afib -IV metoprolol + IV digoxin -may need to restart IV diltiazem if rapid rates continue -changed albuterol to Xopenex -SQ lovenox - stroke prevention * Aspiration PNA with severe sepsis -ESBL E coli - IV invanz * ARF - suspect hypovolemic -IVF to matching NG output - creatinine improved Subjective: More pain at wound today Objective: Vital Signs Temp Pulse Resp BP Pulse Ox 37.1 C 104 H 25 H 117/62 97 05/17/17 11:53 05/17/17 16:00 05/17/17 16:00 05/17/17 16:00 05/17/17 16:00 Laboratory Results 05/17/17 04:00 05/17/17 12:55 05/16/17 05/17/17 05/18/17 05:59 05:59 05:59 Intake Total 3963.6 3754 Output Total 3110 3345 Balance 853.6 409 PT 18.3 SEC (12.0-15.0) H 05/14/17 03:45 INR 1.52 (0.83-1.16) H 05/14/17 03:45 case d/w Dr. Evans - not clear that he will need more surgery - she will look at wound in am AXR - persistent ileus - Physical Exam Constitutional: no apparent distress, appears nourished, not in pain Cardiovascular: regular rate and rhythym, no murmur, rub, or gallop Respiratory: no respiratory distress, no rales or rhonchi, clear to auscultation Gastrointestinal: soft, non-tender abdomen, tenderness, distension, other ( wound vac in place) Skin: no rashes or abrasions, no fluctuance, no induration Neurologic: AAOx3, sensation intact bilaterally Psychiatric: interacting appropriately, not anxious, not encephalopathic, thought process linear ICD10 Worksheet Patient Problems: Problems Problem Status Onset Bladder cancer Acute 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 difficile diarrhea Acute ~11/26/16 Congestive heart failure Acute Fever Acute Hyponatremia Acute Thrombocytopenia Acute
[2017-05-17] MEDS ORDERED: IOPAMIDOL (ISOVUE-300) 100 ML BTL ONE (18:18)
[2017-05-17] MEDS: FORMOTEROL IH SCH (21:17)
[2017-05-17] MEDS: MOMETASONE IH SCH (21:17)
[2017-05-17] MEDS: LORazepam 2 MG/ML INJ IVP PRN (22:10)
[2017-05-17] MEDS: TPN 1 EA BAG IV SCH (22:19)
[2017-05-17] MEDS: D5W 1,000 ML IV SCH (22:20)
[2017-05-18] MEDS: INSULIN REGULAR HUMAN 100 UNIT/ML SC SCH ×4 (00:26→17:45)
[2017-05-18 04:04] LABS: ABSOLUTE NRBC COUNT 0.05 10^3/uL (0-0.01); ADD DIFF? YES; ADD MORPH? NO; ADD SCAN? NO; ATYPICAL LYMPHOCYTE FLAG 70 (0-99); FRAGMENT RBC FLAG 0 (0-99); HEMATOCRIT 29.6 % (40.0-51.0); HEMOGLOBIN 9.9 g/dL (13.7-17.5); LEFT SHIFT FLG 70 (0-99); LIPEMIA HEMOLYSIS FLAG 80 (0-99); MEAN CELL HEMOGLOBIN 33.8 pg (27.9-34.1); MEAN CELL HEMOGLOBIN CONCENTR. 33.4 g/dL (32.4-36.7); MEAN PLATELET VOLUME 11.2 fL (8.7-11.7); NRBC-AUTO% 0.5 % (0.0-0.2); PLATELET CLUMPS FLAG 0 (0-99); PLATELET COUNT 156 10^3/uL (150-400); RED BLOOD CELL COUNT 2.93 10^6/uL (4.40-6.38); RED CELL DISTRIBUTION WIDTH 15.9 % (11.5-15.2)
[2017-05-18 04:18] LABS: CALCIUM 7.9 mg/dL (8.5-10.4); CARBON DIOXIDE 22 mEq/l (22-31); CHLORIDE 114 mEq/L (97-110); CREATININE 1.1 mg/dL (0.7-1.3); GLOMERULAR FILTRATION RATE > 60; GLUCOSE 103 mg/dL (70-100); MAGNESIUM 1.7 mg/dL (1.6-2.3)
[2017-05-18 04:39] LABS: MACROCYTES 1+; PLATELET ESTIMATE ADEQUATE (ADEQ); POLYCHROMASIA 1+
[2017-05-18] MEDS: METOPROLOL TARTRATE 5 MG/5 ML INJ IVP SCH ×2 (05:06→14:25)
[2017-05-18] MEDS: HYDROmorphONE/DILAUDID 1 MG/ML INJ IVP PRN ×2 (05:13→10:06)
[2017-05-18] MEDS: LEVALBUTEROL 0.63 MG/3 ML DEYVIAL IH SCH ×3 (05:25→21:38)
[2017-05-18] MEDS: Mometasone/Formoterol [Dulera 100 Mcg/5 Mcg Inhaler] 2 PUFFS IH SCH (09:16)
[2017-05-18] MEDS: ERTAPENEM 1 GM in NS 100 ML IV SCH (10:06)
[2017-05-18] MEDS: DIGOXIN 500 MCG/2 ML AMP IVP SCH (10:07)
[2017-05-18] MEDS: ENOXAPARIN 80 MG/0.8 ML SYR SC SCH ×2 (10:07→21:12)
[2017-05-18] MEDS: PANTOPRAZOLE SODIUM 40 MG in NS 100 ML IV SCH (10:08)
--- NOTE | 2017-05-18 11:46 | PDINTPN ---
Broadcast Supervisor Progress Note Assessment/Plan: Assessment: Bladder cancer s/p cystectoprostatectomy/ileal conduit on 05/01. Wound evisceration: S/P repair 05/09/17. Being followed by surgery. Wound VAC in place. Sepsis: Decompensated 05/10, with increased O2 needs/tachypnea, AF w/RVR, markedly elevated procalcitonin. On ertapenem/metronidazole. Sepsis and Hypotension now resolved. Infectious source includes pulmonary/pneumonia/ possibly urine/possibly peritonitis. Id following. Respiratory distress: Resolved. Probably secondary to aspiration/ consolidation at the bases with atelectasis as well. Now on room air. Pulmonary congestion resolving. ESBL grew from sputum. AF w/RVR: Hx PAF. Rates slower, low 100s. Diltiazem off. On metoprolol, digoxin. Appears to be trying to convert at times. Ileus: Improving. He is having bowel movements now, passing gas. Starting some limited p.o.'s Anticoagulation: On full-dose enoxaparin. No evidence for thrombo-embolic disease. This is for stroke prophylaxis with atrial fibrillation. GI prophylaxis: In TPN. Nutrition: TPN. NG tube now out, starting to take some water. Metabolic: Hyperglycemia. On insulin coverage. Plan: Continue antibiotics per Infectious Disease. metoprolol, digoxin. Continue full-dose anticoagulation with subcu Lovenox. Start some limited oral feedings/liquids today: Her surgery. Supplemental oxygen as needed. Increase activity and mobilization. Follow laboratory, CBC. Continue bronchopulmonary therapies. 20 minutes of critical care time spent directly with the patient. Discussed with patient's , nursing, respiratory, and the ICU multi disciplinary team. Subjective: Doing well. In good spirits. Denies shortness of breath or significant pain. Having bowel movements. Objective: Vital Signs Temp Pulse Resp BP Pulse Ox 37.4 C 109 H 26 H 128/71 H 96 05/18/17 08:00 05/18/17 10:07 05/18/17 09:06 05/18/17 08:00 05/18/17 08:00 Laboratory Results 05/18/17 03:30 05/18/17 03:30 05/17/17 05/18/17 05/19/17 05:59 05:59 05:59 Intake Total 8487 6874 Output Total 3345 2375 Balance 409 959 PT 18.3 SEC (12.0-15.0) H 05/14/17 03:45 INR 1.52 (0.83-1.16) H 05/14/17 03:[address] scan: Improving. No evidence of abdominal abscess. Imaged portion of the lower lungs show improvement as well and atelectasis and infiltrates. Physical Exam - Physical Exam General Appearance: alert, no apparent distress EENT: PERRL/EOMI, other (On room air) Neck: normal inspection Respiratory: lungs clear (Anteriorly), decreased breath sounds (At bases), rales (At bases), No rhonchi Cardiac/Chest: irregularly irregular Abdomen: normal bowel sounds, non-tender (Minimal tenderness), soft (Softer), distended (Less distended), other (Urostomy, good urine output.) Skin: normal color, warm/dry Extremities: No pedal edema Neuro/Psych: no motor/sensory deficits, No cognition abnormalities ICD10 Worksheet Patient Problems: Problems Problem Status Onset Bladder cancer Acute 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 difficile diarrhea Acute ~11/26/16 Congestive heart failure Acute Fever Acute Hyponatremia Acute Thrombocytopenia Acute
[2017-05-18] MEDS ORDERED: MAGNESIUM SULF 1 GM/DEXTROSE 100 ML IV ONE (11:53)
--- NOTE | 2017-05-18 12:17 | PCMIDPN ---
Assessment/Plan: # B lower lobe PNA, likely aspiration - now off O2 at rest, near normalization of WBC, improved chest x-ray. ESBL E coli identified on sputum sample but patient clinically improved on cefepime prior to treatment with ertapenem. Suspect it is a colonizer. CT abd/pelvis performed yesterday and showed improvement of PNA, ileus, no abscess. --plan dc antibiotics 05/20, changed MAR. Will be 10 days total abx, and 7 days of ertapenem. P --call ID for additional questions # mild leukocytosis : Cdiff neg 05/16, reviewed CT scan as above. # Post op ileus : resolved Medications, Abx #8 ertapenem 1gm IV daily, #5 Microbiology 05/09 blood (2) neg 05/12 sputum ESBL E coli Subjective: patient very cheerful. NGT gone no abdominal pain, no diarrhea, large BM this AM still NPO Objective: Vital Signs Temp Pulse Resp BP Pulse Ox 36.6 C 113 H 19 135/72 H 97 05/18/17 12:00 05/18/17 12:00 05/18/17 12:00 05/18/17 12:00 05/18/17 12:00 Laboratory Results 05/18/17 03:30 05/18/17 03:30 05/17/17 05/18/17 05/19/17 05:59 05:59 05:59 Intake Total 3754 3334 Output Total 3345 2375 Balance 409 959 - Physical Exam General Appearance: alert, no apparent distress EENT: pale conjunctiva, No scleral icterus Respiratory: coarse breath sounds, No accessory muscle use Cardiac/Chest: tachycardia Extremities: No pedal edema Abdomen: normal bowel sounds, non-tender, soft, other (dressing in place midline incision RLQ, urostomy bag with urine) Skin: warm/dry, No diaphoresis, No rash Neuro/Psych: alert, normal mood/affect, oriented x 3 ICD10 Worksheet Patient Problems: Problems Problem Status Onset Bladder cancer Acute 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 difficile diarrhea Acute ~11/26/16 Congestive heart failure Acute Fever Acute Hyponatremia Acute Thrombocytopenia Acute
--- NOTE | 2017-05-18 12:22 | WOCRNPDOC ---
LUCASCRJulia Advanced Assessment Note - Skin Integrity Problem, Advanced Assess Anterior Medial Abdomen Surgical Wound/Incision Dressing Type: Black Vac Foam, Wound Vac Exudate Amount: Scant Exudate Color: Reddish/Yellow Exudate Characteristic(s): Serosanguinous Integumentary Issue Intervention: Dressing Changed Rahel Wound Swelling: None Wound Bed Color: Red, Yellow Wound Bed Constitution: Granulation Tissue, Smooth Tissue, Subcutaneous Fat, Mixed Loose & Adhered Slough/Eschar Wound Edges: Epithelizing Site Odor: None Skin Integrity Problem Comment: Site assessed w/ Dr. Evans. Wound is granulating throughout in the proximal half. Distally, some subcutaneous fat is now necrotic, and there is well-adhered slough. Discrete, small hematoma noted along R lateral margin of wound; this was excised w/ scissors by Dr. Evans. Decision to return to Veraflo instillation therapy w/ Cleanse dressing to help loosen and debride slough. Periwound skin prepped and draped, and honey-combed vac sponge cut to fit over slough-filled areas in distal wound. Solid cleanse foam placed over this and in remainder of wound bed, 3 pieces of foam total. Track pad placed medially to allow cleansing solution to flow down across necrotic areas during instillation phase. Vac set to -125mmHg, w/ Veraflo settings as follows: 32mL instilled every 4 hours, for 8 minutes dwell time. Initiated instillation w/ Vashe solution (sodium chloride and hypochlorus acid) ; orders to switch to NS when solution runs out. Wound care will reassess on Sunday. Report given to assistant professor of forestry Laura.
--- NOTE | 2017-05-18 12:53 | SOAPPROG ---
SOAP Progress Note Assessment/Plan: Assessment: Post op cystectomy- stoma pink with clear urine in bag Midline incisional pain--tender Plan: Continue current care. Appreciate help from other providers. 05/18/17 12:48 05/18/17 12: Subjective: Midline incision pain Objective: Vital Signs Temp Pulse Resp BP Pulse Ox 36.6 C 113 H 19 135/72 H 97 05/18/17 12:00 05/18/17 12:00 05/18/17 12:00 05/18/17 12:00 05/18/17 12:00 Laboratory Results 05/18/17 03:30 05/18/17 03:30 05/17/17 05/18/17 05/19/17 05:59 05:59 05:59 Intake Total 3754 3334 Output Total 9875 3105 Balance 409 959 PT 18.3 SEC (12.0-15.0) H 05/14/17 03:45 INR 1.52 (0.83-1.16) H 05/14/17 03:45 Physical Exam - Physical Exam General Appearance: alert, no apparent distress Abdomen: soft, other (stoma pink with clear urine in bag. Midline incision TTP with mild erythema, no sign of overt infection. ) ICD10 Worksheet Patient Problems: Problems Problem Status Onset Bladder cancer Acute 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 difficile diarrhea Acute ~11/26/16 Congestive heart failure Acute Fever Acute Hyponatremia Acute Thrombocytopenia Acute
--- NOTE | 2017-05-18 16:14 | SOAPPROG ---
SOAP Progress Note Assessment/Plan: Assessment: 76yo M s/p cystoprostatectomy with ileal conduit and rigid sig for invasive bladder cancer. Returned to OR on 05/09/17 for lower wound evisceration. Intra-op, the bowel was distended without transition point, no obvious hernia Neuro - IV pain meds Resp - pneumonia GI - passing flatus and +BM. RNG removed FEN - TPN. Limit clear liquids to 16oz in 24 hours - conduit functioning. Wound - wound vac change MWF - veraflo Dispo - Continue inpatient. appreciate hospitalists. S:+BM. no pain or nausea. O: laying in bed, appears comfortable NG removed without difficulty Nasal cannula. No increased WOB Present BS. Softly distended. wound vac changed - slough in inferior base. veraflo initiated Conduit functioning SARAH serous Objective: Vital Signs Temp Pulse Resp BP Pulse Ox 36.6 C 108 H 31 H 135/72 H 89 L 05/18/17 12:00 05/18/17 14:29 05/18/17 14:29 05/18/17 12:00 05/18/17 14:29 Laboratory Results 05/18/17 03:30 05/18/17 03:30 05/17/17 05/18/17 05/19/17 05:59 05:59 05:59 Intake Total 3754 3334 Output Total 3345 2375 200 Balance 409 959 -200 PT 18.3 SEC (12.0-15.0) H 05/14/17 03:45 INR 1.52 (0.83-1.16) H 05/14/17 03:45 ICD10 Worksheet Patient Problems: Problems Problem Status Onset Bladder cancer Acute 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 difficile diarrhea Acute ~11/26/16 Congestive heart failure Acute Fever Acute Hyponatremia Acute Thrombocytopenia Acute
--- NOTE | 2017-05-18 16:45 | ASMTCMCOM ---
CM Note CM Note Notes: Chart reviewed stutus rodriguez. Wound vac changes three times a week, PNA. PT recommeending inpatient rehab, [facility] plummer. CM to follow. Date Signed: 05/18/2017 04:44 PM Electronically Signed By:Jessi Garcia RN
[2017-05-18] MEDS ORDERED: METOPROLOL SUCCINATE XR 50 MG TAB PO SCH (17:00)
--- NOTE | 2017-05-18 17:07 | HOSPPROG ---
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 * Wound dehiscence -wound vac * Ileus -NGT out today -start clears slowly per Dr. Evans * Rapid afib -now that he is taking some clears - will give home dose metoprolol XL in am -continue IV digoxin - not clear if he will need this detention once back on PO metoprolol -SQ lovenox - stroke prevention - change to Eliquis when PO established * Aspiration PNA with severe sepsis -ESBL E coli - IV invanz * ARF - suspect hypovolemic -IVF to matching NG output - creatinine improved Subjective: no new complaints. Objective: Vital Signs Temp Pulse Resp BP Pulse Ox 36.6 C 102 H 31 H 106/65 95 05/18/17 12:00 05/18/17 16:00 05/18/17 16:00 05/18/17 16:00 05/18/17 16:00 Laboratory Results 05/18/17 03:30 05/18/17 03:30 05/17/17 05/18/17 05/19/17 05:59 05:59 05:59 Intake Total 3754 3334 Output Total 3345 2375 200 Balance 409 959 -200 PT 18.3 SEC (12.0-15.0) H 05/14/17 03:45 INR 1.52 (0.83-1.16) H 05/14/17 03:45 d/w Dr. Curtis Freire - or for PCU CT abd/pelvis - no complication in bowel or with wound tele - afib, low 100s - Physical Exam Constitutional: no apparent distress, appears nourished, not in pain Cardiovascular: no murmur, rub, or gallop, irregularly irregular, No JVD, No edema Respiratory: no respiratory distress, no rales or rhonchi, clear to auscultation Gastrointestinal: normoactive bowel sounds, soft, non-tender abdomen, no palpable masses Skin: no rashes or abrasions, no fluctuance, no induration Neurologic: AAOx3, sensation intact bilaterally Psychiatric: interacting appropriately, not anxious, not encephalopathic, thought process linear ICD10 Worksheet Patient Problems: Problems Problem Status Onset Bladder cancer Acute 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 difficile diarrhea Acute ~11/26/16 Congestive heart failure Acute Fever Acute Hyponatremia Acute Thrombocytopenia Acute
[2017-05-18 19:03] LABS: ANION GAP 11 mEq/L (8-16); SODIUM 147 mEq/L (134-144)
[2017-05-18 19:18] LABS: POTASSIUM 4.1 mEq/L (3.5-5.2)
[2017-05-18] MEDS: TPN 1 EA BAG IV SCH (21:11)
[2017-05-18] MEDS: MOMETASONE IH SCH (21:38)
[2017-05-18] MEDS: FORMOTEROL IH SCH (21:38)
--- NOTE | 2017-05-18 21:53 | SOAPPROG ---
SOAP Progress Note Assessment/Plan: Assessment: OUt of ICU - looks better - NG out - no nausea tonight - TPN continues (agree strongly until nutritional status significantly improves - Alb currently 2.0, lowest since admission) Cr improving, BUN still mildly elevated O2 sats improved - less tachypnic ++Flatus and BM Wound vac looks good, debrided today w wound care No LE edema Nhan lovenox well - WBC 10.5, slight increase from yest Appreciate Gen Surg recs re PO intake - agree w these Anemic - moderate - likely due to chronic disease - will follow - platelets now normal Plan: as above 05/02/17 08:27 05/04/17 08:37 05/06/17 16:41 05/18/17 21:48 05/18/17 21:53 Objective: Vital Signs Temp Pulse Resp BP Pulse Ox 36.9 C 114 H 24 H 128/60 H 92 05/18/17 20:00 05/18/17 21:39 05/18/17 21:39 05/18/17 20:00 05/18/17 21:39 Laboratory Results 05/18/17 03:30 05/18/17 18:25 05/17/17 05/18/17 05/19/17 05:59 05:59 05:59 Intake Total 3754 3334 820 Output Total 3345 2375 1175 Balance 409 959 -355 PT 18.3 SEC (12.0-15.0) H 05/14/17 03:45 INR 1.52 (0.83-1.16) H 05/14/17 03:45 Physical Exam - Physical Exam EENT: PERRL/EOMI Neck: non-tender Respiratory: chest non-tender Cardiac/Chest: normal peripheral pulses Abdomen: normal bowel sounds, non-tender, soft Skin: normal color Extremities: normal range of motion ICD10 Worksheet Patient Problems: Problems Problem Status Onset Bladder cancer Acute 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 difficile diarrhea Acute ~11/26/16 Congestive heart failure Acute Fever Acute Hyponatremia Acute Thrombocytopenia Acute - ICD10 Problem Qualifiers (1) Bladder cancer
[2017-05-18] MEDS ORDERED: METOPROLOL TARTRATE 5 MG/5 ML INJ IVP ONE (22:00)
[2017-05-18] MEDS: LORazepam 2 MG/ML INJ IVP PRN (22:12)
[2017-05-19] MEDS: INSULIN REGULAR HUMAN 100 UNIT/ML SC SCH ×4 (00:15→18:20)
[2017-05-19] MEDS: LEVALBUTEROL 0.63 MG/3 ML DEYVIAL IH SCH ×3 (06:15→14:52)
[2017-05-19 06:17] LABS: ABSOLUTE NRBC COUNT 0.04 10^3/uL (0-0.01); ADD DIFF? YES; ADD MORPH? NO; ADD SCAN? NO; ATYPICAL LYMPHOCYTE FLAG 60 (0-99); FRAGMENT RBC FLAG 0 (0-99); HEMATOCRIT 30.5 % (40.0-51.0); HEMOGLOBIN 10.1 g/dL (13.7-17.5); LEFT SHIFT FLG 50 (0-99); LIPEMIA HEMOLYSIS FLAG 80 (0-99); MEAN CELL HEMOGLOBIN 33.4 pg (27.9-34.1); MEAN CELL HEMOGLOBIN CONCENTR. 33.1 g/dL (32.4-36.7); MEAN PLATELET VOLUME 11.1 fL (8.7-11.7); NRBC-AUTO% 0.3 % (0.0-0.2); PLATELET CLUMPS FLAG 0 (0-99); PLATELET COUNT 163 10^3/uL (150-400); RED BLOOD CELL COUNT 3.02 10^6/uL (4.40-6.38); RED CELL DISTRIBUTION WIDTH 15.7 % (11.5-15.2)
[2017-05-19 06:34] LABS: ANION GAP 12 mEq/L (8-16); CALCIUM 7.8 mg/dL (8.5-10.4); CARBON DIOXIDE 19 mEq/l (22-31); CHLORIDE 113 mEq/L (97-110); CREATININE 1.1 mg/dL (0.7-1.3); GLOMERULAR FILTRATION RATE > 60; GLUCOSE 102 mg/dL (70-100); MAGNESIUM 1.8 mg/dL (1.6-2.3); POTASSIUM 4.1 mEq/L (3.5-5.2); SODIUM 144 mEq/L (134-144)
[2017-05-19 06:46] LABS: MACROCYTES 1+; PLATELET ESTIMATE DECREASED (ADEQ)
[2017-05-19] MEDS: METOPROLOL SUCCINATE XR 50 MG TAB PO SCH (09:26)
[2017-05-19] MEDS: ENOXAPARIN 80 MG/0.8 ML SYR SC SCH ×2 (09:27→21:09)
[2017-05-19] MEDS ORDERED: HYDROmorphONE/DILAUDID 1 MG/ML INJ IVP PRN (09:38)
[2017-05-19] MEDS ORDERED: MAGNESIUM SULF 1 GM/DEXTROSE 100 ML IV ONE (10:04)
[2017-05-19] MEDS: Mometasone/Formoterol [Dulera 100 Mcg/5 Mcg Inhaler] 2 PUFFS IH SCH (10:12)
[2017-05-19] MEDS: ERTAPENEM 1 GM in NS 100 ML IV SCH (10:57)
[2017-05-19] MEDS: DIGOXIN 500 MCG/2 ML AMP IVP SCH (10:57)
[2017-05-19] MEDS: PANTOPRAZOLE SODIUM 40 MG TAB PO SCH (12:19)
--- NOTE | 2017-05-19 14:54 | HOSPPROG ---
Hospitalist Progress Note Assessment/Plan: DIAGNOSES: * Bladder cancer s/p cystoprostatectomy with ileal conduit * Wound dehiscence -wound vac * Ileus -start clears slowly per Dr. Evans * Rapid afib -Dig, metoprolol, lovenox -needs repeat dig level due to renal issues -eliquis at DC * Aspiration PNA with severe sepsis -ESBL E coli - IV invanz * ARF - suspect hypovolemic -IVF to matching NG output - creatinine improved Overall continues to make slow progress, no new acute issues today PLANS: -continue TPN, wound care, drain tubes -continue ambulation as able -diet per surgery -continue BB and lovenox for AFib, but need to check dig level now -continue current invanz for resp infection -follow renal fxn closely SUBJECTIVE: feels "ok" some pain w ambulation but feels adequate control no nausea or vomiting no fever sxs OBJECTIVE: vitals: stable no fever card monitor: exam: alert oriented relaxed skin warm dry resps easy lungs coarse but no wheeze heart irreg abd soft mild tenderness, wounds all look ok slight ankle edema labs reviewed renal fxn improving, a bit hyperchloremic Objective: Vital Signs Temp Pulse Resp BP Pulse Ox 36.6 C 105 H 22 H 126/69 H 96 05/19/17 11:46 05/19/17 11:46 05/19/17 11:46 05/19/17 11:46 05/19/17 11:46 Laboratory Results 05/19/17 06:05 05/19/17 06:05 05/18/17 05/19/17 05/20/17 06:59 06:59 06:59 Intake Total 3334 1070 Output Total 2375 1900 450 Balance 959 -830 -450 PT 18.3 SEC (12.0-15.0) H 05/14/17 03:45 INR 1.52 (0.83-1.16) H 05/14/17 03:45 ICD10 Worksheet Patient Problems: Problems Problem Status Onset Bladder cancer Acute 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 difficile diarrhea Acute ~11/26/16 Congestive heart failure Acute Fever Acute Hyponatremia Acute Thrombocytopenia Acute
--- NOTE | 2017-05-19 16:31 | SOAPPROG ---
SOAP Progress Note Assessment/Plan: Assessment: No nausea , ++Flatus and BMs - - TPN continues (agree strongly until nutritional status significantly improves - Alb currently 2.0, lowest since admission) Cr improving, BUN still mildly elevated O2 sats improved - less tachypnic ++Flatus and BM Wound vac looks good, debrided today w wound care No LE edema Nhan lovenox well - WBC 11.5, increasing - possible related to PNA, possible abd process, but abd soft, NT and CT yest was neg - appreciate ID input Appreciate Gen Surg recs re PO intake - agree w these Appreciate Hosp svc input as well - Anemic - moderate - likely due to chronic disease - will follow - platelets now normal Plan: as above 05/02/17 08:27 05/04/17 08:37 05/06/17 16:41 05/18/17 21:48 05/18/17 21:53 05/19/17 16:29 Objective: Vital Signs Temp Pulse Resp BP Pulse Ox 36.5 C 101 H 16 128/69 H 94 05/19/17 15:33 05/19/17 15:33 05/19/17 15:33 05/19/17 15:33 05/19/17 15:33 Laboratory Results 05/19/17 06:05 05/19/17 06:05 05/18/17 05/19/17 05/20/17 05:59 05:59 05:59 Intake Total 3334 1070 Output Total 2375 1900 700 Balance 959 -830 -700 PT 18.3 SEC (12.0-15.0) H 05/14/17 03:45 INR 1.52 (0.83-1.16) H 05/14/17 03:45 Physical Exam - Physical Exam EENT: PERRL/EOMI Neck: non-tender Respiratory: chest non-tender Cardiac/Chest: normal peripheral pulses Abdomen: normal bowel sounds, non-tender Skin: normal color Lymphatic: no adenopathy ICD10 Worksheet Patient Problems: Problems Problem Status Onset Bladder cancer Acute 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 difficile diarrhea Acute ~11/26/16 Congestive heart failure Acute Fever Acute Hyponatremia Acute Thrombocytopenia Acute - ICD10 Problem Qualifiers (1) Bladder cancer
[2017-05-19] MEDS: LORazepam 2 MG/ML INJ IVP PRN (21:06)
[2017-05-19] MEDS: TPN 1 EA BAG IV SCH (21:12)
[2017-05-19] MEDS: FORMOTEROL IH SCH (21:25)
[2017-05-19] MEDS: MOMETASONE IH SCH (21:25)
[2017-05-20] MEDS: INSULIN REGULAR HUMAN 100 UNIT/ML SC SCH ×4 (00:45→19:43)
[2017-05-20] MEDS: LEVALBUTEROL 0.63 MG/3 ML DEYVIAL IH SCH ×3 (05:20→21:45)
[2017-05-20 06:03] LABS: ANION GAP 8 mEq/L (8-16); CALCIUM 7.5 mg/dL (8.5-10.4); CARBON DIOXIDE 21 mEq/l (22-31); CHLORIDE 112 mEq/L (97-110); DIGOXIN 0.7 ng/mL (0.8-2.0); GLOMERULAR FILTRATION RATE > 60; GLUCOSE 86 mg/dL (70-100); MAGNESIUM 1.8 mg/dL (1.6-2.3); SODIUM 141 mEq/L (134-144)
[2017-05-20] MEDS ORDERED: MAGNESIUM SULF 1 GM/DEXTROSE 100 ML IV ONE (07:30)
[2017-05-20] MEDS: METOPROLOL SUCCINATE XR 50 MG TAB PO SCH (08:48)
[2017-05-20] MEDS: ENOXAPARIN 80 MG/0.8 ML SYR SC SCH ×2 (08:48→21:01)
[2017-05-20] MEDS: PANTOPRAZOLE SODIUM 40 MG TAB PO SCH (08:48)
--- NOTE | 2017-05-20 09:04 | SOAPPROG ---
SOAP Progress Note Assessment/Plan: Assessment/Plan: - 76yo M s/p ex-lap, washout and closure for abd evisceration - Abd soft today, VAC with active veraflo on place, plan change tomorrow - Having loose BMs, slowing. - Abd soft, exam reassuring. Will assess wound tomorrow at change, had some necrotic fat last change and will see the effects of the veraflo at that time. 05/20/17 09:03 Subjective: No complaints. Tolerating diet. Objective: Vital Signs Temp Pulse Resp BP Pulse Ox 36.7 C 101 H 26 H 116/66 89 L 05/20/17 08:17 05/20/17 08:48 05/20/17 08:17 05/20/17 08:48 05/20/17 08:17 Laboratory Results 05/19/17 06:05 05/20/17 05:15 05/19/17 05/20/17 05/21/17 05:59 05:59 05:59 Intake Total 1070 3556 120 Output Total 1900 1400 Balance -830 2156 120 PT 18.3 SEC (12.0-15.0) H 05/14/17 03:45 INR 1.52 (0.83-1.16) H 05/14/17 03:45 ICD10 Worksheet Patient Problems: Problems Problem Status Onset Bladder cancer Acute 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 difficile diarrhea Acute ~11/26/16 Congestive heart failure Acute Fever Acute Hyponatremia Acute Thrombocytopenia Acute
--- NOTE | 2017-05-20 10:07 | PCMIDPN ---
Assessment/Plan: # B lower lobe PNA, likely aspiration with associated sepsis, now much improved off O2 at rest, improving strength --last day of ertapenem today --call ID for additional questions # H/O cdiff, last test was negative, 05/16. give flagyl for 1 day past completion of ertapenem, MAR adjusted. # Post op ileus : resolved Medications, Abx #10 ertapenem 1gm IV daily, #7 metronidazole 500mg IV q12h Microbiology 05/09 blood (2) neg 05/12 sputum ESBL E coli Subjective: no diarrhea no itching or rash feeling much improved, cheerful Objective: Vital Signs Temp Pulse Resp BP Pulse Ox 36.7 C 101 H 26 H 116/66 89 L 05/20/17 08:17 05/20/17 08:48 05/20/17 08:17 05/20/17 08:48 05/20/17 08:17 Laboratory Results 05/19/17 06:05 05/20/17 05:15 05/19/17 05/20/17 05/21/17 05:59 05:59 05:59 Intake Total 1070 3556 120 Output Total 1900 1400 Balance -830 2156 120 - Physical Exam General Appearance: alert, no apparent distress EENT: pale conjunctiva, dry mucous membranes Respiratory: coarse breath sounds Cardiac/Chest: tachycardia Extremities: pedal edema Abdomen: non-tender, soft, other (LLQ urostomy with urine; midline incision with wound vac in place, slight pinkness at top of wound) Male Genitalia: No dowd Skin: No rash Neuro/Psych: alert, normal mood/affect, oriented x 3 ICD10 Worksheet Patient Problems: Problems Problem Status Onset Bladder cancer Acute 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 difficile diarrhea Acute ~11/26/16 Congestive heart failure Acute Fever Acute Hyponatremia Acute Thrombocytopenia Acute
[2017-05-20] MEDS: DIGOXIN 500 MCG/2 ML AMP IVP SCH (10:46)
[2017-05-20] MEDS: ERTAPENEM 1 GM in NS 100 ML IV SCH (10:46)
--- NOTE | 2017-05-20 11:36 | ASMTCMCOM ---
CM Note CM Note Notes: 05/20/2017 Case Management Note; Reviewed chart, spoke w/RN. TPN continues, d/c date unclear. PT continues to recommend Inpatient Rehab. Case management to follow. Date Signed: 05/20/2017 11:36 AM Electronically Signed By:Tara Flores RN
[2017-05-20] MEDS: Mometasone/Formoterol [Dulera 100 Mcg/5 Mcg Inhaler] 2 PUFFS IH SCH (12:20)
--- NOTE | 2017-05-20 17:24 | HOSPPROG ---
Hospitalist Progress Note Assessment/Plan: DIAGNOSES: * Bladder cancer s/p cystoprostatectomy with ileal conduit * Wound dehiscence -wound vac * Ileus -start clears slowly per Dr. Evans * Rapid afib -Dig, metoprolol, lovenox -needs repeat dig level due to renal issues -eliquis at DC * Aspiration PNA with severe sepsis -ESBL E coli - IV invanz * ARF - suspect hypovolemic -IVF to matching NG output - creatinine improved Overall continues to make slow progress, no new acute issues today PLANS: -continue TPN, wound care, drain tubes -continue ambulation as able -diet per surgery; appears he would be reasonable for advancing diet from IM perspective -continue BB and lovenox and digoxin for AFib -continue current invanz for resp infection, last day -follow renal fxn closely SUBJECTIVE: feels "ok" some pain w ambulation but feels adequate control no nausea or vomiting no fever sxs OBJECTIVE: vitals: stable no fever card monitor: exam: alert oriented relaxed skin warm dry resps easy lungs coarse but no wheeze heart irreg abd soft mild tenderness, wounds all look ok slight ankle edema dig levels ok Objective: Vital Signs Temp Pulse Resp BP Pulse Ox 35.8 C L 105 H 24 H 117/66 92 05/20/17 12:56 05/20/17 12:56 05/20/17 12:56 05/20/17 12:56 05/20/17 12:56 Laboratory Results 05/19/17 06:05 05/20/17 05:15 05/19/17 05/20/17 05/21/17 06:59 06:59 06:59 Intake Total 1070 3556 120 Output Total 1900 1400 200 Balance -830 2156 -80 PT 18.3 SEC (12.0-15.0) H 05/14/17 03:45 INR 1.52 (0.83-1.16) H 05/14/17 03:45 ICD10 Worksheet Patient Problems: Problems Problem Status Onset Bladder cancer Acute 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 difficile diarrhea Acute ~11/26/16 Congestive heart failure Acute Fever Acute Hyponatremia Acute Thrombocytopenia Acute
[2017-05-20] MEDS: TPN 1 EA BAG IV SCH (21:01)
[2017-05-20] MEDS: LORazepam 2 MG/ML INJ IVP PRN (21:25)
[2017-05-20] MEDS: MOMETASONE IH SCH (21:45)
[2017-05-20] MEDS: FORMOTEROL IH SCH (21:45)
[2017-05-21] MEDS: INSULIN REGULAR HUMAN 100 UNIT/ML SC SCH ×4 (00:03→17:48)
[2017-05-21] MEDS: LEVALBUTEROL 0.63 MG/3 ML DEYVIAL IH SCH ×3 (04:52→20:27)
[2017-05-21 05:43] LABS: ALANINE AMINOTRANSFERASE 33 IU/L (21-72); ALBUMIN 1.9 g/dL (3.5-5.0); ALKALINE PHOSPHATASE 74 IU/L (38-126); ANION GAP 6 mEq/L (8-16); ASPARTATE AMINOTRANSFERASE 20 IU/L (17-59); BILIRUBIN,TOTAL 0.2 mg/dL (0.1-1.4); CALCIUM 7.4 mg/dL (8.5-10.4); CARBON DIOXIDE 21 mEq/l (22-31); CHLORIDE 111 mEq/L (97-110); CREATININE 0.9 mg/dL (0.7-1.3); GLOMERULAR FILTRATION RATE > 60; GLUCOSE 89 mg/dL (70-100); MAGNESIUM 1.8 mg/dL (1.6-2.3); POTASSIUM 3.9 mEq/L (3.5-5.2); SODIUM 138 mEq/L (134-144); TOTAL PROTEIN 4.6 g/dL (6.3-8.2)
[2017-05-21] MEDS ORDERED: MAGNESIUM SULF 1 GM/DEXTROSE 100 ML IV ONE ×2 (05:52→10:00)
[2017-05-21 09:05] LABS: HEMOGLOBIN 8.9 g/dL (13.7-17.5); MEAN CELL HEMOGLOBIN 34.1 pg (27.9-34.1); MEAN CELL HEMOGLOBIN CONCENTR. 34.2 g/dL (32.4-36.7); MEAN CELL VOLUME 99.6 fL (81.5-99.8); RED BLOOD CELL COUNT 2.61 10^6/uL (4.40-6.38); RED CELL DISTRIBUTION WIDTH 15.3 % (11.5-15.2)
--- NOTE | 2017-05-21 10:16 | WOCRNPDOC ---
SHIRLEY Advanced Assessment Note - Skin Integrity Problem, Advanced Assess Anterior Medial Abdomen Surgical Wound/Incision Dressing Type: Black Vac Foam (Veraflo cleanse choice x 3 pieces), Wound Vac Dressing Description: Clean/Dry, Intact Closure Description: Retention Sutures Exudate Amount: Scant Exudate Characteristic(s): Bloody Integumentary Issue Intervention: Dressing Changed Wound Bed Color: Red, Yellow Wound Bed Constitution: Granulation Tissue (40%), Tunneling (2 cm superiorly at 12 oclock, 4 cm posteriorly at 6 oclock), Loose Slough (60%) Wound Edges: Attached Site Measurement - Head-to-Toe Length X Width X Depth (cm): 18x5.5x4 Skin Integrity Problem Comment: Shreya PEÑA in room for assessment. Due to tunnel at 6 oclock with possible fascial dehiscence vac was not replaced and a moist to dry was placed instead. Wound care will round again 05/23. Reminded ELIZABETH Soler that patient should be doing all of urostomy care himself with staff support including pouch changes and emptying pouch.
[2017-05-21] MEDS: Mometasone/Formoterol [Dulera 100 Mcg/5 Mcg Inhaler] 2 PUFFS IH SCH (10:35)
[2017-05-21] MEDS: METOPROLOL SUCCINATE XR 50 MG TAB PO SCH (10:43)
[2017-05-21] MEDS: DIGOXIN 125 MCG TAB PO SCH (10:43)
[2017-05-21] MEDS: ENOXAPARIN 80 MG/0.8 ML SYR SC SCH ×2 (10:43→20:23)
[2017-05-21] MEDS: PANTOPRAZOLE SODIUM 40 MG TAB PO SCH (10:43)
--- NOTE | 2017-05-21 11:35 | ASMTCMCOM ---
CM Note CM Note Notes: 05/21/2017 Case Management Note Met w/pt, and daughter to discuss SNF rehab options. Pt agreeable to need for SNF rehab if inpatient rehab does not accept pt. Inpatient rehab following patient progress. Family requested referrals to [facility], [facility] and [facility]. Faxed referrals. Today d/c options are: Inpatient rehab vs SNF rehab. Case Management will continue to follow for d/c planning. Date Signed: 05/21/2017 11:34 AM Electronically Signed By:Tara Flores RN
--- NOTE | 2017-05-21 13:12 | SOAPPROG ---
SOLIV Progress Note Assessment/Plan: Assessment: 76yo M s/p cystoprostatectomy with ileal conduit and rigid sig for invasive bladder cancer. Returned to OR on 05/09/17 for lower wound evisceration. Intra-op, the bowel was distended without transition point, no obvious hernia Neuro - transition to PO Resp - pneumonia GI - passing flatus and +BM FEN - TPN. advance diet - conduit functioning. Wound - wound vac change MWF - placed white sponge at inferior portion of incision Dispo - Continue inpatient. appreciate hospitalists. Also seen by Dr. Seymour S: no new complaints today. wants to try eating. not very hungry O: laying in bed, appears comfortable No increased WOB Present BS. Softly distended. wound vac changed - slough in inferior base. vac reapplied Conduit functioning Objective: Vital Signs Temp Pulse Resp BP Pulse Ox 36.6 C 93 18 110/51 L 93 05/21/17 12:47 05/21/17 12:47 05/21/17 12:47 05/21/17 12:47 05/21/17 12:47 Laboratory Results 05/21/17 09:00 05/21/17 05:00 05/20/17 05/21/17 05/22/17 05:59 05:59 05:59 Intake Total 3556 2406 200 Output Total 1400 1525 500 Balance 2156 881 -300 PT 18.3 SEC (12.0-15.0) H 05/14/17 03:45 INR 1.52 (0.83-1.16) H 05/14/17 03:45 ICD10 Worksheet Patient Problems: Problems Problem Status Onset Bladder cancer Acute 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 difficile diarrhea Acute ~11/26/16 Congestive heart failure Acute Fever Acute Hyponatremia Acute Thrombocytopenia Acute
--- NOTE | 2017-05-21 14:23 | HOSPPROG ---
Hospitalist Progress Note Assessment/Plan: Assessment: 76 yo M p/w bladder cancer requiring iloeconduit c/b sepsis, aspiration PNA, resp failure, BEV, Afib RVR, ileus Plan: * Bladder cancer s/p cystoprostatectomy with ileal conduit. Appreciate ongoing urology care * Wound dehiscence. Appreciate ongoing wound care/surgical mgmt by Dr. Evans/ Dawn - cont wound vac * Ileus. Post-operative, advancing diet per Urology - cont TPN today, but consider this to be final day depending on calorie count tomorrow, if adequate * Afib w/ RVR. Paroxysmal, reports prior provoked episode following CEA surgery, but has not had recent recurrence and was off anticoagulation 2/2 bleed - cont PO dig, increase PO metoprolol (HR 120s w/ ambulation, on tele, personally interpreted)) - cont lovenox, will d/w patient if he would like DOAC tomorrow * Aspiration PNA. Completed 7 day course of Invanz for ESBL E. coli * Severe sepsis. Evidenced by autonomic dysregulation in setting of infxn, qSOFA of 2, meeting all ICDS-2 and ICDS-3 criteria w/ fever/tachypnea/ tachycardia/leukocytosis/clear infxn/end-organ failure (respiratory, cardiac w/ elevated troponin, BEV), and PCT of 16 - s/p IVF and Abx, resolved * ARF. 2/2 sev sepsis and resultant hypoperfusion, peaked 2.7, downtrended * Acute hypoxic respiratory failure. Evidenced by visible resp distress + tachypnea (RR 40) + SpO2 88% and requiring 15LPM NRB face mask, ICU level care, 2/2 asp PNA * Chronic diastolic CHF. Cont to monitor volume status * Atelectasis. Acute, present on chest imaging (CXR), cont IS Diet. Adv per Urology PPx. High risk, on lovenox Code. Full Dispo. ADD uncertain, next 48hrs depending on nutritional needs, wound reassessment in AM High medical complexity patient, high risk worsening morbidity/mortality as outlined above. Subjective: patient reports general weakness w/ ambulation Objective: Vital Signs Temp Pulse Resp BP Pulse Ox 36.6 C 93 18 110/51 L 93 05/21/17 12:47 05/21/17 12:47 05/21/17 12:47 05/21/17 12:47 05/21/17 12:47 Laboratory Results 05/21/17 09:00 05/21/17 05:00 05/20/17 05/21/17 05/22/17 05:59 05:59 05:59 Intake Total 3556 2406 200 Output Total 1400 1525 650 Balance 2156 881 -450 PT 18.3 SEC (12.0-15.0) H 05/14/17 03:45 INR 1.52 (0.83-1.16) H 05/14/17 03:45 - Physical Exam Constitutional: no apparent distress, appears nourished, not in pain, chronically ill appearing, No uncomfortable Cardiovascular: irregularly irregular, tachycardia, No systolic murmur, No edema Respiratory: inspiratory crackles (bilat bases), No reduced air movement, No expiratory wheeze, No bronchial breath sounds Gastrointestinal: normoactive bowel sounds, distension (moderate), No tenderness , No guarding Neurologic: AAOx3, sensation intact bilaterally, No weakness (motor 5/5 bilat LE ) Psychiatric: interacting appropriately, not anxious, not encephalopathic, thought process linear ICD10 Worksheet Patient Problems: Problems Problem Status Onset Bladder cancer Acute 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 difficile diarrhea Acute ~11/26/16 Congestive heart failure Acute Fever Acute Hyponatremia Acute Thrombocytopenia Acute
[2017-05-21] MEDS ORDERED: METOPROLOL SUCCINATE XR 25 MG TAB PO ONE (14:49)
[2017-05-21] MEDS: TPN 1 EA BAG IV SCH (20:23)
[2017-05-21] MEDS: MOMETASONE IH SCH (20:27)
[2017-05-21] MEDS: FORMOTEROL IH SCH (20:27)
[2017-05-21] MEDS: LORazepam 2 MG/ML INJ IVP PRN ×2 (21:53→22:00)
[2017-05-22] MEDS: INSULIN REGULAR HUMAN 100 UNIT/ML SC SCH ×5 (01:15→23:54)
[2017-05-22] MEDS: LEVALBUTEROL 0.63 MG/3 ML DEYVIAL IH SCH ×2 (05:39→14:14)
[2017-05-22 06:43] LABS: % IMMATURE GRANULYOCYTES 2.2 % (0.0-1.1); ABSOLUTE IMMATURE GRANULOCYTES 0.16 10^3/uL (0.00-0.10); ADD DIFF? NO; ADD MORPH? NO; ADD SCAN? NO; ATYPICAL LYMPHOCYTE FLAG 60 (0-99); FRAGMENT RBC FLAG 0 (0-99); HEMATOCRIT 27.2 % (40.0-51.0); HEMOGLOBIN 8.9 g/dL (13.7-17.5); LEFT SHIFT FLG 20 (0-99); LIPEMIA HEMOLYSIS FLAG 80 (0-99); MEAN CELL HEMOGLOBIN 33.2 pg (27.9-34.1); MEAN CELL HEMOGLOBIN CONCENTR. 32.7 g/dL (32.4-36.7); MEAN CELL VOLUME 101.5 fL (81.5-99.8); PLATELET CLUMPS FLAG 10 (0-99); PLATELET COUNT 170 10^3/uL (150-400); RED BLOOD CELL COUNT 2.68 10^6/uL (4.40-6.38); RED CELL DISTRIBUTION WIDTH 15.4 % (11.5-15.2)
[2017-05-22 06:59] LABS: ANION GAP 6 mEq/L (8-16); CALCIUM 7.4 mg/dL (8.5-10.4); CARBON DIOXIDE 21 mEq/l (22-31); CHLORIDE 111 mEq/L (97-110); CREATININE 0.9 mg/dL (0.7-1.3); GLOMERULAR FILTRATION RATE > 60; GLUCOSE 99 mg/dL (70-100); POTASSIUM 3.9 mEq/L (3.5-5.2); SODIUM 138 mEq/L (134-144)
[2017-05-22] MEDS ORDERED: METOPROLOL TARTRATE 25 MG TAB PO SCH (08:00)
[2017-05-22] MEDS: ENOXAPARIN 80 MG/0.8 ML SYR SC SCH ×2 (09:23→21:00)
[2017-05-22] MEDS: DIGOXIN 125 MCG TAB PO SCH (09:23)
[2017-05-22] MEDS: PANTOPRAZOLE SODIUM 40 MG TAB PO SCH (09:23)
[2017-05-22] MEDS: Mometasone/Formoterol [Dulera 100 Mcg/5 Mcg Inhaler] 2 PUFFS IH SCH (10:17)
[2017-05-22] MEDS ORDERED: BISACODYL 10 MG SUPP PR PRN (11:39)
[2017-05-22] MEDS ORDERED: MAGNESIUM HYDROXIDE 30 ML UDCUP PO PRN (11:39)
[2017-05-22] MEDS ORDERED: LACTULOSE 20 GM/30 ML UDCUP PO PRN (11:39)
[2017-05-22] MEDS ORDERED: POLYETHYLENE GLYCOL 3350 17 GM PKT PO PRN (11:39)
--- NOTE | 2017-05-22 11:47 | SOAPPROG ---
SOAP Progress Note Assessment/Plan: Assessment: 76yo M s/p cystoprostatectomy with ileal conduit and rigid sig for invasive bladder cancer. Returned to OR on 05/09/17 for lower wound evisceration. Intra-op, the bowel was distended without transition point, no obvious hernia Neuro - transition to PO Resp - pneumonia. supplemental O2 GI - passing flatus and +BM. start bowel protocol FEN - wean TPN to off. regular diet - conduit functioning. Wound - wound vac change MWF - white sponge at inferior portion of incision Dispo - Continue inpatient. appreciate hospitalists. D/w Dr. Seymour S: feeling well today. walked with PT. eating well without pain, nausea or distension. O: sitting in chair, appears comfortable, accompanied by and daughter No increased WOB Present BS. Softly distended. wound vac to suction, no surrounding erythema. Conduit functioning Objective: Vital Signs Temp Pulse Resp BP Pulse Ox 36.8 C 90 26 H 111/60 84 L 05/22/17 11:41 05/22/17 11:41 05/22/17 11:41 05/22/17 11:41 05/22/17 11:41 Laboratory Results 05/22/17 06:15 05/22/17 06:15 05/21/17 05/22/17 05/23/17 05:59 05:59 05:59 Intake Total 2406 2302 120 Output Total 1525 1650 350 Balance 881 652 -230 PT 18.3 SEC (12.0-15.0) H 05/14/17 03:45 INR 1.52 (0.83-1.16) H 05/14/17 03:45 ICD10 Worksheet Patient Problems: Problems Problem Status Onset Bladder cancer Acute 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 difficile diarrhea Acute ~11/26/16 Congestive heart failure Acute Fever Acute Hyponatremia Acute Thrombocytopenia Acute
--- NOTE | 2017-05-22 13:45 | ASMTCMCOM ---
CM Note CM Note Notes: 05/22/2017 Case Management Note Spoke w/Amy from [facility] today who will accept pt provided IV abx and TPN are discontinued prior to d/c. Daughter of pt provides a dog for pet therapy at [facility]. [facility] is family first choice. [facility] plans to visit pt in hospital and make determination after visit.. Case Management d/c poc: To [facility] when medically stable. Case management to follow. Date Signed: 05/22/2017 01:44 PM Electronically Signed By:Tara Flores RN
[2017-05-22] MEDS ORDERED: LEVALBUTEROL 0.63 MG/3 ML DEYVIAL IH PRN (15:30)
--- NOTE | 2017-05-22 18:34 | HOSPPROG ---
Hospitalist Progress Note Assessment/Plan: Assessment: 76 yo M p/w bladder cancer requiring iloeconduit c/b sepsis, aspiration PNA, resp failure, BEV, Afib RVR, ileus Plan: * Bladder cancer s/p cystoprostatectomy with ileal conduit. Appreciate ongoing urology care * Wound dehiscence. Appreciate ongoing wound care/surgical mgmt by Dr. Evans/ Dawn, s/p OR on 05/09/17 for evisceration - cont wound vac w/ change MWF - will require ongoing wound vac at SNF, counseled patient/family regarding slow healing, patience * Ileus. Post-operative, advanced diet - cont TPN today, but stop after today's dosing to help improve appetite and increase enteric nutrition - counseled patient/family today regarding high protein/nutritious PO intake, patient favors solids * Afib w/ RVR. Paroxysmal, prior provoked episode following CEA surgery, but has not had recent recurrence and was off anticoagulation 2/2 falls in 2014 w/ sport activity - cont PO dig, increase PO metoprolol to 50mg bid (HR 120s w/ ambulation, on tele, personally interpreted) - cont lovenox, counseled patient that systemic anticoagulation indicated for CVA ppx, would rec that he at least consider restarting xarelto while he is sedentary for recovery, and can revisit discontinuing if/when he resumes prior vigorous physical exercise - patient would like to continue considering xarelto before committing, encouraged him to make a decision prior to DC * Aspiration PNA. Completed 7 day course of Invanz for ESBL E. coli, w/ overlap of metronidazole given CDiff hx - stopped metronidazole today, per ID * Severe sepsis. Evidenced by autonomic dysregulation in setting of infxn, qSOFA of 2, meeting all ICDS-2 and ICDS-3 criteria w/ fever/tachypnea/ tachycardia/leukocytosis/clear infxn/end-organ failure (respiratory, cardiac w/ elevated troponin, BEV), and PCT of 16 - s/p IVF and Abx, resolved * ARF. 2/2 sev sepsis and resultant hypoperfusion, peaked 2.7, downtrended * Acute hypoxic respiratory failure. Evidenced by visible resp distress + tachypnea (RR 40) + SpO2 88% and requiring 15LPM NRB face mask, ICU level care, 2/2 asp PNA * Chronic diastolic CHF. Cont to monitor volume status * Atelectasis. Acute, present on chest imaging (CXR), cont IS Diet. Encouraged to increase PPx. High risk, on lovenox Code. Full Dispo. ADD uncertain, next 48hrs depending on nutritional needs, wound reassessment in AM Subjective: patient w/ BMS via ostomy, no chest pain Objective: Vital Signs Temp Pulse Resp BP Pulse Ox 36.8 C 82 30 H 111/60 94 05/22/17 11:41 05/22/17 14:21 05/22/17 14:21 05/22/17 11:41 05/22/17 14:21 Laboratory Results 05/22/17 06:15 05/22/17 06:15 05/21/17 05/22/17 05/23/17 05:59 05:59 05:59 Intake Total 2406 2302 874 Output Total 1525 1650 850 Balance 881 652 24 PT 18.3 SEC (12.0-15.0) H 05/14/17 03:45 INR 1.52 (0.83-1.16) H 05/14/17 03:45 - Time Spent With Patient Time Spent with Patient: greater than 35 minutes Time Spent with Patient: Greater than 35 minutes spent on this patients care, greater than 50% of time spent counseling, educating, and coordinating care regarding the above mentioned plan. - Pending Discharge Pending Discharge Within 48 Hours: Yes Pending Discharge Date: 05/24/17 Pending Discharge Time: 11:00 - Physical Exam Constitutional: no apparent distress, not in pain, No uncomfortable Cardiovascular: tachycardia, No systolic murmur, No irregularly irregular, No edema Respiratory: inspiratory crackles (bilat bases on insp), No reduced air movement , No expiratory wheeze, No bronchial breath sounds Gastrointestinal: normoactive bowel sounds, distension (moderately), other (R ostomy, central wound) Neurologic: AAOx3, No facial droop Psychiatric: interacting appropriately, not anxious, not encephalopathic, thought process linear ICD10 Worksheet Patient Problems: Problems Problem Status Onset 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 difficile diarrhea Acute ~11/26/16 Fever Acute
[2017-05-22] MEDS: MOMETASONE IH SCH (20:19)
[2017-05-22] MEDS: FORMOTEROL IH SCH (20:19)
[2017-05-22] MEDS: METOPROLOL TARTRATE 25 MG TAB PO SCH ×2 (21:00→23:52)
[2017-05-23] MEDS: SENNOSIDES/DOCUSATE SODIUM TAB PO SCH ×3 (00:39→21:36)
[2017-05-23] MEDS: INSULIN REGULAR HUMAN 100 UNIT/ML SC SCH ×3 (04:23→14:04)
[2017-05-23 06:17] LABS: % IMMATURE GRANULYOCYTES 1.6 % (0.0-1.1); ABSOLUTE IMMATURE GRANULOCYTES 0.12 10^3/uL (0.00-0.10); ADD DIFF? NO; ADD MORPH? NO; ADD SCAN? NO; ATYPICAL LYMPHOCYTE FLAG 50 (0-99); FRAGMENT RBC FLAG 0 (0-99); HEMATOCRIT 28.7 % (40.0-51.0); HEMOGLOBIN 9.2 g/dL (13.7-17.5); LEFT SHIFT FLG 20 (0-99); LIPEMIA HEMOLYSIS FLAG 80 (0-99); MEAN CELL HEMOGLOBIN 33.1 pg (27.9-34.1); MEAN CELL HEMOGLOBIN CONCENTR. 32.1 g/dL (32.4-36.7); MEAN CELL VOLUME 103.2 fL (81.5-99.8); MEAN PLATELET VOLUME 10.4 fL (8.7-11.7); PLATELET CLUMPS FLAG 0 (0-99); PLATELET COUNT 193 10^3/uL (150-400); RED BLOOD CELL COUNT 2.78 10^6/uL (4.40-6.38); RED CELL DISTRIBUTION WIDTH 15.4 % (11.5-15.2)
[2017-05-23 06:33] LABS: ANION GAP 9 mEq/L (8-16); CALCIUM 7.8 mg/dL (8.5-10.4); CARBON DIOXIDE 18 mEq/l (22-31); CHLORIDE 111 mEq/L (97-110); GLOMERULAR FILTRATION RATE > 60; GLUCOSE 101 mg/dL (70-100); POTASSIUM 4.3 mEq/L (3.5-5.2); SODIUM 138 mEq/L (134-144)
[2017-05-23] MEDS: PANTOPRAZOLE SODIUM 40 MG TAB PO SCH (08:34)
[2017-05-23] MEDS: METOPROLOL TARTRATE 25 MG TAB PO SCH ×2 (08:34→21:35)
[2017-05-23] MEDS: DIGOXIN 125 MCG TAB PO SCH (08:34)
[2017-05-23] MEDS: ENOXAPARIN 80 MG/0.8 ML SYR SC SCH ×2 (08:34→21:36)
[2017-05-23] MEDS: Mometasone/Formoterol [Dulera 100 Mcg/5 Mcg Inhaler] 2 PUFFS IH SCH (09:52)
[2017-05-23] MEDS: ALBUTEROL 3 ML DEYVIAL IH PRN (10:06)
--- NOTE | 2017-05-23 14:12 | HOSPPROG ---
Hospitalist Progress Note Assessment/Plan: New Patient encounter 76 yo M p/w bladder cancer requiring iloeconduit c/b sepsis, aspiration PNA, resp failure, BEV, Afib RVR, ileus * Bladder cancer s/p cystoprostatectomy with ileal conduit. Appreciate ongoing urology care * Wound dehiscence. Appreciate ongoing wound care/surgical mgmt by Dr. Evans/ Dawn, s/p OR on 05/09/17 for evisceration - cont wound vac w/ change MWF - will require ongoing wound vac at SNF, counseled patient/family regarding slow healing, patience * Ileus. Post-operative, advanced diet -Off TPN. -Overall PO has increased * Afib w/ RVR. Paroxysmal, prior provoked episode following CEA surgery, but has not had recent recurrence and was off anticoagulation 2/2 falls in 2014 w/ sport activity - cont PO dig, increase PO metoprolol to 50mg bid - cont lovenox for now. He does not want Xarelto at this time or other AC upon discharge - will check an EKG to determine his current rhythm and electrical activity * Aspiration PNA. Completed 7 day course of Invanz for ESBL E. coli, w/ overlap of metronidazole given CDiff hx * Severe sepsis. Evidenced by autonomic dysregulation in setting of infxn, qSOFA of 2, meeting all ICDS-2 and ICDS-3 criteria w/ fever/tachypnea/ tachycardia/leukocytosis/clear infxn/end-organ failure (respiratory, cardiac w/ elevated troponin, BEV), and PCT of 16 - s/p IVF and Abx, resolved * ARF. 2/2 sev sepsis and resultant hypoperfusion, peaked 2.7, downtrended * Acute hypoxic respiratory failure. Evidenced by visible resp distress + tachypnea (RR 40) + SpO2 88% and requiring 15LPM NRB face mask, ICU level care, 2/2 asp PNA * Chronic diastolic CHF. Cont to monitor volume status * Atelectasis. Acute, present on chest imaging (CXR), cont IS Diet. Encouraged to increase PPx. High risk, on lovenox Code. Full Dispo. Overall he is improving. CM is looking into discharge options but likely tomorrow. Subjective: Eating better. NO CP or SOB. Does not want Xarelto Objective: Vital Signs Temp Pulse Resp BP Pulse Ox 36.8 C 84 18 113/69 95 05/23/17 12:00 05/23/17 12:00 05/23/17 12:00 05/23/17 12:00 05/23/17 12:00 Laboratory Results 05/23/17 06:00 05/23/17 06:00 05/22/17 05/23/17 05/24/17 05:59 05:59 05:59 Intake Total 2302 1114 Output Total 1650 1470 Balance 652 -356 PT 18.3 SEC (12.0-15.0) H 05/14/17 03:45 INR 1.52 (0.83-1.16) H 05/14/17 03:45 - Physical Exam Constitutional: chronically ill appearing Eyes: PERRL, anicteric sclera Ears, Nose, Mouth, Throat: moist mucous membranes, hearing normal Cardiovascular: regular rate and rhythym Respiratory: no respiratory distress Gastrointestinal: normoactive bowel sounds Skin: warm Neurologic: AAOx3 Psychiatric: interacting appropriately, not anxious, not encephalopathic ICD10 Worksheet Patient Problems: Problems Problem Status Onset Bladder cancer Acute 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 difficile diarrhea Acute ~11/26/16 Congestive heart failure Acute Fever Acute Hyponatremia Acute Thrombocytopenia Acute
--- NOTE | 2017-05-23 14:50 | WOCRNPDOC ---
SHIRLEY Advanced Assessment Note - Skin Integrity Problem, Advanced Assess Anterior Medial Abdomen Surgical Wound/Incision Dressing Type: Black Vac Foam (x1), White Vac Foam (x1), Wound Vac Dressing Description: Clean/Dry, Intact Closure Description: Retention Sutures Exudate Amount: Minimal Exudate Characteristic(s): Serosanguinous Integumentary Issue Intervention: Dressing Changed Wound Bed Constitution: Granulation Tissue (40%), Loose Slough (60%) Site Odor: Moderate, Pungent Skin Integrity Problem Comment: Wound bed improved since Sunday... with less slough though still a small area of fascial dehiscence at 6oclock. 12 oclock tunnel has closed down. Flushed with ns and cleaned with gauze. One piece of white foam to distal wound bed and covered with two pieces of black foam small simplace. Vac restarted at -125 mm Hg continuous suction. Patient's in room for change. MARIANA Garay visualized wound. Patti JHONSON in room and assisted with care. - Urostomy Assessment, Advanced Right Abdomen Urostomy Urostomy Appliance Intact: Yes Urostomy Appliance Currently in Use: Two Piece Flat, 2 1/4, Moldable Stoma Color: Red Stoma Turgor: Moist, Stents (x2) Stoma Shape: Round Stoma Height: Protruding Mucocutaneus Junction: Intact Urostomy Effluent: Urine Urostomy Details: Ileal Conduit Peristomal Skin: Intact Urostomy Comment/Treatment Details: Urostomy had been placed over vac drape and was compromised when vac dressing was removed. A new appliance was placed without issue after cleaning vonnie stomal skin. Asked ELIZABETH Little to clarify with Dr. davila when stents can be removed as they should be able to come out.
--- NOTE | 2017-05-23 16:18 | ASMTCMCOM ---
CM Note CM Note Notes: Chart reviewed. Met with and daughter. Patient has been accepted to [facility]. Slow progress advancing diet. Discussed at length care provided at [facility]. CM to follow, Date Signed: 05/23/2017 04:17 PM Electronically Signed By:Jessi Garcia RN
--- NOTE | 2017-05-23 17:26 | SOAPPROG ---
SOAP Progress Note Assessment/Plan: Assessment: 76yo M s/p cystoprostatectomy with ileal conduit and rigid sig for invasive bladder cancer. Returned to OR on 05/09/17 for lower wound evisceration. Intra-op, the bowel was distended without transition point, no obvious hernia Neuro - transition to PO Resp - pneumonia improved. supplemental O2 GI - passing flatus and +BM. full return of bowel function FEN - TPN off. regular diet - conduit functioning. Wound - wound vac change MWF - white sponge at inferior portion of incision Dispo - OK for discharge to SNF from wound perspective with close follow-up. will need hernia repair in the future, but this can be done electively down the road. D/w Dr. Seymour S: feeling well today. anxious for discharge. O: laying in bed, appears comfortable, accompanied by No increased WOB Present BS. Softly distended. wound vac removed. significantly less necrotic tissue in base of wound. no evidence of infection Conduit functioning Objective: Vital Signs Temp Pulse Resp BP Pulse Ox 36.4 C 89 20 111/69 92 05/23/17 15:34 05/23/17 15:34 05/23/17 15:34 05/23/17 15:34 05/23/17 15:34 Laboratory Results 05/23/17 06:00 05/23/17 06:00 05/22/17 05/23/17 05/24/17 05:59 05:59 05:59 Intake Total 2302 1114 Output Total 1650 1470 Balance 652 -356 PT 18.3 SEC (12.0-15.0) H 05/14/17 03:45 INR 1.52 (0.83-1.16) H 05/14/17 03:45 ICD10 Worksheet Patient Problems: Problems Problem Status Onset Bladder cancer Acute 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 difficile diarrhea Acute ~11/26/16 Congestive heart failure Acute Fever Acute Hyponatremia Acute Thrombocytopenia Acute
[2017-05-23] MEDS: LORazepam 2 MG/ML INJ IVP PRN ×2 (21:36→21:58)
[2017-05-23] MEDS: FORMOTEROL IH SCH (21:49)
[2017-05-23] MEDS: MOMETASONE IH SCH (21:49)
[2017-05-24 06:18] LABS: % IMMATURE GRANULYOCYTES 1.2 % (0.0-1.1); ABSOLUTE IMMATURE GRANULOCYTES 0.09 10^3/uL (0.00-0.10); ADD DIFF? NO; ADD MORPH? NO; ADD SCAN? NO; ATYPICAL LYMPHOCYTE FLAG 50 (0-99); FRAGMENT RBC FLAG 0 (0-99); LEFT SHIFT FLG 20 (0-99); LIPEMIA HEMOLYSIS FLAG 80 (0-99); MEAN CELL HEMOGLOBIN 33.2 pg (27.9-34.1); MEAN CELL HEMOGLOBIN CONCENTR. 32.1 g/dL (32.4-36.7); MEAN CELL VOLUME 103.3 fL (81.5-99.8); MEAN PLATELET VOLUME 10.7 fL (8.7-11.7); PLATELET CLUMPS FLAG 0 (0-99); PLATELET COUNT 206 10^3/uL (150-400); RED BLOOD CELL COUNT 2.71 10^6/uL (4.40-6.38); RED CELL DISTRIBUTION WIDTH 15.3 % (11.5-15.2)
[2017-05-24 06:44] LABS: ANION GAP 7 mEq/L (8-16); CALCIUM 7.9 mg/dL (8.5-10.4); CARBON DIOXIDE 21 mEq/l (22-31); CHLORIDE 110 mEq/L (97-110); GLOMERULAR FILTRATION RATE > 60; GLUCOSE 94 mg/dL (70-100); POTASSIUM 4.3 mEq/L (3.5-5.2); SODIUM 138 mEq/L (134-144)
[2017-05-24] MEDS: Mometasone/Formoterol [Dulera 100 Mcg/5 Mcg Inhaler] 2 PUFFS IH SCH (09:24)
--- NOTE | 2017-05-24 10:21 | HOSPPROG ---
Hospitalist Progress Note Assessment/Plan: 76 yo M p/w bladder cancer requiring iloeconduit s/p sepsis, s/p aspiration PNA , s/p resp failure, s/p BEV, s/p ileus. He has had full return of bowel function. He is off TPN. He is on a regular diet. He continues to have Afib which is rate controlled. He has been on Lovenox BID at therapeutic doses and the plan was to transition to Xarelto or other oral agent. He is requesting a Ranch [employer] consult to determine need for care home AC vs other alternatives. He wants to do this today prior to discharge. Plan: -Cards consult. I will notify -Pending Cards reccs, discharge per primary. * Bladder cancer s/p cystoprostatectomy with ileal conduit. * Wound dehiscence. Wound care/surgical mgmt by Dr. Evans/Dawn, s/p OR on 05/09/17 for evisceration - cont wound vac w/ change MWF - will require ongoing wound vac at [facility] * Ileus. Post-operative, -Off TPN. -Resolved * Afib w/ RVR. Paroxysmal, prior provoked episode following CEA surgery, but has not had recent recurrence and was off anticoagulation 2/2 falls in 2014 w/ sport activity - cont PO dig, increase PO metoprolol to 50mg bid - Cards to determine ongoing AC * Aspiration PNA. Completed 7 day course of Invanz for ESBL E. coli, w/ overlap of metronidazole given CDiff hx * Severe sepsis. Evidenced by autonomic dysregulation in setting of infxn, qSOFA of 2, meeting all ICDS-2 and ICDS-3 criteria w/ fever/tachypnea/ tachycardia/leukocytosis/clear infxn/end-organ failure (respiratory, cardiac w/ elevated troponin, BEV), and PCT of 16 - s/p IVF and Abx, resolved * s/p ARF. 2/2 sev sepsis and resultant hypoperfusion, peaked 2.7, downtrended * s/p Acute hypoxic respiratory failure. Evidenced by visible resp distress + tachypnea (RR 40) + SpO2 88% and requiring 15LPM NRB face mask, ICU level care, 2/2 asp PNA * Chronic diastolic CHF. Cont to monitor volume status. Euvolemic at this time Code. Full Subjective: Requesting a Cardiology consult. Does not want to make a decison regarding AC until seen by Cards. No CP or SOB Objective: Vital Signs Temp Pulse Resp BP Pulse Ox 36.5 C 104 H 30 H 106/71 91 L 05/24/17 07:00 05/24/17 10:07 05/24/17 09:28 05/24/17 07:00 05/24/17 10:07 Laboratory Results 05/24/17 06:00 05/24/17 06:00 05/23/17 05/24/17 05/25/17 05:59 05:59 05:59 Intake Total 1114 400 Output Total 1470 1000 450 Balance -356 -600 -450 PT 18.3 SEC (12.0-15.0) H 05/14/17 03:45 INR 1.52 (0.83-1.16) H 05/14/17 03:45 - Time Spent With Patient Time Spent with Patient: greater than 35 minutes Time Spent with Patient: Greater than 35 minutes spent on this patients care, greater than 50% of time spent counseling, educating, and coordinating care regarding the above mentioned plan. - Physical Exam Constitutional: no apparent distress Eyes: PERRL, EOMI Ears, Nose, Mouth, Throat: moist mucous membranes, hearing normal Cardiovascular: irregularly irregular Respiratory: no respiratory distress, no rales or rhonchi Gastrointestinal: normoactive bowel sounds, tenderness Skin: warm Neurologic: AAOx3 Psychiatric: interacting appropriately, not anxious, not encephalopathic ICD10 Worksheet Patient Problems: Problems Problem Status Onset Bladder cancer Acute 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 difficile diarrhea Acute ~11/26/16 Congestive heart failure Acute Fever Acute Hyponatremia Acute Thrombocytopenia Acute
[2017-05-24] MEDS: ENOXAPARIN 80 MG/0.8 ML SYR SC SCH ×2 (10:32→21:07)
[2017-05-24] MEDS: PANTOPRAZOLE SODIUM 40 MG TAB PO SCH (10:35)
[2017-05-24] MEDS: METOPROLOL TARTRATE 25 MG TAB PO SCH ×2 (10:35→21:07)
[2017-05-24] MEDS: DIGOXIN 125 MCG TAB PO SCH (10:35)
[2017-05-24] MEDS: SENNOSIDES/DOCUSATE SODIUM TAB PO SCH ×2 (10:36→21:08)
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
--- NOTE | 2017-05-24 18:25 | SOAPPROG ---
SOAP Progress Note Assessment/Plan: Assessment: No nausea , ++Flatus and BMs - - ++Flatus and BM Wound vac looks good, hernia should be addressed after better healed No LE edema Nhan lovenox well - WBC normal Appreciate Gen Surg r Appreciate Hosp svc input as well - Anemic - moderate - likely due to chronic disease - will follow - platelets now normal Plan: DC to SNF on sunday - 05/02/17 08:27 05/04/17 08:37 05/06/17 16:41 05/18/17 21:48 05/18/17 21:53 05/19/17 16:29 05/24/17 18:24 Objective: Vital Signs Temp Pulse Resp BP Pulse Ox 37.1 C 97 12 103/60 92 05/24/17 15:56 05/24/17 15:56 05/24/17 15:56 05/24/17 15:56 05/24/17 15:56 Laboratory Results 05/24/17 06:00 05/24/17 06:00 05/23/17 05/24/17 05/25/17 05:59 05:59 05:59 Intake Total 1114 400 300 Output Total 1470 1000 700 Balance -356 -600 -400 PT 18.3 SEC (12.0-15.0) H 05/14/17 03:45 INR 1.52 (0.83-1.16) H 05/14/17 03:45 Physical Exam - Physical Exam EENT: PERRL/EOMI Neck: non-tender Respiratory: chest non-tender Cardiac/Chest: normal peripheral pulses Abdomen: normal bowel sounds Skin: normal color Lymphatic: no adenopathy ICD10 Worksheet Patient Problems: Problems Problem Status Onset Bladder cancer Acute 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 difficile diarrhea Acute ~11/26/16 Congestive heart failure Acute Fever Acute Hyponatremia Acute Thrombocytopenia Acute - ICD10 Problem Qualifiers (1) Bladder cancer
--- NOTE | 2017-05-24 19:04 | GPROG ---
[f rep st] PROGRESS NOTE DATE OF SERVICE: 05/22/2017 ASSESSMENT: Bladder cancer, status post cystoprostatectomy with ileal conduit improving, with bowel function improving, BMs and flatus are ongoing. Continue wound VAC. We will require ongoing wound V AC at SNF. I agree with General Surgery on this avoid OR from here on out until completely back to n ormal. Ileus is improving. Advancing diet with TPN as well. SUBJECTIVE: BMs occurring. Diet improving. Overall, patient looks better. Heart rate is lower. OBJECTIVE: Afebrile. Pulse is 82, respiratory rate 30, blood pressure is 111/60, pulse 94. LAB DATA: H and H is 9 and 27. Creatinine is 0.9. White count is 7.3. /[id number]/MODL
--- NOTE | 2017-05-24 19:09 | GPROG ---
[f rep st] PROGRESS NOTE DATE OF SERVICE: 05/23/2017 ASSESSMENT AND PLAN: A 76-year-old male, status post cystoprostatectomy with ileal conduit, and jeferson re ileus leading to wound evisceration and need for intraoperative repair. OBJECTIVE: NEUROLOGIC: Alert and oriented x3. RESPIRATORY: Pneumonia is improved. GI: Passing f latus plus BM. Tolerating NG out. FEN: TPN off, regular diet. GENITOURINARY: Conduit is functioni ng. WOUND: Wound VAC change. VITAL SIGNS: Afebrile. Pulse 89, respiratory rate 20, blood pressur e 111/69, pulse ox 92. LABS: H and H are 9.2 and 29, white count 7.6, creatinine 1. DISPOSITION: Locate a [facility] facility, with close followup. Likely, discharge to SNF on . Will discuss with Case Management. SUBJECTIVE: Feeling well. Interested in going home, likely Sunday. /[id number]/MODL
--- NOTE | 2017-05-24 19:14 | GPROG ---
[f rep st] PROGRESS NOTE DATE OF SERVICE: 05/21/2017 ASSESSMENT: A 76-year-old male with bladder cancer requiring cystoprostatectomy and ileal conduit, s tatus post sepsis, aspiration pneumonia, improving substantially. PLAN: Wound dehiscence managed with Dr. Evans and wound VAC. This will heal slowly, as long as his albumin is so low. Ileus, advancing diet per Urology. We will continue TPN, but tolerating foods. Much improved atrial fibrillation per hospitalist and Cardiology, appreciate their support. Aspirati on pneumonia improved. ESBL E. coli much improved. Severe sepsis has improved substantially, doing well. SUBJECTIVE: He is feeling well, passing flatus and BMs. He is pleased, as am I. Weakness with ambu lation. OBJECTIVE: Afebrile, pulse 93, respiratory rate 18, blood pressure 110/51, pulse ox 93. H and H is 9 and 26, creatinine is 0.9. GENERAL: Acute distress. HEART: Rate is irregularly irregular. RESP IRATORY: No retractions. Inspiratory crackles. GASTROINTESTINAL: Abdomen is moderately distended, nontender. Wound VAC is working. NEUROLOGIC: Alert and oriented x3. PSYCHIATRIC: Interacting ap propriately. Normal mood and affect. /[id number]/MODL
--- NOTE | 2017-05-24 20:19 | GPROG ---
[f rep st] PROGRESS NOTE DATE OF SERVICE: 05/20/2017 ASSESSMENT: Bladder cancer, status post cystoprostatectomy with ileal conduit, with wound dehiscence . Ileus that seems to be slowly improving. Continue nasogastric tube. Rapid atrial fibrillation. Aspiration pneumonia with severe sepsis, now on intravenous Invanz and tolerating well. Respiratory failure is improving. SUBJECTIVE: Feeling well; feels better but not great. Desires NG tube out. OBJECTIVE: VITAL SIGNS: Stable. No fever. Temperature is 35.8, pulse 105, respiratory rate 24, bl ood pressure is 117/63, pulse ox 92%. SKIN: Warm and dry. RESPIRATORY: No retractions on pulmonar y. CHEST: Irregular rhythm, irregular pulse, no cyanosis. ABDOMEN: Soft, distended. Incisions lo ok okay. Wound VAC is functioning. EXTREMITIES: Negative ankle edema. LABS: Creatinine is 1.0. White count is normal, it was 11.6 yesterday. I's and O's are reasonable. PLAN: Diet per sips, will advance diet when more flatus occurs and more BMs. Follow renal function. Tolerating Invanz. Continue current medications. Appreciate Hospitalist, General Surgery and Card iology support. /[id number]/MODL
[2017-05-24] MEDS: LORazepam 2 MG/ML INJ IVP PRN (21:19)
[2017-05-24] MEDS: MOMETASONE IH SCH (21:22)
[2017-05-24] MEDS: FORMOTEROL IH SCH (21:22)
[2017-05-25 08:00] VITALS: BP 112/72; TEMP 97.9
[2017-05-25] MEDS: FORMOTEROL IH SCH (08:34)
[2017-05-25] MEDS: MOMETASONE IH SCH (08:34)
[2017-05-25 08:41] VITALS: RESP 16; O2SAT 93
[2017-05-25 09:31] VITALS: PULSE 91
[2017-05-25] MEDS: ENOXAPARIN 80 MG/0.8 ML SYR SC SCH (09:53)
[2017-05-25] MEDS: METOPROLOL TARTRATE 25 MG TAB PO SCH (09:55)
[2017-05-25] MEDS: DIGOXIN 125 MCG TAB PO SCH (09:56)
[2017-05-25] MEDS: PANTOPRAZOLE SODIUM 40 MG TAB PO SCH (09:56)
[2017-05-25] MEDS: SENNOSIDES/DOCUSATE SODIUM TAB PO SCH (10:02)
--- NOTE | 2017-05-25 10:38 | HOSPPROG ---
Hospitalist Progress Note Assessment/Plan: 76 yo M p/w bladder cancer requiring iloeconduit s/p sepsis, s/p aspiration PNA , s/p resp failure, s/p BEV, s/p ileus. He has had full return of bowel function. He is off TPN. He is on a regular diet. He continues to have Afib which is rate controlled on Digoxin and Metoprolol. For AC he will continue on Lovenox BID and f/u with Cardiology. He is ready for discharge from medicine's perspective * Bladder cancer s/p cystoprostatectomy with ileal conduit. * Wound dehiscence. Wound care/surgical mgmt by Dr. Evans/Dawn, s/p OR on 05/09/17 for evisceration - cont wound vac w/ change MWF - will require ongoing wound vac at [facility] * Ileus. Post-operative, -Off TPN. -Resolved * Afib w/ RVR. Paroxysmal, prior provoked episode following CEA surgery, but has not had recent recurrence and was off anticoagulation 2/2 falls in 2014 w/ sport activity - cont PO dig, metoprolol 50mg bid - Lovenox at therapeutic dosing until f/u with Cards * Aspiration PNA. Completed 7 day course of Invanz for ESBL E. coli, w/ overlap of metronidazole given CDiff hx * Severe sepsis. Evidenced by autonomic dysregulation in setting of infxn, qSOFA of 2, meeting all ICDS-2 and ICDS-3 criteria w/ fever/tachypnea/ tachycardia/leukocytosis/clear infxn/end-organ failure (respiratory, cardiac w/ elevated troponin, BEV), and PCT of 16 - s/p IVF and Abx, resolved * s/p ARF. 2/2 sev sepsis and resultant hypoperfusion, peaked 2.7, downtrended * s/p Acute hypoxic respiratory failure. Evidenced by visible resp distress + tachypnea (RR 40) + SpO2 88% and requiring 15LPM NRB face mask, ICU level care, 2/2 asp PNA * Chronic diastolic CHF. Cont to monitor volume status. Euvolemic at this time Code. Full Subjective: Wants to discharge. No CP or SOB. Objective: Vital Signs Temp Pulse Resp BP Pulse Ox 36.6 C 91 16 112/72 93 05/25/17 07:54 05/25/17 09:30 05/25/17 08:35 05/25/17 07:54 05/25/17 08:35 Laboratory Results 05/24/17 06:00 05/24/17 06:00 05/24/17 05/25/17 05/26/17 05:59 05:59 05:59 Intake Total 400 1260 Output Total 1000 2000 500 Balance -600 -740 -500 PT 18.3 SEC (12.0-15.0) H 05/14/17 03:45 INR 1.52 (0.83-1.16) H 05/14/17 03:45 - Physical Exam Constitutional: no apparent distress Eyes: PERRL Ears, Nose, Mouth, Throat: moist mucous membranes Cardiovascular: irregularly irregular Respiratory: no respiratory distress, no rales or rhonchi, clear to auscultation Gastrointestinal: normoactive bowel sounds, soft, non-tender abdomen Skin: warm Neurologic: AAOx3 Psychiatric: interacting appropriately, not anxious, not encephalopathic ICD10 Worksheet Patient Problems: Problems Problem Status Onset Bladder cancer Acute 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 difficile diarrhea Acute ~11/26/16 Congestive heart failure Acute Fever Acute Hyponatremia Acute Thrombocytopenia Acute
--- NOTE | 2017-05-25 14:02 | WOCRNPDOC ---
SHIRLEY Advanced Assessment Note - Skin Integrity Problem, Advanced Assess Anterior Medial Abdomen Surgical Wound/Incision Dressing Type: Black Vac Foam (1 piece), White Vac Foam (1 piece), Wound Vac Dressing Description: Intact Closure Description: Retention Sutures (over fascia) Exudate Amount: Minimal Exudate Color: Reddish/Yellow Exudate Characteristic(s): Serosanguinous Integumentary Issue Intervention: Dressing Changed Rahel Wound Tissue: Intact Rahel Wound Swelling: None Wound Bed Color: Red, Yellow Wound Bed Constitution: Granulation Tissue (50%), Tunneling (0.7 cm at 6 o'clock ), Adhered Slough (50%) Wound Edges: Epithelizing Site Odor: None Skin Integrity Problem Comment: Assessed wound at bedside w/ Dr. Evans and MARIANA Murray. Sutures in medial aspect of wound bed were loose;Dr. Evans tightened them down over the fascia. Bottom half of wound comprised of adhered, stringy slough medially; trace amounts were removed w/ forceps by Dr. Evans. Remaining margins and upper half of wound comprised of beefy, red granulation tissue. There is a small tunneling area the the very distal aspect of the wound , which probes to 0.7cm. Periwound skin is intact w/ no erythema or swelling. Wound cleansed w/ NS and gauze,and periwound skin prepped and draped. One piece of white vac foam was placed over tunnel in distal aspect of wound; remianing wound bed was covered w/ 2 pieces of black [place] foam. Vac settings continue at -125mmHg, low, continuous suction; no leaks. Student ELIZABETH Encarnacion in room and assisting during dressing change. report given to rv repairerELIZABETH Little. Wound and urostomy care orders updated in patient's discharge instructions. - Urostomy Assessment, Advanced Right Abdomen Urostomy Urostomy Appliance Intact: Yes Urostomy Appliance Currently in Use: Two Piece Flat, 2 1/4, Moldable Stoma Color: Red Stoma Turgor: Moist, Stents Stoma Shape: Round Stoma Height: Protruding Urostomy Effluent: Urine Urostomy Details: Ileal Conduit Urostomy Comment/Treatment Details: Pouching system changed yesterday, so wafer was not removed and peristomal skin was not assessed today. Stents remain intact and patent; per patient notes, Dr. Daley is following this patient closely. Went over teaching today with his Windy, who wanted to know if patient could transition to a 1-piece system. I gave her samples for him to try of 3 different one-piece pouching systems. We discussed the need for the bedside drainage bag at night, due to patient's inability to be able to detect when he needs to void. Explained that allowing the pouch to fill too full can result in pulling the barrier away from the skin, causing leakage. I provided her w/ an adapter to connect the drainage bag to the pouch spout. Windy attended the [facility] ostomy support group yesterday, and said it was very helpful and informative. I encouraged her to reach out to [facility] if she or the patient encounter any problems with his urostomy when he returns home.
--- NOTE | 2017-05-25 14:18 | ASMTCMCOM ---
CM Note CM Note Notes: Pt is being discharged to [facility] today. CM spoke w/ Yuly from [facility] and communicated w/ her the d/c POC yesterday. [facility] will be setting up a wheelchair transport. ANDREY provided ELIZABETH Little w/ phone number to [facility] to give report. CM sent over d/c orders to [facility]. CM available for changes. Date Signed: 05/25/2017 02:17 PM Electronically Signed By:YAZMIN Brooks
--- NOTE | 2017-05-25 14:43 | PDIAF ---
- Diagnosis Diagnosis: [facility] Code Status: Full Code - Medication Management Discharge Medications: Medications to Continue on Transfer Mometasone/Formoterol [Dulera 100 Mcg/5 Mcg Inhaler] 1 puffs IH HS 12/21/16 [ Last Taken 04/30/17 05:00] Montelukast Sodium [Singulair 10 mg (*)] 10 mg PO DAILY 12/21/16 [Last Taken 10/13 05:00] Probenecid [Probenecid 500mg (*)] 500 mg PO DAILY 12/22/16 [Last Taken 05/01/17 05:00] Spironolactone [Aldactone 25 MG (*)] 25 mg PO Q2D 12/22/16 [Last Taken 04/30/17 09:00] Furosemide [Lasix 40 MG (*)] 60 mg PO DAILY 04/12/17 [Last Taken 04/30/17 10:00] Herbals/Supplements -Info Only 1 ea PO DAILY 04/12/17 [Last Taken 04/25/17] Metoprolol Succinate Xr [Toprol Xl 50 mg (*)] 50 mg PO DAILY 04/12/17 [Last Taken 05/01/17 05:00] Rosuvastatin Calcium [Crestor 20mg (*)] 20 mg PO DAILY 04/12/17 [Last Taken 09/15 22:00] Albuterol Sulfate [Proair Respiclick] 1 puffs IH PRN PRN 05/02/17 [Last Taken Unknown] Mometasone/Formoterol [Dulera 100 Mcg/5 Mcg Inhaler] 2 puffs IH DAILY 05/02/17 [ Last Taken Unknown] Discharge Medications: Refer to the Discharge Home Medication list for PRN reason. - Orders Services needed: Registered Nurse (for wound care), Physical Therapy, Occupational Therapy - Follow Up Care Current Providers and Referrals: Abilio Hernandez MD [Medical Doctor] - 06/07/17 9:15 am Sofia Abarca MD [Primary Care Provider] - Mindi Evans MD [Medical Doctor] - follow up in 2 weeks
--- NOTE | 2017-05-25 16:54 | ASDISCHSUM ---
Discharge Information Plan Status:SNF Medically Cleared to Leave:05/25/2017 Discharge Date:05/25/2017 04:19 PM D/C Disposition:[facility] Care Facility ADT D/C Disposition:Senior Care Facility Projected Discharge Date:05/25/2017 11:00 AM Transportation at D/C:Wheelchair Van Discharge Delay Reason: Follow-Up Date:05/25/2017 11:00 AM Discharge Slot: Final Diagnosis: Placement Information Referral Type:*Home Health Care Services Referral ID:[id number] Provider Name: Address 1: Phone Number: Address 2: Fax Number: City: Selection Factors: State: Referral Type:*Fdc/SNF Referral ID:[id number] Provider Name:[facility] Address 1:[address] Address 2: City:[place] Selection Factors: State:[place] Patient Contact Information Contact Name:LUCAS Relationship: Address:[address] Work Phone: City:[facility] Phone: State/Zip Code:[place] [address] Email: Financial Information Financial Class:Medicare Advantage Plans Primary Plan Desc:Business e via [place] [facility] [employer] Primary Plan Number:[id number] Secondary Plan Desc: Secondary Plan Number: Assessment Information [facility] CM Progress Note CM Note CM Note Notes: Pt. is a 76-year-old man admitted for surgery related to his bladder cancer. Has new ostomy. No PT/OT ordered. Appears Pt. is quite independent normally. Pt. lives w/ his , Windy. MDPOA printed and placed in hard chart. Windy is first decision-maker. SW to follow for d/c plan of care. Pt. likely to be independent at d/c Date Signed: 05/02/2017 02:44 PM Electronically Signed By:Milady Aguilar LCSW [facility] CM Progress Note CM Note CM Note Notes: Pt with hx of bladder ca admitted for cystoprostatectomy with ostomy placement. Pt will need supplies ordered. order is in chart awaiting Dr Daley's signature. Pt will also need a HC RN at [facility]. Gave pt and dtr a list of agencies. They want to wait until pt's comes to see if she has a choice. C/M to follow. Date Signed: 05/03/2017 12:43 PM Electronically Signed By:Bhavya Cortes LCSW [facility] CM Progress Note CM Note CM Note Notes: Pt and chose [facility] for HC RN. Alerted [facility] and faxed referral. Dr Jaramillo also signed order for ostomy supplies which was faxed. C/M will continue to follow. Date Signed: 05/04/2017 04:05 PM Electronically Signed By:Bhavya Cortes LCSW [facility] CM Progress Note CM Note CM Note Notes: Reviewed chart re: d/c poc, pt's progress. Pt w/ new onset paroxysmal afib, HR 150's. Pt cont to have an ileus, currently NPO, NG in place. [facility] (RN) previously arranged for discharge. CM will cont to follow. Date Signed: 05/05/2017 02:21 PM Electronically Signed By:Susan Quiñones RN [facility] CM Progress Note CM Note CM Note Notes: Reviewed chart re: pt's progress. Pt seen by product sales engineer today for urostomy teaching. Per MD notes, ileus persists, slow to resolve, wound w/ minimal drainage. Call placed to Lisa, RN at [facility] w/ update on pt's need; October confirmed [facility] is able to accept when pt ready for d/c. CM will cont to follow. Date Signed: 05/06/2017 03:09 PM Electronically Signed By:Susan Quiñones RN [facility] CM Progress Note CM Note CM Note Notes: 05/09/2017 Case Management Note: Spoke w/RN and reviewed chart. Pt d/c needs and date remain unclear. Pt to OR today for abdominal wound vac change. Case Management d/c poc: To be determined. Case Management will need PT evals to assess d/c needs for patient. Case Management to follow. 05/06/2017 CM Note by Susan Quiñones Reviewed chart re: pt's progress. Pt seen by product sales engineer today for urostomy teaching. Per MD notes, ileus persists, slow to resolve, wound w/ minimal drainage. Call placed to October, RN at [facility] w/ update on pt's need; October confirmed [facility] is able to accept when pt ready for d/c. CM will cont to follow. Date Signed: 05/09/2017 12:14 PM Electronically Signed By:Tara Flores RN [facility] CM Progress Note CM Note CM Note Notes: PT/OT evals still pending. Currently on 12L O2. Wound vac change scheduled for 05/14. CM will continue to follow for d/c needs. Date Signed: 05/11/2017 03:18 PM Electronically Signed By:JACQUIE Celis [facility] CM Progress Note CM Note CM Note Notes: Patient continues to have Afib/Flutter, L LL PNA, gets wound vac changes MWF. Therapies working with patient recommending HC with 24 hr supervision vs in-pt rehab. CM to follow for discharge needs. Date Signed: 05/14/2017 03:54 PM Electronically Signed By:Sarah Francsico LCSW [facility] Length of stay for Answers: 14 days or more current admission Acuity / Level of Care Answers: No. Comorbidities - select Answers: Congestive heart failure all that apply Any tumor (including lymphoma or leukemia) Emergency dept visits in Answers: 1 last 6 months Score: 12 Date Signed: 05/18/2017 04:42 PM Electronically Signed By:Jessi Garcia RN BC CM Progress Note CM Note CM Note Notes: Chart reviewed eileen rodriguez. Wound vac changes three times a week, PNA. PT recommeending inpatient rehab, [facility] plummer. CM to follow. Date Signed: 05/18/2017 04:44 PM Electronically Signed By:Jessi Garcia RN BC CM Progress Note CM Note CM Note Notes: 05/20/2017 Case Management Note; Reviewed chart, spoke w/RN. TPN continues, d/c date unclear. PT continues to recommend Inpatient Rehab. Case management to follow. Date Signed: 05/20/2017 11:36 AM Electronically Signed By:Tara Flores RN BC CM Progress Note CM Note CM Note Notes: 05/21/2017 Case Management Note Met w/pt, and daughter to discuss SNF rehab options. Pt agreeable to need for SNF rehab if inpatient rehab does not accept pt. Inpatient rehab following patient progress. Family requested referrals to [facility], [facility] and [facility]. Faxed referrals. Today d/c options are: Inpatient rehab vs SNF rehab. Case Management will continue to follow for d/c planning. Date Signed: 05/21/2017 11:34 AM Electronically Signed By:Tara Flores RN [facility] ANDREY Progress Note CM Note CM Note Notes: 05/22/2017 Case Management Note Spoke w/Amy from [facility] today who will accept pt provided IV abx and TPN are discontinued prior to d/c. Daughter of pt provides a dog for pet therapy at [facility]. [facility] is family first choice. [facility] plans to visit pt in hospital and make determination after visit.. Case Management d/c poc: To [facility] when medically stable. Case management to follow. Date Signed: 05/22/2017 01:44 PM Electronically Signed By:Tara Flores RN [facility] CM Progress Note CM Note CM Note Notes: Chart reviewed. Met with and daughter. Patient has been accepted to [facility]. Slow progress advancing diet. Discussed at length care provided at [facility]. ANDREY to follow, Date Signed: 05/23/2017 04:17 PM Electronically Signed By:Jessi Garcia RN [facility] Progress Note CM Note CM Note Notes: Pt is being discharged to [facility] today. CM spoke w/ Yuly from [facility] and communicated w/ her the d/c POC yesterday. [facility] will be setting up a wheelchair transport. CM provided ELIZABETH Little w/ phone number to [facility] to give report. CM sent over d/c orders to [facility]. CM available for changes. Date Signed: 05/25/2017 02:17 PM Electronically Signed By:YAZMIN Brooks Intervention Information Intervention Type:*IM-Signed Date of Service:05/25/2017 03:01 PM Patient Type:Inpatient Staff Member:Rani Baptiste Hours: Discipline: Severity: Comment:
--- NOTE | 2017-06-25 22:42 | GPROG ---
[f rep st] PROGRESS NOTE POSTOPERATIVE ANESTHESIA NOTE The patient had a high lumbar epidural placed for postoperative pain. After this placement, his pain was moderately, but not completely controlled. No postop nausea or vomiting was noted. He was awak e and alert throughout the entire procedure and afterwards. Hemodynamic and respiratory status were stable and similar to preop conditions. No postop complications were noted. /[id number]/MODL
--- NOTE | 2017-07-05 13:32 | GOP ---
[f rep st] OPERATIVE REPORT DATE OF OPERATION: 05/09/2017 SURGEON: Mindi Evans MD ANESTHESIA: General. ANESTHESIOLOGIST: James Cornelius MD. PREOPERATIVE DIAGNOSIS: Wound dehiscence. POSTOPERATIVE DIAGNOSIS: Wound dehiscence. PROCEDURE PERFORMED: Exploratory laparotomy with Wound-VAC placement. FINDINGS: Very dilated small bowel. ESTIMATED BLOOD LOSS: Minimum. INDICATIONS: The patient is a 76-year-old man who had bowel protruding from his abdomen. He was alissa en to the operating room. DESCRIPTION OF PROCEDURE: The patient was brought into the operating room, placed supine on the tabl e. General anesthesia was administered. I removed the remaining niurka from his incision. There w as eviscerated bowel. I opened the rest of the fascial component. I performed copious irrigation. I ran the small bowel, which was very dilated. I was able to return his bowel to his abdominal cavit y. I closed the fascia with #1 PDS. I kept the SARAH in place from Dr. Daley's previous surgery. I cl osed the skin with a Wound-VAC, set it to the VeraFlo settings. He tolerated the procedure well. He was awakened in the operating room, extubated, transferred to PACU in stable condition. /[id number]/MODL
== END 2017-05-25 16:19 | DRG 653 ==
LOC: F1N 05:20 → F2W 05-04 16:35 → F2N 05-10 22:30 → F2W 05-18 19:39
PROVIDERS: ADMIT Urology; ATTEND Urology
PROC: 07TC0ZZ Resection of Pelvis Lymphatic, Open Approach (ICD-10-PCS; principal; 2017-05-01 07:15)
PROC: 0TTB0ZZ Resection of Bladder, Open Approach (ICD-10-PCS; principal; 2017-05-01 07:15)
PROC: 0VT04ZZ Resection of Prostate, Percutaneous Endoscopic Approach (ICD-10-PCS; principal; 2017-05-01 07:15)
PROC: 0T180ZC Bypass Bilateral Ureters to Ileocutaneous, Open Approach (ICD-10-PCS; principal; 2017-05-01 07:15)
PROC: 8E0W0CZ Robotic Assisted Procedure of Trunk Region, Open Approach (ICD-10-PCS; principal; 2017-05-01 07:15)
PROC: 0WJG0ZZ Inspection of Peritoneal Cavity, Open Approach (ICD-10-PCS; 2017-05-09)
DX: C67.2 Malignant neoplasm of lateral wall of bladder (principal); J96.90 Respiratory failure, unspecified, unspecified whether with hypoxia or hypercapnia; A41.9 Sepsis, unspecified organism; J69.0 Pneumonitis due to inhalation of food and vomit; R65.20 Severe sepsis without septic shock; T81.31XA Disruption of external operation (surgical) wound, not elsewhere classified, initial encounter; N17.9 Acute kidney failure, unspecified; I50.32 Chronic diastolic (congestive) heart failure; I48.0 Paroxysmal atrial fibrillation; I11.0 Hypertensive heart disease with heart failure; E78.5 Hyperlipidemia, unspecified; I73.9 Peripheral vascular disease, unspecified; J45.909 Unspecified asthma, uncomplicated; J44.9 Chronic obstructive pulmonary disease, unspecified; Z87.891 Personal history of nicotine dependence; I08.2 Rheumatic disorders of both aortic and tricuspid valves; I27.20 Pulmonary hypertension, unspecified
CPT/HCPCS: 82947-QW; 85520-90; 97110-GP; 97116-GP; 97163-GP; 97165-GO; 97530-GO; 97530-GP; 97535-GO; C1751; C2617; G8978-GP-CJ; G8978-GP-CK; G8979-GP-CI; G8980-GP-CJ; G8987-GO-CJ; G8988-GO-CI; J0295; J0360; J0692; J1100; J1160; J1170; J1335; J1644; J1650; J1815; J1940; J2060; J2250; J2270; J2405; J2704; J2710; J2765; J2997; J3010; J3230; J3370; J3475; J3490; P9041; Q9967

== ENCOUNTER 2017-05-30 15:49 | Inpatient (IN) | payer OTHER ==
--- NOTE | 2017-05-30 16:27 | CPEKG ---
Heart Rate: 105 RR Interval: 571 QRSD Interval: 80 QT Interval: 292 QTC Interval: 386 QRS [place]: 42 T Wave [place]: 227 EKG Severity - ABNORMAL ECG - EKG Impression: ATRIAL FIBRILLATION, V-RATE 74-142 EKG Impression: LOW VOLTAGE IN FRONTAL LEADS EKG Impression: REPOL ABNRM SUGGESTS ISCHEMIA, DIFFUSE LEADS Electronically Signed By: Kate Garg 30-May-2017 20:57:49
[2017-05-30] MEDS ORDERED: NS 1,000 ML IV ONE ×2 (16:42)
--- NOTE | 2017-05-30 16:42 | EDPHY ---
H & P Time Seen by Provider: 05/30/17 16:14 HPI/ROS: CHIEF COMPLAINT: Fever HISTORY OF PRESENT ILLNESS: Patient is a 76-year-old male who presents emergency department with fever. Patient underwent cysto prostatectomy on 2016. Since that time he has had wound healing issues. He currently has is wound open to heal by secondary intention. Wound VAC is in place. Patient was admitted to rehab on Sunday and discharged earlier today. 2 hours after arriving home he developed a fever to 103.8. Patient feels slightly lethargic. He has no focal abdominal pain. No nausea or vomiting. No chest pain or shortness of breath. REVIEW OF SYSTEMS: My complete review of systems is negative except as mentioned in the HPI. Past Medical/Surgical History: Includes bladder cancer pneumonia, CHF, atrial fibrillation Past surgical history: Includes cystoprostatectomy, urostomy, carotid endarterectomy Social history: The patient does not smoke. Smoking Status: Former smoker Physical Exam: 36.3 inch, 99/63, 117, 22, 92% on room air GENERAL: No acute distress, alert. HEENT: Eyes normal to inspection, normal pharynx, no signs of dehydration. NECK: No thyromegaly, no lymphadenopathy, supple. RESPIRATORY: Coarse breath sounds bilaterally, no rales, rhonchi or wheezing. CVS: Regular rate and rhythm, no rubs, murmurs, or gallops. ABDOMEN: Soft, nondistended, no organomegaly. Patient has of a wound dressing in place. This appears clean dry and intact. There is no discharge. No surrounding erythema. BACK: Normal to inspection, no CVA tenderness. SKIN: Normal color, no rash, warm, dry. No pallor. EXTREMITIES: No pedal edema, no calf tenderness, no Homans sign or cords, no joint swelling. NEURO/PSYCH: Alert and oriented x3, normal mood and affect, normal motor sensory exam. Constitutional: Initial Vital Signs Temperature (C) 36.3 C 05/30/17 16:02 Heart Rate 117 H 05/30/17 16:02 Respiratory Rate 22 H 05/30/17 16:02 Blood Pressure 99/63 L 05/30/17 16:02 O2 Sat (%) 92 05/30/17 16:02 O2 Delivery Mode Room Air Allergies/Adverse Reactions: aspirin Allergy (Severe, Verified 05/30/17 16:02) Edema of Extremities NSAIDS (Non-Steroidal Anti-Inflamma Allergy (Severe, Verified 05/30/17 16:02) Swelling/neck,face,throat azithromycin [From Zithromax] Allergy (Mild, Verified 05/30/17 16:02) Hives iodine Allergy (Verified 05/30/17 16:02) Swelling/neck,face,throat Home Medications: Medication Instructions Recorded Mometasone/Formoterol [Dulera 100 1 puffs IH HS 12/21/16 Mcg/5 Mcg Inhaler] Montelukast Sodium [Singulair 10 10 mg PO DAILY 12/21/16 mg (*)] Probenecid [Probenecid 500mg (*)] 500 mg PO DAILY 12/22/16 Spironolactone [Aldactone 25 MG 25 mg PO Q2D 12/22/16 (*)] Furosemide [Lasix 40 MG (*)] 60 mg PO DAILY 04/12/17 Metoprolol Succinate Xr [Toprol Xl 50 mg PO DAILY 04/12/17 50 mg (*)] Rosuvastatin Calcium [Crestor 20mg 20 mg PO HS 04/12/17 (*)] Mometasone/Formoterol [Dulera 100 2 puffs IH DAILY 05/02/17 Mcg/5 Mcg Inhaler] Medical Decision Making - Diagnostics Imaging Results: Imaging Impressions Chest X-Ray 05/30/17 16:37 Impression: No acute thoracic abnormality. Specifically, no radiographic evidence of pneumonia. Abdomen/Pelvis CT 05/30/17 17:11 Impression: 1. Trace air at the medial aspect of an ileal anastomotic staple line, suspicious for leak at the anastomotic staple line, with stable to decreased stranding and fluid in the region since the previous study. 2. Stable internal/external ureteral drains with new bilateral hydronephrosis. 3. Stable cholelithiasis with calcifications near the distal common duct, which could represent choledocholithiasis or pancreatic calcifications, without biliary dilatation. 4. Improving bibasilar consolidation, suggesting resolving pneumonia. 5. distention that could be related to ileus. 6.Additional findings as above. Attention: This examination does not use radiographic contrast, and as such, provides only a limited evaluation of the abdomen, pelvis and retroperitoneum. Findings discussed with Dr. Kate Garg on May 30, 2017 at 1821 hours. ED Course/Re-evaluation: In the emergency department I discussed possible etiologies with the patient and his family. I answered all her questions. IV was placed. Patient was given normal saline 1 L IV for hydration. Laboratory studies, blood cultures, chest x-ray and CT were ordered. Atrial fibrillation at 105. Normal axis. Normal intervals. ST depression V3 through V6. Flipped T-waves V3 through V6. Patient has known AFib. Requested old EKG. I discussed case with Dr. Evans. She has been caring for the patient's wound. We discussed the patient's presentation. She recommended Zosyn IV. This was ordered. I reviewed the patient's laboratory studies. His sodium was 135. Potassium 3.4. Anion gap 13. Creatinine mildly elevated 1.4. Glucose 127. Total bili is 0.5. AST and ALT are normal. Patient's white count was normal at 9.4. Hematocrit slightly low at 34. Platelets were normal 290. Patient is lactic acid is 1.7. INR is 1.4. I obtained an old EKG from 05/10/2017. At that time the patient had mild ST depression in V3 through V6. However, there are no flipped T-waves V3 through V6. Troponin was added. Patient reports an allergy to aspirin. 1809: Patient's heart rate is 105. I noted the patient blood pressure has been the same. I discussed this with the nursing staff. His blood pressure cuff was cycling q.1 hour. It has been changed to Q 15 minutes. 105/61. I discussed the case with the hospitalist service. He accepts the patient. CT of the abdomen pelvis with IV contrast: Please refer the dictated report. Patient has a 4 mm air collection at the anastomosis site at the ileum. There is also mild hydronephrosis. I discussed the result with Dr. Evans. I also discussed the case with Dr. Daley. Differential Diagnosis: My differential includes but is not limited to bacteremia, sepsis, pneumonia, bronchitis, atelectasis, wound infection, abscess, obstruction, urinary tract infection, pyelonephritis Critical Care Time: The patient required 35 minutes critical care time. This was exclusive of any on unbundled procedure. This was due to his abnormal vital signs, need for frequent rechecks, consultation with surgery and Internal Medicine and time spent at the bedside. - Data Points Laboratory Results: Laboratory Results 11/01/17 16:16 05/30/17 16:16 05/30/17 05/30/17 05/30/17 16:16 16:16 16:16 WBC RBC Hgb Hct MCV MCH MCHC RDW Plt Count MPV Neut % (Auto) Lymph % (Auto) Wilbarger % (Auto) Eos % (Auto) Baso % (Auto) Nucleat RBC Rel Count Absolute Neuts (auto) Absolute Lymphs (auto) Absolute Monos (auto) Absolute Eos (auto) Absolute Basos (auto) Absolute Nucleated RBC Immature Gran % Immature Gran # PT INR APTT VBG Lactic Acid Sodium 135 mEq/L mEq/L (134-144) Potassium 3.4 mEq/L L mEq/L (3.5-5.2) Chloride 99 mEq/L mEq/L (97-110) Carbon Dioxide 23 mEq/l mEq/l (22-31) Anion Gap 13 mEq/L mEq/L (8-16) BUN 18 mg/dL mg/dL (7-23) Creatinine 1.4 mg/dL H mg/dL (0.7-1.3) Estimated GFR 49 Glucose 127 mg/dL H mg/dL (70-100) Calcium 8.6 mg/dL mg/dL (8.5-10.4) Total Bilirubin 0.5 mg/dL mg/dL (0.1-1.4) Conjugated Bilirubin 0.1 mg/dL mg/dL (0.0-0.5) Unconjugated Bilirubin 0.4 mg/dL mg/dL (0.0-1.1) AST 25 IU/L IU/L (17-59) ALT 51 IU/L IU/L (21-72) Alkaline Phosphatase 158 IU/L H IU/L (38-126) Troponin I 0.031 ng/mL ng/mL (0.000-0.034) Total Protein 6.7 g/dL g/dL (6.3-8.2) Albumin 3.0 g/dL L g/dL (3.5-5.0) Procalcitonin Pending 05/30/17 05/30/17 05/30/17 16:16 16:16 16:16 WBC 9.39 10^3/uL 10^3/uL (3.80-9.50) RBC 3.43 10^6/uL L 10^6/uL (4.40-6.38) Hgb 11.5 g/dL L g/dL (13.7-17.5) Hct 34.3 % L % (40.0-51.0) MCV 100.0 fL H fL (81.5-99.8) MCH 33.5 pg pg (27.9-34.1) MCHC 33.5 g/dL g/dL (32.4-36.7) RDW 15.1 % % (11.5-15.2) Plt Count 290 10^3/uL 10^3/uL (150-400) MPV 9.5 fL fL (8.7-11.7) Neut % (Auto) 70.9 % % (39.3-74.2) Lymph % (Auto) 20.1 % % (15.0-45.0) Wilbarger % (Auto) 8.0 % % (4.5-13.0) Eos % (Auto) 0.3 % L % (0.6-7.6) Baso % (Auto) 0.3 % % (0.3-1.7) Nucleat RBC Rel Count 0.0 % % (0.0-0.2) Absolute Neuts (auto) 6.65 10^3/uL H 10^3/uL (1.70-6.50) Absolute Lymphs (auto) 1.89 10^3/uL 10^3/uL (1.00-3.00) Absolute Monos (auto) 0.75 10^3/uL 10^3/uL (0.30-0.80) Absolute Eos (auto) 0.03 10^3/uL 10^3/uL (0.03-0.40) Absolute Basos (auto) 0.03 10^3/uL 10^3/uL (0.02-0.10) Absolute Nucleated RBC 0.00 10^3/uL 10^3/uL (0-0.01) Immature Gran % 0.4 % % (0.0-1.1) Immature Gran # 0.04 10^3/uL 10^3/uL (0.00-0.10) PT 16.2 SEC H SEC (12.0-15.0) INR 1.30 H (0.83-1.16) APTT 31.4 SEC SEC (23.0-38.0) VBG Lactic Acid 1.7 mmol/L mmol/L (0.7-2.1) Sodium Potassium Chloride Carbon Dioxide Anion Gap BUN Creatinine Estimated GFR Glucose Calcium Total Bilirubin Conjugated Bilirubin Unconjugated Bilirubin AST ALT Alkaline Phosphatase Troponin I Total Protein Albumin Procalcitonin Medications Given: Discontinued Medications Sodium Chloride (Ns) 1,000 mls @ 0 mls/hr IV ONCE ONE PRN Reason: Wide Open Stop: 05/30/17 16:43 Last Admin: 05/30/17 17:07 Dose: 1,000 mls Departure - Departure Disposition: [facility] In[facility] Acute Clinical Impression: Wound dehiscence Fever Qualifiers: Fever type: unspecified Qualified Code(s): R50.9 - Fever, unspecified Condition: Good
[2017-05-30 16:46] LABS: PLATELET COUNT 290 10^3/uL (150-400)
[2017-05-30 16:57] LABS: INR 1.3 (0.83-1.16); PROTIME(PATIENT) 16.2 SEC (12.0-15.0)
[2017-05-30] MEDS ORDERED: PIPERACILLIN/TAZO 3.375 GM/DEX 50 ML IV ONE ×2 (17:20)
[2017-05-30] MEDS ORDERED: ONDANSETRON DISINTEGRATING 4 MG TAB PO PRN ×2 (18:09)
[2017-05-30] MEDS ORDERED: ALBUTEROL 3 ML DEYVIAL IH PRN ×2 (18:09)
[2017-05-30] MEDS ORDERED: ONDANSETRON 4 MG/2 ML VIAL IVP PRN ×2 (18:09)
[2017-05-30] MEDS ORDERED: ACETAMINOPHEN 325 MG TAB PO PRN ×2 (18:09)
[2017-05-30] MEDS ORDERED: NS 1,000 ML IV SCH ×2 (18:15)
[2017-05-30] MEDS ORDERED: NS 500 ML IV ONE ×2 (20:42)
--- NOTE | 2017-05-30 20:51 | PDGENHP ---
History and Physical - Chief Complaint Fever - History of Present Illness This is a 76 yo M with MMP, including recent cystoprostatectomy with ilieal conduit secondary to bladder cancer on 05/01/17 complicated by sepsis, ileus, poor wound healing, and deconditioning. He was discharged recently and sent to rehab. He left Rehab today and shortly thereafter developed a fever of 103.8. In the E.D. his has low BP, tachycardia, and started on IV Zosyn. Dr. Graham evaluated his abdominal wound and changed the wound vac. Per ER report, the wound looks ok. A urinaly has been orderd but not sent as of yet. He does not have any respiratory sx's and a CXR is unremarkable. He denies abd pain. A CT Abd/pelvis shows ?anostomotic leak at the medial aspect of the ileal anastomotic staple line. His labs are c/w acute kidney injury. He report that since leaving the hospital he has had very low oral intake to both solids and fluids. He has only been eating one small meal per day. He has not had abd pain. He has had BM's. He denies N/V. Just not feeling hungry. He is still in AFib. He was discharged on Lovenox and he thinks this was stopped at the rehab facility. He denies palpitations, CP, SOB, leg swelling, or other. PMHx: bladder cancer, Diastolic CHF, Asthma, pAfib, PVD, nocturnal hypoxemia, pulm HTN, Gout, recent Ileus PSHx: cystoprastatectomy with ileal conduit, bilateral carotid endaterectomy, TURP, hernia repair, appendectomy, Social history: The patient does not smoke. former smoker, social ETOH, FmHx: non contributory History Information - Allergies/Home Medication List Allergies/Adverse Reactions: aspirin Allergy (Severe, Verified 05/30/17 16:02) Edema of Extremities NSAIDS (Non-Steroidal Anti-Inflamma Allergy (Severe, Verified 05/30/17 16:02) Swelling/neck,face,throat azithromycin [From Zithromax] Allergy (Mild, Verified 05/30/17 16:02) Hives iodine Allergy (Verified 05/30/17 16:02) Swelling/neck,face,throat Home Medications: Mometasone/Formoterol [Dulera 100 Mcg/5 Mcg Inhaler] 1 puffs IH HS 12/21/16 [ Last Taken 1 Week Ago ~05/23/17] Montelukast Sodium [Singulair 10 mg (*)] 10 mg PO DAILY 12/21/16 [Last Taken 08/15 09:00] Probenecid [Probenecid 500mg (*)] 500 mg PO DAILY 12/22/16 [Last Taken 05/30/17 09:00] Spironolactone [Aldactone 25 MG (*)] 25 mg PO Q2D 12/22/16 [Last Taken 05/29/17] Furosemide [Lasix 40 MG (*)] 60 mg PO DAILY 04/12/17 [Last Taken 05/30/17 09:00] Metoprolol Succinate Xr [Toprol Xl 50 mg (*)] 50 mg PO DAILY 04/12/17 [Last Taken 05/30/17] Rosuvastatin Calcium [Crestor 20mg (*)] 20 mg PO HS 04/12/17 [Last Taken ] Mometasone/Formoterol [Dulera 100 Mcg/5 Mcg Inhaler] 2 puffs IH DAILY 05/02/17 [ Last Taken 1 Week Ago ~05/23/17] I have personally reviewed and updated: medical history, social history - Past Medical History atrial fibrillation, hypertension, hyperlipidemia, peripheral artery disease Additional medical history: Muscular the invasive bladder cancer. Atrial fibrillation. Diastolic CHF - Surgical History Additional surgical history: CEA. TURP. Hernia repair - Family History Positive for: non-pertinent - Social History Smoking Status: Former smoker Additional social history: Patient lives with his , is independent in ADLs at baseline. Review of Systems Review of Systems: ROS: 10pt was reviewed & negative except for what was stated in HPI & below Physical Exam Physical Exam: Temp Pulse Resp BP Pulse Ox 36.4 C 106 H 16 98/62 L 96 05/30/17 16:30 05/30/17 20:25 05/30/17 20:25 05/30/17 20:25 05/30/17 20:25 O2 (L/minute) 2 Constitutional: chronically ill appearing Eyes: PERRL, EOMI Ears, Nose, Mouth, Throat: moist mucous membranes, hearing normal, dry mucous membranes Cardiovascular: irregularly irregular Respiratory: no respiratory distress, reduced air movement Gastrointestinal: normoactive bowel sounds, soft, non-tender abdomen, no palpable masses, other (wound vac in place, no surrounding erythema or calor), No rebound, No distension Skin: warm Neurologic: AAOx3 Psychiatric: interacting appropriately, not anxious, not encephalopathic Lab Data & Imaging Review 05/30/17 16:16 05/30/17 16:16 WBC 9.39 10^3/uL (3.80-9.50) 05/30/17 16:16 RBC 3.43 10^6/uL (4.40-6.38) L 05/30/17 16:16 Hgb 11.5 g/dL (13.7-17.5) L 05/30/17 16:16 Hct 34.3 % (40.0-51.0) L 05/30/17 16:16 MCV 100.0 fL (81.5-99.8) H 05/30/17 16:16 MCH 33.5 pg (27.9-34.1) 05/30/17 16:16 MCHC 33.5 g/dL (32.4-36.7) 05/30/17 16:16 RDW 15.1 % (11.5-15.2) 05/30/17 16:16 Plt Count 290 10^3/uL (150-400) 05/30/17 16:16 MPV 9.5 fL (8.7-11.7) 05/30/17 16:16 Neut % (Auto) 70.9 % (39.3-74.2) 05/30/17 16:16 Lymph % (Auto) 20.1 % (15.0-45.0) 05/30/17 16:16 Childress % (Auto) 8.0 % (4.5-13.0) 05/30/17 16:16 Eos % (Auto) 0.3 % (0.6-7.6) L 05/30/17 16:16 Baso % (Auto) 0.3 % (0.3-1.7) 05/30/17 16:16 Nucleat RBC Rel Count 0.0 % (0.0-0.2) 05/30/17 16:16 Absolute Neuts (auto) 6.65 10^3/uL (1.70-6.50) H 05/30/17 16:16 Absolute Lymphs (auto) 1.89 10^3/uL (1.00-3.00) 05/30/17 16:16 Absolute Monos (auto) 0.75 10^3/uL (0.30-0.80) 05/30/17 16:16 Absolute Eos (auto) 0.03 10^3/uL (0.03-0.40) 05/30/17 16:16 Absolute Basos (auto) 0.03 10^3/uL (0.02-0.10) 05/30/17 16:16 Absolute Nucleated RBC 0.00 10^3/uL (0-0.01) 05/30/17 16:16 Immature Gran % 0.4 % (0.0-1.1) 05/30/17 16:16 Immature Gran # 0.04 10^3/uL (0.00-0.10) 05/30/17 16:16 PT 16.2 SEC (12.0-15.0) H 05/30/17 16:16 INR 1.30 (0.83-1.16) H 05/30/17 16:16 APTT 31.4 SEC (23.0-38.0) 05/30/17 16:16 VBG Lactic Acid 1.7 mmol/L (0.7-2.1) 05/30/17 16:16 Sodium 135 mEq/L (134-144) 05/30/17 16:16 Potassium 3.4 mEq/L (3.5-5.2) L 05/30/17 16:16 Chloride 99 mEq/L (97-110) 05/30/17 16:16 Carbon Dioxide 23 mEq/l (22-31) 05/30/17 16:16 Anion Gap 13 mEq/L (8-16) 05/30/17 16:16 BUN 18 mg/dL (7-23) 05/30/17 16:16 Creatinine 1.4 mg/dL (0.7-1.3) H 05/30/17 16:16 Estimated GFR 49 05/30/17 16:16 Glucose 127 mg/dL (70-100) H 05/30/17 16:16 Calcium 8.6 mg/dL (8.5-10.4) 05/30/17 16:16 Total Bilirubin 0.5 mg/dL (0.1-1.4) 05/30/17 16:16 Conjugated Bilirubin 0.1 mg/dL (0.0-0.5) 05/30/17 16:16 Unconjugated Bilirubin 0.4 mg/dL (0.0-1.1) 05/30/17 16:16 AST 25 IU/L (17-59) 05/30/17 16:16 ALT 51 IU/L (21-72) 05/30/17 16:16 Alkaline Phosphatase 158 IU/L (38-126) H 05/30/17 16:16 Troponin I 0.031 ng/mL (0.000-0.034) 05/30/17 16:16 Total Protein 6.7 g/dL (6.3-8.2) 05/30/17 16:16 Albumin 3.0 g/dL (3.5-5.0) L 05/30/17 16:16 Procalcitonin 0.10 ng/mL (0.02-0.10) 05/30/17 16:16 Assessment & Plan Assessment: 76 yo male with bladder cancer s/p cystoprostatectomy with ileal conduit #Fever, ?early sepsis #Hypotension #Afib, persistent #Acute Kidney Injury #Diastolic CHF, currently with volume deficit #Abd wound, with wound vac in place #recent aspiration pneumonia with no e/o at this time #PCMN #Hypokalemia, mild #Deconditioning Plan: Given his clinical exam, dehydration, fever, tachycardia, hypotension, cannot r/ o early sepsis. Lactic Acid is unremarkable. He was started on Zosyn and this will be continued. He has only received 1 L NS and he will receive additional at this time. We will need to be careful given his hx of CHF and resp failure. As for the etiology it is unclear, source is likely vs wound. UA pending. BCx pending. Will check pc. ?Anastomotic Leak: Dr. Carrillo was notified by the E.D. Will make NPO pending clinical course and evaluation He is Afib. EKG reviewed. He was previously on AC and it is unclear why it was stopped at the Rehab. I will continue with Heparin. Cont Metoprolol PT/OT Optimize nutrition. Will need to evaluate once acute issues are better Full Code will admit to Step down unit pending w/u per above and clinical improvement total critical care time is 70 minutes
[2017-05-30] MEDS ORDERED: Mometasone/Formoterol [Dulera 100 Mcg/5 Mcg Inhaler] IH SCH ×2 (21:00)
[2017-05-30] MEDS ORDERED: HEPARIN 10,000 UNIT/10 ML MDV IVP ONE ×2 (21:01)
[2017-05-30] MEDS ORDERED: HEPARIN 5,000 UNIT/0.5 ML SYR SC SCH ×2 (22:00)
[2017-05-30] MEDS: HEPARIN/DEXTROSE 500 ML IV SCH ×2 (22:29)
[2017-05-30] MEDS: ROSUVASTATIN CALCIUM 20 MG TAB PO SCH ×2 (23:10)
[2017-05-31] MEDS: PIPERACILLIN/TAZO 3.375 GM/DEX 50 ML IV SCH ×10 (00:47→22:53)
[2017-05-31] MEDS: LORazepam 0.5 MG TAB PO PRN ×4 (01:09→22:53)
[2017-05-31 04:44] LABS: PLATELET COUNT 212 10^3/uL (150-400)
--- NOTE | 2017-05-31 04:57 | GCON ---
[f rep st] CONSULTATION DATE OF CONSULTATION: 05/30/2017 CHIEF COMPLAINT: Fever. HISTORY OF PRESENT ILLNESS: The patient is a 76-year-old man, status post cystoprostatectomy, who pino d a prolonged ileus and evisceration on his last hospital stay. He was taken back to the operating r oom, and the midline was reapproximated. He did have a midline wound, and a wound VAC was placed. Anil gutierrez has been at a assisted facility and was discharged home today. He developed a fever of 103. 8 and presented to the emergency room. He is feeling somewhat weakened today. His appetite has been minimal at the nursing facility. He had a CT scan performed of the abdomen and pelvis without contr ast, which showed new bilateral hydronephrosis, improving bibasilar consolidation, stable cholelithia sis, and a trace amount of air near the ileal anastomotic staple line with decreased stranding in the area. His white count is normal. PAST MEDICAL HISTORY: 1. Hypertension. 2. Diastolic CHF. 3. Asthma. 4. Atrial fibrillation. 5. Peripheral vascular disease. 6. Bladder cancer. PAST SURGICAL HISTORY: Includes cystoprostatectomy with ileal conduit and exploration. SOCIAL HISTORY: He is . He denies tobacco products. REVIEW OF SYSTEMS: He is passing flatus. He is having small amounts of stool. His ileal conduit is functioning very well. His shortness of breath has improved. Otherwise, 10-point review of systems negative except per HPI. PHYSICAL EXAMINATION: VITAL SIGNS: 36.8, 109, 92/65, 19, 99%. GENERAL: Pleasant, well-nourished, well-groomed man appears better than when I last saw him. at bedside. HEENT: Normocephalic. No gross hearing deficits. Pupils equal and round. No scleral icterus. Mucous membranes moist. NOAH NGS: Decreased at bases, otherwise, clear bilaterally without increased work of breathing. CARDIAC: Tachycardic. Trace peripheral edema. ABDOMEN: Bowel sounds are present. He is soft. He is much less distended than when I last saw him. The midline incision is healing well. There is still some necrotic fascia on the left lateral side and some widening of the line; however, it is also improved . No signs of intraabdominal contents or infection noted. The ileal conduit is in the right lower q uadrant. The conduit is pink and healthy. Stents in place. I replaced the bag as it was leaking. SKIN: Warm and dry. NEURO: Grossly intact. PSYCH: Mood and affect normal. LABORATORY AND DIAGNOSTIC DATA: Results reviewed: I personally reviewed the results of his CT scan and see a very small amount of air by the conduit. Also, his white count is normal, and his hemoglob in and hematocrit are much improved from discharge. IMPRESSION AND PLAN: The patient is a 76-year-old man with invasive bladder cancer, status post cyst oprostatectomy with a fever. He is tachycardic and hypotensive. The hospitalist will admit him. I replaced his wound VAC and put him on VeraFlo. It is much improved from when I last saw him. I do n ot think this is the source. He has been given a dose of Zosyn. I have discussed the case with Dr. Torres, who has also written for influenza. I have discussed the case with Dr. Daley, who also queri es if pyelonephritis could be contributing. He plans on removing the ureteral stent soon. Wound VAC changes Sunday, Sunday, Sunday. Surgery will continue to follow, although I do not have any imme diate changes in his care plan. I spent greater than 60 minutes at bedside changing the wound VAC, reviewing the CT scan, changing th e urostomy, discussing with consultants. /[id number]/MODL
[2017-05-31] MEDS ORDERED: MAGNESIUM SULF 1 GM/DEXTROSE 100 ML IV ONE ×2 (08:43)
[2017-05-31] MEDS ORDERED: Mometasone/Formoterol [Dulera 100 Mcg/5 Mcg Inhaler] 2 PUFFS IH SCH ×2 (09:00)
[2017-05-31] MEDS ORDERED: METOPROLOL SUCCINATE XR 50 MG TAB PO SCH ×2 (09:00)
[2017-05-31] MEDS: PROBENECID 500 MG TAB PO SCH ×2 (09:31)
[2017-05-31] MEDS: MONTELUKAST SODIUM 10 MG TAB PO SCH ×2 (09:31)
--- NOTE | 2017-05-31 09:47 | PCMIDPN ---
Assessment/Plan: # Isolated fever without localizing symptoms associated with some early signs of sepsis. Personally reviewed CT scan with Radiology and discussed with General surgery and overall CT scan is improved (both pulmonary & intra- abdominal findings). The only new findings is a miniscule area of air at the anastomotic site and mild hydronephrosis. Notable lack of leukocytosis. Stents were removed by urology today. UA showed some pyuria, but this is expected with urostomy. Midline wound without sign of infection. Overall, Low suspicion for bacterial infection. --reasonable to give antibiotics for 24-48 hours while await blood cultures but as above, I do not strongly suspect bacterial infection --while receiving systemic antibiotics would give vancomycin suppression 125 mg p.o. twice daily with remote history of positive C diff test Medication Zosyn 3.375 g IV Q 6, #1 micro 05/30 blood cx (2) Pending 05/31 UCx pending 05/30 Resp PCR negative Subjective: 76 yo M with MMP, including recent cystoprostatectomy with ilieal conduit secondary to bladder cancer on 05/01/17 complicated by sepsis due to aspiration PNA, prolonged ileus and evisceration requiring take back to the OR, all resulting in deconditioning for which he was at a SNF. Last day of antibiotics (ertapenem) was 10 days ago, 05/20/2017. Presented to ER last night with Malaise for several days and decreased p.o. intake. Patient had a fever at the nursing home facility which ppt ER transfer. Patient subsequently underwent a CT scan which generally showed improvement of pneumonia, general peritoneal inflammation and notable absence of abscess. He feels improved overnight and has slightly improved appetite. Dr. Daley removed stents this AM. Objective: Vital Signs Temp Pulse Resp BP Pulse Ox 36.8 C 94 19 91/58 L 96 05/31/17 07:51 05/31/17 07:51 05/31/17 04:00 05/31/17 09:31 05/31/17 07:51 Microbiology 05/30/17 20:37 Respiratory Panel (PCR) - Final Nasal, Sinus - Swab No Organism Detected Laboratory Results 05/31/17 04:15 05/31/17 04:15 05/30/17 05/31/17 06/01/17 05:59 05:59 05:59 Intake Total 1500 Output Total 500 Balance 1000 - Physical Exam General Appearance: alert, no apparent distress EENT: No thrush Respiratory: other (Decreased breath sound on the bases), No accessory muscle use Neck: supple Cardiac/Chest: tachycardia Extremities: No pedal edema Abdomen: normal bowel sounds, non-tender, soft, other (Right lower quadrant urostomy healthy-appearing, urine in bag; wound vac in place in midline; no surrounding erythema) Skin: warm/dry, pallor, No diaphoresis, No rash Neuro/Psych: alert, normal mood/affect, oriented x 3 - Time Spent With Patient Time Spent with Patient: greater than 35 minutes (Reviewed data with patient and his daughter. Coordination of care with surgical team) Time Spent with Patient: Greater than 35 minutes spent on this patients care, greater than 50% of time spent counseling, educating, and coordinating care regarding the above mentioned plan. ICD10 Worksheet Patient Problems: Problems Problem Status Onset Fever Acute Wound dehiscence Acute Anemia Acute Bladder cancer Acute C. difficile diarrhea Acute ~11/26/16 Congestive heart failure Acute Extended spectrum beta lactamase (ESBL) resistance Acute ~05/12/17 Hyponatremia Acute Thrombocytopenia Acute
--- NOTE | 2017-05-31 10:21 | PDMN ---
Medical Necessity Medical necessity: M160 sepsis and other febrile illness- hypotension, tachycardia( 99-117) , fever( 103.8) , with persistent afib, Diastolic CHF, currently with vol. deficit, recent( 05/01) cystoprostatectomy with ileal conduit-secondary to bladder Ca., with abd wound, -wound vac -acute kidney injury, Min. PO, hypokalemia - anticipate > 2 midnights ongoing med nec care, eval and tx.
[2017-05-31] MEDS: POTASSIUM Cl (KCl) 100 ML IV SCH ×4 (10:25→12:56)
[2017-05-31] MEDS: VANCOMYCIN 125 MG/2.5 ML UDL PO SCH ×4 (11:20→19:39)
--- NOTE | 2017-05-31 11:27 | SOAPPROG ---
SOAP Progress Note Assessment/Plan: Assessment: HD # 2 for fever s/p cystoprostatectomy and exploration for dehiscence Wound much improved from when I saw him 2 weeks ago Has wound vac at home - home care 3x per week F/U Dr. Evans 06/15 at 2pm I will see 3x per week while in house S: Feeling better Plan: 05/31/17 11:23 Objective: Vital Signs Temp Pulse Resp BP Pulse Ox 36.8 C 94 19 91/58 L 96 05/31/17 07:51 05/31/17 07:51 05/31/17 04:00 05/31/17 09:31 05/31/17 07:51 Microbiology 05/30/17 20:37 Respiratory Panel (PCR) - Final Nasal, Sinus - Swab No Organism Detected Laboratory Results 05/31/17 04:15 05/31/17 04:15 05/30/17 05/31/17 06/01/17 05:59 05:59 05:59 Intake Total 1500 Output Total 500 Balance 1000 PT 16.2 SEC (12.0-15.0) H 05/30/17 16:16 INR 1.30 (0.83-1.16) H 05/30/17 16:16 ICD10 Worksheet Patient Problems: Problems Problem Status Onset Fever Acute Wound dehiscence Acute Anemia Acute Bladder cancer Acute C. difficile diarrhea Acute ~11/26/16 Congestive heart failure Acute Extended spectrum beta lactamase (ESBL) resistance Acute ~05/12/17 Hyponatremia Acute Thrombocytopenia Acute
[2017-05-31] MEDS: Mometasone/Formoterol [Dulera 100 Mcg/5 Mcg Inhaler] 2 PUFFS IH SCH ×2 (11:33)
[2017-05-31] MEDS: HEPARIN 10,000 UNIT/10 ML MDV IVP PRN ×2 (12:54)
--- NOTE | 2017-05-31 16:46 | ASMTCMCOM ---
CM Note CM Note Notes: CM met with pt and , recently dc'd from [facility]. They were dissapointed in care, Therapies were great but they felt staff was unprepared and they felt "unwelcomed". CM will discuss with management but not use their names. Otherwise PT/OT recommend homecare, pt was set up with [facility] from [facility], CM will confirm. Also pt's states [facility] ordered home wound vac on Sunday that should be arriving to pt's home. Current DC Plan: Home w/wound vac and [facility] Date Signed: 05/31/2017 04:45 PM Electronically Signed By:Cate Hand RN
--- NOTE | 2017-05-31 16:46 | ASMTCMCOM ---
CM Note CM Note Notes: CM met with pt and , recently dc'd from [facility]. They were dissapointed in care, Therapies were great but they felt staff was unprepared and they felt "unwelcomed". CM will discuss with management but not use their names. Otherwise PT/OT recommend homecare, pt was set up with [facility] from [facility], CM will confirm. Also pt's states [facility] ordered home wound vac on Sunday that should be arriving to pt's home. Current DC Plan: Home w/wound vac and [facility] Date Signed: 05/31/2017 04:45 PM Electronically Signed By:Cate Hand RN
--- NOTE | 2017-05-31 16:46 | ASMTCMCOM ---
CM Note CM Note Notes: CM met with pt and , recently dc'd from [facility]. They were dissapointed in care, Therapies were great but they felt staff was unprepared and they felt "unwelcomed". CM will discuss with management but not use their names. Otherwise PT/OT recommend homecare, pt was set up with [facility] from [facility], CM will confirm. Also pt's states [facility] ordered home wound vac on Sunday that should be arriving to pt's home. Current DC Plan: Home w/wound vac and [facility] Date Signed: 05/31/2017 04:45 PM Electronically Signed By:Cate Hand RN
--- NOTE | 2017-05-31 17:34 | HOSPPROG ---
Hospitalist Progress Note Assessment/Plan: Assessment: 76 yo male presents with suspected complicated urinary tract infection Plan: # Suspected complicated UTI. POA. Acute, new problem, further w/u indicated. D/ w Dr. Daley, he recommends ongoing broad spectrum Abx (Zosyn D#1) for likely infxn w/in the urinary system w/ stents, ileoconduit - CT w/ mild hydro, per Dr. Daley, to be expected s/p surgery of this type - UCx sent, awaiting growth - appreciate ID consultation - monitor WBC # Persistent Atrial Fibrillation. Intermittent RVR, Afib w/ TWI V3-V5 on EKG ( personally interpreted), cont metoprolol - using hep gtt for anticoagulation given BEV, will adjust to lovenox when stabilizes # Acute Kidney Injury. 2/2 hypovolemia in setting of infxn, responding to IVF - reviewed outside records (05/24/17 Cr 1.0), peaked 1.4 on presentation - cont IVF # Chronic Diastolic CHF. Hold diuretic, monitor volume status # Abd wound. With wound vac in place, will require ongoing wound care/vac services at discharge - appreciate Dr. Evans's consultation today # Hypokalemia. Acute, replete mildly Diet. Regular, Ensure Ppx. High risk, on hep gtt Code. Full Dispo. ADD uncertain, pending stabilization of above. Subjective: patient fatigued, moving bowels Objective: Vital Signs Temp Pulse Resp BP Pulse Ox 36.8 C 109 H 18 108/64 97 05/31/17 16:00 05/31/17 16:00 05/31/17 16:00 05/31/17 16:00 05/31/17 12:00 Microbiology 05/30/17 20:37 Respiratory Panel (PCR) - Final Nasal, Sinus - Swab No Organism Detected Laboratory Results 05/31/17 04:15 05/31/17 04:15 05/30/17 05/31/17 06/01/17 05:59 05:59 05:59 Intake Total 1500 900 Output Total 500 450 Balance 1000 450 PT 16.2 SEC (12.0-15.0) H 05/30/17 16:16 INR 1.30 (0.83-1.16) H 05/30/17 16:16 - Physical Exam Constitutional: no apparent distress, not in pain, chronically ill appearing, No uncomfortable Cardiovascular: irregularly irregular, tachycardia, No systolic murmur, No edema Respiratory: no respiratory distress, no rales or rhonchi, clear to auscultation , No respiratory distress Gastrointestinal: normoactive bowel sounds, soft, non-tender abdomen, other ( central abd wound w/ vac, R side ostomy), No distension Skin: other (no erythema surrounding surg site, no dehiscence, no ecchymoses/ rash) Neurologic: AAOx3, sensation intact bilaterally, No weakness Psychiatric: not anxious, not encephalopathic, thought process linear, flat affect ICD10 Worksheet Patient Problems: Problems Problem Status Onset Fever Acute Wound dehiscence Acute Anemia Acute Bladder cancer Acute C. difficile diarrhea Acute ~11/26/16 Congestive heart failure Acute Extended spectrum beta lactamase (ESBL) resistance Acute ~05/12/17 Hyponatremia Acute Thrombocytopenia Acute
[2017-05-31] MEDS: HEPARIN/DEXTROSE 500 ML IV SCH ×2 (18:03)
[2017-05-31] MEDS: ROSUVASTATIN CALCIUM 20 MG TAB PO SCH ×2 (19:39)
[2017-05-31] MEDS: Mometasone/Formoterol [Dulera 100 Mcg/5 Mcg Inhaler] IH SCH ×2 (21:16)
[2017-06-01 03:33] LABS: PLATELET COUNT 175 10^3/uL (150-400)
[2017-06-01] MEDS: HEPARIN 10,000 UNIT/10 ML MDV IVP PRN ×2 (04:26)
[2017-06-01] MEDS: PIPERACILLIN/TAZO 3.375 GM/DEX 50 ML IV SCH ×8 (05:22→23:55)
[2017-06-01] MEDS ORDERED: POTASSIUM CL 20 MEQ TAB PO ONE ×2 (08:55)
[2017-06-01] MEDS ORDERED: MAGNESIUM SULF 2 GM/WATER 50 ML IV ONE ×2 (08:56)
[2017-06-01] MEDS ORDERED: POTASSIUM Cl (KCl) 40 MEQ in NS 1,000 ML IV SCH (09:00)
--- NOTE | 2017-06-01 09:18 | SOAPPROG ---
SOAP Progress Note Assessment/Plan: Assessment: HD #3 for fever s/p cystoprostatectomy and exploration for dehiscence Wound vac changed today - looks much better Upon d/c, home care will change vac 3x/week F/U Dr. Evans 06/15 at 2pm Likely home over the weekend S: Feeling better. No new complaints O: laying in bed, comfortable, NAD No increased WOB Midline vac removed - healthy granulation tissue in the base. Veraflo reapplied Objective: Vital Signs Temp Pulse Resp BP Pulse Ox 36.7 C 105 H 20 93/55 L 98 06/01/17 08:00 06/01/17 08:00 06/01/17 08:00 06/01/17 08:00 06/01/17 08:00 Microbiology 05/30/17 20:37 Respiratory Panel (PCR) - Final Nasal, Sinus - Swab No Organism Detected Laboratory Results 06/01/17 03:00 05/31/17 06/01/17 06/02/17 05:59 05:59 05:59 Intake Total 1500 1575 2066 Output Total 500 1650 200 Balance 1000 -75 1866 PT 16.2 SEC (12.0-15.0) H 05/30/17 16:16 INR 1.30 (0.83-1.16) H 05/30/17 16:16 ICD10 Worksheet Patient Problems: Problems Problem Status Onset Fever Acute Wound dehiscence Acute Anemia Acute Bladder cancer Acute C. difficile diarrhea Acute ~11/26/16 Congestive heart failure Acute Extended spectrum beta lactamase (ESBL) resistance Acute ~05/12/17 Hyponatremia Acute Thrombocytopenia Acute
[2017-06-01] MEDS: MONTELUKAST SODIUM 10 MG TAB PO SCH ×2 (09:27)
[2017-06-01] MEDS: PROBENECID 500 MG TAB PO SCH ×2 (09:27)
[2017-06-01] MEDS: VANCOMYCIN 125 MG/2.5 ML UDL PO SCH ×4 (09:27→21:43)
[2017-06-01] MEDS: Mometasone/Formoterol [Dulera 100 Mcg/5 Mcg Inhaler] 2 PUFFS IH SCH ×2 (09:28)
[2017-06-01] MEDS: METOPROLOL TARTRATE 25 MG TAB PO SCH ×4 (09:40→21:40)
--- NOTE | 2017-06-01 10:10 | WOCRNPDOC ---
WOCRN Advanced Assessment Note - Skin Integrity Problem, Advanced Assess Abdomen Surgical Wound/Incision Dressing Type: Wound Vac, Other Other Dressing Type: Veraflo Cleanse Dressing Dressing Description: Intact Closure Description: Retention Sutures (securing underlying fascia) Exudate Amount: Scant Exudate Color: Reddish/Yellow Exudate Characteristic(s): Serosanguinous Integumentary Issue Intervention: Dressing Changed Rahel Wound Tissue: Intact Rahel Wound Swelling: None Wound Bed Color: Red, Yellow Wound Bed Constitution: Granulation Tissue (60%), Adhered Slough (40%) Wound Edges: Epithelizing Site Odor: None Skin Integrity Problem Comment: Patient well-known to wound care through previous hospitalizations. Wound significantly smaller than previous assessments , w/ well-granulating tissue noted proximally. There continues to be some adhered slough in the distal aspect of the wound bed, which we are attempting to loosen using the Veraflo instillation therapy. Periwound skin is intact w/ no swelling or erythema observed. Reinitiated Veraflo this morning while he remains inpatient. Periwound skin prepped and draped, and one continuous piece of black vac foam placed in wound bed. Therapy resumed; leak noted, and patched w/ drape. Will continue w/ settings: 28mL NS instilling every 3.5 hours for 8 minutes. strategic planning director Pearl present to visualize wounds. Discussed instructions for discontinuing Veraflo and resuming regular vac settings if patient should dc before Sunday and go home with a home vac.
--- NOTE | 2017-06-01 10:10 | WOCRNPDOC ---
WOCRN Advanced Assessment Note - Skin Integrity Problem, Advanced Assess Abdomen Surgical Wound/Incision Dressing Type: Wound Vac, Other Other Dressing Type: Veraflo Cleanse Dressing Dressing Description: Intact Closure Description: Retention Sutures (securing underlying fascia) Exudate Amount: Scant Exudate Color: Reddish/Yellow Exudate Characteristic(s): Serosanguinous Integumentary Issue Intervention: Dressing Changed Rahel Wound Tissue: Intact Rahel Wound Swelling: None Wound Bed Color: Red, Yellow Wound Bed Constitution: Granulation Tissue (60%), Adhered Slough (40%) Wound Edges: Epithelizing Site Odor: None Skin Integrity Problem Comment: Patient well-known to wound care through previous hospitalizations. Wound significantly smaller than previous assessments , w/ well-granulating tissue noted proximally. There continues to be some adhered slough in the distal aspect of the wound bed, which we are attempting to loosen using the Veraflo instillation therapy. Periwound skin is intact w/ no swelling or erythema observed. Reinitiated Veraflo this morning while he remains inpatient. Periwound skin prepped and draped, and one continuous piece of black vac foam placed in wound bed. Therapy resumed; leak noted, and patched w/ drape. Will continue w/ settings: 28mL NS instilling every 3.5 hours for 8 minutes. commercial subcontractor Pearl present to visualize wounds. Discussed instructions for discontinuing Veraflo and resuming regular vac settings if patient should dc before Sunday and go home with a home vac.
--- NOTE | 2017-06-01 10:10 | WOCRNPDOC ---
WOCRN Advanced Assessment Note - Skin Integrity Problem, Advanced Assess Abdomen Surgical Wound/Incision Dressing Type: Wound Vac, Other Other Dressing Type: Veraflo Cleanse Dressing Dressing Description: Intact Closure Description: Retention Sutures (securing underlying fascia) Exudate Amount: Scant Exudate Color: Reddish/Yellow Exudate Characteristic(s): Serosanguinous Integumentary Issue Intervention: Dressing Changed Rahel Wound Tissue: Intact Rahel Wound Swelling: None Wound Bed Color: Red, Yellow Wound Bed Constitution: Granulation Tissue (60%), Adhered Slough (40%) Wound Edges: Epithelizing Site Odor: None Skin Integrity Problem Comment: Patient well-known to wound care through previous hospitalizations. Wound significantly smaller than previous assessments , w/ well-granulating tissue noted proximally. There continues to be some adhered slough in the distal aspect of the wound bed, which we are attempting to loosen using the Veraflo instillation therapy. Periwound skin is intact w/ no swelling or erythema observed. Reinitiated Veraflo this morning while he remains inpatient. Periwound skin prepped and draped, and one continuous piece of black vac foam placed in wound bed. Therapy resumed; leak noted, and patched w/ drape. Will continue w/ settings: 28mL NS instilling every 3.5 hours for 8 minutes. recreation facilities supervisor Pearl present to visualize wounds. Discussed instructions for discontinuing Veraflo and resuming regular vac settings if patient should dc before Sunday and go home with a home vac.
--- NOTE | 2017-06-01 11:42 | PCMIDPN ---
Assessment/Plan: 1. 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 Given the patient's history, this is certainly plausible. I spoke with the microbiology lab; more data should be available tomorrow in so far as pathogens are concerned in the urine. For now, continue Zosyn as is. He may be able to go home this weekend, but need to ascertain antibiotic regimen before doing so. Will likely need 10 days of therapy. 2. History of C difficile: Continue suppressive vancomycin 125 mg twice daily. Subjective: Feels much better over the past 24 hours. Denies nausea, vomiting, shaking chills. Having some loose stool. Objective: Zosyn 3.375 g IV q.6 hours day 2. Vancomycin 125 mg twice daily Afebrile Vital Signs Temp Pulse Resp BP Pulse Ox 36.7 C 91 19 85/58 L 94 06/01/17 11:13 06/01/17 11:13 06/01/17 11:13 06/01/17 11:13 06/01/17 11:13 Microbiology 05/30/17 20:37 Respiratory Panel (PCR) - Final Nasal, Sinus - Swab No Organism Detected Laboratory Results 06/01/17 09:00 06/01/17 03:00 05/31/17 06/01/17 06/02/17 05:59 05:59 05:59 Intake Total 1500 1575 2066 Output Total 500 1650 200 Balance 1000 -75 1866 Urine culture with 1 colony count greater than 100,000 colonies, and another colony greater than 4000 colonies. Micro lab should no these organisms by tomorrow. Blood cultures negative Respiratory viral panel negative - Physical Exam General Appearance: alert, no apparent distress EENT: pharynx normal, No thrush Respiratory: lungs clear Abdomen: non-tender, soft, other (Wound VAC in place. No vonnie VAC tenderness or erythema.) Skin: other (Old tattoos), No rash ICD10 Worksheet Patient Problems: Problems Problem Status Onset Fever Acute Wound dehiscence Acute Anemia Acute Bladder cancer Acute C. difficile diarrhea Acute ~11/26/16 Congestive heart failure Acute Extended spectrum beta lactamase (ESBL) resistance Acute ~05/12/17 Hyponatremia Acute Thrombocytopenia Acute
--- NOTE | 2017-06-01 14:12 | ASMTCMCOM ---
CM Note CM Note Notes: Spoke w/RN and hospitalist re; wound vac. CM called [facility] and no order for wound vac has been made. CM notified pt and , CM to start wound vac application process. Current DC Plan: Home w/wound vac and [facility] ( RN/PT/OT) Date Signed: 06/01/2017 02:11 PM Electronically Signed By:Cate Hand RN
--- NOTE | 2017-06-01 14:38 | WOCRNPDOC ---
WOCRN Advanced Assessment Note - Urostomy Assessment, Advanced Right Lower Abdomen Urostomy Appliance Intact: Yes Urostomy Appliance Currently in Use: Two Piece Flat, 2 1/4, Moldable Urostomy Accessory: Stoma Paste (used in crease at 3 & 9 o'clock) Stoma Color: Red Stoma Turgor: Moist, Shiny Stoma Shape: Round Stoma Height: Protruding Mucocutaneus Junction: Intact Urostomy Effluent: Urine Urostomy Details: Ileal Conduit Peristomal Skin: Intact Urostomy Comment/Treatment Details: Appliance change this afternoon with patient. Protruding, red stoma noted w/ intact mucocutaneous junction. Peristomal skin is intact throughout, w/ no evidence of breakdown. Site cleansed w/ warm water and washcloth by Student ELIZABETH Gtz. Paste applied to crease in abdomen at 3 & 9 o'clock to create a smooth, level pouching surface. Student measured stoma (25mm, round) and cut out barrier, then placed both barrier and pouch on patient. Covered newly applied appliance w/ warm, dry compress to facilitate better seal. Patient verbally understands how to change system, and asked the student if her washcloth was "just warm water, right?" Windy present and watching; says she has no additional questions regarding ostomy care , and knows to call [facility] if problems arise when they return home. Orders written to attach patient's urostomy pouch to a bedside drainage system only at night; during the day, nursing should encourage him to empty when pouch is 1/3-1/2 full. Provided adaptor from clean supply to fish cleaner machine tenderELIZABETH Kang, and demonstrated how to apply it to the urostomy pouch/bedsdie drainage system.
--- NOTE | 2017-06-01 16:13 | GCON ---
[f rep st] CONSULTATION DATE OF CONSULTATION: 05/31/2017 REASON FOR CONSULTATION: Is fever of 103 three weeks after radical cystectomy with prostatectomy, si gnificant ileus prolonging hospital stay significantly requiring take back with aspiration pneumonia. He left the hospital approximately 4 days ago to a SNF, was doing well at home and came back to the ER with a fever of 103 degrees and malaise. HISTORY OF PRESENT ILLNESS: The patient is a very pleasant 76-year-old male who underwent a complica tariq radical cystoprostatectomy with ileal conduit. The complication was an ileus which required take back due to dehiscence of his wound, it should be noted that he was post chemotherapy prior to his c ystectomy. The ileus was profound and he had an aspiration pneumonia following the take back. He re covered well from this and was doing well in the SNF and at home and then spiked fevers. I suspect s trongly that this is a pyelonephritis due to his stents and infected urine bag. He was admitted for management of this and we are awaiting urine cultures. Currently, he is on Zosyn, which is appropria te for his care. PAST MEDICAL HISTORY: Is bladder cancer, diastolic CHF, asthma, paroxysmal atrial fibrillation, vonnie pheral vascular disease, nocturnal hypoxemia, pulmonary hypertension, gout, and recent surgery for hi s bladder cancer as above. PAST SURGICAL HISTORY: Cystoprostatectomy with ileal conduit, bilateral carotid endarterectomy, TURP , hernia repair, appendectomy. SOCIAL HISTORY: The patient is a former smoker. Social drinker. He is . FAMILY HISTORY: Noncontributory. HOME MEDICATIONS: Dulera inhaler, montelukast, probenecid, spironolactone, furosemide, metoprolol, s imvastatin, mometasone. ALLERGIES: Aspirin, NSAIDs, azithromycin and Iodine. REVIEW OF SYSTEMS: A 10-point review of systems is negative except for malaise and fevers. He is be coming hungry as I examine him. PHYSICAL EXAMINATION: VITAL SIGNS: He is afebrile, pulse is 106, respiratory rate 16, blood pressur e is 98/62, pulse ox 96% on room air. CONSTITUTIONAL: Looks reasonably well. Mild distress. HEENT : Normocephalic, atraumatic. EYES: PERRL. Extraocular muscles intact. CARDIOVASCULAR: Irregular ly irregular. No lower extremity edema. RESPIRATORY: No respiratory distress. Reduced air movemen t. GI: Normoactive bowel sounds. Soft, nontender abdomen. No palpable masses. The wound VAC is in place. The incision is smaller and healing well. Good granulation upon removal of the wound VAC fo am. SKIN: Warm. NEUROLOGIC: Alert and oriented x3. PSYCHIATRIC: Acting appropriately. LAB: H and H are 11.5 and 34, white count is 9, creatinine is 1.2. ASSESSMENT AND PLAN: 1. ____Admit for antibiotics and I agree with the Zosyn. 2. Stents removed at the bedside today through his ostomy without complication. We will check a renal ultrasound tomorrow to ensure the hydronephrosis has improved and we will sindhu nue to follow. I think this will be a brief hospital stay. It should be noted that his CT scan note s a small dot of air somewhere around the anastomosis. I have reviewed this with Dr. Evans and I bel ieve this to be likely artifact. His abdomen is completely soft. I do not think there is a leak. N onetheless, we will follow this carefully. /[id number]/MODL
--- NOTE | 2017-06-01 17:21 | ASMTCMCOM ---
CM Note CM Note Notes: Application submitted for I wound vac, not in network. CM called Flori at [facility] who will bring wound vac tomorrow. Family and Surgery notified. Offered family number for Patient Advocate, to discuss challenges with dc and wound vac but family is happy with care at [facility]. CM to call [facility] to ask if they can see pt day of dc to apply [employer] wound vac supplies, if unable please call or page Dr Evans [phone] Current Discharge Plan: Home w/[employer] wound vac and [facility] (RN/PT/OT) Date Signed: 06/01/2017 05:20 PM Electronically Signed By:Cate Hand RN
--- NOTE | 2017-06-01 17:21 | ASMTCMCOM ---
CM Note CM Note Notes: Application submitted for I wound vac, not in network. CM called Flori at [facility] who will bring wound vac tomorrow. Family and Surgery notified. Offered family number for Patient Advocate, to discuss challenges with dc and wound vac but family is happy with care at [facility]. CM to call [facility] to ask if they can see pt day of dc to apply [employer] wound vac supplies, if unable please call or page Dr Evans [phone] Current Discharge Plan: Home w/[employer] wound vac and [facility] (RN/PT/OT) Date Signed: 06/01/2017 05:20 PM Electronically Signed By:Cate Hand RN
--- NOTE | 2017-06-01 17:21 | ASMTCMCOM ---
CM Note CM Note Notes: Application submitted for I wound vac, not in network. CM called Flori at [facility] who will bring wound vac tomorrow. Family and Surgery notified. Offered family number for Patient Advocate, to discuss challenges with dc and wound vac but family is happy with care at [facility]. CM to call [facility] to ask if they can see pt day of dc to apply [employer] wound vac supplies, if unable please call or page Dr Evans [phone] Current Discharge Plan: Home w/[employer] wound vac and [facility] (RN/PT/OT) Date Signed: 06/01/2017 05:20 PM Electronically Signed By:Cate Hand RN
[2017-06-01] MEDS: Mometasone/Formoterol [Dulera 100 Mcg/5 Mcg Inhaler] IH SCH ×2 (17:37)
--- NOTE | 2017-06-01 17:50 | HOSPPROG ---
Hospitalist Progress Note Assessment/Plan: Assessment: 76 yo male presents with suspected complicated urinary tract infection Plan: # Suspected complicated UTI. POA. Acute, likely infxn w/in the urinary system w / stents, ileoconduit - stents removed per Dr. Daley - repeat US w/o hydro - d/w Dr. Christine, she recommends getting E. faecalis sensitivities and deriving Abx selection from that info - D#2 Zosyn, target based on sensitivity, 10 day total course # Persistent Atrial Fibrillation. Intermittent RVR, Afib w/ TWI V3-V5 on EKG, cont metoprolol - patient re-presented back on lower dose of metoprolol succ, requires uptitration (37.5mg bid of tartrate) for HR 100s at rest, 120s w/ activity - uptitrate tartrate further tomorrow if HR running 100-120 and discharge on that higher dosage - counseled patient re: anticoagulation, and he would like to remain off of it at this time, until he sees Dr. Hernandez next week, and then he will make a decision - patient does not want to be on ASA at this time either # Acute Kidney Injury. 2/2 hypovolemia in setting of infxn, responding to IVF - reviewed outside records (05/24/17 Cr 1.0), peaked 1.4 on presentation # Hypokalemia. Acute, IVF w/ K + PO, Mg supp # Chronic Diastolic CHF. Hold diuretic, monitor volume status, restart diuretic as outpt # Abd wound. With wound vac in place, will require ongoing wound care/vac services at discharge - appreciate Dr. Evans's consultation, and ordering the wound vac supplies/ authorization - d/w case mgmt, apparently [facility] did not compile the wound vac request or obtain authorization from [facility], so CM is working today to get that filed, but his discharge home is predicated on when he can have this in place Diet. Regular, Ensure, dietary consult Ppx. High risk, on lovenox 40 Code. Full Dispo. ADD 06/02, patient very anxious to discharge home w/ home care. Subjective: BM, improvement in energy level Objective: Vital Signs Temp Pulse Resp BP Pulse Ox 36.9 C 102 H 16 89/55 L 92 06/01/17 15:22 06/01/17 17:35 06/01/17 17:35 06/01/17 15:22 06/01/17 17:35 Laboratory Results 06/01/17 14:20 06/01/17 14:20 05/31/17 06/01/17 06/02/17 05:59 05:59 05:59 Intake Total 1500 1575 2871 Output Total 500 1650 200 Balance 1000 -75 2671 PT 16.2 SEC (12.0-15.0) H 05/30/17 16:16 INR 1.30 (0.83-1.16) H 05/30/17 16:16 - Time Spent With Patient Time Spent with Patient: greater than 35 minutes Time Spent with Patient: Greater than 35 minutes spent on this patients care, greater than 50% of time spent counseling, educating, and coordinating care regarding the above mentioned plan. - Physical Exam Constitutional: no apparent distress, not in pain, chronically ill appearing, No uncomfortable Cardiovascular: irregularly irregular, tachycardia, No systolic murmur, No edema Respiratory: no respiratory distress, no rales or rhonchi, clear to auscultation Gastrointestinal: normoactive bowel sounds, other (central abd wound vac), No tenderness Skin: other (no erythema around wound vac site, R side ostomy) Neurologic: AAOx3 Psychiatric: interacting appropriately, not anxious, not encephalopathic, thought process linear ICD10 Worksheet Patient Problems: Problems Problem Status Onset Fever Acute Wound dehiscence Acute Anemia Acute Bladder cancer Acute C. difficile diarrhea Acute ~11/26/16 Congestive heart failure Acute Extended spectrum beta lactamase (ESBL) resistance Acute ~05/12/17 Hyponatremia Acute Thrombocytopenia Acute
[2017-06-01] MEDS: ROSUVASTATIN CALCIUM 20 MG TAB PO SCH ×2 (21:42)
[2017-06-01] MEDS: LORazepam 0.5 MG TAB PO PRN ×2 (22:38)
[2017-06-02] MEDS: PIPERACILLIN/TAZO 3.375 GM/DEX 50 ML IV SCH ×4 (05:29→11:55)
[2017-06-02 05:47] LABS: PLATELET COUNT 190 10^3/uL (150-400)
[2017-06-02] MEDS ORDERED: ENOXAPARIN 80 MG/0.8 ML SYR SC SCH ×2 (09:00)
[2017-06-02] MEDS ORDERED: ENOXAPARIN 40 MG/0.4 ML SYR SC SCH ×2 (09:00)
[2017-06-02] MEDS: VANCOMYCIN 125 MG/2.5 ML UDL PO SCH ×2 (09:17)
[2017-06-02] MEDS: METOPROLOL TARTRATE 25 MG TAB PO SCH ×2 (09:17)
[2017-06-02] MEDS: PROBENECID 500 MG TAB PO SCH ×2 (09:17)
[2017-06-02] MEDS: MONTELUKAST SODIUM 10 MG TAB PO SCH ×2 (09:17)
[2017-06-02] MEDS: Mometasone/Formoterol [Dulera 100 Mcg/5 Mcg Inhaler] 2 PUFFS IH SCH ×2 (09:18)
[2017-06-02] MEDS ORDERED: FLU VACC QS 2017-18 (3YR+)/PF 0.5 ML SYR (FLUARIX QUAD) IM ONE ×2 (09:30)
--- NOTE | 2017-06-02 10:12 | PCMIDPN ---
Assessment/Plan: 1. 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 He absolutely wants to go home today. Given negative blood cultures and clinical stability, I feel that we can treat him with oral Augmentin to complete 10 days of therapy. He will need Augmentin 875 mg p.o. twice daily for another 8 days. This was conveyed to the patient, as well as the hospitalist, Dr. Garzon. Susceptibilities of the Enterococcus in his urine will not be back until tomorrow. I will follow up with this and make sure to get the patient an appointment in our clinic. 2. History of C difficile: Continue suppressive vancomycin 125 mg twice daily while he he is taking antibiotics, and for a week after completion of antibiotics. This was explained to the patient today. He will need a script for this. Subjective: "I want to go home today." He tells me that he cannot stay in the hospital another day. He feels much better since hospital admission. Objective: Zosyn 3.375 g IV q.6 hours day 2 Vancomycin 125 mg p.o. twice daily day 2 Afebrile Vital Signs Temp Pulse Resp BP Pulse Ox 36.7 C 99 16 100/63 92 06/02/17 08:00 06/02/17 09:17 06/02/17 08:00 06/02/17 09:17 06/02/17 08:00 Laboratory Results 06/02/17 04:54 06/02/17 04:54 06/01/17 06/02/17 06/03/17 05:59 05:59 04:59 Intake Total 1575 3271 Output Total 1650 203 Balance -75 3068 Blood cultures negative Urine culture with greater than 100,000 colonies Enterococcus faecalis, susceptibilities pending and 4000 colonies of a different organism, identification to follow. - Physical Exam General Appearance: alert, no apparent distress Abdomen: non-tender, soft, other (Wound VAC in place.) Skin: No rash ICD10 Worksheet Patient Problems: Problems Problem Status Onset Fever Acute Wound dehiscence Acute Anemia Acute Bladder cancer Acute C. difficile diarrhea Acute ~11/26/16 Congestive heart failure Acute Extended spectrum beta lactamase (ESBL) resistance Acute ~05/12/17 Hyponatremia Acute Thrombocytopenia Acute
[2017-06-02 11:22] VITALS: BP 94/63; PULSE 100; RESP 20; TEMP 98.2; O2SAT 91
--- NOTE | 2017-06-02 11:39 | PDIAF ---
- Diagnosis Diagnosis: UTI Code Status: Full Code - Medication Management Discharge Medications: Medications to Continue on Transfer Mometasone/Formoterol [Dulera 100 Mcg/5 Mcg Inhaler] 1 puffs IH HS 12/21/16 [ Last Taken 1 Week Ago ~05/23/17] Montelukast Sodium [Singulair 10 mg (*)] 10 mg PO DAILY 12/21/16 [Last Taken 08/15 09:00] Probenecid [Probenecid 500mg (*)] 500 mg PO DAILY 12/22/16 [Last Taken 05/30/17 09:00] Spironolactone [Aldactone 25 MG (*)] 25 mg PO Q2D 12/22/16 [Last Taken 05/29/17] Furosemide [Lasix 40 MG (*)] 60 mg PO DAILY 04/12/17 [Last Taken 05/30/17 09:00] Rosuvastatin Calcium [Crestor 20mg (*)] 20 mg PO HS 04/12/17 [Last Taken ] Mometasone/Formoterol [Dulera 100 Mcg/5 Mcg Inhaler] 2 puffs IH DAILY 05/02/17 [ Last Taken 1 Week Ago ~05/23/17] Acetaminophen [Tylenol 325mg (*)] 650 mg PO Q4HRS PRN tab 06/02/17 [Last Taken Unknown] Amoxicillin/Clavulanate Pot [Augmentin 875 MG TAB (*)] 875 mg PO BID #16 tab 11/13 [Last Taken Unknown] Metoprolol Tartrate [Lopressor 25 mg (*)] 37.5 mg PO BID #60 tab 06/02/17 [Last Taken Unknown] Vancomycin [Vancocin Oral Liquid] 125 mg PO BID #40 ml 06/02/17 [Last Taken Unknown] Discharge Medications: Refer to the Discharge Home Medication list for PRN reason. - Orders Services needed: Home Care, Registered Nurse, Physical Therapy, Occupational Therapy Home Care Face to Face: I certify that this patient was under my care and that I had the required [id number] encounter meeting the encounter requirements on the discharge day. My findings support the fact that the patient is homebound as defined in Home Care Face to Face Continued: CMS Chapter 7 Medicare Benefits Manual 30.1.1 , The condition of the patient is such that there exists a normal inability to leave home and consequently, leaving home would require a considerable and taxing effort. Diet Recommendation: no restrictions on diet Wound Care Instructions: Wound vac dressing change MWF w/ home care. Follow up w / Dr. Evans. Black foam, -125mmHg, low continuous suction. Urostomy care: Change entire pouching system every 3-4 days, or as needed for any leaking. 1) cleanse skin around the stoma w/ warm water and a wash cloth; pat dry. No lotions or soaps! 2) measure stoma using [place] measuring guide (last measurement in hospital on 06/01/17 was 25mm, round). 3) trace measurement on the back of the barrier, then cut out using scissors. 4) place barrier over stoma and onto surrounding skin, ensuring that opening is big enough and not pressing into stoma; ensure that no more than 1/8 inch skin is visible between the barrier and the stoma. 5) attach urostomy pouch, ensuring that spout is closed. 6) place something warm (heating pad on the lowest setting or hot water bottle) over the pouching system to help barrier conform to skin. 7) seek help if you notice skin surrounding the stoma is starting to break down and /or if you can't get barrier to seal and are having frequent leaks. You can call the [facility] at [phone] during the day to set up an appointment if you feel you need assistance and additional teaching. 8) attach pouch to a bedside drainage system at night using the [place] adaptor. Disconnect in the morning, and empty pouch throughout the day when 1/3 to 1/2 full. SATHISH Lennon - Follow Up Care Current Providers and Referrals: Sofia Abarca MD [Primary Care Provider] - As per Instructions Mindi Evans MD [Medical Doctor] - 06/15/17 2:00 pm () Abilio Hernandez MD [Medical Doctor] -
--- NOTE | 2017-06-02 13:07 | ASMTCMCOM ---
CM Note CM Note Notes: Reviewed chart, spoke w/ ELIZABETH Kang regarding discharge plan of care, pt's progress. Per MD notes, pt to discharge home today w/ home health care (RN/PT/OT) and family support. [employer] delivered home wound vac for pt. ELIZABETH Kang signed for equipment and supplies. Call placed to [facility] ([facility]); spoke pura/ ELIZABETH Denson. Per Jarett, able to accept pt. Jarett called her community association manager, Tabby to confirm best way to handle wound vac change from [employer] to [employer] machine. Per Jarett, ideal plan is to obtain order from to authorize wet to dry dressing for transport home. ELIZABETH Denson to meet pt at his home within [address] new [employer] wound vac. Spoke w/ Dr. Irma Al, order obtained by RN. Plan discussed w/ family; family in agreement. Coordinated wound vac removal, wet to dry dsg placement w/ ELIZABETH Kang. Pt address and phone number verified; directions obtained. Update provided to ELIZABETH Denson. Spoke w/ ELIZABETH Esposito CM at home - per Cate all [employer] paperwork to be handled on Sunday06/04/17 by Yue at [facility]. See below for specific device information. IM signed 06/01/17. Pt to follow up as directed. CM business card provided to pt and family. Home care info and phone number provided in pt discharge instructions. Pearl to call report to [phone]. CM avail for any further issues or concerns. Current Dischare Plan: Home w/ [facility] (RN/PT/OT) Device information: [employer] Wound Vac delivered Sat Jun 02, 2017 approx 10:00 Item #: [id number] Advance Flex Lot #: [id number] Vendor #: [id number] Serial #: [id number] Exp Date: [id number] Date Signed: 06/02/2017 01:06 PM Electronically Signed By:Suasn Quiñones RN
--- NOTE | 2017-06-02 13:07 | ASMTCMCOM ---
CM Note CM Note Notes: Reviewed chart, spoke w/ ELIZABETH Kang regarding discharge plan of care, pt's progress. Per MD notes, pt to discharge home today w/ home health care (RN/PT/OT) and family support. [employer] delivered home wound vac for pt. ELIZABETH Kang signed for equipment and supplies. Call placed to [facility] ([facility]); spoke pura/ EILZABETH Denson. Per Jarett, able to accept pt. Jarett called her lift manager, Tabby to confirm best way to handle wound vac change from [employer] to [employer] machine. Per Jarett, ideal plan is to obtain order from to authorize wet to dry dressing for transport home. ELIZABETH Denson to meet pt at his home within [address] new [employer] wound vac. Spoke w/ Dr. Irma Al, order obtained by RN. Plan discussed w/ family; family in agreement. Coordinated wound vac removal, wet to dry dsg placement w/ ELIZABETH Kang. Pt address and phone number verified; directions obtained. Update provided to ELIZABETH Denson. Spoke w/ ELIZABETH Esposito CM at home - per Cate all [employer] paperwork to be handled on Sunday06/04/17 by Yue at [facility]. See below for specific device information. IM signed 06/01/17. Pt to follow up as directed. CM business card provided to pt and family. Home care info and phone number provided in pt discharge instructions. Pearl to call report to [phone]. CM avail for any further issues or concerns. Current Dischare Plan: Home w/ [facility] (RN/PT/OT) Device information: [employer] Wound Vac delivered Sat Jun 02, 2017 approx 10:00 Item #: [id number] [employer] Flex Lot #: [id number] Vendor #: [id number] Serial #: [id number] Exp Date: [id number] Date Signed: 06/02/2017 01:06 PM Electronically Signed By:Susan Quiñones RN
--- NOTE | 2017-06-02 13:07 | ASMTCMCOM ---
CM Note CM Note Notes: Reviewed chart, spoke w/ ELIZABETH Kang regarding discharge plan of care, pt's progress. Per MD notes, pt to discharge home today w/ home health care (RN/PT/OT) and family support. [employer] delivered home wound vac for pt. ELIZABETH Kang signed for equipment and supplies. Call placed to [facility] ([facility]); spoke pura/ ELIZABETH Denson. Per Jarett, able to accept pt. Jarett called her golf course manager, Tabby to confirm best way to handle wound vac change from [employer] to [employer] machine. Per Jarett, ideal plan is to obtain order from to authorize wet to dry dressing for transport home. ELIZABETH Denson to meet pt at his home within [address] new [employer] wound vac. Spoke w/ Dr. Irma Al, order obtained by RN. Plan discussed w/ family; family in agreement. Coordinated wound vac removal, wet to dry dsg placement w/ ELIZABETH Kang. Pt address and phone number verified; directions obtained. Update provided to ELIZABETH Denson. Spoke w/ ELIZABETH Esposito CM at home - per Cate all [employer] paperwork to be handled on Sunday06/04/17 by Yue at [facility]. See below for specific device information. IM signed 06/01/17. Pt to follow up as directed. CM business card provided to pt and family. Home care info and phone number provided in pt discharge instructions. Pearl to call report to [phone]. CM avail for any further issues or concerns. Current Dischare Plan: Home w/ [facility] (RN/PT/OT) Device information: [employer] Wound Vac delivered Sat Jun 02, 2017 approx 10:00 Item #: [id number] [employer] Flex Lot #: [id number] Vendor #: [id number] Serial #: [id number] Exp Date: [id number] Date Signed: 06/02/2017 01:06 PM Electronically Signed By:Susan Quiñones RN
--- NOTE | 2017-06-02 14:11 | ASDISCHSUM ---
Discharge Information Plan Status:Home with Home Health Medically Cleared to Leave:06/02/2017 Discharge Date:06/02/2017 12:53 PM CM D/C Disposition:Home Health Service ADT D/C Disposition:Home, Routine, Self-Care Projected Discharge Date:06/01/2017 11:00 AM Transportation at D/C:Family Discharge Delay Reason: Follow-Up Date:06/01/2017 11:00 AM Discharge Slot:2 - 12:01 pm - 18:00 pm Final Diagnosis:s/p cysto prostatectomy w/ ileal conduit, fever, sepsis, complicated UTI, afib, acut e kidney injury, abd wound, chronic DCHF, hx of cdiff, Placement Information Referral Type:*Home Health Care Services Referral ID:[id number] Provider Name:[facility] Care Address 1:[facility] [place] [facility] [place] [address] Address 2: City:[place] Selection Factors:Patient/Family Choice State:[place] Patient Contact Information Contact Name:LUCAS Relationship: Address:[address] Work Phone: City:[facility] Phone: [facility]/Zip Code:[place] [address] Email: Financial Information Financial Class:Medicare Advantage Plans Primary Plan Desc:[employer] [facility] [employer] Primary Plan Number:[id number] Secondary Plan Desc: Secondary Plan Number: Assessment Information [facility] Progress Note CM Note CM Note Notes: CM met with pt and , recently dc'd from [facility]. They were dissapointed in care, Therapies were great but they felt staff was unprepared and they felt "unwelcomed". CM will discuss with management but not use their names. Otherwise PT/OT recommend homecare, pt was set up with [facility] from [facility], CM will confirm. Also pt's states [facility] ordered home wound vac on Sunday that should be arriving to pt's home. Current DC Plan: Home w/wound vac and [facility] Date Signed: 05/31/2017 04:45 PM Electronically Signed By:Cate Hand RN [facility] Progress Note CM Note CM Note Notes: Spoke w/RN and hospitalist re; wound vac. CM called [facility] and no order for wound vac has been made. CM notified pt and , CM to start wound vac application process. Current DC Plan: Home w/wound vac and [facility] ( RN/PT/OT) Date Signed: 06/01/2017 02:11 PM Electronically Signed By:Cate Hand RN [facility] CM Progress Note CM Note CM Note Notes: Application submitted for [employer] wound vac, not in network. CM called Flori at [facility] who will bring wound vac tomorrow. Family and Surgery notified. Offered family number for Patient Advocate, to discuss challenges with dc and wound vac but family is happy with care at [facility]. CM to call [facility] to ask if they can see pt day of dc to apply [facility] wound vac supplies, if unable please call or page Dr Evans [phone] Current Discharge Plan: Home w/[employer] wound vac and [facility] (RN/PT/OT) Date Signed: 06/01/2017 05:20 PM Electronically Signed By:Cate Hand RN [facility] CM Progress Note CM Note CM Note Notes: Reviewed chart, spoke pura/ ELIZABETH Kang regarding discharge plan of care, pt's progress. Per MD notes, pt to discharge home today w/ home health care (RN/PT/OT) and family support. [employer] delivered home wound vac for pt. ELIZABETH Kang signed for equipment and supplies. Call placed to [facility] ([facility]); spoke w/ ELIZABETH Denson. Per Jarett, able to accept pt. Jarett called her economic manager, Tabby to confirm best way to handle wound vac change from [employer] to [employer] machine. Per Jarett, ideal plan is to obtain order from MD to authorize wet to dry dressing for transport home. ELIZABETH Denson to meet pt at his home within [address] new [employer] wound vac. Spoke w/ Dr. Irma Al, order obtained by RN. Plan discussed w/ family; family in agreement. Coordinated wound vac removal, wet to dry dsg placement w/ ELIZABETH Kang. Pt address and phone number verified; directions obtained. Update provided to ELIZABETH Denson. Spoke w/ ELIZABETH Esposito CM at home - per Cate all [employer] paperwork to be handled on Sunday06/04/17 by Yue at [facility]. See below for specific device information. IM signed 06/01/17. Pt to follow up as directed. CM business card provided to pt and family. Home care info and phone number provided in pt discharge instructions. Pearl to call report to [place] [phone]. CM avail for any further issues or concerns. Current Dischare Plan: Home w/ [facility] (RN/PT/OT) Device information: [employer] Wound Vac delivered Sat Jun 02, 2017 approx 10:00 Item #: [id number] [employer] Lot #: [id number] Vendor #: [id number] Serial #: [id number] Exp Date: [id number] Date Signed: 06/02/2017 01:06 PM Electronically Signed By:Susan Quiñones RN Intervention Information Intervention Type:*Incorrect Registration Date of Service:05/31/2017 09:52 AM Patient Type:Observation Staff Member:ELIZABETH Rodriguez, Ashly Hours: Discipline: Severity: Comment: Intervention Type:*IM-Signed Date of Service:06/01/2017 11:19 AM Patient Type:Inpatient Staff Member:Rani Baptiste Hours: Discipline: Severity: Comment: Intervention Type:Education Family/Patient Date of Service:06/02/2017 11:00 AM Patient Type:Inpatient Staff Member:ELIZABETH Quiñones, Susan Hours:0.5 Discipline: Severity: Comment:Educated pt and family on discharge pl an - wound vac d/c, wet to dry dsg for transport home, placement of [employer] wound vac. Questions answered.
--- NOTE | 2017-06-02 14:11 | ASDISCHSUM ---
Discharge Information Plan Status:Home with Home Health Medically Cleared to Leave:06/02/2017 Discharge Date:06/02/2017 12:53 PM CM D/C Disposition:Home Health Service ADT D/C Disposition:Home, Routine, Self-Care Projected Discharge Date:06/01/2017 11:00 AM Transportation at D/C:Family Discharge Delay Reason: Follow-Up Date:06/01/2017 11:00 AM Discharge Slot:2 - 12:01 pm - 18:00 pm Final Diagnosis:s/p cysto prostatectomy w/ ileal conduit, fever, sepsis, complicated UTI, afib, acut e kidney injury, abd wound, chronic DCHF, hx of cdiff, Placement Information Referral Type:*Home Health Care Services Referral ID:[id number] Provider Name:[facility] Care Address 1:[facility] [address] Address 2: City:[place] Selection Factors:Patient/Family Choice [place] Patient Contact Information Contact Name:LUCAS Relationship: Address:[address] Work Phone: City:[facility] Phone: [facility]/Zip Code:[place] [address] Email: Financial Information Financial Class:Medicare Advantage Plans Primary Plan Desc:[employer] [facility] [employer] Primary Plan Number:[id number] Secondary Plan Desc: Secondary Plan Number: Assessment Information [facility] Progress Note CM Note CM Note Notes: CM met with pt and , recently dc'd from [facility]. They were dissapointed in care, Therapies were great but they felt staff was unprepared and they felt "unwelcomed". CM will discuss with management but not use their names. Otherwise PT/OT recommend homecare, pt was set up with [facility] from [facility], CM will confirm. Also pt's states [facility] ordered home wound vac on Sunday that should be arriving to pt's home. Current DC Plan: Home w/wound vac and [facility] h[facility] Date Signed: 05/31/2017 04:45 PM Electronically Signed By:Cate Hand RN [facility] Progress Note CM Note CM Note Notes: Spoke w/RN and hospitalist re; wound vac. CM called [facility] and no order for wound vac has been made. CM notified pt and , CM to start wound vac application process. Current DC Plan: Home w/wound vac and [facility] ( RN/PT/OT) Date Signed: 06/01/2017 02:11 PM Electronically Signed By:Cate Hand RN [facility] CM Progress Note CM Note CM Note Notes: Application submitted for [employer] wound vac, not in network. CM called Flori at [facility] who will bring wound vac tomorrow. Family and Surgery notified. Offered family number for Patient Advocate, to discuss challenges with dc and wound vac but family is happy with care at [facility]. CM to call [facility] to ask if they can see pt day of dc to apply [facility] wound vac supplies, if unable please call or page Dr Evans [phone] Current Discharge Plan: Home w/[employer] wound vac and [facility] (RN/PT/OT) Date Signed: 06/01/2017 05:20 PM Electronically Signed By:Cate Hand RN [facility] CM Progress Note CM Note CM Note Notes: Reviewed chart, spoke pura/ ELIZABETH Kang regarding discharge plan of care, pt's progress. Per MD notes, pt to discharge home today w/ home health care (RN/PT/OT) and family support. [employer] delivered home wound vac for pt. ELIZABETH Kang signed for equipment and supplies. Call placed to [facility] ([facility]); spoke w/ ELIZABETH Denson. Per Jarett, able to accept pt. Jarett called her daycare manager, Tabby to confirm best way to handle wound vac change from [employer] to [employer] machine. Per Jarett, ideal plan is to obtain order from MD to authorize wet to dry dressing for transport home. ELIZABETH Denson to meet pt at his home within [address] new [employer] wound vac. Spoke w/ Dr. Irma Al, order obtained by RN. Plan discussed w/ family; family in agreement. Coordinated wound vac removal, wet to dry dsg placement w/ ELIZABETH Kang. Pt address and phone number verified; directions obtained. Update provided to ELIZABETH Denson. Spoke w/ ELIZABETH Esposito CM at home - per Cate all [employer] paperwork to be handled on Sunday06/04/17 by Yue at [facility]. See below for specific device information. IM signed 06/01/17. Pt to follow up as directed. CM business card provided to pt and family. Home care info and phone number provided in pt discharge instructions. Pearl to call [place] [phone]. CM avail for any further issues or concerns. Current Dischare Plan: Home w/ [facility] (RN/PT/OT) Device information: [employer] Wound Vac delivered Sat Jun 02, 2017 approx 10:00 Item #: [id number] Advance Flex Lot #: [id number] Vendor #: [id number] Serial #: [id number] Exp Date: [id number] Date Signed: 06/02/2017 01:06 PM Electronically Signed By:Susan Quiñones RN Intervention Information Intervention Type:*Incorrect Registration Date of Service:05/31/2017 09:52 AM Patient Type:Observation Staff Member:ELIZABETH Rodriguez, Ashly Hours: Discipline: Severity: Comment: Intervention Type:*IM-Signed Date of Service:06/01/2017 11:19 AM Patient Type:Inpatient Staff Member:Rani Baptiste Hours: Discipline: Severity: Comment: Intervention Type:Education Family/Patient Date of Service:06/02/2017 11:00 AM Patient Type:Inpatient Staff Member:ELIZABETH Quiñones, Susan Hours:0.5 Discipline: Severity: Comment:Educated pt and family on discharge pl an - wound vac d/c, wet to dry dsg for transport home, placement of [employer] wound vac. Questions answered.
--- NOTE | 2017-06-02 14:11 | ASDISCHSUM ---
Discharge Information Plan Status:Home with Home Health Medically Cleared to Leave:06/02/2017 Discharge Date:06/02/2017 12:53 PM CM D/C Disposition:Home Health Service ADT D/C Disposition:Home, Routine, Self-Care Projected Discharge Date:06/01/2017 11:00 AM Transportation at D/C:Family Discharge Delay Reason: Follow-Up Date:06/01/2017 11:00 AM Discharge Slot:2 - 12:01 pm - 18:00 pm Final Diagnosis:s/p cysto prostatectomy w/ ileal conduit, fever, sepsis, complicated UTI, afib, acut e kidney injury, abd wound, chronic DCHF, hx of cdiff, Placement Information Referral Type:*Home Health Care Services Referral ID:[facility]-[id number] Provider Name:[facility] Care Address 1:[facility] [address] Address 2: City:[place] Selection Factors:Patient/Family Choice [place] Patient Contact Information Contact Name:LUCAS Relationship: Address:[address] Work Phone: City:[facility] Phone: [facility]/Zip Code:[place] [address] Email: Financial Information Financial Class:Medicare Advantage Plans Primary Plan Desc:[employer] [facility] [email or web address] Primary Plan Number:[id number] Secondary Plan Desc: Secondary Plan Number: Assessment Information [facility] Progress Note CM Note CM Note Notes: CM met with pt and , recently dc'd from [facility]. They were dissapointed in care, Therapies were great but they felt staff was unprepared and they felt "unwelcomed". CM will discuss with management but not use their names. Otherwise PT/OT recommend homecare, pt was set up with [facility] from [facility], CM will confirm. Also pt's states [facility] ordered home wound vac on Sunday that should be arriving to pt's home. Current DC Plan: Home w/wound vac and [facility] h[facility] Date Signed: 05/31/2017 04:45 PM Electronically Signed By:Cate Hand RN [facility] Progress Note CM Note CM Note Notes: Spoke w/RN and hospitalist re; wound vac. CM called [facility] and no order for wound vac has been made. CM notified pt and , CM to start wound vac application process. Current DC Plan: Home w/wound vac and [facility] ( RN/PT/OT) Date Signed: 06/01/2017 02:11 PM Electronically Signed By:Cate Hand RN [facility] CM Progress Note CM Note CM Note Notes: Application submitted for [employer] wound vac, not in network. CM called Flori at [facility] who will bring wound vac tomorrow. Family and Surgery notified. Offered family number for Patient Advocate, to discuss challenges with dc and wound vac but family is happy with care at [facility]. CM to call [facility] to ask if they can see pt day of dc to apply [facility] wound vac supplies, if unable please call or page Dr Evans [phone] Current Discharge Plan: Home w/[employer] wound vac and [facility] (RN/PT/OT) Date Signed: 06/01/2017 05:20 PM Electronically Signed By:Cate Hand RN [facility] CM Progress Note CM Note CM Note Notes: Reviewed chart, spoke pura/ ELIZABETH Kang regarding discharge plan of care, pt's progress. Per MD notes, pt to discharge home today w/ home health care (RN/PT/OT) and family support. [employer] delivered home wound vac for pt. ELIZABETH Kang signed for equipment and supplies. Call placed to [facility] ([facility]); spoke w/ ELIZABETH Denson. Per Jarett, able to accept pt. Jarett called her senior manager mergers & acquisitions, Tabby to confirm best way to handle wound vac change from [employer] to [employer] machine. Per Jarett, ideal plan is to obtain order from MD to authorize wet to dry dressing for transport home. ELIZABETH Denson to meet pt at his home within [address] new [employer] wound vac. Spoke w/ Dr. Irma Al, order obtained by RN. Plan discussed w/ family; family in agreement. Coordinated wound vac removal, wet to dry dsg placement w/ ELIZABETH Kang. Pt address and phone number verified; directions obtained. Update provided to ELIZABETH Denson. Spoke w/ ELIZABETH Esposito CM at home - per Cate all [employer] paperwork to be handled on Sunday06/04/[address] [facility]. See below for specific device information. IM signed 06/01/17. Pt to follow up as directed. CM business card provided to pt and family. Home care info and phone number provided in pt discharge instructions. Pearl to call [place] [phone]. CM avail for any further issues or concerns. Current Dischare Plan: Home w/ [facility] (RN/PT/OT) Device information: [employer] Wound Vac delivered Sat Jun 02, 2017 approx 10:00 Item #: [id number] [employer] Lot #: [id number] Vendor #: [id number] Serial #: [id number] Exp Date: [id number] Date Signed: 06/02/2017 01:06 PM Electronically Signed By:Susan Quiñones RN Intervention Information Intervention Type:*Incorrect Registration Date of Service:05/31/2017 09:52 AM Patient Type:Observation Staff Member:ELIZABETH Rodriguez, Ashly Hours: Discipline: Severity: Comment: Intervention Type:*IM-Signed Date of Service:06/01/2017 11:19 AM Patient Type:Inpatient Staff Member:Rani Baptiste Hours: Discipline: Severity: Comment: Intervention Type:Education Family/Patient Date of Service:06/02/2017 11:00 AM Patient Type:Inpatient Staff Member:ELIZABETH Quiñones, Susan Hours:0.5 Discipline: Severity: Comment:Educated pt and family on discharge pl an - wound vac d/c, wet to dry dsg for transport home, placement of [employer] wound vac. Questions answered.
--- NOTE | 2017-06-02 18:39 | GDS ---
[f rep st] DISCHARGE SUMMARY DISCHARGE DIAGNOSES: 1. Complicated urinary tract infection in the setting of stents and ileal conduit. 2. Atrial fibrillation with intermittent rapid ventricular rate. 3. Acute kidney injury, resolved. 4. Chronic diastolic heart failure, stable. 5. Abdominal wound with a wound VAC in place, which will require home health services. 6. Bladder cancer, status post cystoprostatectomy with ileal conduit. CONSULTANTS: 1. Dr. Ann Evans, General Surgery. 2. Dr. Chiquis Torres, Infectious Disease. HISTORY: For details please see the history and physical dated May 30, 2017. In brief, the danielito ent is a 76-year-old male with a recent cystoprostatectomy with ileal conduit secondary to bladder ca ncer, who presented to the Emergency Department with fever and hypotension. The suspected source of infection was urinary tract infection. He was admitted to the hospital for further management. HOSPITAL COURSE: The patient admitted to the step-down unit and blood cultures were drawn. He was s tarted on Zosyn. His urine culture grew greater than 100,000 enterococcus and 40,000 to 98584 staphy lococci Simulans. His blood cultures remain negative to date. Infectious Disease consult was obtain ed. He clinically improved. His white blood cell count trended down. He has been afebrile. He is transitioned to oral Augmentin at the time of discharge to complete a total of 10 days of antibiotics per ID recommendations. During the hospitalization, he had elevated heart rates in the setting of a trial fibrillation, and his beta alyssa was up titrated. He was discharged home on a higher dose of metoprolol tartrate 37.5 mg twice daily. In addition, he was given a prescription for vancomycin 12 5 mg twice daily for suppression given his recent history of C difficile. Surgery and Wound Care wer e involved. He will have wound VAC dressing changes with home care on Sunday, Sunday, Sunday, and follow up with Dr. Evans. Detailed wound care and urostomy care instructions are provided from our wound care nurse. DISPOSITION: The patient is discharged home with home health care. FOLLOWUP: 1. Dr. Ann Evans, General Surgery. 2. Dr. Josh Abarca, Primary Care. 3. Dr. Abilio Hernandez, Cardiology. /[id number]/MODL
== END 2017-06-02 12:53 | disposition home health service (06) | DRG 699 ==
LOC: OBSVTOIN 18:12 → F3E 23:23
PROVIDERS: ADMIT Family Medicine; ATTEND Family Medicine
DX: T83.592A Infection and inflammatory reaction due to indwelling ureteral stent, initial encounter (principal); N13.6 Pyonephrosis; E87.6 Hypokalemia; I48.0 Paroxysmal atrial fibrillation; N17.9 Acute kidney failure, unspecified; I50.30 Unspecified diastolic (congestive) heart failure; J45.909 Unspecified asthma, uncomplicated; I73.9 Peripheral vascular disease, unspecified; Z87.891 Personal history of nicotine dependence; Z85.51 Personal history of malignant neoplasm of bladder; Z87.01 Personal history of pneumonia (recurrent)
CPT/HCPCS: 84134-90; 85520-90; 97116-GP; 97161-GP; 97166-GO; 97535-GO; G8978-GP-CI; G8979-GP-CI; G8987-GO-CJ; G8988-GO-CI; J1644; J1650; J2543; J3475

== ENCOUNTER 2017-06-30 18:16 | Inpatient (IN) | payer OTHER ==
--- NOTE | 2017-06-30 18:36 | EDPHY ---
H & P Time Seen by Provider: 06/30/17 18:23 HPI/ROS: CHIEF COMPLAINT: High fever HISTORY OF PRESENT ILLNESS: 76-year-old man was discharged on June 02 after having complicated infection. He has ileal conduit with a history of bladder cancer. He developed a fever the day after Thanksgiving and was initially started on amoxicillin by his urology practice and then Bactrim was added today. He presents today with a recurrent fever of 105 at home and chills last taken about 90 min ago. It is associated with feeling a little short of breath and urine being a little more cloudy than usual today. Symptoms moderate to severe in nature. Not better worse with anything, except for the fever is lower with Tylenol. REVIEW OF SYSTEMS: Eye: no change in vision ENT: no sore throat Cardiac: no chest pain or syncope Pulmonary: Not coughing Abdomen: no vomiting, diarrhea, abdominal pain Musculoskeletal: no back pain Skin: Abdominal wound does not have surrounding redness or pus. Neuro: no headache Constitutional: HPI : HPI A comprehensive 10 point review of systems is otherwise negative aside from elements mentioned in the history of present illness. PAST MEDICAL HISTORY: Includes bladder cancer with urostomy, atrial fibrillation, healing abdominal wound with wound VAC last evaluated by Dr. Evans in the office on Sunday of this week. Social history: No recent foreign travel. General Appearance: Alert and conversant, cooperative. Eyes: No scleral icterus. ENT, Mouth: Normal mucous membranes. Respiratory: Left lower lung crackles but speaks in full sentences. Cardiovascular: Irregular rate and rhythm. Heart rate 122. Gastrointestinal: Abdomen is soft and non tender. Lower midline abdominal incision with granulation tissue, no surrounding erythema warmth or pus. Neurological: Alert and oriented x3. Normally conversant. Face symmetric, normal movement and sensation in all extremities. Skin: Warm and dry, no rashes. Musculoskeletal: No peripheral edema and no joint swelling. Psychiatric: Not agitated. Emergency Department course/MDM: Sepsis screening with lactate, blood cultures x2, chest x-ray, urinalysis, labs to include CBC and chemistry as well as respiratory panel. 194: Urinalysis positive, IV Zosyn, fluid resuscitation, admission to hospitalist service. Urine culture. Has sepsis criteria and after 1 L IV fluid as blood pressure in the 80s. 2nd L IV normal saline ordered. 2018: SBP 89, discussed with urologist Dr. Daley requests renal ultrasound. 2030: Systolic blood pressure 91 and heart rate 100, 3rd L IV normal saline ordered. Persistent hypotension with blood pressure in the 80s after fluid resuscitation , central line placed. 0: Systolic blood pressure 101 after central line placement. Levophed started as patient's blood pressure trended downwards again. For septic shock documentation please see Dr. Eden's orders for septic shock. Smoking Status: Former smoker Constitutional: Initial Vital Signs Temperature (C) 37.5 C 06/30/17 18:18 Heart Rate 122 H 06/30/17 18:18 Respiratory Rate 22 H 06/30/17 18:18 Blood Pressure 108/72 06/30/17 18:18 O2 Sat (%) 90 L 06/30/17 18:18 O2 Delivery Mode Nasal Cannula O2 (L/minute) 2 Allergies/Adverse Reactions: aspirin Allergy (Severe, Verified 06/30/17 18:50) Edema of Extremities azithromycin Allergy (Unknown, Verified 06/30/17 18:50) Hives NSAIDS (Non-Steroidal Anti-Inflamma [NSAIDS (Non-Steroidal Anti-Inflammatory Drug)] Allergy (Unknown, Verified 06/30/17 18:50) Swelling/neck,face,throat iodine Allergy (Verified 06/30/17 18:50) Swelling/neck,face,throat Home Medications: Medication Instructions Recorded Mometasone/Formoterol [Dulera 100 1 puffs IH HS 12/21/16 Mcg/5 Mcg Inhaler] Montelukast Sodium [Singulair 10 10 mg PO DAILY 12/21/16 mg (*)] Probenecid [Probenecid 500mg (*)] 500 mg PO DAILY 12/22/16 Furosemide [Lasix 40 MG (*)] 60 mg PO DAILY 04/12/17 Mometasone/Formoterol [Dulera 100 2 puffs IH DAILY 05/02/17 Mcg/5 Mcg Inhaler] Acetaminophen [Tylenol 325mg (*)] 650 mg PO Q4HRS PRN tab 06/02/17 Amoxicillin/Clavulanate Pot 875 mg PO BID #16 tab 06/02/17 [Augmentin 875 MG TAB (*)] Metoprolol Tartrate [Lopressor 50 50 mg PO BID 06/30/17 mg (*)] Sulfamethox/Tmp 800/160 mg 1 tab PO DAILY 06/30/17 [Bactrim Ds] Medical Decision Making - Diagnostics EKG Interpretation: 12-lead EKG interpreted by me; official reading is in trace master. My interpretation is atrial fibrillation at the rate 132 with low frontal voltage. Imaging Results: Imaging Impressions Chest X-Ray 06/30/17 18:34 Impression: Underlying hyperinflation, without acute infiltrate.. Abdomen/Pelvis Ultrasound 06/30/17 20:18 Impression: Normal sonographic appearance of the kidneys bilaterally. Minimal perinephric fluid adjacent to the lower pole left kidney. No hydronephrosis. Procedures: Procedure: Central line placement. Indication: Sepsis, need for pressors. Risks, benefits, alternatives discussed with the patient including but not limited to bleeding, infection, vascular injury, and collapsed lung and consent obtained. A timeout was observed. Full maximal sterile barrier technique was used including cap, gown, sterile gloves, large sheet, hand washing and chlorhexidine prep. The area was anesthetized with 1% lidocaine. A 7 [place] triple lumen was placed in the right subclavian vein using standard Seldinger technique. There were no complications. Blood return low pressure, dark blood. Patient tolerated procedure well. CXR results: Appropriate line placement, and no pneumothorax. Xray was interpreted by myself. Radiologist interpretation is pending. The procedure was performed by myself. Differential Diagnosis: Differential considered including but not limited to UTI, pyelonephritis, pneumonia, sepsis. Consult/Admit Bed Type: [place] [address] Critical Care Time: Critical care time spent by me, Dr. Morales, exclusively with the care of this patient was 40 minutes, exclusive of PA or [place] time and exclusive of separate procedures. The organ system at risk was infectious and I ordered IV fluid resuscitation, multiple diagnostics, IV antibiotics, pressors, consultation with hospitalist and urologist to stabilize the patient and prevent worsening of the patient's condition. - Data Points Laboratory Results: Laboratory Results 06/30/17 18:30 06/30/17 18:30 06/30/17 06/30/17 06/30/17 18:55 18:30 18:30 WBC RBC Hgb Hct MCV MCH MCHC RDW Plt Count MPV Neut % (Auto) Lymph % (Auto) [place] % (Auto) Eos % (Auto) Baso % (Auto) Nucleat RBC Rel Count Absolute Neuts (auto) Absolute Lymphs (auto) Absolute Monos (auto) Absolute Eos (auto) Absolute Basos (auto) Absolute Nucleated RBC Immature Gran % Immature Gran # PT 15.5 SEC H SEC (12.0-15.0) INR 1.21 H (0.83-1.16) APTT 32.5 SEC SEC (23.0-38.0) VBG Lactic Acid Sodium 137 mEq/L mEq/L (134-144) Potassium 4.3 mEq/L mEq/L (3.5-5.2) Chloride 102 mEq/L mEq/L (97-110) Carbon Dioxide 19 mEq/l L mEq/l (22-31) Anion Gap 16 mEq/L mEq/L (8-16) BUN 14 mg/dL mg/dL (7-23) Creatinine 1.0 mg/dL mg/dL (0.7-1.3) Estimated GFR > 60 Glucose 116 mg/dL H mg/dL (70-100) Calcium 9.5 mg/dL mg/dL (8.5-10.4) Total Bilirubin 0.6 mg/dL mg/dL (0.1-1.4) Urine Color YELLOW Urine Appearance HAZY Urine pH 5.0 (5.0-7.5) Ur Specific [place] 1.014 (1.002-1.030) Urine Protein 1+ H (NEGATIVE) Urine Ketones NEGATIVE (NEGATIVE) Urine Blood 1+ H (NEGATIVE) Urine Nitrate POSITIVE H (NEGATIVE) Urine Bilirubin NEGATIVE (NEGATIVE) Urine Urobilinogen NEGATIVE EU EU (0.2-1.0) Ur Leukocyte Esterase 2+ H (NEGATIVE) Urine RBC 5-10 /hpf H /hpf (0-3) Urine WBC 25-50 /hpf H /hpf (0-3) Ur Epithelial Cells TRACE /lpf /lpf (NONE-1+) Amorphous Sediment PRESENT /hpf /hpf (NONE-1+) Urine Bacteria TRACE /hpf H /hpf (NONE SEEN) Urine Mucus TRACE /lpf /lpf (NONE-1+) Urine Glucose NEGATIVE (NEGATIVE) 06/30/17 06/30/17 18:30 18:30 WBC 13.72 10^3/uL H 10^3/uL (3.80-9.50) RBC 3.75 10^6/uL L 10^6/uL (4.40-6.38) Hgb 11.9 g/dL L g/dL (13.7-17.5) Hct 35.7 % L % (40.0-51.0) MCV 95.2 fL fL (81.5-99.8) MCH 31.7 pg pg (27.9-34.1) MCHC 33.3 g/dL g/dL (32.4-36.7) RDW 15.3 % H % (11.5-15.2) Plt Count 261 10^3/uL 10^3/uL (150-400) MPV 9.0 fL fL (8.7-11.7) Neut % (Auto) 89.3 % H % (39.3-74.2) Lymph % (Auto) 6.3 % L % (15.0-45.0) Swift % (Auto) 2.3 % L % (4.5-13.0) Eos % (Auto) 1.1 % % (0.6-7.6) Baso % (Auto) 0.4 % % (0.3-1.7) Nucleat RBC Rel Count 0.0 % % (0.0-0.2) Absolute Neuts (auto) 12.26 10^3/uL H 10^3/uL (1.70-6.50) Absolute Lymphs (auto) 0.87 10^3/uL L 10^3/uL (1.00-3.00) Absolute Monos (auto) 0.31 10^3/uL 10^3/uL (0.30-0.80) Absolute Eos (auto) 0.15 10^3/uL 10^3/uL (0.03-0.40) Absolute Basos (auto) 0.05 10^3/uL 10^3/uL (0.02-0.10) Absolute Nucleated RBC 0.00 10^3/uL 10^3/uL (0-0.01) Immature Gran % 0.6 % % (0.0-1.1) Immature Gran # 0.08 10^3/uL 10^3/uL (0.00-0.10) PT INR APTT VBG Lactic Acid 1.9 mmol/L mmol/L (0.7-2.1) Sodium Potassium Chloride Carbon Dioxide Anion Gap BUN Creatinine Estimated GFR Glucose Calcium Total Bilirubin Urine Color Urine Appearance Urine pH Ur Specific [place] Urine Protein Urine Ketones Urine Blood Urine Nitrate Urine Bilirubin Urine Urobilinogen Ur Leukocyte Esterase Urine RBC Urine WBC Ur Epithelial Cells Amorphous Sediment Urine Bacteria Urine Mucus Urine Glucose Microbiology Results: MICROBIOLOGY 06/30/17 18:50 Nasal, Sinus - Swab Respiratory Panel (PCR) - Final No Organism Detected Medications Given: Norepinephrine/Sodium Chloride (Norepinephrine 8 Mcg/Ml (Premix)) 500 mls @ 0 mls/hr IV CONT VERONIQUE; Titrate PRN Reason: Protocol Stop: 12/27/17 21:29 Last Admin: 06/30/17 21:43 Dose: 500 mls Discontinued Medications Sodium Chloride (Ns) 1,000 mls @ 0 mls/hr IV ONCE ONE PRN Reason: Wide Open Stop: 06/30/17 18:49 Last Admin: 06/30/17 18:49 Dose: 1,000 mls Sodium Chloride (Ns) 2,200 mls @ 4,400 mls/hr 30 ml/kg infuse over 30 min ( 2200 ml) IV EDNOW ONE PRN Reason: Protocol Stop: 06/30/17 20:16 Last Admin: 06/30/17 19:52 Dose: 2,200 mls Piperacillin/Tazobactam/Dextrose (Zosyn (Premix)) 100 mls @ 200 mls/hr IV EDNOW ONE PRN Reason: Protocol Stop: 06/30/17 20:16 Last Admin: 06/30/17 20:27 Dose: 100 mls Sodium Chloride (Ns) 1,000 mls @ 0 mls/hr IV EDNOW ONE; Wide Open PRN Reason: Protocol Stop: 06/30/17 20:32 Last Admin: 06/30/17 21:00 Dose: 1,000 mls Norepinephrine/Sodium Chloride (Norepinephrine 8 Mcg/Ml (Premix)) 500 mls @ 0 mls/hr IV EDNOW ONE; Per Protocol PRN Reason: Protocol Stop: 06/30/17 21:43 Last Admin: 06/30/17 21:54 Dose: Not Given Departure - Departure Disposition: [facility] Inpatient Acute Clinical Impression: Septic shock UTI (urinary tract infection) Qualifiers: Urinary tract infection type: acute pyelonephritis Qualified Code(s): N10 - Acute pyelonephritis Condition: Serious
[2017-06-30] MEDS ORDERED: NS 1,000 ML IV ONE ×2 (18:48→20:31)
--- NOTE | 2017-06-30 18:50 | CPEKG ---
Heart Rate: 132 RR Interval: 455 QRSD Interval: 76 QT Interval: 280 QTC Interval: 415 QRS [place]: 56 T Wave [place]: 264 EKG Severity - ABNORMAL ECG - EKG Impression: ATRIAL FIBRILLATION, V-RATE 94-161 EKG Impression: LOW VOLTAGE IN FRONTAL LEADS EKG Impression: NONSPECIFIC REPOL ABNORMALITY, DIFFUSE LEADS Electronically Signed By: Gray Morales 30-Jun-2017 18:52:06
[2017-06-30 18:52] LABS: % IMMATURE GRANULYOCYTES 0.6 % (0.0-1.1); ABSOLUTE IMMATURE GRANULOCYTES 0.08 10^3/uL (0.00-0.10); ADD DIFF? NO; ADD MORPH? NO; ADD SCAN? NO; ATYPICAL LYMPHOCYTE FLAG 0 (0-99); FRAGMENT RBC FLAG 0 (0-99); HEMATOCRIT 35.7 % (40.0-51.0); HEMOGLOBIN 11.9 g/dL (13.7-17.5); LEFT SHIFT FLG 10 (0-99); LIPEMIA HEMOLYSIS FLAG 80 (0-99); MEAN CELL HEMOGLOBIN 31.7 pg (27.9-34.1); MEAN CELL HEMOGLOBIN CONCENTR. 33.3 g/dL (32.4-36.7); MEAN CELL VOLUME 95.2 fL (81.5-99.8); PLATELET CLUMPS FLAG 10 (0-99); PLATELET COUNT 261 10^3/uL (150-400); RED BLOOD CELL COUNT 3.75 10^6/uL (4.40-6.38); RED CELL DISTRIBUTION WIDTH 15.3 % (11.5-15.2)
[2017-06-30 19:02] LABS: INR 1.21 (0.83-1.16); PROTIME(PATIENT) 15.5 SEC (12.0-15.0)
[2017-06-30 19:03] LABS: APTT 32.5 SEC (23.0-38.0)
[2017-06-30 19:31] LABS: ANION GAP 16 mEq/L (8-16); BILIRUBIN,TOTAL 0.6 mg/dL (0.1-1.4); CALCIUM 9.5 mg/dL (8.5-10.4); CARBON DIOXIDE 19 mEq/l (22-31); CHLORIDE 102 mEq/L (97-110); GLOMERULAR FILTRATION RATE > 60; GLUCOSE 116 mg/dL (70-100); POTASSIUM 4.3 mEq/L (3.5-5.2); SODIUM 137 mEq/L (134-144)
[2017-06-30 19:41] LABS: COLOR YELLOW; LEUKOCYTE ESTERASE,URINE 2+ (NEGATIVE); NITRITE,URINE POSITIVE (NEGATIVE)
[2017-06-30] MEDS ORDERED: PIPERACILLIN/TAZO 4.5 GM/DEX 100 ML IV ONE (19:47)
[2017-06-30] MEDS ORDERED: NS 2,200 ML IV ONE (19:47)
[2017-06-30 19:48] LABS: AMORPHOUS PRESENT /hpf (NONE-1+); BACTERIA TRACE /hpf (NONE SEEN); MUCUS TRACE /lpf (NONE-1+); WBC,URINE 25-50 /hpf (0-3)
[2017-06-30] MEDS ORDERED: ONDANSETRON DISINTEGRATING 4 MG TAB PO PRN (20:28)
[2017-06-30] MEDS ORDERED: ONDANSETRON 4 MG/2 ML VIAL IVP PRN (20:28)
[2017-06-30] MEDS ORDERED: NOREPINEPHRINE/NS 4 MG/500 ML BAG IV ONE (21:26)
[2017-06-30] MEDS ORDERED: NOREPINEPHRINE/NS 500 ML IV ONE (21:42)
[2017-06-30] MEDS: NOREPINEPHRINE/NS 500 ML IV SCH (21:43)
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
[2017-06-30] MEDS: Mometasone/Formoterol [Dulera 100 Mcg/5 Mcg Inhaler] IH SCH (23:41)
[2017-06-30] MEDS: LORazepam 1 MG TAB PO PRN (23:47)
[2017-07-01] MEDS: ACETAMINOPHEN 325 MG TAB PO PRN ×4 (00:28→21:05)
[2017-07-01] MEDS: NS 1,000 ML IV SCH (00:30)
[2017-07-01] MEDS ORDERED: MEPERIDINE 25 MG/ML SYR IVP ONE (00:46)
[2017-07-01] MEDS ORDERED: MEPERIDINE 25 MG/ML SYR ONE (00:49)
--- NOTE | 2017-07-01 00:53 | HOSPPROG ---
Hospitalist Progress Note Assessment/Plan: Hospitalist Night Float Note Called by RN. Patient developed low grade temperature 100.3F and subsequently with rigors. He was also complaining of increased shortness of breath. HR increased up to 140s. hx of atrial fib. VS reviewed. HR 140s at bedside. SBP 117 with levophed having been turned off before my arrival. Gen - NAD. patient lays awake in bed rigors present. CV - tachy irreg. limited and slightly distant heart sounds. Resp - Lungs CTA-B no wheezing/rales/rhonchi. Abd - hypoactive BS. soft. Plan - rigors - blankets, bare hugger if needed and dose of demerol x 1. - Afib RVR - levophed just turned off so will monitor. exacerbated also with fever now rigors. plan as above. patient normally rate controlled with metoprolol however in setting of septic shock will hold off. continue IVF. - SOB - likely related to tachycardia and rigors. BPs improved. risk for PE but dyspnea likely related to significant tachycardia and will focus on HR at this time. consider additional imaging if sx persist with normalized hr. lungs sound clear and recent xray without infiltrates. Objective: Vital Signs Temp Pulse Resp BP Pulse Ox 37.2 C 84 26 H 98/52 L 98 07/01/17 00:00 07/01/17 00:00 07/01/17 00:00 07/01/17 00:00 07/01/17 00:00 06/29/17 06/30/17 07/01/17 05:59 05:59 05:59 Intake Total 2300 Output Total 175 Balance 2125 PT 15.5 SEC (12.0-15.0) H 06/30/17 18:30 INR 1.21 (0.83-1.16) H 06/30/17 18:30 ICD10 Worksheet Patient Problems: Problems Problem Status Onset Wound dehiscence Acute UTI (urinary tract infection) Acute Septic shock Acute 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 difficile diarrhea Acute ~11/26/16 Fever Acute
[2017-07-01] MEDS ORDERED: DILTIAZEM 25 MG/5 ML VIAL IVP SCH (01:45)
[2017-07-01] MEDS: PIPERACILLIN/TAZO 3.375 GM/DEX 50 ML IV SCH ×4 (01:52→21:05)
--- NOTE | 2017-07-01 02:01 | CPEKG ---
Heart Rate: 128 RR Interval: 469 QRSD Interval: 70 QT Interval: 308 QTC Interval: 450 QRS [place]: 67 T Wave [place]: -81 EKG Severity - ABNORMAL ECG - EKG Impression: ATRIAL FIBRILLATION, V-RATE 109-160 EKG Impression: LOW VOLTAGE IN FRONTAL LEADS EKG Impression: CONSIDER ANTEROSEPTAL INFARCT Electronically Signed By: Asim Beverly 01-Jul-2017 09:39:00
[2017-07-01] MEDS ORDERED: NS 500 ML IV ONE (03:09)
[2017-07-01 05:36] LABS: HEMATOCRIT 28.6 % (40.0-51.0); HEMOGLOBIN 9.4 g/dL (13.7-17.5); MEAN CELL HEMOGLOBIN CONCENTR. 32.9 g/dL (32.4-36.7); MEAN CELL VOLUME 97.3 fL (81.5-99.8); RED BLOOD CELL COUNT 2.94 10^6/uL (4.40-6.38); RED CELL DISTRIBUTION WIDTH 15.5 % (11.5-15.2)
[2017-07-01 05:47] LABS: ANION GAP 8 mEq/L (8-16); CALCIUM 7.9 mg/dL (8.5-10.4); CARBON DIOXIDE 20 mEq/l (22-31); CHLORIDE 110 mEq/L (97-110); CREATININE 0.9 mg/dL (0.7-1.3); GLOMERULAR FILTRATION RATE > 60; GLUCOSE 118 mg/dL (70-100); POTASSIUM 3.9 mEq/L (3.5-5.2); SODIUM 138 mEq/L (134-144)
--- NOTE | 2017-07-01 07:03 | PDMN ---
Medical Necessity Medical necessity: Pt meets INPT criteria per MD and MCG Systemic or Infectious Condition GRG (acute septic shock with hypotension requiring central line, pressors, IVAB; afib, leukocytosis; hx complicated UTI, bladder cancer s/p cystoprostatectomy and repair of surgical incision evisceration, Cdiff, compensated diastolic heart failure per H&P).
[2017-07-01] MEDS: ENOXAPARIN 40 MG/0.4 ML SYR SC SCH (08:55)
[2017-07-01] MEDS: Mometasone/Formoterol [Dulera 100 Mcg/5 Mcg Inhaler] IH SCH ×3 (08:56→19:59)
[2017-07-01] MEDS: MONTELUKAST SODIUM 10 MG TAB PO SCH (09:50)
[2017-07-01] MEDS: PROBENECID 500 MG TAB PO SCH (09:50)
--- NOTE | 2017-07-01 10:12 | PCMIDPN ---
Assessment/Plan: Assessment/Plan: * Septic shock likely of urinary etiology: Presentation and clinical findings distant with septic shock which is most likely of urinary etiology. Intra- abdominal etiology would also be of consideration given recent surgical history. No evidence to suggest recurrent pneumonia. Prior history of ESBL producing E coli in sputum and Enterococcus faecalis in urine which was vences susceptible. Continue empiric Zosyn. Will give single dose of vancomycin while cultures are pending. High likelihood that patient is bacteremic given presence of high-grade fever and rigors. Continue supportive care in ICU. If fails to improve, would have low threshold to proceed with CT scan of abdomen and pelvis. * History of C difficile in October/2016. Occasional diarrhea but no consistent diarrhea to suggest C difficile as etiology for symptom complex. Will resume suppressive oral vancomycin 125 mg p.o. twice daily given use of broad-spectrum antibiotic therapy. Does not require C diff precautions given history is greater than 1 month ago. Time spent, greater than 35 min, of which greater than half was spent in coordination of care related to septic shock and plan of care put 07/01/17 10:08 07/01/17 10:16 Subjective: Patient well known to Infectious Disease service from prior care. Complex history related to cystoprostatectomy with ileal conduit for bladder cancer. Had wound evisceration requiring operative repair. History of C difficile colitis in October 2016. Seen in April for aspiration pneumonia with sputum at that time showing ESBL producing E coli. Treated with course of ertapenem. Readmitted in early May with Enterococcus faecalis urinary tract infection. Treated with Zosyn x3 days followed by transition to Augmentin to complete therapy. Patient describes developing low-grade temperature the day after Thanksgiving. He was started empirically on amoxicillin which she has been taking subsequently. Yesterday, he developed abrupt onset of fever to 105. This was associated with significant rigors. He describes 2 days ago having flank pain on the right side. No significant nausea, vomiting or diarrhea. No abdominal pain. Based on his symptoms, he was seen in the emergency department clinical findings consistent with sepsis. He was started empirically on Zosyn. Blood and urine cultures have been obtained. He is requiring Levophed for blood pressure support. Had episode of rigors overnight which are now recurring. No recent travel. No animal exposure. Infectious diseases now asked to assist in his ongoing management. Past medical/past surgical/medications/allergies/social/prior culture data all reviewed today. Objective: Vital Signs Temp Pulse Resp BP Pulse Ox 36.7 C 101 H 23 H 120/67 96 07/01/17 08:00 07/01/17 09:00 07/01/17 09:00 07/01/17 09:00 07/01/17 09:00 Laboratory Results 07/01/17 05:15 07/01/17 05:15 06/30/17 07/01/17 07/02/17 05:59 05:59 05:59 Intake Total 3816 Output Total 625 Balance 3191 Chest x-ray without focal infiltrate Blood cultures and urine cultures pending UA with 25-50 white blood cells and trace bacteriuria Lactate 0.8 - Physical Exam General Appearance: alert, other (Rigors present) EENT: No scleral icterus, No thrush, No conjunctival petechiae Respiratory: lungs clear, No respiratory distress Cardiac/Chest: tachycardia, No systolic murmur Abdomen: non-tender, distended (Mild), other (Midline wound with granulation and some fibrinous slough; small amount of yellow drainage which is not purulent ; no surrounding erythema) Skin: No embolic lesions Neuro/Psych: alert, other (Oriented appropriately) ICD10 Worksheet Patient Problems: Problems Problem Status Onset Septic shock Acute UTI (urinary tract infection) Acute Anemia Acute Bladder cancer Acute C. difficile diarrhea Acute ~11/26/16 Congestive heart failure Acute Extended spectrum beta lactamase (ESBL) resistance Acute ~05/12/17 Fever Acute Hyponatremia Acute Thrombocytopenia Acute Wound dehiscence Acute
[2017-07-01] MEDS ORDERED: VANCOMYCIN 1.5 GM in D5W 250 ML IV ONE (10:30)
[2017-07-01 10:59] LABS: ALBUMIN 2.4 g/dL (3.5-5.0); BILIRUBIN,TOTAL 0.6 mg/dL (0.1-1.4); BILIRUBIN-CONJUGATED 0.4 mg/dL (0.0-0.5); BILIRUBIN-UNCONJUGATED 0.2 mg/dL (0.0-1.1); TOTAL PROTEIN 5.2 g/dL (6.3-8.2)
--- NOTE | 2017-07-01 13:35 | WOCRNPDOC ---
WOCRN Advanced Assessment Note - Skin Integrity Problem, Advanced Assess Medial Abdomen Surgical Wound/Incision Dressing Type: ABD Pad, Hydrofera Blue Other Dressing Type: steri strips Dressing Description: Not Intact Exudate Amount: Minimal Integumentary Issue Intervention: Dressing Changed Wound Bed Constitution: Granulation Tissue (90%), Undermining (0.2cm from 2 o' clock to 3 o'clock), Mixed Loose & Adhered Slough/Eschar (at edges) Wound Edges: Epithelizing (right margin), Attached, Well Defined Site Measurement - Head-to-Toe Length X Width X Depth (cm): 10.2x6.3x0.4 Skin Integrity Problem Comment: This patient is well known to wound care. Dressing removed. Of note, the hydrofera blue was dry. Wound cleaned with NS and gauze. Wound edges mechanically debrided with gauze to remove loose slough. Rahel wound skin was prepped with skin prep. Bibiana was placed in the wound bed and covered with hydrofera blue ready and steri-stripped in place. The entire wound was covered with ABD and secured with medipore tape, except for over ostomy. Wound care will round again later this week.
--- NOTE | 2017-07-01 14:34 | GCON ---
[f rep st] CONSULTATION CRITICAL CARE CONSULTATION DATE OF CONSULTATION: 07/01/2017 HISTORY OF PRESENT ILLNESS: This patient is a 76-year-old male with a history of bladder cancer, who underwent a resection with ileocecal pouch formation in April of 2017. His hospital course was co mplicated by ileus and wound infection, requiring fascial repair and wound VAC, as well as septic viktoriya ck and atrial fibrillation with a rapid ventricular response. He eventually was discharged by 2016. On 05/30, he was admitted to [facility] again with an enterococcal urinary tract infection and was tr eated with Zosyn at that time. His metoprolol was increased because of difficulty controlling his he art rate in the setting of his chronic atrial fibrillation. He otherwise seemed to be doing well. Anil gutierrez was seen in the wound care clinic by Dr. Evans. His wound was cleaning up nicely. His wound VAC w as discontinued, but on 06/30, he was readmitted to the hospital with significant fever, as well as s weats and chills. His appetite had been poor. As an outpatient, he had been treated with Bactrim an d subsequently Augmentin, but did not have any great benefit. In the ER, he was found to have a bloo d pressure of 88/46, which did not improve with about 2.5 L of IV fluids, and was therefore started o n Levophed. His urinalysis looked positive, so he was given Zosyn, and cultures are pending at this time. His wound actually looked okay, and his chest x-ray was also normal. Late overnight, though, he did have some rigors and a heart rate to 140, but his Levophed was being tapered, and that was dis continued. He was treated with Demerol for rigors. Subsequently, he said he feels substantially bet ter, his Levophed is now off, and his heart rate is relatively well controlled. REVIEW OF SYSTEMS: Otherwise negative. PAST MEDICAL HISTORY: Includes: 1. Bladder cancer. 2. Urostomy. 3. Atrial fibrillation. 4. Wound on his abdomen. 5. Urinary tract infection. 6. An episode of C difficile, treated starting in October and completed in May, for which he is c urrently on suppressive vancomycin. 7. Diastolic heart failure. 8. Asthma. 9. Gout. 10. Benign prostatic hypertrophy. 11. Hyperlipidemia. 12. Hypertension. 13. Wound infection as described above. 14. Sepsis as described above. PAST SURGICAL HISTORY: Includes that described, as well as appendectomy and hernia repair. SOCIAL HISTORY: He is a nonsmoker. Has 2-3 drinks of alcohol a day, but no IV drug use. FAMILY HISTORY: Noncontributory at this time. CURRENT MEDICATIONS: Include Lovenox, Ativan for sleep, Dulera, Singulair, Zofran, Zosyn, probenecid , and vancomycin. PHYSICAL EXAMINATION: VITAL SIGNS: His T-max is 38.9. His blood pressure is 101/71, heart rate 77, respirations 16, and oxygen saturation 99% on 2 L. GENERAL: He is a very pleasant man, in no appar ent distress. Alert, oriented x3, and able to speak in full sentences without using accessory muscle s for breathing. HEENT: Pupils equally round and reactive to light. Nonicteric and noninjected. M ucous membranes moist, without erythema or exudate. NECK: Supple, without adenopathy or jugular vei n distention. LUNGS: Breath sounds were clear to auscultation bilaterally, without wheezes, rubs, o r rales. HEART: Regular rate and rhythm, without murmur, rub, or gallop. ABDOMEN: Soft and nonten terrell. He did have his ileostomy bag, which he said he is not draining very regularly. His wound was partially healed and somewhat open, measuring 3-4 cm. It is somewhat reddened, but no major pus and no obvious site of infection. EXTREMITIES: Show no clubbing, cyanosis, or edema. NEUROLOGIC: Exam nonfocal, including cranial nerves and deep tendon reflexes. SKIN: Warm and dry, without evidence of rash. OBJECTIVE DATA: Includes a white count of 13.7 when he came in. It is down to 10.8 today. Hematocr it of 28.6 and platelets of 190. INR was 1.2. Basic metabolic panel was unremarkable. Liver functi on tests were normal save for an alkaline phosphatase of 180. Albumin was 2.4. Urinalysis looked lopez spicious for infection. Blood cultures and urine cultures are pending at this time. ASSESSMENT AND PLAN: 1. Septic shock, likely from a urine source, which has apparently gotten substantially better with a ntibiotics. His blood pressure has normalized, and he no longer needs pressors at this time. 2. Atrial fibrillation. Since he is off his pressors and seems to be doing well, I thought that res uming his metoprolol at this time would probably control his rate. Should he have more trouble with hypotension, we could consider amiodarone or digoxin. 3. Asthma. I would simply continue his outpatient medications, since it is not causing a big proble m at the moment, including his Dulera. 4. Dr. Evans, I believe, is aware and is planning to do some debridement, though his wound I do not believe is driving much trouble. 5. Chronic Clostridium difficile. He has been seen by Infectious Disease, and we will continue with his suppressive vancomycin. /[id number]/MODL
--- NOTE | 2017-07-01 16:44 | HOSPPROG ---
Hospitalist Progress Note Assessment/Plan: 76 yo M with hx of bladder cancer s/p ileal conduit and cystoprostatectomy with multiple recent hospitalizations for post operative complications # septic shock: likely urinary source, much improved since starting zosyn, urine and blood cultures pending # a fib: rate controlled, will resume bb at lower dose now that shock has resolved # chronic diastolic heart failure: appears compensated # leukocytosis: in setting of sepsis as above, trending down # anemia: h/h trended down since admission but also received significant amount of fluid, does not have any e/o active bleeding, will continue to trend # bladder cancer: s/p ileal conduit/cystoprostatecomy with prolonged post op course complicated by ileus, surgical incision evisceration and fascial dehiscence requiring take back. Currently improved. # hx of c diff: will continue ppx po vanc while on broad spectrum abx # chronic medical issues: RAD, bph, gout, HLD, htn--continue usual management once stable # IP status, remains ICU status Patient new to my care. Care plan reviewed with Dr. Bernard and multidisciplinary care team on rounds. Further hx obtained from patients family present at [facility]. Subjective: no significant overnight events, clinically improved overnight Objective: Vital Signs Temp Pulse Resp BP Pulse Ox 36.7 C 80 14 105/70 100 07/01/17 16:00 07/01/17 16:00 07/01/17 16:00 07/01/17 16:00 07/01/17 16:00 Laboratory Results 07/01/17 05:15 07/01/17 05:15 06/30/17 07/01/17 07/02/17 05:59 05:59 05:59 Intake Total 3816 Output Total 625 Balance 3191 PT 15.5 SEC (12.0-15.0) H 06/30/17 18:30 INR 1.21 (0.83-1.16) H 06/30/17 18:30 awake alert nad anicteric op clear rrr no mrg cta b soft nt nd no cce warm dry well perfused ICD10 Worksheet Patient Problems: Problems Problem Status Onset Septic shock Acute UTI (urinary tract infection) Acute Anemia Acute Bladder cancer Acute C. difficile diarrhea Acute ~11/26/16 Congestive heart failure Acute Extended spectrum beta lactamase (ESBL) resistance Acute ~10/14/17 Fever Acute Hyponatremia Acute Thrombocytopenia Acute Wound dehiscence Acute
--- NOTE | 2017-07-01 17:24 | ASMTCMCOM ---
CM Note CM Note Notes: 76 year old male admitted for septic shock. has a recent hx of bladder CA and cystoprostatectomy with operative complications, Afib, CHF, C-diff, ESBL. Getting wound care, A & O x 4. CM to follow for discharge needs. Date Signed: 07/01/2017 05:24 PM Electronically Signed By:Sarah Francisco LCSW
[2017-07-01] MEDS: NOREPINEPHRINE/NS 500 ML IV SCH (21:05)
[2017-07-01] MEDS: LORazepam 1 MG TAB PO PRN (21:05)
[2017-07-01] MEDS: VANCOMYCIN 125 MG/2.5 ML UDL PO SCH (21:06)
[2017-07-02] MEDS: PIPERACILLIN/TAZO 3.375 GM/DEX 50 ML IV SCH ×4 (02:11→21:30)
[2017-07-02] MEDS: ACETAMINOPHEN 325 MG TAB PO PRN (02:11)
[2017-07-02] MEDS: NS 1,000 ML IV SCH (05:33)
[2017-07-02 05:39] LABS: % IMMATURE GRANULYOCYTES 0.4 % (0.0-1.1); ABSOLUTE IMMATURE GRANULOCYTES 0.02 10^3/uL (0.00-0.10); ADD DIFF? NO; ADD MORPH? NO; ADD SCAN? NO; ATYPICAL LYMPHOCYTE FLAG 0 (0-99); FRAGMENT RBC FLAG 0 (0-99); HEMATOCRIT 26.9 % (40.0-51.0); HEMOGLOBIN 8.5 g/dL (13.7-17.5); LEFT SHIFT FLG 0 (0-99); LIPEMIA HEMOLYSIS FLAG 80 (0-99); MEAN CELL HEMOGLOBIN 30.8 pg (27.9-34.1); MEAN CELL HEMOGLOBIN CONCENTR. 31.6 g/dL (32.4-36.7); MEAN CELL VOLUME 97.5 fL (81.5-99.8); MEAN PLATELET VOLUME 9.4 fL (8.7-11.7); PLATELET CLUMPS FLAG 0 (0-99); PLATELET COUNT 151 10^3/uL (150-400); RED BLOOD CELL COUNT 2.76 10^6/uL (4.40-6.38); RED CELL DISTRIBUTION WIDTH 15.5 % (11.5-15.2)
[2017-07-02 05:57] LABS: ANION GAP 8 mEq/L (8-16); CALCIUM 7.7 mg/dL (8.5-10.4); CARBON DIOXIDE 21 mEq/l (22-31); CHLORIDE 111 mEq/L (97-110); CREATININE 0.8 mg/dL (0.7-1.3); GLOMERULAR FILTRATION RATE > 60; GLUCOSE 103 mg/dL (70-100); POTASSIUM 3.6 mEq/L (3.5-5.2); SODIUM 140 mEq/L (134-144)
[2017-07-02] MEDS: VANCOMYCIN 125 MG/2.5 ML UDL PO SCH ×2 (09:36→21:37)
[2017-07-02] MEDS: ENOXAPARIN 40 MG/0.4 ML SYR SC SCH (09:36)
[2017-07-02] MEDS: PROBENECID 500 MG TAB PO SCH (09:36)
[2017-07-02] MEDS: MONTELUKAST SODIUM 10 MG TAB PO SCH (09:36)
--- NOTE | 2017-07-02 11:59 | PCMIDPN ---
Assessment/Plan: Assessment: Urinary tract infection secondary to ESBL E coli. Patient covered with Zosyn currently and clinically is much improved. Long discussion with patient and family about risk factors for urinary tract infections given his urostomy situation. Plan: 1. Continue IV Zosyn. 2. Continue to wean off pressor support. 3. Patient will likely need IV antibiotic course. Given no bacteremia possibly 10 - 14 days of total duration. 07/02/17 18:34 07/02/17 18:36 Subjective: Patient is sitting up in his hospital bed. Family is at bedside. Patient states that he feels much better. No fevers or rigors today. Objective: Zosyn #2 Vital Signs Temp Pulse Resp BP Pulse Ox 37.1 C 101 H 24 H 111/73 2 L 07/02/17 08:00 07/02/17 08:00 07/02/17 08:00 07/02/17 08:00 07/02/17 08:00 Laboratory Results 07/02/17 05:20 07/02/17 05:20 07/01/17 07/02/17 07/03/17 05:59 05:59 05:59 Intake Total 3811 4657 Output Total 081 1950 Balance 8071 2705 - Physical Exam General Appearance: WD/WN, alert, no apparent distress, non-toxic Respiratory: lungs clear, normal breath sounds, No respiratory distress Cardiac/Chest: tachycardia, irregularly irregular Extremities: non-tender, normal inspection Skin: normal color, warm/dry, No rash Neuro/Psych: alert, normal mood/affect, oriented x 3 ICD10 Worksheet Patient Problems: Problems Problem Status Onset Septic shock Acute UTI (urinary tract infection) Acute Anemia Acute Bladder cancer Acute C. difficile diarrhea Acute ~11/26/16 Congestive heart failure Acute Extended spectrum beta lactamase (ESBL) resistance Acute ~05/12/17 Fever Acute Hyponatremia Acute Thrombocytopenia Acute Wound dehiscence Acute
--- NOTE | 2017-07-02 14:11 | HOSPPROG ---
Hospitalist Progress Note Assessment/Plan: 76 yo M with hx of bladder cancer s/p ileal conduit and cystoprostatectomy with multiple recent hospitalizations for post operative complications # septic shock: likely urinary source, much improved since starting zosyn * E coli in urine * Off Levophed today # a fib: * Heart rate little bit high * Will switch him back to diltiazem at lower dose. He had been on 120 mg twice daily # chronic diastolic heart failure: appears compensated # leukocytosis: in setting of sepsis as above, trending down # anemia: h/h trended down since admission but also received significant amount of fluid, does not have any e/o active bleeding, will continue to trend # bladder cancer: s/p ileal conduit/cystoprostatecomy with prolonged post op course complicated by ileus, surgical incision evisceration and fascial dehiscence requiring take back. Currently improved. # hx of c diff: will continue ppx po vanc while on broad spectrum abx # chronic medical issues: RAD, bph, gout, HLD, htn--continue usual management once stable Subjective: Feeling better. Says his atrial fibrillation was better controlled while on diltiazem. This was switched to metoprolol perioperatively. Objective: Vital Signs Temp Pulse Resp BP Pulse Ox 37.0 C 110 H 23 H 112/73 98 07/02/17 12:00 07/02/17 12:00 07/02/17 12:00 07/02/17 12:00 07/02/17 12:00 Laboratory Results 07/02/17 05:20 07/02/17 05:20 07/01/17 07/02/17 07/03/17 05:59 05:59 05:59 Intake Total 3816 4655 Output Total 625 1950 Balance 3191 2705 PT 15.5 SEC (12.0-15.0) H 06/30/17 18:30 INR 1.21 (0.83-1.16) H 06/30/17 18:30 Discussed with pulmonary critical care\ Tele personally viewed interpreted atrial fibrillation - Physical Exam Constitutional: no apparent distress, appears nourished, not in pain Eyes: anicteric sclera, EOMI Ears, Nose, Mouth, Throat: moist mucous membranes, hearing normal Cardiovascular: irregularly irregular, tachycardia Respiratory: no respiratory distress, no rales or rhonchi, clear to auscultation Gastrointestinal: normoactive bowel sounds, soft, non-tender abdomen, no palpable masses Neurologic: AAOx3 Psychiatric: interacting appropriately, not anxious, not encephalopathic, thought process linear ICD10 Worksheet Patient Problems: Problems Problem Status Onset Septic shock Acute UTI (urinary tract infection) Acute Anemia Acute Bladder cancer Acute C. difficile diarrhea Acute ~11/26/16 Congestive heart failure Acute Extended spectrum beta lactamase (ESBL) resistance Acute ~05/12/17 Fever Acute Hyponatremia Acute Thrombocytopenia Acute Wound dehiscence Acute
[2017-07-02] MEDS: DILTIAZEM 30 MG TAB PO SCH ×3 (15:16→21:31)
[2017-07-02] MEDS: Mometasone/Formoterol [Dulera 100 Mcg/5 Mcg Inhaler] IH SCH (20:16)
[2017-07-02] MEDS: LORazepam 1 MG TAB PO PRN (21:37)
[2017-07-03] MEDS: PIPERACILLIN/TAZO 3.375 GM/DEX 50 ML IV SCH ×3 (03:09→16:17)
[2017-07-03] MEDS: DILTIAZEM 30 MG TAB PO SCH ×2 (03:10→08:39)
[2017-07-03] MEDS: MONTELUKAST SODIUM 10 MG TAB PO SCH (08:39)
[2017-07-03] MEDS: VANCOMYCIN 125 MG/2.5 ML UDL PO SCH ×2 (08:39→22:16)
[2017-07-03] MEDS: ENOXAPARIN 40 MG/0.4 ML SYR SC SCH (08:39)
[2017-07-03] MEDS: Mometasone/Formoterol [Dulera 100 Mcg/5 Mcg Inhaler] IH SCH ×2 (10:03→20:50)
[2017-07-03] MEDS ORDERED: DILTIAZEM SR 90 MG CAP PO SCH (13:30)
[2017-07-03] MEDS ORDERED: ALTEPLASE 2 MG VIAL IVP PRN (14:43)
--- NOTE | 2017-07-03 14:45 | HOSPPROG ---
Hospitalist Progress Note Assessment/Plan: 76 yo M with hx of bladder cancer s/p ileal conduit and cystoprostatectomy with multiple recent hospitalizations for post operative complications # septic shock: likely urinary source, much improved since starting zosyn * E coli in urine * # a fib: * Heart rate little bit high * Says he does better on Dilt than metoprolol - switched to long acting Diltiazem today # chronic diastolic heart failure: appears compensated # leukocytosis: in setting of sepsis as above, trending down # anemia: h/h trended down since admission but also received significant amount of fluid, does not have any e/o active bleeding, will continue to trend # bladder cancer: s/p ileal conduit/cystoprostatecomy with prolonged post op course complicated by ileus, surgical incision evisceration and fascial dehiscence requiring take back. Currently improved. # hx of c diff: will continue ppx po vanc while on broad spectrum abx # chronic medical issues: RAD, bph, gout, HLD, htn--continue usual management once stable Subjective: feels pretty good. eating, walking Objective: Vital Signs Temp Pulse Resp BP Pulse Ox 36.8 C 107 H 18 116/74 95 07/03/17 12:00 07/03/17 12:00 07/03/17 12:00 07/03/17 12:00 07/03/17 12:00 Laboratory Results 07/02/17 05:20 07/02/17 05:20 07/02/17 07/03/17 07/04/17 05:59 05:59 05:59 Intake Total 4655 1773 Output Total 1950 1450 Balance 2705 323 PT 15.5 SEC (12.0-15.0) H 06/30/17 18:30 INR 1.21 (0.83-1.16) H 06/30/17 18:30 - Physical Exam Constitutional: no apparent distress, appears nourished, not in pain Eyes: anicteric sclera, EOMI Ears, Nose, Mouth, Throat: moist mucous membranes, hearing normal Cardiovascular: irregularly irregular Respiratory: no respiratory distress Skin: warm Neurologic: AAOx3 Psychiatric: interacting appropriately, not anxious, not encephalopathic, thought process linear ICD10 Worksheet Patient Problems: Problems Problem Status Onset Septic shock Acute UTI (urinary tract infection) Acute Anemia Acute Bladder cancer Acute C. difficile diarrhea Acute ~04/30/17 Congestive heart failure Acute Extended spectrum beta lactamase (ESBL) resistance Acute ~05/12/17 Fever Acute Hyponatremia Acute Thrombocytopenia Acute Wound dehiscence Acute
[2017-07-03] MEDS ORDERED: ERTAPENEM 1 GM VIAL IVP SCH (15:00)
--- NOTE | 2017-07-03 15:01 | PCMIDPN ---
Assessment/Plan: Assessment: 76 yo male with recent prolonged hospital course related to cystoprostatectomy with ileal conduit for bladder cancer admitted with sepsis and found to have complicated UTI related to ESBL E coli. Blood cx 06/30 remain negative. Possible factor pre-disposing to infection is "back flow" from urostomy bag getting full of urine, creating obstructive physiology --dc tomorrow on ertapenem, through 07/14/17, appt 10 am on 07/05/17, check in at registration located in ER 30 min prior --PICC line today --dc zosyn --start ertapenem 1gm IV daily --dc okay tomorrow prior to ID rounding Subjective: patient feeling well wants to go home as soon as possible Objective: Vital Signs Temp Pulse Resp BP Pulse Ox 36.8 C 107 H 18 116/74 95 07/03/17 12:00 07/03/17 12:00 07/03/17 12:00 07/03/17 12:00 07/03/17 12:00 Laboratory Results 07/02/17 05:20 07/02/17 05:20 07/02/17 07/03/17 07/04/17 05:59 05:59 05:59 Intake Total 4655 1773 Output Total 1950 1450 Balance 2705 323 - Physical Exam General Appearance: alert, no apparent distress EENT: pale conjunctiva, No scleral icterus Respiratory: No accessory muscle use Neck: supple Cardiac/Chest: irregularly irregular Extremities: No pedal edema Abdomen: non-tender, soft, other (urostomy RLQ attached to dowd bag) Skin: No rash Neuro/Psych: alert, normal mood/affect, oriented x 3 - Line/s other Lines: other (R subclavian TLC c/d/i), No drainage, No erythema - Time Spent With Patient Time Spent with Patient: greater than 25 minutes (reviewed risk benefits antibiotics, PICC line, planned course of therapy. implication of MDR bacteria) Time Spent with Patient: Greater than 25 minutes spent on this patients care, greater than 50% of time spent counseling, educating, and coordinating care regarding the above mentioned plan. ICD10 Worksheet Patient Problems: Problems Problem Status Onset Septic shock Acute UTI (urinary tract infection) Acute Anemia Acute Bladder cancer Acute C. difficile diarrhea Acute ~11/26/16 Congestive heart failure Acute Extended spectrum beta lactamase (ESBL) resistance Acute ~05/12/17 Fever Acute Hyponatremia Acute Thrombocytopenia Acute Wound dehiscence Acute
--- NOTE | 2017-07-03 15:14 | ASMTCMCOM ---
CM Note CM Note Notes: 07/03/2017 Case Management Note Discussed with Dr. Torres. Pt to d/c on Ertapenem. Pt will need antibiotics thru 07/14. Pt will to go the outpatient infusion center. already registered pt. Pt has follow up appointment at 10 AM on 07/05 in the outpatient clinics. Pt aware of above per Dr. Torres. Case Management to follow for further d/c needs. Date Signed: 07/03/2017 03:13 PM Electronically Signed By:Tara Flores RN
--- NOTE | 2017-07-03 15:29 | PDIAF ---
- Diagnosis Diagnosis: ESBL E coli UTI Code Status: Full Code - Medication Management Discharge Medications: Medications to Continue on Transfer Mometasone/Formoterol [Dulera 100 Mcg/5 Mcg Inhaler] 1 puffs IH HS 12/21/16 [ Last Taken 06/29/17] Montelukast Sodium [Singulair 10 mg (*)] 10 mg PO DAILY 12/21/16 [Last Taken 09/15] Probenecid [Probenecid 500mg (*)] 500 mg PO DAILY 12/22/16 [Last Taken 06/30/17] Furosemide [Lasix 40 MG (*)] 60 mg PO DAILY 04/12/17 [Last Taken 06/28/17] Mometasone/Formoterol [Dulera 100 Mcg/5 Mcg Inhaler] 2 puffs IH DAILY 05/02/17 [ Last Taken 06/30/17] Acetaminophen [Tylenol 325mg (*)] 650 mg PO Q4HRS PRN tab 06/02/17 [Last Taken Unknown] Amoxicillin/Clavulanate Pot [Augmentin 875 MG TAB (*)] 875 mg PO BID #16 tab 11/13 [Last Taken 06/30/17] Metoprolol Tartrate [Lopressor 50 mg (*)] 50 mg PO BID 06/30/17 [Last Taken 09/15 09:00] Sulfamethox/Tmp 800/160 mg [Bactrim Ds] 1 tab PO DAILY 06/30/17 [Last Taken 09/15] Real Estate Analyst Antibiotics: ertapenem 1gm IV daily [facility]dc Antibiotic Stop Date: 07/14/17 Discharge Medications: Refer to the Discharge Home Medication list for PRN reason. PICC Care - Routine: Yes - Orders Services needed: Home Nursing Home Care Face to Face: I certify that this patient was under my care and that I had the required [id number] encounter meeting the encounter requirements on the discharge day. My findings support the fact that the patient is homebound as defined in Home Care Face to Face Continued: CMS Chapter 7 Medicare Benefits Manual 30.1.1 , The condition of the patient is such that there exists a normal inability to leave home and consequently, leaving home would require a considerable and taxing effort. Isolation Type: Contact Isolation - Labs/Radiology CBC w/diff Date: 07/09/17 CMP Date: 07/09/17 Call or Fax Lab and Imaging Results to: Chiquis Torres MD [facility] at fax [phone] - Follow Up Care Current Providers and Referrals: Sofia Abarca MD [Primary Care Provider] - As per Instructions Benjamin Daley MD [Medical Doctor] - As per Instructions Chiquis Torres MD [Medical Doctor] - 07/11/17 1:00 pm
[2017-07-03] MEDS: PROBENECID 500 MG TAB PO SCH (15:33)
[2017-07-03] MEDS: DILTIAZEM CD 120 MG CAP PO SCH ×2 (16:18→22:16)
[2017-07-03] MEDS: LORazepam 1 MG TAB PO PRN (22:16)
[2017-07-03 23:19] VITALS: RESP 16
[2017-07-04] MEDS ORDERED: ERTAPENEM 1 GM VIAL IVP SCH (10:00)
[2017-07-04] MEDS: DILTIAZEM CD 120 MG CAP PO SCH (10:15)
[2017-07-04] MEDS: VANCOMYCIN 125 MG/2.5 ML UDL PO SCH (10:15)
[2017-07-04] MEDS: PROBENECID 500 MG TAB PO SCH (10:15)
[2017-07-04] MEDS: MONTELUKAST SODIUM 10 MG TAB PO SCH (10:15)
[2017-07-04] MEDS: ENOXAPARIN 40 MG/0.4 ML SYR SC SCH (10:16)
[2017-07-04] MEDS: Mometasone/Formoterol [Dulera 100 Mcg/5 Mcg Inhaler] IH SCH (10:16)
--- NOTE | 2017-07-04 10:40 | WOCRNPDOC ---
WOCRN Advanced Assessment Note - Skin Integrity Problem, Advanced Assess Medial Abdomen Surgical Wound/Incision Dressing Type: Abdominal Pads, Hydrofera Blue Ready Dressing Description: Clean/Dry, Intact Exudate Amount: Scant Exudate Characteristic(s): Serous Integumentary Issue Intervention: Visualized Under Dressing Rahel Wound Swelling: None Wound Bed Color: Red Wound Bed Constitution: Granulation Tissue, Red/[place] - Non Granular Tissue Wound Edges: Attached, Not Attached Skin Integrity Problem Comment: Wound dressing changed yesterday but HFB ready already turned white. D/C flora and change to HFB classic. Lots of moist drainage under wound bed. Discussed plan with ELIZABETH Bah. Wound care will round again next week.
[2017-07-04 14:09] VITALS: BP 113/80; PULSE 101; TEMP 97.8; O2SAT 92
--- NOTE | 2017-07-04 14:34 | PDDCSUM ---
Discharge Summary Discharge Summary: 76 yo M with hx of bladder cancer s/p ileal conduit and cystoprostatectomy with multiple recent hospitalizations for post operative complications admitted for septic shock, urinary source. Started on Zosyn and then changed to Ertapenem on 07/03. Plan is to continue Ertapenem through 07/14. He has an appt at the infusion center on 07/05. 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 Richard # chronic diastolic heart failure: appears compensated, will restart home diuretics at discharge # anemia: h/h trended down since admission but also received significant amount of fluid, recheck in an outpatient setting # bladder cancer: s/p ileal conduit/cystoprostatecomy with prolonged post op course complicated by ileus, surgical incision evisceration and fascial dehiscence requiring take back. Currently improved. # hx of c diff: will continue ppx po vanc while on broad spectrum abx. Prescription provided Exam: VSS NAD AAOX3 IRR/IRR CTA B S/NT/ND MEDS: SEE MED REC F/U: WITH INFUSION CENTER/ID, CARDIOLOGY (), PCP total time spent on discharge is 35 minutes
--- NOTE | 2017-07-05 09:14 | ASDISCHSUM ---
Discharge Information Plan Status:Home with Home Health Medically Cleared to Leave:07/03/2017 Discharge Date:07/04/2017 04:16 PM D/C Disposition: ADT D/C Disposition:Home, Routine, Self-Care Projected Discharge Date:07/04/2017 12:00 AM Transportation at D/C: Discharge Delay Reason: Follow-Up Date:07/04/2017 12:00 AM Discharge Slot: Final Diagnosis:Sepsis Placement Information Referral Type:*Home Health Care Services Referral ID:[id number] Provider Name:[facility] Address 1:[address] [place] [address] Address 2: City:[place] Selection Factors: State:[place] Patient Contact Information Contact Name:LUCAS Relationship: Address:[address] City:[place] Alternate Phone: State/Zip Code:[place] [address] Email: Financial Information Financial Class:Medicare How do you roll? Primary Plan Desc:[facility] [employer] Primary Plan Number:[id number] Secondary Plan Desc: Secondary Plan Number: Assessment Information BC CM Progress Note CM Note CM Note Notes: 76 year old male admitted for septic shock. has a recent hx of bladder CA and cystoprostatectomy with operative complications, Afib, CHF, C-diff, ESBL. Getting wound care, A & O x 4. CM to follow for discharge needs. Date Signed: 07/01/2017 05:24 PM Electronically Signed By:Sarah Francisco LCSW [facility] CM Progress Note CM Note CM Note Notes: 07/03/2017 Case Management Note Discussed with Dr. Torres. Pt to d/c on Ertapenem. Pt will need antibiotics thru 07/14. Pt will to go the outpatient infusion center. already registered pt. Pt has follow up appointment at 10 AM on 07/05 in the outpatient clinics. Pt aware of above per Dr. Torres. Case Management to follow for further d/c needs. Date Signed: 07/03/2017 03:13 PM Electronically Signed By:Tara Flores RN Case Management Discharge Plan Note Case Management Discharge Discharge Order Complete? Answers: Yes Patient to Obtain Answers: via Family Medications Transportation Arranged Answers: Family/Friends EMTALA Complete Answers: No Case Management Transport Answers: No Form Complete Faxed Final Orders Answers: Yes Agency/Facility Transfer Answers: Yes Report Printed & Faxed to Receiving Agency Family Notified Answers: No Discharge Comments Notes: Pt is being discharged today. ANDREY notified [facility] of pts discharge. provided ELIZABETH Bah w/ phone number to give report to [facility]. Pt will f/u with outpatient infusion until 07/14. CM available for changes. Plan: ELIZABETH SANTOS with outpatient infusion Date Signed: 07/04/2017 02:39 PM Electronically Signed By:YAZMIN Brooks Intervention Information
== END 2017-07-04 16:16 | disposition home health service (06) | DRG 871 ==
LOC: F2N 22:30 → F2W 07-02 18:18
PROVIDERS: ADMIT Internal Medicine; ATTEND Family Medicine
PROC: 02HV33Z Insertion of Infusion Device into Superior Vena Cava, Percutaneous Approach (ICD-10-PCS; principal; 2017-06-30)
PROC: 02HV33Z Insertion of Infusion Device into Superior Vena Cava, Percutaneous Approach (ICD-10-PCS; 2017-07-03)
DX: A41.9 Sepsis, unspecified organism (principal); R65.21 Severe sepsis with septic shock; N39.0 Urinary tract infection, site not specified; B96.20 Unspecified Escherichia coli [E. coli] as the cause of diseases classified elsewhere; I50.32 Chronic diastolic (congestive) heart failure; I48.91 Unspecified atrial fibrillation; D64.9 Anemia, unspecified; Z16.12 Extended spectrum beta lactamase (ESBL) resistance; Z90.6 Acquired absence of other parts of urinary tract; Z85.51 Personal history of malignant neoplasm of bladder; Z98.890 Other specified postprocedural states; E78.5 Hyperlipidemia, unspecified; I11.0 Hypertensive heart disease with heart failure; J45.909 Unspecified asthma, uncomplicated; N40.0 Benign prostatic hyperplasia without lower urinary tract symptoms
CPT/HCPCS: 96374; C1751; J1335; J1650; J2543; J3370

== ENCOUNTER → 2017-10-17 | Outpatient (CLI) | payer OTHER ==
[~2017-10-17] MED LIST changes: -IOPAMIDOL (ISOVUE-300) 100 ML BTL IV ONE; +IOTHALAMATE MEG (CYSTO-CONRAY II) 250 ML VIAL BLADIN ONE
== END ==
LOC: FIMAGING 12:41
PROVIDERS: ATTEND Urology
DX: Z87.440 Personal history of urinary (tract) infections (principal); Z90.6 Acquired absence of other parts of urinary tract
CPT/HCPCS: 74425; Q9961